=== PATIENT | male | born 1955 | race Caucasian/White ===

== ENCOUNTER 2022-06-15 10:19 | Inpatient (IN) | payer BC, OTHER ==
[2022-06-15] VITALS (16 sets, daily range): BP systolic 73–138; BP diastolic 38–76
[~2022-06-15] VITALS: Ht 177.8 cm; Wt 74.8 kg
--- NOTE | 2022-06-15 10:35 | NUR ---
TENNILLE FLORES SENT TO LAB AND MRSA SWAB SENT
[2022-06-15] MEDS ORDERED: LOSA50TA39 PO (10:40)
[2022-06-15] MEDS ORDERED: FENO160T PO (10:40)
[2022-06-15] MEDS ORDERED: LEVO112T2 PO (10:40)
[2022-06-15] MEDS ORDERED: BACL10TA PO (10:40)
[2022-06-15] MEDS ORDERED: PANT40TA2 PO (10:40)
[2022-06-15] MEDS ORDERED: DOCU-141 PO (10:40)
[2022-06-15] MEDS ORDERED: CLON1TAB12 PO (10:40)
[2022-06-15] MEDS ORDERED: SERT100T PO (10:40)
[2022-06-15] MEDS ORDERED: TAMS-12 PO (10:40)
[2022-06-15] MEDS ORDERED: MIRT7.5T10 PO (10:40)
[2022-06-15] MEDS ORDERED: OMEP20CA15 PO (10:40)
[2022-06-15] MEDS ORDERED: FINA5TAB11 PO (10:40)
[2022-06-15] MEDS ORDERED: TIZA4TAB5 PO ×2 (10:40)
[2022-06-15] MEDS ORDERED: RILU50TA4 PO (10:40)
[2022-06-15] MEDS ORDERED: GLYC2TAB21 PO (10:40)
[2022-06-15] MEDS ORDERED: POLY17PO4 PO (10:40)
[2022-06-15] MEDS ORDERED: BUPR75TA8 PO (10:40)
[2022-06-15] MEDS ORDERED: MELA3TAB41 PO (10:40)
[2022-06-15] MEDS ORDERED: ATOR10TA PO (10:40)
[2022-06-15] MEDS ORDERED: CHOL100043 PO (10:40)
[2022-06-15] MEDS ORDERED: ALLO300T2 PO (10:40)
[2022-06-15] MEDS ORDERED: ASPI-1169 PO (10:40)
[2022-06-15] MEDS ORDERED: SILO4CAP3 PO (10:58)
[2022-06-15] MEDS ORDERED: TUDCA PO (10:58)
[2022-06-15] MEDS ORDERED: [UNRECOGNIZED DRUG - CODE] PO (10:58)
--- NOTE | 2022-06-15 11:00 | NUR ---
[id number] FROM HOME, FOUND IN THE FLOOR, ALTERED AND IN RESPIRATORY DISTRESS. PLACED ON BED, RESPONDING TO VERBAL STIMULI, ATTACHED TO MONITOR SATURATING AT 90%RA. BLOOD DONOR RECRUITER AT BED SIDE ATTACHED TO VENTILATOR AC/PRVC- [id number]%, VT-500, RATE-16, PEEP-5 SATURATING AT 99%.
--- NOTE | 2022-06-15 11:01 | NUR ---
rt note patient received via EMS. open stoma, shiley 8dct cuffed inserted per dr. villela orders. trach tube patent and secure. equal bilateral chest rise and adequate volumes. vent settings as charted. [facility] bedside. vent alarms on and audible. vent plugged in red outlet. will continue to monitor. Addendum: 06/15/22 at 1104 by SIA SOLORZANO RT Amended: Links added.
--- NOTE | 2022-06-15 11:08 | NUR ---
RT Family member at bedside refusing ABG procedure. ABG currently on hold- MD Mariah collins.
[2022-06-15 11:30] LABS: BASOPHILS % (AUTO) 0.5 % (0.0-2.0); HEMATOCRIT 36 % (39-51); HEMOGLOBIN 11.4 g/dL (13.5-17.5); LYMPHOCYTES # (AUTO) 0.1 K/uL (0.8-4.8); LYMPHOCYTES % (AUTO) 1.1 % (20.0-44.0); MEAN CORPUSCULAR HGB CONC 32 g/dl (31.0-36.0); MEAN CORPUSCULAR VOLUME 94 fL (80-96); MONOCYTES # (AUTO) 0.3 K/uL (0.1-1.30); MONOCYTES % (AUTO) 4.3 % (2.0-12.0); NEUTROPHILS % (AUTO) 94.1 % (43.0-81.0); PLATELET COUNT (AUTO) 197 K/uL (150-450); RED BLOOD CELL COUNT(AUTO) 3.79 MIL/uL (4.5-6.0); WHITE BLOOD COUNT (AUTO) 6.4 K/uL (4.3-11.0)
[2022-06-15 11:40] LABS: BILIRUBIN,URINE NEGATIVE (NEGATIVE); COLOR,URINE YELLOW (YELLOW); LEUKOCYTE ESTERASE ,URINE NEGATIVE (NEGATIVE); NITRITE, URINE NEGATIVE (NEGATIVE); PROTEIN,URINE 30 mg/dl (NEGATIVE); UGLUCOSE NEGATIVE (NEGATIVE); UROBILINOGEN,URINE 0.2 EU/dL (0.2)
[2022-06-15 12:14] LABS: BACTERIA,URINE None seen /HPF (None Seen); SQUAMOUS EPITHELIAL CELL,UR Rare /HPF (None Seen); WBC,URINE 0-2 /HPF (0-3)
[2022-06-15 12:22] LABS: ALANINE AMINOTRANSFERASE 26 U/L (12-78); ALKALINE PHOSPHATASE 32 U/L (46-116); ASPARTATE AMINOTRANSFERASE 16 U/L (15-37); BILIRUBIN,DIRECT 0.1 mg/dL (0.0-0.2); BILIRUBIN,TOTAL 0.3 mg/dL (0.2-1.0); CALCIUM, SERUM 9.3 mg/dL (8.5-10.1); CHLORIDE 104 mmol/L (98-107); GLUCOSE 136 mg/dL (74-106); POTASSIUM 5.2 mmol/L (3.5-5.1); SODIUM SERUM 151 mmol/L (136-145); TOTAL PROTEIN, SERUM 7.1 g/dL (6.4-8.2); UREA NITROGEN, BLOOD 22 mg/dL (7-18)
[2022-06-15 12:24] LABS: CARBON DIOXIDE 44 mmol/L (21-32)
[2022-06-15] MEDS ORDERED: IV NS 0.9% 1,000 ML BAG IV ONE (12:30)
--- NOTE | 2022-06-15 12:40 | NUR ---
room [facility]
--- NOTE | 2022-06-15 12:56 | NUR ---
REPORT GIVEN TO CHELI RN ROOM 252 FOR DONAVON
[2022-06-15 13:53] LABS: ABG BASE EXCESS 14.3 mmol/L; ABG OXYGEN SATURATION 99.8 % (92.0-98.5); ABG PCO2 54.4 mmHg (35.0-45.0); ABG PH 7.481 (7.350-7.450); ABG PO2 419.8 mmHg (75.0-100.0); AaDO2 238.8 mmHg; MetHb 0.2 % (0.0-1.5); O2Hb 96.6 % (94.0-97.0); SITE, ABG Left Radial; VENT MODE, BG AC 16 500 100% +5
[2022-06-15] MEDS ORDERED: MAG HYDROX/AL HYDROX/SIMETH 30 ML UDC PO PRN (14:00)
[2022-06-15] MEDS ORDERED: ACETAMINOPHEN 325 MG TABLET PO PRN (14:00)
[2022-06-15] MEDS ORDERED: ONDANSETRON HCL/PF 4 MG/2 ML VIAL IVP PRN (14:00)
[2022-06-15] MEDS ORDERED: Z GUARD REMEDY 4 OZ OINT TP PRN (14:00)
[2022-06-15] MEDS ORDERED: IV D5/0.45 NACL 1,000 ML IV PRN (14:00)
[2022-06-15] MEDS ORDERED: MAGNESIUM HYDROXIDE 30 ML UDC PO PRN (14:00)
[2022-06-15] MEDS ORDERED: IV NS 0.9% 500 ML BAG IV ONE (15:00)
[2022-06-15] MEDS: ZOSYN IVPB 3.375 G in IV D5W 50ml IV SCH ×2 (15:01→22:19)
[2022-06-15] MEDS: ENOXAPARIN SODIUM 40 MG/0.4 ML DISP.SYRIN SQ SCH (15:11)
[2022-06-15] MEDS: NOREPINEPHRINE 8 MG in IV NS 0.9% 242 ML IV PRN (17:12)
[2022-06-15] MEDS ORDERED: VANCOMYCIN 1.25 GM in IV D5W 250 ML IV ONE (20:00)
[2022-06-15] MEDS ORDERED: EDAR30PI IV (20:06)
[2022-06-15] MEDS ORDERED: RADICAVA XX PRN (21:00)
[2022-06-15] MEDS: D5W IV SCH ×2 (21:00→22:11)
--- NOTE | 2022-06-15 21:21 | NUR ---
RT NOTE PT RECEIVED TRACHED WITH SHILEY [address] TRACH SECURED VIA TRACH TIE. ANOTHER TRACH TIE USED TO SECURE OMNI FLEX IN PLACE. PT AWAKE/ALERT. FAMILY @ BEDSIDE. VENT PLUGGED TO RED OUTLET. ALARMS ON AND AUDIBLE. NO RESPIRATORY DISTRESS NOTED. WILL MONITOR PT CLOSELY. TRACH TIE SEEMS TO BE HOLDING TRACH IN PLACE.
[2022-06-15] MEDS: HYDROCORTISONE SOD SUCCINATE 100 MG/2 ML VIAL IV SCH ×2 (22:19→22:20)
[2022-06-16] VITALS (96 sets, daily range): BP systolic 45–142; BP diastolic 19–85
[2022-06-16] MEDS: IV D5/0.45 NACL 1,000 ML IV PRN ×3 (01:07→20:07)
--- NOTE | 2022-06-16 01:09 | NUR ---
CAP COVERER. RECEIVED THE PT REST IN BED. TRACH TO VENT CONNECTED. JERI#7. AC 12, TV 450, FIO2 40%.PEEP 5. SAT 98%. NO ACUTE DISTRESS NOTED. FOOD AND NUTRITION SUPERVISOR SHOWING NSR. IV LT UPPER ARM EDUARDO CATH. LEVOPHED 0.1MCG /KG/MIN. IVF D51/2NS 125 ML/H. FC PATENT URINE HEMATURIA, DRAINING. HOB ELEAVTED. GT INTACT. NOP EXCEPT MEDS, TRACHEL SITE LEAKING. NOTED. MD LUONG MADE AWARE. ORDERED STOMA SITE SUTURE. PT BROTHER REFUSED TO DO THE SUTURE. PT BROTHER WANTS TO GIVE WATER ORALLY. PT HAS GT. I STATED TOMORROW SWALLOW EVALUATION. PT BROTHER REFUSED SWALLOW EVALUATION. WILL CONTINUE TO MONITOR VITALS.
--- NOTE | 2022-06-16 01:25 | NUR ---
RN NOTE RECEIVED PT WITH TRACH CONNECTED TO VENT AC 12 TV 450 FIO2 40% P5. NOT IN ANY DISTRESS. PT OPEN EYES TO VERBAL STIMULI. ON LEVOPHED AT 0.1MCG/KG/MIN AND D51/2 NS AT 125ML/HR, INFUSING WELL. KEANE IN PLACE, NOTED HEMATURIA. WILL CONTINUE TO MONITOR.
[2022-06-16] MEDS: ZOSYN IVPB 3.375 G in IV D5W 50ml IV SCH ×4 (03:04→22:26)
[2022-06-16 04:26] LABS: BASOPHILS % (AUTO) 0.1 % (0.0-2.0); EOSINOPHILS % (AUTO) 0.1 % (0.0-6.0); HEMATOCRIT 29 % (39-51); HEMOGLOBIN 9.6 g/dL (13.5-17.5); LYMPHOCYTES # (AUTO) 0.7 K/uL (0.8-4.8); LYMPHOCYTES % (AUTO) 9.1 % (20.0-44.0); MEAN CORPUSCULAR HGB CONC 34 g/dl (31.0-36.0); MEAN CORPUSCULAR VOLUME 91 fL (80-96); MONOCYTES # (AUTO) 0.6 K/uL (0.1-1.30); MONOCYTES % (AUTO) 8.5 % (2.0-12.0); NEUTROPHILS # (AUTO) 6.1 K/uL (1.8-8.9); NEUTROPHILS % (AUTO) 82.2 % (43.0-81.0); PLATELET COUNT (AUTO) 193 K/uL (150-450); RED BLOOD CELL COUNT(AUTO) 3.13 MIL/uL (4.5-6.0); WHITE BLOOD COUNT (AUTO) 7.4 K/uL (4.3-11.0)
[2022-06-16 04:45] LABS: CALCIUM, SERUM 8.6 mg/dL (8.5-10.1); CREATININE 1.1 mg/dL (0.6-1.3); MAGNESIUM 1.7 mg/dL (1.8-2.4); PHOSPHORUS 2.6 mg/dL (2.5-4.9)
[2022-06-16] MEDS: VANCOMYCIN 1 GM in IV D5W 250 ML IV SCH ×2 (05:20→17:47)
[2022-06-16] MEDS: HYDROCORTISONE SOD SUCCINATE 100 MG/2 ML VIAL IV SCH ×3 (05:20→21:10)
[2022-06-16] MEDS: NOREPINEPHRINE 8 MG in IV NS 0.9% 242 ML IV PRN (06:27)
--- NOTE | 2022-06-16 06:59 | NUR ---
RN NOTE PT SLEEPING, AROUSES EASILY, ALERT, FOLLOW SOME COMMANDS. TOLERATES VENT SETTINGS, NO RESP DISTRESS NOTED. O2 SAT AT 100%. CONTINUE ON LEVOPHED DRIP, TITRATED PER PROTOCOL, RUNNING 0.06MCG/KG/MIN. D5 1/2 NS RUNNING AT 125 ML/HR. KEANE NOW DRAINING CLEAR YELLOW. TURNED AND REPOSITIONED. WILL ENDORSE TO NEXT SHIFT NURSE FOR DONAVON.
--- NOTE | 2022-06-16 07:30 | NUR ---
RN OPENING NOTE PT OBSERVED IN BED WITH HOB >30 DEGREES. PT ENDORSED A/0X2 PT IS ON MECHANICAL VENT WITH ALL PRESCRIBED SETTINGS TOLERATING WELL WITH NO SIGNS OF LABORED BREATHING OR DISTRESS O2 SAT 99%. FC IS IN PLACE DRAINING URINE TO GRAVITY. IV ACCESS R UA INFUSING WITH D5@125ML/HR AND LEVO @ 0.06MCG. BED IS LOCKED IN LOWEST POSITION X 2 BEDRAILS UP AND ALL HOSPITAL SAFETY PROTOCOLS ARE IN PLACE. WILL CONTINUE TO MONITOR THIS SHIFT.
[2022-06-16] MEDS ORDERED: Magnesium 1GM/D5W 100ML PREMIX 100 ML IV SCH (08:00)
[2022-06-16] MEDS ORDERED: IV NS 0.9% 250 ML IV PRN (08:30)
[2022-06-16 09:31] LABS: ABG BASE EXCESS 10.4 mmol/L; ABG OXYGEN SATURATION 99.5 % (92.0-98.5); ABG PCO2 51.4 mmHg (35.0-45.0); ABG PH 7.458 (7.350-7.450); ABG PO2 128.3 mmHg (75.0-100.0); AaDO2 97.8 mmHg; MetHb 0.1 % (0.0-1.5); O2Hb 96.4 % (94.0-97.0); PEEP,BG 5 cm H2O; SITE, ABG Right Radial; VT, ABG 450 mL
[2022-06-16] MEDS: JEVITY 1.2 CAL 1,000 ML BOTTLE GT PRN (11:56)
--- NOTE | 2022-06-16 12:00 | NUR ---
RN NOTE: TF JEVITY 1.2 STARTED AT 20ML/HR; ADVANCE Q4H +15ML/HR TOLERATED; GOAL 70ML/HR. WILL CONTINUE TO MONITOR THIS SHIFT.
[2022-06-16] MEDS: ENOXAPARIN SODIUM 40 MG/0.4 ML DISP.SYRIN SQ SCH (13:54)
--- NOTE | 2022-06-16 19:14 | NUR ---
RN CLOSING NOTE PT IS IN BED WITH HOB >30 DEGREES. PT IS A/0X2 AND NODS HEADS AND ANSWERS SIMPLE QUESTIONS. PT IS ON MECHANICAL VENT WITH ALL PRESCRIBED SETTINGS TOLERATING WELL WITH NO SIGNS OF LABORED BREATHING OR DISTRESS O2 SAT 98%. PEG IS INFUSING WITH JEVITY 1.2 @35ML/HR; ADVANCE Q4H +15ML TOLERATED; GOAL OF 70ML/HR. FC IS IN PLACE DRAINING URINE TO GRAVITY -1350ML. IV ACCESS R UA INFUSING WITH D5@125ML/HR AND LEVO @ 0.01MCG. BED IS LOCKED IN LOWEST POSITION X 2 BEDRAILS UP AND ALL HOSPITAL SAFETY PROTOCOLS ARE IN PLACE. WILL ENDORSE TO KEY ACCOUNT COORDINATOR NURSE FOR DONAVON.
--- NOTE | 2022-06-16 19:55 | NUR ---
RN NOTE RECEIVED PT WITH TRACH CONNECTED TO MECHVENT. PT AWAKE ALERT, PT MOUTHING WORDS. FAMILY AT BEDSIDE. NO SIGNS OF DISTRESS NOTED. PEG TUBE IN PLACE, WITH JEVITY FEEDING AT 35ML/HR, WITH GOAL RATE OF 70ML/HR. NO RESIDUALS NOTED, INCREASED FEEDING RATE TO 50ML/HR. ON LEVOPHED AT 0.01MCG/KG/MIN AND D5 1/2NS AT 125ML/HR, INFUSING WELL. KEANE DRAINING CLEAR YELLOW URINE BY GRAVITY. WILL CONTINUE TO MONITOR.
--- NOTE | 2022-06-16 20:00 | NUR ---
RT Notes Pt received trached w/ Shiley #8 cuffed on mech vent on charted AC mode settings. No signs of resp distress/SOB noted. Pt suctioned and obtained sputum for sputum culture. Alarms set and audible. Vent plugged into red outlet. Ambubag at bedside. Will cont to monitor.
[2022-06-16] MEDS: D5W IV SCH ×2 (21:10→22:01)
[2022-06-17] VITALS (45 sets, daily range): BP systolic 91–155; BP diastolic 43–93
--- NOTE | 2022-06-17 00:10 | NUR ---
RN NOTE PT TOLERATING GT FEEDING, NO RESIDUALS, INCREASED RATE TO 70ML/HR GOAL RATE. KEPT HOB ELEVATED. LEVOPHED DRIP STOPPED AT 2345, BP WNL. WILL CONTINUE TO MONITOR.
[2022-06-17] MEDS: ZOSYN IVPB 3.375 G in IV D5W 50ml IV SCH ×4 (03:30→20:35)
[2022-06-17] MEDS: HYDROCORTISONE SOD SUCCINATE 100 MG/2 ML VIAL IV SCH (04:47)
[2022-06-17 05:31] LABS: BASOPHILS % (AUTO) 0.1 % (0.0-2.0); EOSINOPHILS % (AUTO) 0.1 % (0.0-6.0); HEMATOCRIT 27 % (39-51); HEMOGLOBIN 9.1 g/dL (13.5-17.5); LYMPHOCYTES % (AUTO) 5.5 % (20.0-44.0); MEAN CORPUSCULAR HGB CONC 33 g/dl (31.0-36.0); MEAN CORPUSCULAR VOLUME 91 fL (80-96); MONOCYTES % (AUTO) 4.5 % (2.0-12.0); NEUTROPHILS % (AUTO) 89.8 % (43.0-81.0); PLATELET COUNT (AUTO) 159 K/uL (150-450); WHITE BLOOD COUNT (AUTO) 4.2 K/uL (4.3-11.0)
[2022-06-17 05:32] LABS: LYMPHOCYTES # (AUTO) 0.2 K/uL (0.8-4.8); MONOCYTES # (AUTO) 0.2 K/uL (0.1-1.30); NEUTROPHILS # (AUTO) 3.8 K/uL (1.8-8.9)
[2022-06-17] MEDS: IV D5/0.45 NACL 1,000 ML IV PRN ×3 (05:51→23:52)
[2022-06-17 06:03] LABS: CALCIUM, SERUM 8.7 mg/dL (8.5-10.1); CREATININE 1.1 mg/dL (0.6-1.3); MAGNESIUM 1.8 mg/dL (1.8-2.4); PHOSPHORUS 3.2 mg/dL (2.5-4.9); POTASSIUM 3.2 mmol/L (3.5-5.1)
[2022-06-17] MEDS: VANCOMYCIN 1 GM in IV D5W 250 ML IV SCH ×2 (06:39→17:51)
--- NOTE | 2022-06-17 07:15 | NUR ---
CRACKING MACHINE OPERATOR Bedside report taken from [facility] nurse Cynthia GUTIERREZ. pt has trach to vent, tolerating well, pt awake, alert and oriented, mouths words, follows commands, moves bue and ble 4/5. fio2 40% spo2 98%, beulah lung sounds clear. pt NSR on monitor 62, bue and ble pulses present. pt has peg, pt receiving Jevity 1.2 @ 70 ml/hr, tolerating well. bowel sounds present. positive placement verified. abdomen soft, nondistended. pt has galindo intact and draining ryan colored urine. all lines traced. all drips verified. safety measures in place. will continue to monitor
--- NOTE | 2022-06-17 07:18 | NUR ---
RN NOTE PT ABLE TO MAKE NEEDS KNOWN. CONTINUE WITH VENT SETTINGS ON AC MODE, TOLERATING. NO SIGNS OF RESP DISTRESS. PT TOLERATES GT FEEDING AT 70ML/HR, NO RESIDUALS NOTED. KEPT HOB ELEVATED. REMAIN AFEBRILE. ALL DUE MEDS GIVEN, TURNED AND REPOSITIONED. ENDORSED TO BEN FOR DONAVON.
--- NOTE | 2022-06-17 07:48 | NUR ---
LINE UP EXAMINER Dr Healy at bedside assessing pt and updated on pt status. no new orders at this time. will continue to monitor.
--- NOTE | 2022-06-17 08:00 | NUR ---
GLOBAL SALES MANAGER Pt placed on weaning trial. pt awake, alert and oriented. tolerating well. vitals stable. will continue to monitor.
[2022-06-17] MEDS: POTASSIUM CL. PREMIX PERIPHER. 50 ML IV SCH ×4 (08:03→11:30)
[2022-06-17 08:07] LABS: ABG BASE EXCESS -0.5 mmol/L; ABG OXYGEN SATURATION 98.5 % (92.0-98.5); ABG PCO2 38.6 mmHg (35.0-45.0); ABG PH 7.411 (7.350-7.450); ABG PO2 152.1 mmHg (75.0-100.0); AaDO2 522.3 mmHg; COHb 0.3 % (0.5-1.5); MetHb 0.2 % (0.0-1.5); SITE, ABG Left Radial
--- NOTE | 2022-06-17 08:24 | NUR ---
PHARMACY INTAKE TECHNICIAN Dr Boyd at bedside assessing pt and updated on pt status. no new orders at this time. will continue to monitor.
--- NOTE | 2022-06-17 08:45 | NUR ---
MECHANICAL INSULATOR pt complains of difficulty breathing. pt spo2 98%, pt anxious. pt suctioned, small amount thick white secretions. RT called and at bedside pt placed back on AC vent settings, charge nurse Jesus RN aware. no signs of acute distress at this time.
--- NOTE | 2022-06-17 08:50 | NUR ---
OPTOMETRIC COORDINATOR Pt brother Kenny [phone] called and updated on pt condition and weaning trial status. brother requested to come to bedside per pt. bother to come shortly.
--- NOTE | 2022-06-17 08:51 | NUR ---
CONSUMER EDUCATOR Dr Boyd at bedside assessing pt and updated on pt status. md aware that pt weaning from 8:00 am- 08:45 am complaining of difficulty breathing but spo2 98%, RT called to bedside and pt placed back on AC vent settings. ok per md. Per md once brother is at bedside place pt back on weaning trial to see if he is able to tolerate weaning for a longer period of time. no other orders at this time. Charge nurse Jesus GUTIERREZ aware.
--- NOTE | 2022-06-17 11:21 | NUR ---
PRE PAROLE COUNSELING AIDE Mining [employer] Quarrying Machinery Repairer Gavi Vergara called per pt family request to follow up on documents for out of country visitors, message left, call back number left. charge nurse, pt and pt family aware. awaiting call back.
--- NOTE | 2022-06-17 12:56 | NUR ---
SS Note: Per family's request, SW provided verification of admission letter for family member to come to the [place] to see their father/patient.SW spoke to the pt.'s son, Kendrick Mckinney [phone] on 06/17/2022 and discussed loss and grief symptoms and coping skills. SW provided completed letter today to family, [place] [phone]. SW also provided grief support group referrals, educational material on stages of loss and grief and also resources for [employer].
[2022-06-17] MEDS: ENOXAPARIN SODIUM 40 MG/0.4 ML DISP.SYRIN SQ SCH (14:50)
--- NOTE | 2022-06-17 15:28 | NUR ---
CLAIMS COUNSEL Dr Healy messaged per pt request for anxiety medication. verbal order for ativan 0.5 ml iv q6 entered per md order and witnessed with charge nurse Jesus GUTIERREZ.
[2022-06-17] MEDS: LORAZEPAM INJ 2 MG/ML VIAL IV PRN ×2 (15:43→22:16)
--- NOTE | 2022-06-17 17:14 | NUR ---
GAMBLING BOX PERSON pt had bm, pt bathed and cleaned. linen change done. skin check done, no new wounds noted, skin intact. pt able to turn and hold himself to the side and assist with bath in bed. pt tolerated well but was anxious, pt desaturated to 92% was not sustained and increased back to 98%. trach dressing changed per protocol. all lines traced. all drips verified. safety measures in place. at bedside. will continue to monitor.
--- NOTE | 2022-06-17 19:09 | NUR ---
BOX TRUCK DRIVER Bedside report given to [facility] nurse Ari GUTIERREZ. Pt asleep, easily arousable. pt has trach to vent, tolerating well but has moments of anxiety. pt clean and dry. all lines traced. all drips verified. safety measures in place. no signs of acute distress at this time.
--- NOTE | 2022-06-17 19:50 | NUR ---
RN NOTES RECEIVED CARE OF PATIENT FROM AM NURSE, PATIENT IS AWAKE, ALERT AND ORIENTED, ABLE TO FOLLOW COMMANDS AND MAKE NEEDS KNOWN, PATIENT ABLE TO MOUTH WORDS. PATIENT UNDER MECHANICAL VENTILATION WITH ORDERED SETTINGS TOLERATING WELL, BREATHING EVENLY AND UNLABORED, SUCTIONED SMALL AMOUNTS OF WHITE SECRETIONS FROM TRACH. PATIENT ON TELE MONITOR READING NSR WITH BBB, HR F 69, NO SIGNS OF DISTRESS NOTED. PATIENT RUNNING WITH JEVITY 1.2 AT 70 ML/HR, NO RESIDUAL NOTED. KEANE CATH IN PLACE, PATENT, DRAINING YELLOW URINE TO GRAVITY. PLAN OF CARE REVIEWED, SAFETY MEASURES IMPLEMENTED. WILL EXECUTE PLAN OF CARE AND CONTINUE TO MONITOR PATIENT.
--- NOTE | 2022-06-17 20:07 | NUR ---
RECEIVED PT TRACH ON [facility] VENT. PT IS AWAKE AND ALERT NO RESP DISTRESS NOTED. PT REFUSED TO BE SUCTION AT THIS TIME. VENT ALARMS SET AND AUDIBLE. AMBU BAG AT BEDSIDE. TRACH SECURE, CUFF CHECKED. WILL CONTINUE TO MONITOR. Addendum: 06/17/22 at 2010 by WILLIAM MARQUEZ RT Amended: Links added.
[2022-06-17] MEDS ORDERED: HYDROCORTISONE SOD SUCCINATE 100 MG/2 ML VIAL IV SCH (21:00)
[2022-06-17] MEDS: D5W IV SCH ×2 (21:12→22:30)
--- NOTE | 2022-06-17 22:30 | NUR ---
RN NOTES PATIENT BECAME EXTREMELY AGITATED AFTER HAVING RECEIVED A BED BATH, PATIENT ATTEMPTING TO GET OUT OF BED, NON COMPLIANT, PATIENT WAS INSTRUCTED TO LAY BACK IN BED. PATIENT REFUSED AND PULLED OUT TRACH AND SELF EXTUBATED, RT WAS PRESENT AT THIS TIME. RT PUT TRACH BACK IN PLACE IMMEDIATELY. PATIENT'S BROTHER WAS NOTIFIED, HOSPITALIST MACHINE TOOL BUILDER NOTIFIED, ORDER IS TO PLACE PATIENT ON SOFT BILATERAL WRIST RESTRAINS, PATIENT'S BROTHER AGREES WITH NEW ORDERS. ATIVAN 0.5 MG PRN WAS GIVEN FOR AGGITATION AND ANXIETY.
[2022-06-17] MEDS: JEVITY 1.2 CAL 1,000 ML BOTTLE GT PRN (23:52)
[2022-06-18] VITALS (24 sets, daily range): BP systolic 83–120; BP diastolic 35–71
[2022-06-18] MEDS: ZOSYN IVPB 3.375 G in IV D5W 50ml IV SCH ×4 (03:06→21:07)
[2022-06-18 05:06] LABS: EOSINOPHILS % (AUTO) 0.1 % (0.0-6.0); HEMATOCRIT 29 % (39-51); HEMOGLOBIN 9.4 g/dL (13.5-17.5); LYMPHOCYTES # (AUTO) 0.2 K/uL (0.8-4.8); LYMPHOCYTES % (AUTO) 3.7 % (20.0-44.0); MEAN CORPUSCULAR HGB CONC 33 g/dl (31.0-36.0); MEAN CORPUSCULAR VOLUME 92 fL (80-96); MONOCYTES # (AUTO) 0.3 K/uL (0.1-1.30); MONOCYTES % (AUTO) 4.7 % (2.0-12.0); NEUTROPHILS # (AUTO) 5.6 K/uL (1.8-8.9); NEUTROPHILS % (AUTO) 91.5 % (43.0-81.0); PLATELET COUNT (AUTO) 179 K/uL (150-450); RED BLOOD CELL COUNT(AUTO) 3.12 MIL/uL (4.5-6.0); WHITE BLOOD COUNT (AUTO) 6.1 K/uL (4.3-11.0)
[2022-06-18 05:21] LABS: CALCIUM, SERUM 8.8 mg/dL (8.5-10.1); CREATININE 1.2 mg/dL (0.6-1.3); MAGNESIUM 1.9 mg/dL (1.8-2.4); PHOSPHORUS 4.1 mg/dL (2.5-4.9); POTASSIUM 3.8 mmol/L (3.5-5.1)
[2022-06-18] MEDS: VANCOMYCIN 1 GM in IV D5W 250 ML IV SCH ×2 (06:02→18:15)
--- NOTE | 2022-06-18 06:27 | NUR ---
RN NOTES WILL ENDORSE CARE OF PATIENT TO AM NURSE, PATIENT IN BED, ANXIOUS WITH INTERMITTENT SLEEP. REPOSITIONED PATIENT FOR COMFORT, NO PAIN EXPRESSED BY PATIENT. PATIENT WITH TRACH ON MECHANICAL VENTILATION WITH ORDERED SETTINGS, TOLERATING WELL, O2 SAT 99%. PATIENT' TELE MONITOR READS NSR WITH HR OF 66, NO DISTRESS NOTED ON PATIENT. PATIENT EDUCATION PROVIDED ON IMPORTANCE OF COMPLIANCE WITH MEDICAL CARE, PLAN OF CARE REVIEWED WITH PATIENT, PATIENT NEEDS FURTHER EDUCATION. SAFETY MEASURES IMPLEMENTED PER HOSPITAL PROTOCOLS. WILL ENDORSE CARE OF PATIENT TO AM NURSE FOR DONAVON.
--- NOTE | 2022-06-18 08:48 | NUR ---
RN/ICU PT FOUND AWAKE AND ALERT A/O X4 ADMITTED FOR RESPIRATORY FAILURE. O2 SAT 98% NO S/S OF RESPIRATORY DISTRESS. BREATHING IS EVEN AND UNLABORED. CHANGED TO CPAP PER DOCTOR PELEGS ORDERS TOLERATING WELL. BEDSIDE MONITOR SHOWS SR @65 KEANE CATHETER DRAINING YELLOW URINE. OFF RESTRAINS TRIAL AND CLOSELY MONITORING GLAZIER STRUCTURAL GLASS REPORTED THERE WAS AN EPISODE OF AGITATION AND THE PT DECANNULATED HIMSELF. PT IS CONTENT WITH BM'S AND BEDPAN. RAMIREZ PORTACATH RUNNING TKO AND FLUIDS. LABS REVIEWED ALL LABS WNL. HOB ELVATED TO 45 DEGREES PT HAS CALL LIGHT WITHIN REACH WILL CONTINUE TO MONITOR.
--- NOTE | 2022-06-18 09:09 | NUR ---
RESPIRATIONS ON CPAP WERE NOT SUFFICIENT, PT PLACED BACK ON AC
--- NOTE | 2022-06-18 09:16 | NUR ---
ABG DEFERRED. PT DID NOT TOLERATE CPAP TRIAL RN NOTIFIED
[2022-06-18] MEDS: ENOXAPARIN SODIUM 40 MG/0.4 ML DISP.SYRIN SQ SCH (13:35)
[2022-06-18 14:33] LABS: ABG BASE EXCESS 8.4 mmol/L; ABG OXYGEN SATURATION 98.9 % (92.0-98.5); ABG PCO2 41.5 mmHg (35.0-45.0); ABG PH 7.508 (7.350-7.450); ABG PO2 114.2 mmHg (75.0-100.0); AaDO2 123.3 mmHg; COHb 2.4 % (0.5-1.5); MetHb 0.1 % (0.0-1.5); O2Hb 96.4 % (94.0-97.0); SITE, ABG Right Radial
--- NOTE | 2022-06-18 19:10 | NUR ---
RN NOTES RECEIVED REPORT FROM MORNING RN. PATIENT IN CHAIR AWAKE A/O X4 MOUTH WORDS NO SOB NO DISTRESS NOTED AT THIS TIME O2 SAT 98%. BREATHING IS EVEN AND UNLABORED.ON TRACH CONNECTED TO MV WITH PRESCRIBED SETTINGS. BEDSIDE MONITOR SHOWS SR@ 78. KEANE CATHETER PATENT CONNECTED TO URINE BAG DRAINING YELLOW URINE. WITH GT PATENT CONNECTED TO CONTINUOS FEEDING JEVITY@ 70ML/HR. WITH IV ACCESS RAMIREZ TIFFANY CATH RUNNING TKO AND FLUIDS. HOB ELEVATED TO 45 DEGREES, ALL SAFETY MEASURES IN PLACE AT ALL TIMES HAS CALL LIGHT WITHIN REACH WILL CONTINUE TO MONITOR PATIENT.
--- NOTE | 2022-06-18 20:05 | NUR ---
RN NOTES RECEIVED CALL FROM DR SLADE TO DEON GOODWIN. Addendum: 06/18/22 at 2206 by CORY LIM RN ADDENDUM WRONG PATIENT.
[2022-06-18] MEDS: D5W IV SCH ×2 (21:07→21:36)
[2022-06-19] VITALS (19 sets, daily range): BP systolic 93–186; BP diastolic 26–127
[2022-06-19] MEDS: JEVITY 1.2 CAL 1,000 ML BOTTLE GT PRN ×2 (00:18→20:18)
[2022-06-19] MEDS: ZOSYN IVPB 3.375 G in IV D5W 50ml IV SCH ×4 (02:31→21:29)
[2022-06-19 04:15] LABS: BASOPHILS % (AUTO) 0.4 % (0.0-2.0); EOSINOPHILS % (AUTO) 2.2 % (0.0-6.0); HEMATOCRIT 27 % (39-51); LYMPHOCYTES # (AUTO) 0.5 K/uL (0.8-4.8); LYMPHOCYTES % (AUTO) 10.6 % (20.0-44.0); MEAN CORPUSCULAR HGB CONC 33 g/dl (31.0-36.0); MEAN CORPUSCULAR VOLUME 92 fL (80-96); MONOCYTES # (AUTO) 0.3 K/uL (0.1-1.30); MONOCYTES % (AUTO) 7.3 % (2.0-12.0); NEUTROPHILS # (AUTO) 3.7 K/uL (1.8-8.9); NEUTROPHILS % (AUTO) 79.5 % (43.0-81.0); PLATELET COUNT (AUTO) 160 K/uL (150-450); RED BLOOD CELL COUNT(AUTO) 2.96 MIL/uL (4.5-6.0); WHITE BLOOD COUNT (AUTO) 4.7 K/uL (4.3-11.0)
[2022-06-19 04:52] LABS: CALCIUM, SERUM 9.2 mg/dL (8.5-10.1); CREATININE 1.4 mg/dL (0.6-1.3); MAGNESIUM 1.7 mg/dL (1.8-2.4); PHOSPHORUS 4.4 mg/dL (2.5-4.9); POTASSIUM 3.5 mmol/L (3.5-5.1)
[2022-06-19] MEDS: VANCOMYCIN 1 GM in IV D5W 250 ML IV SCH (05:48)
--- NOTE | 2022-06-19 07:06 | NUR ---
RN NOTES PATIENT REMAINS STABLE NO SIGNIFICANT CHANGES NO SOB NO DISTRESS NOTED AT THIS TIME.. WITH TRACH CONNECTED TO MV WITH PRESCRIBED SETTINGS. GT PATENT CONNECTED TO CONTINUOS GTF @ 70CC/HR. KEANE PATENT DRAINING YELLOWISH URINE OUTPUT. WITH PORT CATH RAMIREZ INTACT PATENT. ALL SAFETY MEASURES IN PLACE AT ALL TIMES. HOB ELEVATED. CALL LIGHT WITHIN REACH. WILL ENDORSED TO MORNING SHIFT FOR DONAVON
--- NOTE | 2022-06-19 07:30 | NUR ---
OPENING NOTE: REPORT RECEIVED FROM POLA GUTIERREZ. ORDERS AND LABS REVIEWED DURING REPORT. PER REPORT PT ALERT OX3. TRACH/VENT ON CPAP. PT CHECKED ON HOURLY AND PRN BY NURSING STAFF.
--- NOTE | 2022-06-19 07:38 | NUR ---
pt placed on cool aerosol 28% per md order. avni well at this time
--- NOTE | 2022-06-19 08:00 | NUR ---
PT WANTED TUBE FEEDING STOPPED AT THIS TIME. PEG TUBE FLUSHED PER MD ORDERS.
[2022-06-19] MEDS: LORAZEPAM INJ 2 MG/ML VIAL IV PRN (11:48)
[2022-06-19] MEDS: Magnesium 1GM/D5W 100ML PREMIX 100 ML IV SCH ×2 (11:49→14:06)
--- NOTE | 2022-06-19 13:00 | NUR ---
PT CONTINUES TO WANT PEG TUBE CLAMPED AND NOT HAVE TUBE FEEDING INFUSING. PEG TUBE FLUSHED PER MD ORDERS
[2022-06-19] MEDS: ENOXAPARIN SODIUM 40 MG/0.4 ML DISP.SYRIN SQ SCH (15:44)
--- NOTE | 2022-06-19 16:55 | NUR ---
PT TRANSFERRED TO ROOM 116-2 VIA BED USING ACLS PROTOCOL. PT SETTLED IN ROOM. BEDSIDE REPORT GIVEN TO CAROL ANN GUTIERREZ.
--- NOTE | 2022-06-19 17:08 | NUR ---
RECEIVED PATIENT IN BED, TRANSFER FROM ICU ACCOMPANIED BY NURSE BRITTON. ENDORSEMENT DONE AT BEDSIDE. PATIENT ON COOL AEROSOL, TRACH # 8, FI02 28%. NO RESPIRATORY DISTRESS NOTED. ALERT, ORIENTED X 2 AND COMMUNICATES THROUGH WRITING. PATIENT IS ACCOMPANIED BY FAMILY MEMBER. SR ON TELE MONITOR WITH HR OF 87. HAS LEFT UPPER ARM PORTACATH, PATENT AND FLUSHES WELL. KEANE CATHETER INTACT, DRAINING WITH YELLOW URINE, NO BLOOD AND NO SEDIMENTATION NOTED. GTUBE INTACT, NO RESIDUAL, FLUSHES WELL. HOB KEPT ELEVATED, CALL LIGHT WITHIN REACH, BED LOCKED AND IN LOWEST POSITION. WILL CONTINUE TO MONITOR PATIENT THE REST OF THE SHIFT.
--- NOTE | 2022-06-19 19:08 | NUR ---
RADIATION TECHNICIAN CLOSING NOTES: PATIENT IN BED, AWAKE, ALERT, ORIENTED X 2. NO RESPIRATORY DISTRESS NOTED. ON COOL AEROSOL ORDERED. SR ON TELE MONITOR. IV ACCESS ON RAMIREZ PORTACATH INTACT. KEANE CATHETER INTACT, DRAINING WITH YELLOW VIC URINE. PATIENT USED BEDSIDE COMMODE WITH ASSISTANCE. BED LOCKED AND IN LOWEST POSITION, CALL LIGHT WITHIN REACH. WILL ENDORSE TO NEXT SHIFT NURSE
--- NOTE | 2022-06-19 19:10 | NUR ---
RN NOTES RECEIVED REPORT FROM MORNING RN. PATIENT IN BED AWAKE A/O X4 MOUTH WORDS NO SOB NO DISTRESS NOTED AT THIS TIME O2 SAT 98%. BREATHING IS EVEN AND UNLABORED.ON TRACH CONNECTED TO COOL AEROSOL @ 40%. ON TELE MONITOR WITH SR @ 74. KEANE CATHETER PATENT CONNECTED TO URINE BAG DRAINING YELLOW URINE. WITH GT PATENT PATENT AND INTACT. PATIENT REFUSED FEEDING PER MORNING RN. EXPLAINED TO PATIENT RISK AND BENEFITS AND PATIENT AGREED TO TURN ON FEEDING AT NIGHT AT 70CC/HR WITH IV ACCESS RAMIREZ TIFFANY CATH RUNNING TKO. HOB ELEVATED TO 45 DEGREES, ALL SAFETY MEASURES IN PLACE AT ALL TIMES HAS CALL LIGHT WITHIN REACH WILL CONTINUE TO MONITOR PATIENT.
[2022-06-19] MEDS: D5W IV SCH ×2 (21:22→21:59)
[2022-06-20] VITALS: BP 91/63
[2022-06-20 04:00] VITALS: BP 101/75
[2022-06-20] MEDS: ZOSYN IVPB 3.375 G in IV D5W 50ml IV SCH ×4 (04:00→21:21)
[2022-06-20 06:45] LABS: BASOPHILS % (AUTO) 0.2 % (0.0-2.0); HEMATOCRIT 29 % (39-51); HEMOGLOBIN 9.6 g/dL (13.5-17.5); LYMPHOCYTES # (AUTO) 0.3 K/uL (0.8-4.8); LYMPHOCYTES % (AUTO) 6.8 % (20.0-44.0); MEAN CORPUSCULAR HGB CONC 33 g/dl (31.0-36.0); MEAN CORPUSCULAR VOLUME 92 fL (80-96); MONOCYTES # (AUTO) 0.3 K/uL (0.1-1.30); MONOCYTES % (AUTO) 6.5 % (2.0-12.0); NEUTROPHILS # (AUTO) 3.9 K/uL (1.8-8.9); NEUTROPHILS % (AUTO) 83.5 % (43.0-81.0); PLATELET COUNT (AUTO) 186 K/uL (150-450); RED BLOOD CELL COUNT(AUTO) 3.16 MIL/uL (4.5-6.0); WHITE BLOOD COUNT (AUTO) 4.6 K/uL (4.3-11.0)
[2022-06-20 06:53] LABS: CALCIUM, SERUM 9.6 mg/dL (8.5-10.1); CREATININE 1.7 mg/dL (0.6-1.3); MAGNESIUM 2.3 mg/dL (1.8-2.4); PHOSPHORUS 5.7 mg/dL (2.5-4.9); POTASSIUM 3.6 mmol/L (3.5-5.1)
[2022-06-20 08:00] VITALS: BP 101/75
--- NOTE | 2022-06-20 11:47 | NUR ---
RN NOTE PT RESTING IN BED, AWAKE ALERT AND RESPONSIVE. TRACH IN PLACE WITH VENT SETTINGS ON CPAP MODE, TOLERATED WELL. WITH IV ACCESS ON RAMIREZ PORTACATH IN PLACE AND PATENT. SAFETY MEASURES FOLLOWED. WILL CONT TO MONITOR.
[2022-06-20 12:00] VITALS: BP 94/58
[2022-06-20] MEDS: ENOXAPARIN SODIUM 40 MG/0.4 ML DISP.SYRIN SQ SCH (13:37)
[2022-06-20 16:00] VITALS: BP 107/71
--- NOTE | 2022-06-20 16:35 | NUR ---
RT Patient received awake and alert on CPAP 40% PS 20 PEEP +5. Order for cool aerosol during day shift. Patient requested to stay on vent. Suctioned small amount of thick secretions. Trach secured and patent. Back up trach and ambu bag at bedside. Vent plugged into red outlet with alarms on and audible. No SOB or respiratory distress noted.
[2022-06-20] MEDS: POLYETHYLENE GLYCOL 3350 17 GM POWD.PACK PO SCH (17:30)
[2022-06-20] MEDS ORDERED: Medication Not On Formulary EA (Mirtazapine 7.5 MG) PO SCH (18:00)
[2022-06-20] MEDS: SERTRALINE HCL 50 MG TABLET PO SCH (18:24)
[2022-06-20] MEDS: DOCUSATE SODIUM 100 MG CAPSULE PO SCH (18:25)
[2022-06-20] MEDS: TIZANIDINE HCL 4 MG TABLET PO SCH (18:25)
[2022-06-20] MEDS: BACLOFEN (10 MG) 10 MG TABLET PO SCH (18:25)
[2022-06-20] MEDS: TAMSULOSIN 0.4 MG CAP.SR.24H PO SCH (18:25)
[2022-06-20] MEDS: FINASTERIDE (5 MG) 5 MG TABLET PO SCH (18:26)
[2022-06-20] MEDS: buPROPion 75 MG TABLET PO SCH (18:26)
[2022-06-20] MEDS: MIRTAZAPINE 15 MG TABLET PO SCH (18:39)
[2022-06-20] MEDS: GLYCOPYRROLATE 1 MG TABLET PO SCH (18:39)
[2022-06-20] MEDS: LEVOTHYROXINE SODIUM 112 MCG TABLET PO SCH (18:39)
--- NOTE | 2022-06-20 19:10 | NUR ---
RN NOTES RECEIVED REPORT FROM MORNING RN. PATIENT IN BED AWAKE A/O X4 MOUTH WORDS NO SOB NO DISTRESS NOTED AT THIS TIME O2 SAT 98%. BREATHING IS EVEN AND UNLABORED.ON TRACH CONNECTED TO MV WITH PRESCRIBED SETTINGS. ON TELE MONITOR WITH SR @ 68. KEANE CATHETER PATENT CONNECTED TO URINE BAG DRAINING YELLOW URINE. WITH GT PATENT PATENT AND INTACT CONNECTED TO CONTINUOS FEEDING @ 70CC/HR PATIENT.WITH IV ACCESS RAMIREZ TIFFANY CATH RUNNING TKO. HOB ELEVATED TO 45 DEGREES, ALL SAFETY MEASURES IN PLACE AT ALL TIMES HAS CALL LIGHT WITHIN REACH WILL CONTINUE TO MONITOR PATIENT.
[2022-06-20] MEDS ORDERED: PANTOPRAZOLE 40 MG TABLET.DR PO SCH (19:30)
--- NOTE | 2022-06-20 19:32 | NUR ---
RN NOTE PT RESTING IN BED, AWAKE ALERT AND RESPONSIVE. TRACH IN PLACE WITH VENT SETTINGS ON CPAP MODE, TOLERATED WELL. WITH IV ACCESS ON RAMIREZ PORTACATH IN PLACE AND PATENT. SAFETY MEASURES FOLLOWED. WILL CONT TO MONITOR. DUE MEDICATIONS GIVEN. AM/PM CARE RENDERED. SAFETY MEASURES MAINTAINED.
[2022-06-20 20:00] VITALS: BP 100/63
[2022-06-20] MEDS: D5W IV SCH ×2 (21:20→22:02)
[2022-06-20] MEDS: clonazePAM 1 MG TABLET PO SCH (21:31)
[2022-06-20] MEDS: ATORVASTATIN 10 MG TABLET PO SCH (21:31)
[2022-06-20] MEDS ORDERED: Medication Not On Formulary EA (Melatonin 3 MG) PO SCH (22:00)
[2022-06-20] MEDS: JEVITY 1.2 CAL 1,000 ML BOTTLE GT PRN (22:28)
[2022-06-21] VITALS (7 sets, daily range): BP systolic 93–153; BP diastolic 51–82
[2022-06-21] MEDS: ZOSYN IVPB 3.375 G in IV D5W 50ml IV SCH ×2 (03:10→09:09)
[2022-06-21 06:55] LABS: CALCIUM, SERUM 9.5 mg/dL (8.5-10.1); CREATININE 1.8 mg/dL (0.6-1.3); POTASSIUM 3.5 mmol/L (3.5-5.1)
[2022-06-21] MEDS ORDERED: OMEPRAZOLE 20 MG CAPSULE.DR PO SCH (07:30)
[2022-06-21] MEDS ORDERED: Medication Not On Formulary EA (Fenofibrate 160 MG) PO SCH (09:00)
[2022-06-21] MEDS ORDERED: RILUZOLE 50 MG PO SCH (09:00)
[2022-06-21] MEDS ORDERED: Medication Not On Formulary EA (Glycopyrrolate 1 MG) PO SCH (09:00)
[2022-06-21] MEDS ORDERED: Medication Not On Formulary EA (Sertraline Hcl (Zoloft) 200 MG) PO SCH (09:00)
[2022-06-21] MEDS ORDERED: SILODOSIN 4 MG PO SCH (09:00)
[2022-06-21] MEDS: BACLOFEN (10 MG) 10 MG TABLET PO SCH ×2 (09:03→17:38)
[2022-06-21] MEDS: ALLOPURINOL 100 MG TABLET PO SCH (09:03)
[2022-06-21] MEDS: ASPIRIN 81 MG TAB.CHEW PO SCH (09:03)
[2022-06-21] MEDS: POLYETHYLENE GLYCOL 3350 17 GM POWD.PACK PO SCH ×2 (09:04→17:37)
[2022-06-21] MEDS: CHOLECALCIFEROL 1,000 UNIT TABLET (VIT D3) PO SCH (09:04)
[2022-06-21] MEDS: SERTRALINE HCL 50 MG TABLET PO SCH (09:04)
[2022-06-21] MEDS: TIZANIDINE HCL 4 MG TABLET PO SCH ×2 (09:04→17:38)
[2022-06-21] MEDS: LOSARTAN POTASSIUM 50 MG TABLET PO SCH (09:05)
[2022-06-21] MEDS: GLYCOPYRROLATE 1 MG TABLET PO SCH ×3 (09:05→17:38)
[2022-06-21] MEDS: ENOXAPARIN SODIUM 40 MG/0.4 ML DISP.SYRIN SQ SCH (09:07)
[2022-06-21] MEDS: FENOFIBRATE NANOCRYS (145 MG) 145 MG TABLET PO SCH (09:09)
[2022-06-21] MEDS: buPROPion 75 MG TABLET PO SCH ×2 (09:09→17:38)
[2022-06-21] MEDS ORDERED: CEFEPIME 1 GM in IV D5W 50 ML IV SCH (11:30)
[2022-06-21] MEDS: LORAZEPAM INJ 2 MG/ML VIAL IV PRN (12:20)
[2022-06-21] MEDS: CEFEPIME 2 GM in IV D5W 100 ML IV SCH ×2 (12:55→23:50)
[2022-06-21] MEDS: LEVOTHYROXINE SODIUM 112 MCG TABLET PO SCH (12:55)
--- NOTE | 2022-06-21 14:15 | NUR ---
RT TOLERATING COOL AEROSOL KEEPING SATS >94% ON 10l 40% SINCE 8AM
[2022-06-21] MEDS: RILUZOLE 50 MG PO SCH (17:36)
[2022-06-21] MEDS: TAMSULOSIN 0.4 MG CAP.SR.24H PO SCH (17:38)
[2022-06-21] MEDS: DOCUSATE SODIUM 100 MG CAPSULE PO SCH (17:38)
[2022-06-21] MEDS: FINASTERIDE (5 MG) 5 MG TABLET PO SCH (17:38)
[2022-06-21] MEDS: MIRTAZAPINE 15 MG TABLET PO SCH (17:38)
--- NOTE | 2022-06-21 18:20 | NUR ---
RN NOTE PT RESTING IN BED, AWAKE ALERT AND RESPONSIVE. TRACH IN PLACE WITH COOL AEROSOL MIST @10L WITH 40% Fio2. TOLERATING WELL. WITH IV ACCESS ON RAMIREZ PORTACATH IN PLACE AND PATENT. SAFETY MEASURES FOLLOWED. WILL CONT TO MONITOR. MORNING AND EVENING CARE RENDERED. DUE MEDICATIONS GIVEN.
--- NOTE | 2022-06-21 19:45 | NUR ---
ROLLER COASTER DESIGNER OPENING NOTE RECEIVED PATIENT SLEEPING IN BED BUT EASILY AROUSABLE TO TOUCH AND VOICE, NO SOB NO DISTRESS NOTED AT THIS TIME O2 SAT 95%. BREATHING EVEN AND UNLABORED. WITH TRACH IN PACED WITH COOL AEROSOL MIST AT 10L WITH 40% FIO2. ON TELE MONITOR WITH SR @ 68. KEANE CATHETER PATENT CONNECTED TO URINE BAG DRAINING YELLOW URINE. WITH GT PATENT PATENT AND INTACT CONNECTED TO CONTINUOS FEEDING @ 70CC/HR PATIENT. WITH IV ACCESS RAMIREZ TIFFANY CATH RUNNING NS AT TKO. HOB ELEVATED TO 45 DEGREES, ALL SAFETY MEASURES IN PLACE, CALL LIGHT WITHIN REACH, FAMILY MEMBERS AT BEDSIDE, WILL CONTINUE TO MONITOR PATIENT.
[2022-06-21] MEDS: PANTOPRAZOLE 40 MG/PACK PACK GT SCH (20:38)
[2022-06-21] MEDS: D5W IV SCH ×2 (20:39→21:39)
[2022-06-21] MEDS: JEVITY 1.2 CAL 1,000 ML BOTTLE GT PRN (20:39)
--- NOTE | 2022-06-21 20:45 | NUR ---
RN NOTE PT NOW ON TRACHEOSTOMY CONNECTED TO CPAP WITH FIO2 40%, TV 1000, PEEP 5. TOLERATING WELL CURRENTLY SATING 96%. FAMILY AT BEDSIDE. WILL CONT TO MONITOR.
[2022-06-21] MEDS: ATORVASTATIN 10 MG TABLET PO SCH (21:39)
[2022-06-21] MEDS: clonazePAM 1 MG TABLET PO SCH (21:39)
[2022-06-22] VITALS (8 sets, daily range): BP systolic 100–153; BP diastolic 64–85
--- NOTE | 2022-06-22 06:29 | NUR ---
TRANSFORMATION MANAGER CLOSING NOTE PATIENT SLEEPING IN BED BUT EASILY AROUSABLE TO TOUCH AND VOICE, ON TRACH CONNECTED TO CPAP, PT TOLERATING WELL WITH O2 SAT OF 98%. NO S/SX OF DISTRESS AND DISCOMFORT NOTED. BREATHING EVEN AND UNLABORED, ON TELE MONITORING CURRENTLY READING SR @ 68. KEANE CATHETER PATENT CONNECTED TO URINE BAG DRAINING YELLOW URINE. WITH GT FEEDING RUNNING JEVITY @ 70CC/HR. IV ACCESS ON RAMIREZ TIFFANY CATH RUNNING NS AT TKO. HOB ELEVATED AT ALL TIMES, ALL DUE MEDS GIVEN, KEPT DRY AND CLEAN, ALL SAFETY MEASURES IN PLACE, CALL LIGHT WITHIN REACH, WILL ENDORSE TO AM SHIFT NURSE FOR CONTINUITY OF CARE.
--- NOTE | 2022-06-22 07:25 | NUR ---
RN OPEN NOTE PATIENT SLEEPING IN BED BUT EASILY AROUSAL TO TOUCH AND VOICE, ON TRACH CONNECTED TO CPAP, PT TOLERATING WELL WITH O2 SAT OF 98%. NO S/SX OF DISTRESS AND DISCOMFORT NOTED. BREATHING EVEN AND UNLABORED, ON TELE MONITORING CURRENTLY READING SR @ 70. KEANE CATHETER IN PLACE DRAINING YELLOW URINE. WITH GT FEEDING RUNNING JEVITY @ 70CC/HR. IV ACCESS ON RAMIREZ TIFFANY CATH RUNNING NS AT TKO. HOB ELEVATED ALL SAFETY MEASURES IN PLACE, CALL LIGHT WITHIN REACH, WILL CONTINUE TO MONITOR.
[2022-06-22] MEDS: LEVOTHYROXINE SODIUM 112 MCG TABLET PO SCH (07:45)
[2022-06-22] MEDS: PANTOPRAZOLE 40 MG/PACK PACK GT SCH ×2 (07:45→20:28)
[2022-06-22 08:58] LABS: BASOPHILS % (AUTO) 0.8 % (0.0-2.0); EOSINOPHILS % (AUTO) 2.5 % (0.0-6.0); HEMATOCRIT 27 % (39-51); HEMOGLOBIN 8.9 g/dL (13.5-17.5); LYMPHOCYTES # (AUTO) 0.2 K/uL (0.8-4.8); LYMPHOCYTES % (AUTO) 4.8 % (20.0-44.0); MEAN CORPUSCULAR HGB CONC 33 g/dl (31.0-36.0); MEAN CORPUSCULAR VOLUME 92 fL (80-96); MONOCYTES # (AUTO) 0.2 K/uL (0.1-1.30); MONOCYTES % (AUTO) 5.2 % (2.0-12.0); NEUTROPHILS # (AUTO) 3.5 K/uL (1.8-8.9); NEUTROPHILS % (AUTO) 86.7 % (43.0-81.0); PLATELET COUNT (AUTO) 173 K/uL (150-450); WHITE BLOOD COUNT (AUTO) 4.1 K/uL (4.3-11.0)
[2022-06-22] MEDS: SERTRALINE HCL 50 MG TABLET PO SCH (09:03)
[2022-06-22] MEDS: buPROPion 75 MG TABLET PO SCH ×2 (09:03→17:09)
[2022-06-22] MEDS: POLYETHYLENE GLYCOL 3350 17 GM POWD.PACK PO SCH ×2 (09:03→17:09)
[2022-06-22] MEDS: TIZANIDINE HCL 4 MG TABLET PO SCH ×2 (09:04→17:10)
[2022-06-22] MEDS: ALLOPURINOL 100 MG TABLET PO SCH (09:04)
[2022-06-22] MEDS: BACLOFEN (10 MG) 10 MG TABLET PO SCH ×2 (09:05→17:11)
[2022-06-22] MEDS: GLYCOPYRROLATE 1 MG TABLET PO SCH ×3 (09:05→17:10)
[2022-06-22] MEDS: CHOLECALCIFEROL 1,000 UNIT TABLET (VIT D3) PO SCH (09:05)
[2022-06-22] MEDS: ASPIRIN 81 MG TAB.CHEW PO SCH (09:05)
[2022-06-22] MEDS: LOSARTAN POTASSIUM 50 MG TABLET PO SCH (09:13)
[2022-06-22] MEDS: RILUZOLE 50 MG PO SCH ×2 (09:13→17:15)
[2022-06-22 09:16] LABS: CALCIUM, SERUM 9.4 mg/dL (8.5-10.1); CREATININE 1.6 mg/dL (0.6-1.3); POTASSIUM 3.8 mmol/L (3.5-5.1)
[2022-06-22] MEDS: FENOFIBRATE NANOCRYS (145 MG) 145 MG TABLET PO SCH (09:44)
[2022-06-22] MEDS: CEFEPIME 2 GM in IV D5W 100 ML IV SCH (12:09)
--- NOTE | 2022-06-22 12:15 | NUR ---
rt note rt called to patient room. family members and dr. medellin beside. pt had slight increased wob with 96% o2 saturation. family explained pt having difficulty breathing through trach tube due to its small diameter. pt on shiley [address] medellin removed trach and rt instructed to place patient on cool aerosol via trach collar. increased wob subsided after a few mins. patient o2 saturation @91%. spare trach tube bedside and vent on stanby. will continue to monitor.
[2022-06-22] MEDS: JEVITY 1.2 CAL 1,000 ML BOTTLE GT PRN (12:50)
[2022-06-22] MEDS: ENOXAPARIN SODIUM 40 MG/0.4 ML DISP.SYRIN SQ SCH (14:18)
[2022-06-22] MEDS: FINASTERIDE (5 MG) 5 MG TABLET PO SCH (17:09)
[2022-06-22] MEDS: MIRTAZAPINE 15 MG TABLET PO SCH (17:10)
[2022-06-22] MEDS: TAMSULOSIN 0.4 MG CAP.SR.24H PO SCH (17:10)
[2022-06-22] MEDS: DOCUSATE SODIUM 100 MG CAPSULE PO SCH (17:16)
--- NOTE | 2022-06-22 17:17 | NUR ---
RN NOTE PATIENT HAD LOOS STOOL , DIDN'T ADMINISTERED DOCUSATE SODIUM
--- NOTE | 2022-06-22 18:34 | NUR ---
RN CLOSING NOTE PATIENT SLEEPING IN BED BUT EASILY AROUSABLE TO TOUCH AND VOICE, ON TRACH COLLAR 13 L O2, SAT 99 %,NO S/SX OF DISTRESS AND DISCOMFORT NOTED. BREATHING EVEN AND UNLABORED, ON TELE MONITORING CURRENTLY READING SR @ 72. KEANE CATHETER PATENT CONNECTED TO URINE BAG DRAINING YELLOW URINE. WITH GT FEEDING RUNNING JEVITY @ 70CC/HR. IV ACCESS ON RAMIREZ TIFFANY CATH RUNNING NS AT TKO. HOB ELEVATED AT ALL TIMES, ALL DUE MEDS GIVEN, KEPT DRY AND CLEAN, ALL SAFETY MEASURES IN PLACE, CALL LIGHT WITHIN REACH, WILL ENDORSE TO PM SHIFT NURSE FOR CONTINUITY OF CARE.
[2022-06-22] MEDS: D5W IV SCH ×2 (21:19→22:19)
[2022-06-22] MEDS: ATORVASTATIN 10 MG TABLET PO SCH (22:19)
[2022-06-22] MEDS: clonazePAM 1 MG TABLET PO SCH (22:19)
[2022-06-23] VITALS: BP 151/80
[2022-06-23] MEDS: CEFEPIME 2 GM in IV D5W 100 ML IV SCH ×3 (00:31→23:41)
[2022-06-23 04:00] VITALS: BP 146/87
--- NOTE | 2022-06-23 04:23 | NUR ---
RT NOTE PT TOLERATING COOL AEROSOL @ 40% OVER STOMA VIA TRACH MASK WELL. CONT. PULSE OX CONNECTED. VENT STANDBY WITH BACK UP TRACH @ BEDSIDE. NO RESPIRATORY DISTRESS NOTED.
[2022-06-23 06:35] LABS: ABG BASE EXCESS 12.8 mmol/L; ABG OXYGEN SATURATION 98.8 % (92.0-98.5); ABG PCO2 56.4 mmHg (35.0-45.0); ABG PH 7.452 (7.350-7.450); ABG PO2 112.1 mmHg (75.0-100.0); AaDO2 108.2 mmHg; COHb 2.7 % (0.5-1.5); MetHb 0.2 % (0.0-1.5); O2Hb 95.9 % (94.0-97.0); SITE, ABG Right Brachial; VENT MODE, BG C/A 40%
[2022-06-23 07:22] LABS: BASOPHILS % (AUTO) 0.7 % (0.0-2.0); EOSINOPHILS % (AUTO) 2.1 % (0.0-6.0); HEMATOCRIT 30 % (39-51); HEMOGLOBIN 9.6 g/dL (13.5-17.5); LYMPHOCYTES # (AUTO) 0.2 K/uL (0.8-4.8); LYMPHOCYTES % (AUTO) 4.9 % (20.0-44.0); MEAN CORPUSCULAR HGB CONC 33 g/dl (31.0-36.0); MEAN CORPUSCULAR VOLUME 92 fL (80-96); MONOCYTES # (AUTO) 0.3 K/uL (0.1-1.30); MONOCYTES % (AUTO) 7.4 % (2.0-12.0); NEUTROPHILS % (AUTO) 84.9 % (43.0-81.0); PLATELET COUNT (AUTO) 182 K/uL (150-450); RED BLOOD CELL COUNT(AUTO) 3.22 MIL/uL (4.5-6.0); WHITE BLOOD COUNT (AUTO) 3.6 K/uL (4.3-11.0)
--- NOTE | 2022-06-23 07:25 | NUR ---
RN OPEN NOTES RECEIVED PATIENT AWAKE, ALERT/ORIENTED X 4, NON-VERBAL, ABLE TO COMMUNICATE VIA WRITING. PATIENT PLACED ON VENTIMASK VIA TRACH @ 24% FIO2, TOLERATING WELL. NO S/SX OF DISTRESS AND DISCOMFORT NOTED. BREATHING EVEN AND UNLABORED. KEANE CATHETER IN PLACE DRAINING YELLOW URINE. WITH GT FEEDING RUNNING JEVITY @ 70CC/HR. IV ACCESS ON RAMIREZ TIFFANY CATH RUNNING NS AT TKO. ALL SAFETY MEASURES IN PLACE, BED LOCKED IN LOWEST POSITION HOB ELEVATED, CALL LIGHT WITHIN REACH, WILL CONTINUE TO MONITOR THROUGHOUT SHIFT.
--- NOTE | 2022-06-23 07:35 | NUR ---
RN NOTES ENDORSED CARE OF PATIENT TO AM NURSE, PATIENT IN BED, ANXIOUS WITH INTERMITTENT SLEEP. REPOSITIONED PATIENT FOR COMFORT, NO PAIN EXPRESSED BY PATIENT. NO DISTRESS NOTED ON PATIENT THROUGHOUT SHIFT. PLAN OF CARE REVIEWED WITH PATIENT. SAFETY MEASURES IMPLEMENTED PER HOSPITAL PROTOCOLS. ENDORSED CARE OF PATIENT TO AM NURSE FOR DONAVON.
[2022-06-23 07:57] LABS: CALCIUM, SERUM 9.8 mg/dL (8.5-10.1); CREATININE 1.2 mg/dL (0.6-1.3); POTASSIUM 4.1 mmol/L (3.5-5.1)
[2022-06-23 08:00] VITALS: BP 143/89
--- NOTE | 2022-06-23 08:04 | NUR ---
PT, IS AWAKE AND ALERT PLACED INTO VENTIMASK VIA TRACH @ 24% FIO2 DUE TO 100% SPO2. RN NOTIFIED Addendum: 06/23/22 at 0806 by TRE VILLEGAS RT Amended: Links added.
[2022-06-23] MEDS: ASPIRIN 81 MG TAB.CHEW PO SCH (09:50)
[2022-06-23] MEDS: PANTOPRAZOLE 40 MG/PACK PACK GT SCH ×2 (09:52→20:10)
[2022-06-23] MEDS: BACLOFEN (10 MG) 10 MG TABLET PO SCH (09:52)
[2022-06-23] MEDS: TIZANIDINE HCL 4 MG TABLET PO SCH ×2 (09:53→17:14)
[2022-06-23] MEDS: GLYCOPYRROLATE 1 MG TABLET PO SCH ×3 (09:53→17:14)
[2022-06-23] MEDS: CHOLECALCIFEROL 1,000 UNIT TABLET (VIT D3) PO SCH (09:53)
[2022-06-23] MEDS: SERTRALINE HCL 50 MG TABLET PO SCH (09:53)
[2022-06-23] MEDS: POLYETHYLENE GLYCOL 3350 17 GM POWD.PACK PO SCH ×2 (09:53→17:14)
[2022-06-23] MEDS: buPROPion 75 MG TABLET PO SCH ×2 (09:53→17:13)
[2022-06-23] MEDS: ALLOPURINOL 100 MG TABLET PO SCH (09:53)
[2022-06-23] MEDS: RILUZOLE 50 MG PO SCH ×2 (09:53→17:13)
[2022-06-23] MEDS: LOSARTAN POTASSIUM 50 MG TABLET PO SCH (09:54)
[2022-06-23] MEDS: LEVOTHYROXINE SODIUM 112 MCG TABLET PO SCH (09:54)
[2022-06-23] MEDS: FENOFIBRATE NANOCRYS (145 MG) 145 MG TABLET PO SCH (09:54)
--- NOTE | 2022-06-23 10:43 | NUR ---
patient pull out iv 2x,refused to wear telemetry,MICHELINE KYLE KETTLE CHIPPER notified.will continue to monitor.
[2022-06-23 12:00] VITALS: BP 136/91
[2022-06-23] MEDS: JEVITY 1.2 CAL 1,000 ML BOTTLE GT PRN (12:55)
[2022-06-23] MEDS: ENOXAPARIN SODIUM 40 MG/0.4 ML DISP.SYRIN SQ SCH (14:40)
[2022-06-23 16:00] VITALS: BP 142/89
[2022-06-23] MEDS: MIRTAZAPINE 15 MG TABLET PO SCH (17:13)
[2022-06-23] MEDS: FINASTERIDE (5 MG) 5 MG TABLET PO SCH (17:14)
[2022-06-23] MEDS: TAMSULOSIN 0.4 MG CAP.SR.24H PO SCH (17:14)
[2022-06-23] MEDS: DOCUSATE SODIUM 100 MG CAPSULE PO SCH (17:14)
[2022-06-23] MEDS ORDERED: TRAZODONE 50 MG TABLET PO PRN (18:30)
--- NOTE | 2022-06-23 18:53 | NUR ---
addendum wrong entry.
--- NOTE | 2022-06-23 19:04 | NUR ---
RN CLOSING NOTES NO SIGNIFICANT CHANGES ON PATIENT CONDITION THROUGHOUT SHIFT. PATIENT AWAKE, ALERT/ORIENTED X 4, NON-VERBAL, ABLE TO COMMUNICATE VIA WRITING, AT BEDSIDE. NO S/SX OF DISTRESS AND DISCOMFORT NOTED. BREATHING EVEN AND UNLABORED. KEANE CATHETER IN PLACE DRAINING YELLOW URINE. WITH GT FEEDING RUNNING JEVITY @ 70CC/HR. IV ACCESS ON RAMIREZ TIFFANY CATH PATENT AND INTACT. NO SIGNS OF INFILTRATION NOTED. ALL DUE MEDS GIVEN ORDERED. KEPT PATIENT CLEAN DRY AND COMFORTABLE. ALL NEEDS ATTENDED. ALL SAFETY MEASURES IN PLACE, BED LOCKED IN LOWEST POSITION HOB ELEVATED, CALL LIGHT WITHIN REACH, WILL ENDORSE TO ORNAMENTAL IRON ERECTOR NURSE FOR CONTINUITY OF CARE.
--- NOTE | 2022-06-23 19:30 | NUR ---
RECEIVED PATIENT AWAKE WITH AT BEDSIDE ,A/OX4, NON-VERBAL, ABLE TO COMMUNICATE VIA WRITING. NO S/SX OF DISTRESS AND DISCOMFORT NOTED. BREATHING EVEN AND UNLABORED. KEANE CATHETER IN PLACE DRAINING YELLOW URINE. WITH GT FEEDING INFUSING JEVITY @ 70CC/HR. IV ACCESS ON RAMIREZ, WITH TIFFANY CATH, BOTH PATENT AND INTACT. NO SIGNS OF INFILTRATION NOTED. SAFETY MEASURES IMPLEMENTED PER HOSPITAL PROTOCOLS, HOB ELEVATED, BED LOCKED IN LOWEST POSITION WITH SIDE RAILS UP X 2. CALL LIGHT WITHIN REACH. WILL CONTINUE PLAN OF CARE.
--- NOTE | 2022-06-23 19:56 | NUR ---
RT NOTE PT RECEIVED WITH OPEN STOMA AND OXYGEN ADMINISTERED VIA VENTURI TRACH MASK @ 24%. NO RESPIRATORY DISTRESS NOTED. SPO2 > 92%. WILL CONTINUE TO MONITOR CLOSELY. CONT. PULSE OX CONNECTED. VENT STANDBY.
[2022-06-23 20:00] VITALS: BP 150/85
--- NOTE | 2022-06-23 20:09 | NUR ---
RT NOTE PT PLACED ON COOL AEROSOL @ 35%. PT COMPLAINED OF SOB. PT TOLERATING WELL AT THIS TIME. WILL CONTINUE TO MONITOR. RN NOTIFIED.
[2022-06-23] MEDS: clonazePAM 1 MG TABLET PO SCH (21:49)
[2022-06-23] MEDS: ATORVASTATIN 10 MG TABLET PO SCH (21:49)
[2022-06-23] MEDS: TRAZODONE 50 MG TABLET PO SCH (21:51)
[2022-06-24] VITALS: BP 158/85
[2022-06-24 04:00] VITALS: BP 169/109
[2022-06-24] MEDS: JEVITY 1.2 CAL 1,000 ML BOTTLE GT PRN (04:08)
--- NOTE | 2022-06-24 05:02 | NUR ---
RT NOTE PT AWAKE/ALERT. PT TOLERATING COOL AEROSOL @ 35% WELL. SPO2 @ 96%, HR 79, RR 20. NO RESPIRATORY DISTRESS NOTED. AEROSOL WATER CHANGED. CONT. PULSE OX CONNECTED. RN @ BEDSIDE T/O SHIFT.
--- NOTE | 2022-06-24 06:53 | NUR ---
PATIENT SLEEPS INTERMITTENTLY, A/OX4, NON-VERBAL, ABLE TO COMMUNICATE VIA WRITING. NO S/SX OF DISTRESS AND DISCOMFORT NOTED. BREATHING EVEN AND UNLABORED. KEANE CATHETER IN PLACE DRAINING YELLOW URINE. WITH GT FEEDING INFUSING JEVITY @ 70CC/HR. IV ACCESS ON RAMIREZ, WITH TIFFANY CATH, BOTH PATENT AND INTACT. NO SIGNS OF INFILTRATION NOTED. ALL DUE MEDS GIVEN. SAFETY MEASURES IMPLEMENTED PER HOSPITAL PROTOCOLS, HOB ELEVATED, BED LOCKED IN LOWEST POSITION WITH SIDE RAILS UP X 2. CALL LIGHT WITHIN REACH. WILL ENDORSE TO NEXT NURSE ON DUTY FOR CONTINUITY OF CARE.
[2022-06-24 08:00] VITALS: BP 163/99
[2022-06-24] MEDS: buPROPion 75 MG TABLET PO SCH ×2 (08:32→18:00)
[2022-06-24] MEDS: ALLOPURINOL 100 MG TABLET PO SCH (08:33)
[2022-06-24] MEDS: SERTRALINE HCL 50 MG TABLET PO SCH (08:34)
[2022-06-24] MEDS: PANTOPRAZOLE 40 MG/PACK PACK GT SCH ×2 (08:34→20:14)
[2022-06-24] MEDS: clonazePAM 0.5 MG TABLET PO SCH ×2 (08:35→18:01)
[2022-06-24] MEDS: POLYETHYLENE GLYCOL 3350 17 GM POWD.PACK PO SCH ×2 (08:35→18:00)
[2022-06-24] MEDS: CHOLECALCIFEROL 1,000 UNIT TABLET (VIT D3) PO SCH (08:35)
[2022-06-24] MEDS: LEVOTHYROXINE SODIUM 112 MCG TABLET PO SCH (08:36)
[2022-06-24] MEDS: TIZANIDINE HCL 4 MG TABLET PO SCH ×2 (08:37→18:01)
[2022-06-24] MEDS: ASPIRIN 81 MG TAB.CHEW PO SCH (08:38)
[2022-06-24] MEDS: LOSARTAN POTASSIUM 50 MG TABLET PO SCH (08:38)
[2022-06-24] MEDS: GLYCOPYRROLATE 1 MG TABLET PO SCH ×3 (08:48→18:01)
[2022-06-24] MEDS: FENOFIBRATE NANOCRYS (145 MG) 145 MG TABLET PO SCH (08:48)
[2022-06-24] MEDS: RILUZOLE 50 MG PO SCH ×2 (08:49→18:14)
[2022-06-24 12:00] VITALS: BP 150/85
[2022-06-24] MEDS: CEFEPIME 2 GM in IV D5W 100 ML IV SCH (12:08)
[2022-06-24] MEDS: ENOXAPARIN SODIUM 40 MG/0.4 ML DISP.SYRIN SQ SCH (14:49)
[2022-06-24 16:00] VITALS: BP 153/87
--- NOTE | 2022-06-24 17:58 | NUR ---
PATIENT COMPLAIN OF CONSTIPATION AND PAIN ON CHEST BP 153/100,SR ON MONITOR,RR 18,SAT 96 PERCENT,MICHELINE KYLE BUNCHER HAND NOTIFIED AND ORDERED EKG ONLY AND PT HAS ROUTINE LAXATIVE .PT. REASSURED,WILL CONTINUE TO MONITOR.
--- NOTE | 2022-06-24 17:58 | NUR ---
MICHELINE KYLE CANCELLED EKG .PATIENT SR ON MONITOR.
[2022-06-24] MEDS: MIRTAZAPINE 15 MG TABLET PO SCH (18:00)
[2022-06-24] MEDS: FINASTERIDE (5 MG) 5 MG TABLET PO SCH (18:00)
[2022-06-24] MEDS: DOCUSATE SODIUM 100 MG CAPSULE PO SCH (18:01)
[2022-06-24] MEDS: TAMSULOSIN 0.4 MG CAP.SR.24H PO SCH (18:01)
--- NOTE | 2022-06-24 19:00 | NUR ---
RN/NOTE ALL CARE ENDORSED TO STAINING MACHINE OPERATOR RN. ALL VSS. NO SIGNS OF DISTRESS
--- NOTE | 2022-06-24 19:30 | NUR ---
RECEIVED PATIENT AWAKE SITTING ON CHAIR WITH AT BEDSIDE ,A/OX4, NON-VERBAL, ABLE TO COMMUNICATE VIA WRITING. ON AEROSOL 8L AT 35%. NO S/SX OF DISTRESS AND DISCOMFORT NOTED. NO SECRETIONS. BREATHING EVEN AND UNLABORED. KEANE CATHETER IN PLACE DRAINING YELLOW URINE. WITH GT FEEDING INFUSING JEVITY @ 70CC/HR. IV ACCESS ON RAMIREZ, TIFFANY CATH ON TKO, PATENT AND INTACT. NO SIGNS OF INFILTRATION NOTED. SAFETY MEASURES IMPLEMENTED PER HOSPITAL PROTOCOLS, HOB ELEVATED, BED LOCKED IN LOWEST POSITION WITH SIDE RAILS UP X 2. CALL LIGHT WITHIN REACH. WILL CONTINUE PLAN OF CARE.
--- NOTE | 2022-06-24 19:53 | NUR ---
PT RECEIVED ON CA 35% 8L WITH OPEN STOMA . PT IS AWAKE AND ALERT . NO RESPIRATORY DISTRESS NOTED AT THIS TIME. SPO2 > 92%. WILL CONTINUE TO MONITOR T/O SHIFT. CONT. PULSE OX CONNECTED. VENT STANDBY.
[2022-06-24 20:00] VITALS: BP 154/93
[2022-06-24] MEDS: TRAZODONE 50 MG TABLET PO SCH (22:45)
[2022-06-24] MEDS: ATORVASTATIN 10 MG TABLET PO SCH (22:45)
[2022-06-24] MEDS: clonazePAM 1 MG TABLET PO SCH (22:45)
[2022-06-25] VITALS: BP 159/93
[2022-06-25] MEDS: CEFEPIME 2 GM in IV D5W 100 ML IV SCH ×2 (00:15→12:17)
[2022-06-25 04:00] VITALS: BP 139/78
[2022-06-25] MEDS: JEVITY 1.2 CAL 1,000 ML BOTTLE GT PRN (06:07)
--- NOTE | 2022-06-25 06:38 | NUR ---
PATIENT AWAKE IN BED. A/OX4, NON-VERBAL, ABLE TO COMMUNICATE VIA WRITING. ON AEROSOL 8L AT 35%. NO S/SX OF DISTRESS AND DISCOMFORT NOTED. NO SECRETIONS. BREATHING EVEN AND UNLABORED. KEANE CATHETER IN PLACE DRAINING YELLOW URINE. WITH GT FEEDING INFUSING JEVITY @ 70CC/HR. IV ACCESS ON RAMIREZ, TIFFANY CATH ON TKO, PATENT AND INTACT. NO SIGNS OF INFILTRATION NOTED. SAFETY MEASURES IMPLEMENTED PER HOSPITAL PROTOCOLS, HOB ELEVATED, BED LOCKED IN LOWEST POSITION WITH SIDE RAILS UP X 2. CALL LIGHT WITHIN REACH. WILL ENDORSE TO NEXT NURSE ON DUTY FOR CONTINUITY OF CARE.
--- NOTE | 2022-06-25 07:58 | NUR ---
RN OPENING NOTES PATIENT AWAKE IN BED. A/OX4, NON-VERBAL, ABLE TO COMMUNICATE VIA WRITING. ON AEROSOL 8L AT 35%. NO S/SX OF DISTRESS AND DISCOMFORT NOTED. NO SECRETIONS. BREATHING EVEN AND UNLABORED. KEANE CATHETER IN PLACE DRAINING YELLOW URINE. WITH GT FEEDING INFUSING JEVITY @ 70CC/HR. IV ACCESS ON RAMIREZ, TIFFANY CATH ON TKO, PATENT AND INTACT. NO SIGNS OF INFILTRATION NOTED. SAFETY MEASURES IMPLEMENTED PER HOSPITAL PROTOCOLS, HOB ELEVATED, BED LOCKED IN LOWEST POSITION WITH SIDE RAILS UP X 2. CALL LIGHT WITHIN REACH. WILL CONTINUE PLAN OF CARE AND ANTICIPATE NEEDS.
[2022-06-25 08:00] VITALS: BP 125/58
[2022-06-25] MEDS: POLYETHYLENE GLYCOL 3350 17 GM POWD.PACK PO SCH ×2 (08:29→18:25)
[2022-06-25] MEDS: RILUZOLE 50 MG PO SCH ×2 (08:29→18:23)
[2022-06-25] MEDS: FENOFIBRATE NANOCRYS (145 MG) 145 MG TABLET PO SCH (08:29)
[2022-06-25] MEDS: SERTRALINE HCL 50 MG TABLET PO SCH (08:31)
[2022-06-25] MEDS: LEVOTHYROXINE SODIUM 112 MCG TABLET PO SCH (08:31)
[2022-06-25] MEDS: LOSARTAN POTASSIUM 50 MG TABLET PO SCH (08:31)
[2022-06-25] MEDS: CHOLECALCIFEROL 1,000 UNIT TABLET (VIT D3) PO SCH (08:31)
[2022-06-25] MEDS: buPROPion 75 MG TABLET PO SCH ×2 (08:31→18:24)
[2022-06-25] MEDS: GLYCOPYRROLATE 1 MG TABLET PO SCH ×3 (08:31→18:25)
[2022-06-25] MEDS: ASPIRIN 81 MG TAB.CHEW PO SCH (08:32)
[2022-06-25] MEDS: clonazePAM 0.5 MG TABLET PO SCH ×2 (08:32→18:24)
[2022-06-25] MEDS: TIZANIDINE HCL 4 MG TABLET PO SCH ×2 (08:32→18:25)
[2022-06-25] MEDS: PANTOPRAZOLE 40 MG/PACK PACK GT SCH ×2 (08:32→20:07)
[2022-06-25] MEDS: ALLOPURINOL 100 MG TABLET PO SCH (08:32)
[2022-06-25] MEDS ORDERED: VITAMINS A AND D 56.7 GM TUBE TP PRN (11:30)
[2022-06-25 12:00] VITALS: BP 157/99
[2022-06-25] MEDS: ENOXAPARIN SODIUM 40 MG/0.4 ML DISP.SYRIN SQ SCH (13:02)
[2022-06-25 16:00] VITALS: BP 170/105
[2022-06-25] MEDS: FINASTERIDE (5 MG) 5 MG TABLET PO SCH (18:25)
[2022-06-25] MEDS: MIRTAZAPINE 15 MG TABLET PO SCH (18:25)
[2022-06-25] MEDS: TAMSULOSIN 0.4 MG CAP.SR.24H PO SCH (18:25)
[2022-06-25] MEDS: DOCUSATE SODIUM 100 MG CAPSULE PO SCH (18:26)
--- NOTE | 2022-06-25 19:12 | NUR ---
RN CLOSING NOTES PATIENT AWAKE IN BED. A/OX4, NON-VERBAL, ABLE TO COMMUNICATE VIA WRITING. ON AEROSOL 8L AT 35%. NO S/SX OF DISTRESS AND DISCOMFORT NOTED. NO SECRETIONS. BREATHING EVEN AND UNLABORED. KEANE CATHETER IN PLACE DRAINING YELLOW URINE. WITH GT FEEDING INFUSING JEVITY @ 70CC/HR. IV ACCESS ON RAMIREZ, TIFFANY CATH ON TKO, PATENT AND INTACT. NO SIGNS OF INFILTRATION NOTED. SAFETY MEASURES IMPLEMENTED PER HOSPITAL PROTOCOLS, HOB ELEVATED, BED LOCKED IN LOWEST POSITION WITH SIDE RAILS UP X 2. CALL LIGHT WITHIN REACH. WILL ENDORSE TO NIGHTSHIFT FOOR CONTINUATION OF CARE.
[2022-06-25 20:00] VITALS: BP 149/77
[2022-06-25] MEDS ORDERED: D5W IV SCH ×2 (21:00→21:30)
[2022-06-25] MEDS: ATORVASTATIN 10 MG TABLET PO SCH (21:06)
[2022-06-25] MEDS: TRAZODONE 50 MG TABLET PO SCH (21:06)
--- NOTE | 2022-06-25 21:07 | NUR ---
RN NOTE PER DAYSHIFT NURSE, FAMILY WAS SUPPOSED TO BRING IN RADICAVA BUT DID NOT.
--- NOTE | 2022-06-25 21:40 | NUR ---
RN NOTE UNABLE TO ADMINISTER RADICAVA FAMILY DID NOT BRING IN MEDICATION.
[2022-06-25] MEDS ORDERED: clonazePAM 0.5 MG TABLET PO SCH (22:00)
--- NOTE | 2022-06-25 22:49 | NUR ---
RN NOTE PT RECEIVED IN BED, AWAKE, SITTING ON EDGE OF BED, A&O X4, NON-VERBAL BUT ABLE TO MAKE NEEDS KNOWN BY WRITING ON PIECE OF PAPER, CALM, COOPERATIVE. PT HAS TRACH, RECEIVING 8L OF COOL AEROSOL MIST WITH CURRENT O2SAT OF 96%; PT WAS COMPLAINING OF SOB AND HAD ASKED TO BE SUCTIONED. RT CAME AND SUCTIONED PT; PT REPORTS OF FEELING RELIEVED AFTER BEING SUCTIONED. NO OTHER S/S OF RESP DISTRESS, NO COUGH, NON-LABORED AND EQUAL BREATHING; APPEARS COMFORTABLE OVERALL. KEANE INTACT AND PATENT, NO SIGNS OF LEAKING, DRAINING CLEAR AND YELLOW URINE. GT JEVITY RUNNING AT 70 ML/HR, NO RESIDUAL NOTED. RAMIREZ PORT-A-CATH INTACT AND PATENT, NO FLUIDS/MEDS RUNNING AT THE MOMENT. BED IN LOWEST POSITION, CALL LIGHT WITHIN REACH, SIDE RAILS UP X3. WILL CONTINUE TO MONITOR THROUGHOUT THE NIGHT.
[2022-06-26] VITALS: BP 151/102
[2022-06-26] MEDS: CEFEPIME 2 GM in IV D5W 100 ML IV SCH ×2 (00:10→11:26)
[2022-06-26] MEDS: JEVITY 1.2 CAL 1,000 ML BOTTLE GT PRN (03:08)
[2022-06-26 04:00] VITALS: BP 150/91
--- NOTE | 2022-06-26 06:40 | NUR ---
MAINTENANCE PIPEFITTER CLOSING NOTE PT REMAINS IN BED, A&O X4, ASLEEP BUT EASILY AROUSABLE, SLEPT INTERMITTENTLY THROUGHOUT THE NIGHT, CALM, COOPERATIVE. PT APPEARED RESTLESS LAST NIGHT PT WOULD REPEATEDLY ASK TO USE THE COMMODE, BUT NO BM. CONTINUES TO BE ON 8L COOL AEROSOL MIST WITH O2SAT RANGING FROM 95%-96% THROUGHOUT THE NIGHT. PT TOLERATED COOL MIST; NO S/S OF RESP DISTRESS, NO SOB OR COUGH, NON-LABORED AND EQUAL BREATHING. ATTACHED TO EXTERNAL MONITOR, SR THROUGHOUT THE WHOLE NIGHT WITH HR RANGING FROM 85-93. KEANE INTACT AND PATENT, DRAINING CLEAR AND YELLOW URINE. GTD C/D/I WITH JEVITY RUNNING AT 70 ML/HR. RAMIREZ PORT-A-CATH INTACT AND PATENT, FLUSHES EASILY WITH NO RESISTANCE; NO MEDS/FLUIDS INFUSING THROUGH IT. ALL DUE MEDS ADMINISTERED DURING THE NIGHT. BED IN LOWEST POSITION, CALL LIGHT WITHIN REACH, SIDE RAILS UP X2. WILL ENDORSE TO DAYSHIFT NURSE TO CONTINUE CARE.
--- NOTE | 2022-06-26 07:03 | NUR ---
RN OPEN NOTE PT REMAINS IN BED, A&O X4, ASLEEP BUT EASILY AROUSAL, CALM, COOPERATIVE. PT CONTINUES TO BE ON 8L COOL AEROSOL MIST WITH O2SAT RANGING FROM 95%-96% PT TOLERATED COOL MIST; NO S/S OF RESP DISTRESS, NO SOB OR COUGH, NON-LABORED AND EQUAL BREATHING. ATTACHED TO EXTERNAL MONITOR, SR 88. KEANE INTACT AND PATENT, DRAINING CLEAR AND YELLOW URINE. GTD C/D/I WITH JEVITY RUNNING AT 70 ML/HR. RAMIREZ PORT-A-CATH INTACT AND PATENT, FLUSHES EASILY WITH NO RESISTANCE; NO MEDS/FLUIDS INFUSING THROUGH IT. BED IN LOWEST POSITION, CALL LIGHT WITHIN REACH, SIDE RAILS UP X2. WILL CONTINUE TO FALLOW POC
[2022-06-26] MEDS: LEVOTHYROXINE SODIUM 112 MCG TABLET PO SCH (07:32)
[2022-06-26] MEDS: PANTOPRAZOLE 40 MG/PACK PACK GT SCH (07:32)
[2022-06-26 08:00] VITALS: BP 140/85
[2022-06-26] MEDS: FENOFIBRATE NANOCRYS (145 MG) 145 MG TABLET PO SCH (08:40)
[2022-06-26] MEDS: RILUZOLE 50 MG PO SCH ×2 (08:40→17:16)
[2022-06-26] MEDS: buPROPion 75 MG TABLET PO SCH ×2 (08:41→17:00)
[2022-06-26] MEDS: ASPIRIN 81 MG TAB.CHEW PO SCH (08:41)
[2022-06-26] MEDS: POLYETHYLENE GLYCOL 3350 17 GM POWD.PACK PO SCH ×2 (08:41→17:17)
[2022-06-26] MEDS: LOSARTAN POTASSIUM 50 MG TABLET PO SCH (08:41)
[2022-06-26] MEDS: SERTRALINE HCL 50 MG TABLET PO SCH (08:42)
[2022-06-26] MEDS: CHOLECALCIFEROL 1,000 UNIT TABLET (VIT D3) PO SCH (08:42)
[2022-06-26] MEDS: ALLOPURINOL 100 MG TABLET PO SCH (08:42)
[2022-06-26] MEDS: clonazePAM 0.5 MG TABLET PO SCH ×2 (08:42→17:25)
[2022-06-26] MEDS: TIZANIDINE HCL 4 MG TABLET PO SCH ×2 (08:43→17:18)
[2022-06-26] MEDS: GLYCOPYRROLATE 1 MG TABLET PO SCH ×3 (08:43→17:17)
--- NOTE | 2022-06-26 10:20 | NUR ---
RT Patient received alert and awake on cool aerosol 35% (8LPM) with open stoma. At 1020am inserted SHILEY 8 CUFFED trach tube per MD order. No respiratory distress or SOB noted.
[2022-06-26 11:00] VITALS: BP 126/86
[2022-06-26 12:00] VITALS: BP 126/86
[2022-06-26] MEDS ORDERED: CLON0.5T PO ×5 (13:13→17:04)
[2022-06-26] MEDS: ENOXAPARIN SODIUM 40 MG/0.4 ML DISP.SYRIN SQ SCH (13:53)
[2022-06-26 16:00] VITALS: BP 115/80
[2022-06-26] MEDS ORDERED: TRAZ-182 PO (17:04)
[2022-06-26] MEDS: FINASTERIDE (5 MG) 5 MG TABLET PO SCH (17:17)
[2022-06-26] MEDS: DOCUSATE SODIUM 100 MG CAPSULE PO SCH (17:17)
[2022-06-26] MEDS: MIRTAZAPINE 15 MG TABLET PO SCH (17:24)
[2022-06-26] MEDS: TAMSULOSIN 0.4 MG CAP.SR.24H PO SCH (17:25)
[2022-06-26] MEDS ORDERED: SERT100T PO (17:57)
== END 2022-06-26 20:09 | disposition home health service (06) | DRG 870 ==
LOC: ER 10:22 → ICU 12:47 → TELE-TD 06-19 17:05 → TELE1 06-20 12:47
PROVIDERS: ADMIT Internal Medicine; ATTEND Nurse Practitioner Acute Care
PROC: 5A1955Z Respiratory Ventilation, Greater than 96 Consecutive Hours (ICD-10-PCS; principal; 2022-06-15)
DX: A41.9 Sepsis, unspecified organism (principal); J96.22 Acute and chronic respiratory failure with hypercapnia; J15.6 Pneumonia due to other Gram-negative bacteria; N17.0 Acute kidney failure with tubular necrosis; G93.41 Metabolic encephalopathy; J69.0 Pneumonitis due to inhalation of food and vomit; J96.21 Acute and chronic respiratory failure with hypoxia; J96.12 Chronic respiratory failure with hypercapnia; E87.0 Hyperosmolality and hypernatremia; G12.21 Amyotrophic lateral sclerosis; J98.11 Atelectasis; E87.4 Mixed disorder of acid-base balance; Z85.21 Personal history of malignant neoplasm of larynx; Z79.899 Other long term (current) drug therapy; Z79.82 Long term (current) use of aspirin; E78.5 Hyperlipidemia, unspecified; E86.1 Hypovolemia; E87.5 Hyperkalemia; Z93.0 Tracheostomy status; Z98.890 Other specified postprocedural states; Z20.822 Contact with and (suspected) exposure to COVID-19; K21.9 Gastro-esophageal reflux disease without esophagitis; R13.10 Dysphagia, unspecified; I10 Essential (primary) hypertension; N40.0 Benign prostatic hyperplasia without lower urinary tract symptoms; F41.9 Anxiety disorder, unspecified; E03.9 Hypothyroidism, unspecified; D63.8 Anemia in other chronic diseases classified elsewhere; E83.42 Hypomagnesemia; F32.9 Major depressive disorder, single episode, unspecified; E86.0 Dehydration; Y95 Nosocomial condition; E83.39 Other disorders of phosphorus metabolism; M62.838 Other muscle spasm; Z93.1 Gastrostomy status; R65.20 Severe sepsis without septic shock
CPT/HCPCS: 31720; 36415; 36600; 71045-TC; 80048-TC; 80076-TC; 80202-TC; 81001; 82803-TC; 83605-TC; 83735-TC; 84100-TC; 84484-TC; 85025-TC; 85730-TC; 87040-TC; 87070-TC; 87081-TC; 87086-TC; 87186-TC; 92526; 92611-TC; 94002-TC; 94003-TC; 94640-TC; 94760-TC; 94762-TC; 94799-TC; 97116-TC; 97530-TC; 99082-TC; A7526; G0378; J0692; J1650; J1720; J2060; J2543; J3370; J3475; J3480; J3490; J7040; J7050; J7060; L8501

== ENCOUNTER 2022-07-07 18:33 | Emergency (ER) | payer BC, OTHER ==
[~2022-07-07] VITALS: Ht 175.3 cm; Wt 74.8 kg
[~2022-07-07 18:33] MED LIST: ALLO300T2 PO; ASPI-1169 PO; ATOR10TA PO; BACL10TA PO; BUPR75TA8 PO; CHOL100043 PO; CLON0.5T PO; CLON1TAB12 PO; DOCU-141 PO; EDAR30PI IV; FENO160T PO; FINA5TAB11 PO; GLYC2TAB21 PO; LEVO112T2 PO; LOSA50TA39 PO; MELA3TAB41 PO; MIRT7.5T10 PO; OMEP20CA15 PO; PANT40TA2 PO; POLY17PO4 PO; RILU50TA4 PO; SERT100T PO; SILO4CAP3 PO; TAMS-12 PO; TIZA4TAB5 PO; TRAZ-182 PO; TUDCA PO; [UNRECOGNIZED DRUG - CODE] PO
[2022-07-07 19:15] VITALS: BP 105/73
--- NOTE | 2022-07-07 19:15 | NUR ---
BIB FAMILY, CONCERN ABOUT WORSENING ANXIETY AND INSOMNIA. PATIENT IS FARSI SPEAKING. PATIENT IS CONFUSED, CAME WITH STOMA ON THE THROAT FROM PREVIOUS TRACHEOSTOMY. HAS IV PORT ON HIS LEFT INNER ARM, WITH GTUBE; CLAMPED. PER , PATIENT HAS A CHANGE ON HIS MEDICATION 7 DAYS AGO, AFTER THAT HE WAS ACTING UP. NOT ABLE TO SLEEP WELL X5 DAYS. ATTACHED TO MONITOR. VITALS CHECKED.
--- NOTE | 2022-07-07 19:25 | NUR ---
RT NOTE PT PLACED ON T-MASK @ 4 LPM AT THIS TIME. RN AT BEDSIDE. NO SOB NOTED AT THIS TIME. WILL CONTINUE TO MONITOR.
[2022-07-07] MEDS ORDERED: IV NS 0.9% 500 ML BAG IV ONE (19:30)
--- NOTE | 2022-07-07 19:30 | NUR ---
CANNOT PERFORM BLOOD DRAW AND EKG. PATIENT IS RESTLESS. OXYGEN GIVEN THRU TRACHE MASK. SON ARRIVED. HE DECIDED TO DO AMA WITH REGARDS TO HIS FATHER. HE SAID HIS DAD HAS PCP APPT TOMORROW AND PSYCHE FF UP. HE WOULD RATHER BRING HIS DAD TO APPT TOMORROW. DR PARDO CAME AND EXPLAINED THE RISK AND BENEFIT. STILL, SON INSISTED TO SIGN AMA AND BRING HIM HOME.
--- NOTE | 2022-07-07 19:40 | NUR ---
DISCLAIMER FOR AMA SIGNED BY SON. PATIENT WILL BE GOING HOME
--- NOTE | 2022-07-07 19:47 | NUR ---
Patient discharged to home in stable condition. Written and verbal after care instructions given. Patient verbalizes understanding of instruction.
[2022-07-17] MEDS ORDERED: MIRT-121 PO (14:29)
== END 2022-07-07 19:52 | disposition left against medical advice (07) ==
LOC: ER 18:35
DX: G47.00 Insomnia, unspecified (principal); G12.21 Amyotrophic lateral sclerosis; Z79.899 Other long term (current) drug therapy; Z79.82 Long term (current) use of aspirin

== ENCOUNTER 2022-07-08 00:13 | Inpatient (IN) | payer BC, OTHER ==
[2022-07-08] VITALS (56 sets, daily range): BP systolic 88–148; BP diastolic 47–97
[~2022-07-08] VITALS: Ht 175.3 cm; Wt 71.0 kg
--- NOTE | 2022-07-08 00:20 | NUR ---
20G IV ESTABLISHED AT [facility] AND . BLOOD AND CULTURES COLLECTED AND SENT TO LAB.
--- NOTE | 2022-07-08 00:25 | NUR ---
DEBBI COLLECTED AND SENT TO LAB
--- NOTE | 2022-07-08 00:30 | NUR ---
URINE COLLECTED AND SENT TO LAB
[2022-07-08 00:37] LABS: BASOPHILS % (AUTO) 0.1 % (0.0-2.0); EOSINOPHILS % (AUTO) 0.6 % (0.0-6.0); HEMATOCRIT 34 % (39-51); HEMOGLOBIN 11.1 g/dL (13.5-17.5); LYMPHOCYTES # (AUTO) 0.7 K/uL (0.8-4.8); LYMPHOCYTES % (AUTO) 10.7 % (20.0-44.0); MEAN CORPUSCULAR HGB CONC 33 g/dl (31.0-36.0); MEAN CORPUSCULAR VOLUME 92 fL (80-96); MONOCYTES # (AUTO) 0.3 K/uL (0.1-1.30); MONOCYTES % (AUTO) 4.7 % (2.0-12.0); NEUTROPHILS # (AUTO) 5.7 K/uL (1.8-8.9); NEUTROPHILS % (AUTO) 83.9 % (43.0-81.0); PLATELET COUNT (AUTO) 245 K/uL (150-450); RED BLOOD CELL COUNT(AUTO) 3.71 MIL/uL (4.5-6.0); WHITE BLOOD COUNT (AUTO) 6.8 K/uL (4.3-11.0)
[2022-07-08 00:52] LABS: ABG BASE EXCESS 11.3 mmol/L; ABG PH 7.106 (7.350-7.450); COHb 1.8 % (0.5-1.5); MetHb 0.3 % (0.0-1.5); O2Hb 97.8 % (94.0-97.0); SITE, ABG Right Radial; VENT MODE, BG 10l trach mask
[2022-07-08 00:57] LABS: ALANINE AMINOTRANSFERASE 27 U/L (12-78); ALBUMIN 4.1 g/dL (3.4-5.0); ALKALINE PHOSPHATASE 58 U/L (46-116); ASPARTATE AMINOTRANSFERASE 21 U/L (15-37); BILIRUBIN,DIRECT 0.1 mg/dL (0.0-0.2); BILIRUBIN,TOTAL 0.2 mg/dL (0.2-1.0); CALCIUM, SERUM 9.6 mg/dL (8.5-10.1); CHLORIDE 101 mmol/L (98-107); GLUCOSE 233 mg/dL (74-106); LIPASE 65 U/L (73-393); SODIUM SERUM 146 mmol/L (136-145); TOTAL PROTEIN, SERUM 7.4 g/dL (6.4-8.2); UREA NITROGEN, BLOOD 33 mg/dL (7-18)
--- NOTE | 2022-07-08 01:01 | NUR ---
RT'S AT BEDSIDE FOR TRACH CANNULA AND VENT PLACEMENT
[2022-07-08] MEDS ORDERED: PIPERACILLIN /TAZOBACTAM 3.375 G VIAL IV ONE (01:11)
[2022-07-08 01:12] LABS: CARBON DIOXIDE > 45 mmol/L (21-32)
--- NOTE | 2022-07-08 01:27 | NUR ---
RT NOTE PT ARRIVED WITH OPEN STOMA AND 100% OXYGEN DELIVERED VIA NONREBREATHER ON STOMA SITE. ABG DRAWN AND RESULTS REPORTED TO MD. INSERTED SHILEY 8 DCT CUFFED TRACH AND CUFF INFLATED. PT PLACED ON MECHANICAL VENTILATOR WITH CURRENT SETTINGS OF AC 24, 500, 100%, NO PEEP DUE TO LOW BLOOD PRESSURE. TRACH SECURED VIA TRACH TIE. BILATERAL CHEST RISE NOTED. SMALL THICK SECRETIONS NOTED. ALARMS ON AND AUDIBLE. VENT PLUGGED TO RED OUTLET. WILL CONTINUE TO MONITOR PT CLOSELY.
[2022-07-08] MEDS ORDERED: IV NS 0.9% 1,000 ML BAG IV ONE ×2 (01:30)
[2022-07-08] MEDS ORDERED: PIPERACILLIN /TAZOBACTAM 3.375 G in IV D5W 50 ML IV ONE (01:30)
[2022-07-08] MEDS ORDERED: VANCOMYCIN 1 GM in IV D5W 250 ML IV ONE (01:30)
[2022-07-08 01:33] LABS: BILIRUBIN,URINE NEGATIVE (NEGATIVE); COLOR,URINE YELLOW (YELLOW); LEUKOCYTE ESTERASE ,URINE NEGATIVE (NEGATIVE); NITRITE, URINE NEGATIVE (NEGATIVE); PROTEIN,URINE NEGATIVE (NEGATIVE); UGLUCOSE NEGATIVE (NEGATIVE)
[2022-07-08] MEDS ORDERED: VANCOMYCIN 1 GM VIAL ONE (01:35)
[2022-07-08] MEDS ORDERED: clonazePAM 0.5 MG TABLET PO PRN (02:30)
[2022-07-08] MEDS ORDERED: NOREPINEPHRINE 8 MG in IV NS 0.9% 242 ML IV PRN (02:30)
[2022-07-08] MEDS ORDERED: MAG HYDROX/AL HYDROX/SIMETH 30 ML UDC PO PRN (02:30)
[2022-07-08] MEDS ORDERED: ZOLPIDEM TARTRATE 5 MG TABLET PO PRN (02:30)
[2022-07-08] MEDS ORDERED: ONDANSETRON HCL/PF 4 MG/2 ML VIAL IVP PRN (02:30)
[2022-07-08] MEDS ORDERED: Z GUARD REMEDY 4 OZ OINT TP PRN (02:30)
[2022-07-08] MEDS ORDERED: MAGNESIUM HYDROXIDE 30 ML UDC PO PRN (02:30)
[2022-07-08 02:41] LABS: ABG BASE EXCESS 11.1 mmol/L; ABG PCO2 50.2 mmHg (35.0-45.0); ABG PH 7.473 (7.350-7.450); ABG PO2 326.7 mmHg (75.0-100.0); COHb 1.2 % (0.5-1.5); MetHb 0.3 % (0.0-1.5); O2Hb 98.2 % (94.0-97.0); SITE, ABG Right Radial
[2022-07-08] MEDS: IV NS 0.9% 1,000 ML IV PRN ×2 (04:47→19:57)
[2022-07-08] MEDS ORDERED: CEFEPIME 1 GM in IV D5W 50 ML IV SCH (05:00)
[2022-07-08] MEDS ORDERED: CEFEPIME 1 GM VIAL ONE (05:09)
--- NOTE | 2022-07-08 05:40 | NUR ---
VENT RATE DECREASED TO 18 DUE TO ABG EVIDENCE OF INCREASED PH
--- NOTE | 2022-07-08 05:40 | NUR ---
RT NOTE DECREASED RATE TO 18 POST ABG RESULTS PER REFRIGERATOR CRATER MARISOL PRYOR. MATT RUSHING NOTIFIED.
[2022-07-08 05:41] LABS: ABG BASE EXCESS 13.7 mmol/L; ABG PCO2 37.2 mmHg (35.0-45.0); ABG PH 7.606 (7.350-7.450); COHb 1.7 % (0.5-1.5); MetHb 0.2 % (0.0-1.5); O2Hb 95.8 % (94.0-97.0); SITE, ABG Right Radial
[2022-07-08 05:51] LABS: HEMATOCRIT 27 % (39-51); LYMPHOCYTES # (AUTO) 0.3 K/uL (0.8-4.8); LYMPHOCYTES % (AUTO) 4.8 % (20.0-44.0); MEAN CORPUSCULAR HGB CONC 33 g/dl (31.0-36.0); MEAN CORPUSCULAR VOLUME 91 fL (80-96); MONOCYTES # (AUTO) 0.3 K/uL (0.1-1.30); MONOCYTES % (AUTO) 4.9 % (2.0-12.0); NEUTROPHILS # (AUTO) 5.7 K/uL (1.8-8.9); NEUTROPHILS % (AUTO) 90.3 % (43.0-81.0); PLATELET COUNT (AUTO) 175 K/uL (150-450); RED BLOOD CELL COUNT(AUTO) 2.99 MIL/uL (4.5-6.0); WHITE BLOOD COUNT (AUTO) 6.3 K/uL (4.3-11.0)
[2022-07-08 06:20] LABS: MAGNESIUM 1.5 mg/dL (1.8-2.4); PHOSPHORUS 1.2 mg/dL (2.5-4.9); POTASSIUM 4.4 mmol/L (3.5-5.1)
[2022-07-08 06:21] LABS: THYROID STIMULATING HORMONE 1.735 uIU/mL (0.358-3.74)
[2022-07-08] MEDS ORDERED: ENOXAPARIN SODIUM 40 MG/0.4 ML DISP.SYRIN SQ ONE (06:26)
[2022-07-08] MEDS: ENOXAPARIN SODIUM 40 MG/0.4 ML DISP.SYRIN SQ SCH ×2 (06:30→21:16)
--- NOTE | 2022-07-08 06:38 | NUR ---
REPORT GIVEN TO KENDAL
--- NOTE | 2022-07-08 07:16 | NUR ---
pt transported to room 255 on cardiac via acls with RT
--- NOTE | 2022-07-08 08:00 | NUR ---
DITCH RIDERCONSOLE ASSEMBLER NOTE: PT. TRANSFERRED IN ROOM VIA GURNEY FROM ER AT 0711. PT. REPORT GIVEN TO CORE MACHINE OPERATOR KENDAL. PT. IS A/O X2-3, NON-VERBAL, RESTING AT THIS TIME BUT ABLE TO ANSWER YES/NO QUESTIONS BY NODDING AND SHAKING HEAD. ALSO WRITES ON PAPER. FARSI SPEAKING BUT UNDERSTANDS MACEDONIAN. NO COMPLAINTS OF PAIN/DISCOMFORT AT THIS TIME. TRACH SIZE - SHILEY #8, AC - 18; VT - 500; FIO2 - 50%; PEEP - 0. SATURATING AT 97%. CALL CENTER RECEPTIONIST READS NSR @ 81 BPM. AFEBRILE, VS STABLE. PT. HAS G-TUBE, NO GASTRIC RESIDUAL NOTED, CLAMPED, DRESSING C/D/I AND NO S/S OF INFECTION. SKIN INTACT. PT. HAS L HAND #20G WITH NS RUNNING AT 75ML/HR; R AC #20G, PATENT AND SALINE LOCKED. IV SITE DRESSINGS C/D/I, NO S/S OF INFILTRATION. SAFETY MEASURES IN PLACE: BED IN LOWEST AND LOCKED POSITION, HOB ELEVATED, BED ALARM ON, CALL LIGHT WITHIN REACH, WILL TURN AND REPOSITION AT LEAST Q2H. WILL CONTINUE TO MONITOR PT. FOR ANY CHANGES.
[2022-07-08] MEDS: PANTOPRAZOLE 40 MG VIAL IV SCH (08:39)
[2022-07-08] MEDS: CHOLECALCIFEROL 1,000 UNIT TABLET (VIT D3) PO SCH (08:43)
[2022-07-08] MEDS: ASPIRIN 81 MG TAB.CHEW PO SCH (08:43)
[2022-07-08] MEDS: TIZANIDINE HCL 4 MG TABLET PO SCH ×2 (08:43→17:38)
[2022-07-08] MEDS: LOSARTAN POTASSIUM 50 MG TABLET PO SCH (08:43)
[2022-07-08] MEDS ORDERED: Medication Not On Formulary EA (Fenofibrate 160 MG) PO SCH (09:00)
[2022-07-08] MEDS ORDERED: Medication Not On Formulary EA (Sertraline Hcl (Zoloft) 200 MG) PO SCH (09:00)
[2022-07-08] MEDS ORDERED: EDARAVONE IV SCH (09:00)
--- NOTE | 2022-07-08 09:00 | NUR ---
RN ICU NOTE: PT. REMAINS AGITATED, RESTLESS AND TRYING TO PULL OUT TRACH AND LINES IN SPITE OF LEAST RESTRICTIVE MEASURES. SOFT BILATERAL RESTRAINTS ORDERED BY MD. KEANE CATH ALSO INSERTED FOR CRITICAL MONITORING. WILL CONTINUE TO MONITOR PT.'S NEUROVASCULAR STATUS AND FOR ANY CHANGES.
--- NOTE | 2022-07-08 09:10 | NUR ---
AUTOMOTIVE SERVICE TECHNICIAN NOTE: PT. PULLED OUT HIS VENT TUBE. WAS ABLE TO RECONNECT THE TUBE TO THE TRACH RIGHT AWAY. PT. NOW SATURATING AT 97% ON SAME VENT SETTINGS. WILL CONTINUE STRICT MONITORING OF PT.'S SAFETY.
[2022-07-08] MEDS: LEVOTHYROXINE SODIUM 112 MCG TABLET PO SCH (09:15)
[2022-07-08] MEDS: FENOFIBRATE NANOCRYS (145 MG) 145 MG TABLET PO SCH (09:16)
[2022-07-08] MEDS: buPROPion 75 MG TABLET PO SCH ×2 (10:42→16:25)
[2022-07-08] MEDS: NOREPINEPHRINE 8 MG in IV NS 0.9% 242 ML IV PRN (11:37)
--- NOTE | 2022-07-08 11:46 | NUR ---
SCREEN REPAIRER CRUSHER NOTE: PT.'S BP WAS AT 89/50 WITH HR OF 73 BPM AT 1130. LEVO STARTED AT 0.1 MCG/KG/MIN. BP AT 1145 IS AT 103/72 WITH HR OF 62 BPM. WILL CONTINUE TO MONITOR PT.'S HEMODYNAMIC STATUS.
[2022-07-08] MEDS: LORAZEPAM INJ 2 MG/ML VIAL IVP PRN ×2 (11:47→19:16)
[2022-07-08] MEDS: Magnesium 1GM/D5W 100ML PREMIX 100 ML IV SCH ×2 (11:47→13:19)
--- NOTE | 2022-07-08 12:00 | NUR ---
PHOTO FINISH PHOTOGRAPHER NOTE: PT. CONTINUED TO BE AGITATED AND RESTLESS IN SPITE OF DISTRACTION AND REDIRECTION. ATIVAN 1 MG IVP GIVEN AT 1147. PT. IS NOW RESTING IN BED. ALL VS STABLE AT THIS TIME. WILL CONTINUE TO MONITOR FOR ANY CHANGES.
[2022-07-08] MEDS: CEFEPIME 2 GM in IV D5W 100 ML IV SCH ×2 (13:19→20:10)
[2022-07-08] MEDS: VANCOMYCIN 1.25 GM in IV D5W 250 ML IV SCH (14:32)
[2022-07-08] MEDS ORDERED: NEUTRA PHOS 1 POWD.PACKET NG ONE (16:00)
[2022-07-08] MEDS: TAMSULOSIN 0.4 MG CAP.SR.24H PO SCH (17:37)
[2022-07-08] MEDS: FINASTERIDE (5 MG) 5 MG TABLET PO SCH (17:37)
[2022-07-08] MEDS: DOCUSATE SODIUM LIQ 100 MG/10 ML UDC GT SCH (17:42)
[2022-07-08] MEDS ORDERED: DOCUSATE SODIUM 100 MG CAPSULE PO SCH (18:00)
--- NOTE | 2022-07-08 19:10 | NUR ---
PILE DRIVING TECHNICIAN CLOSING NOTE: PT. REMAINS IN BED A/O X2-3, NON-VERBAL, BUT ABLE TO ANSWER YES/NO QUESTIONS BY NODDING AND SHAKING HEAD. AWAKE AT THIS TIME. FAMILY WAS AT BEDSIDE UNTIL 1900 AND BROUGHT HOME MEDICATIONS. MEDS GIVEN TO PHARMACY. NO COMPLAINTS OF PAIN/DISCOMFORT AT THIS TIME. TRACH SIZE - SHILEY #8, AC - 18; VT - 450; FIO2 - 50%; PEEP - 0. SATURATING AT 97%. ORANGE PICKER MACHINE OPERATOR READS NSR @ 72 BPM. AFEBRILE, VS STABLE WITH LEVO CURRENTLY AT 0.1MCG/KG/MIN. PT. HAS G-TUBE, NO GASTRIC RESIDUAL NOTED, CLAMPED, DRESSING C/D/I AND NO S/S OF INFECTION. KEANE CATH INSERTED WITH OUTPUT OF 720 ML CLEAR YELLOW URINE THROUGHOUT SHIFT. NO BM. SKIN INTACT. PT. HAS RAMIREZ MIDLINE WITH NS RUNNING AT 75ML/HR; R AC #20G AND L HAND #20G, PATENT AND SALINE LOCKED. IV SITE DRESSINGS C/D/I, NO S/S OF INFILTRATION. SAFETY MEASURES MAINTAINED: BED IN LOWEST AND LOCKED POSITION, HOB ELEVATED, BED ALARM ON, CALL LIGHT WITHIN REACH, TURNED AND REPOSITIONED AT LEAST Q2H. WILL ENDORSE CONTINUITY OF CARE TO MEDICAL SERVICE TECHNICIAN RN.
--- NOTE | 2022-07-08 19:35 | NUR ---
RN OPENING NOTES RECEIVED CARE OF PATIENT FROM AM NURSE, PATIENT IS AWAKE, RESTLESS, ANXIOUS, DOES NOT FOLLOW COMMANDS, REPOSITIONED FOR COMFORT. ADMINISTERED ORDERED ATIVAN PRN 1MG. WILL REASSESS ACCORDINGLY. PATIENT NOTED WITH TRACH ON MECHANICAL VENTILATION WITH ORDERED SETTINGS, PATIENT TOLERATING WELL, NO SOB NOTED, O2 SAT 99%. ON TELE MONITOR READING NSR WITH HR OF 70, NO DISTRESS NOTED. PATIENT'S KEANE CATH IN PLACE, DRAINING YELLOW URINE. RUNNING WITH LEVO DRIP AT 0.1 MCG/KG/MIN, AND IV NS AT 75 ML/HR. SAFETY MEASURES IMPLEMENTED PER HOSPITAL PROTOCOLS. WILL CARRY OUT PLAN OF CARE.
--- NOTE | 2022-07-08 20:03 | NUR ---
RECEIVED PT TRACHED JERI 8 ON VENT. PT TOLERATING VENT SETTINGS. NO RESP DISTRESS NOTED. VENT ALARMS SET AND AUDIBLE. CONTINUE TO MONITOR. Addendum: 07/08/22 at 2004 by WILLIAM MARQUEZ RT Amended: Links added.
[2022-07-08] MEDS ORDERED: RADICAVA XX PRN ×2 (20:30)
[2022-07-08] MEDS ORDERED: D5W IV SCH ×4 (21:00)
[2022-07-08] MEDS ORDERED: RADICAVA XX ONE (21:00)
[2022-07-08] MEDS: ATORVASTATIN 10 MG TABLET PO SCH (21:15)
[2022-07-08] MEDS: TRAZODONE 50 MG TABLET PO SCH (21:16)
--- NOTE | 2022-07-08 21:57 | NUR ---
RN NOTES PATIENT'S HOME MED RADICAVA ADMINISTERED ORDERED. MEDICATION ADMINISTERED VIA IV INFUSION OVER 30 MIN EACH BAG, TOTAL OF 2 BAGS FOR 60MG TOTAL.
[2022-07-09] VITALS (82 sets, daily range): BP systolic 83–166; BP diastolic 28–107
[2022-07-09] MEDS: NOREPINEPHRINE 8 MG in IV NS 0.9% 242 ML IV PRN (00:32)
[2022-07-09] MEDS: VANCOMYCIN 1.25 GM in IV D5W 250 ML IV SCH ×2 (01:31→13:56)
[2022-07-09 03:54] LABS: BASOPHILS % (AUTO) 0.4 % (0.0-2.0); EOSINOPHILS % (AUTO) 1.8 % (0.0-6.0); HEMATOCRIT 25 % (39-51); HEMOGLOBIN 8.3 g/dL (13.5-17.5); LYMPHOCYTES # (AUTO) 0.7 K/uL (0.8-4.8); LYMPHOCYTES % (AUTO) 13.1 % (20.0-44.0); MEAN CORPUSCULAR HGB CONC 33 g/dl (31.0-36.0); MEAN CORPUSCULAR VOLUME 90 fL (80-96); MONOCYTES # (AUTO) 0.4 K/uL (0.1-1.30); MONOCYTES % (AUTO) 7.5 % (2.0-12.0); NEUTROPHILS # (AUTO) 4.1 K/uL (1.8-8.9); NEUTROPHILS % (AUTO) 77.2 % (43.0-81.0); PLATELET COUNT (AUTO) 177 K/uL (150-450); RED BLOOD CELL COUNT(AUTO) 2.77 MIL/uL (4.5-6.0); WHITE BLOOD COUNT (AUTO) 5.2 K/uL (4.3-11.0)
[2022-07-09 04:38] LABS: CALCIUM, SERUM 8.5 mg/dL (8.5-10.1); CREATININE 0.9 mg/dL (0.6-1.3); MAGNESIUM 1.7 mg/dL (1.8-2.4); PHOSPHORUS 2.8 mg/dL (2.5-4.9); POTASSIUM 3.4 mmol/L (3.5-5.1)
--- NOTE | 2022-07-09 05:28 | NUR ---
RN NOTES PATIENT REFUSES BED BATH AND LINEN CHANGE. PATIENT HAS BEEN EDUCATED ON IMPORTANCE OF PERSONAL HYGIENE, PATIENT STILL REFUSES BED BATH. WILL CONTINUE TO ENCOURAGE PERSONAL HYGIENE.
[2022-07-09] MEDS: CEFEPIME 2 GM in IV D5W 100 ML IV SCH ×3 (05:40→21:20)
--- NOTE | 2022-07-09 07:20 | NUR ---
RN CLOSING NOTES ENDORSED CARE OF PATIENT TO MORNING SHIFT NURSE. PLAN OF CARE CARRIED OUT FOR LIFTER/DRIVER. NO SIGNIFICANT FINDINGS UPON ALL NURSING ASSESSMENTS. SAFETY MEASURES KEPT IN PLACE PER HOSPITAL PROTOCOLS. ENDORSED CARE OF PATIENT TO AM NURSE FOR CONTINUITY OF CARE.
--- NOTE | 2022-07-09 07:45 | NUR ---
PT SET ON CPAP TOLERATING WELL NO S/S OF DISTRESS OT SAT 98%
--- NOTE | 2022-07-09 07:55 | NUR ---
RN/ICU PT RECEIVED RESTING AND CALM IN BED BREATHING IS EVEN AND UNLABORED NO S/S OF RESPIRATORY DISTRESS. ON LEVO AT 0.04, BEDSIDE MONITOR SHOWS VITAL STABLE SINUS RHYTHM, SAT 96%, BP 114/58. COVERING MACHINE OPERATOR REPORTED ANXIETY AND HX OF SELF EXTUBATION. A RESULT PT IS ON BILATERAL SOFT WRIST RESTRAINTS CIRCULATION CHECKED +2 PULSE RADIAL PULSES. HOB ELVATED TO [address] KEANE CATHETER IN PLACE AND PATENT GT IN PLACE AND DRESSED.
[2022-07-09] MEDS: TIZANIDINE HCL 4 MG TABLET PO SCH ×2 (08:16→19:00)
[2022-07-09] MEDS: FENOFIBRATE NANOCRYS (145 MG) 145 MG TABLET PO SCH (08:16)
[2022-07-09] MEDS: ASPIRIN 81 MG TAB.CHEW PO SCH (08:17)
[2022-07-09] MEDS: CHOLECALCIFEROL 1,000 UNIT TABLET (VIT D3) PO SCH (08:17)
[2022-07-09] MEDS: LOSARTAN POTASSIUM 50 MG TABLET PO SCH (08:18)
[2022-07-09] MEDS: LEVOTHYROXINE SODIUM 112 MCG TABLET PO SCH (08:18)
[2022-07-09] MEDS: RILUZOLE 50 MG PO SCH ×2 (08:19→17:45)
[2022-07-09] MEDS: SILODOSIN 4 MG PO SCH (08:19)
[2022-07-09] MEDS: buPROPion 75 MG TABLET PO SCH ×2 (08:19→17:45)
[2022-07-09] MEDS: PANTOPRAZOLE 40 MG VIAL IV SCH (08:20)
[2022-07-09] MEDS ORDERED: SERTRALINE HCL 50 MG TABLET PO SCH (09:00)
[2022-07-09 09:46] LABS: ABG BASE EXCESS 7.7 mmol/L; ABG OXYGEN SATURATION 97.5 % (92.0-98.5); ABG PCO2 41.3 mmHg (35.0-45.0); ABG PH 7.501 (7.350-7.450); ABG PO2 97.7 mmHg (75.0-100.0); AaDO2 212.3 mmHg; COHb 1.9 % (0.5-1.5); MetHb 0.3 % (0.0-1.5); O2Hb 95.4 % (94.0-97.0); SITE, ABG Right Radial
[2022-07-09] MEDS: Magnesium 1GM/D5W 100ML PREMIX 100 ML IV SCH ×2 (09:54→11:12)
[2022-07-09] MEDS ORDERED: POTASSIUM CHLORIDE 20 MEQ POWDER PACKET GT SCH (10:00)
[2022-07-09] MEDS: IV NS 0.9% 1,000 ML IV PRN (13:12)
[2022-07-09] MEDS: JEVITY 1.2 CAL 1,000 ML BOTTLE GT PRN (14:19)
[2022-07-09] MEDS: LORAZEPAM INJ 2 MG/ML VIAL IVP PRN (16:29)
[2022-07-09] MEDS: DOCUSATE SODIUM LIQ 100 MG/10 ML UDC GT SCH (19:00)
[2022-07-09] MEDS: FINASTERIDE (5 MG) 5 MG TABLET PO SCH (19:00)
[2022-07-09] MEDS: TAMSULOSIN 0.4 MG CAP.SR.24H PO SCH (19:00)
--- NOTE | 2022-07-09 19:24 | NUR ---
RN/ICU PT ALERT AND AWAKE ABLE TO MAKE NEEDS KNOWN AND IS AMBULATORY WITH ASSISTANCE. ON COOL AEROSOL NO S/S OF RESPIRATORY DISTRESS SATS IN THE MID 90'S. BED SIDE MONITOR SHOWS SR AND STABLE BP. LEVO DRIP TRIAL OFF AT 0800 NO INDICATION FOR RESTARTING DRIP. MIDLINE, R AC, L HAND CATHETERS ALL PATENT AND FLUSHING NO S/S OF INFILTRATION. G TUBE IN PLACE AND DIET ORDERED. PT STARTED ON JEVITY AT 30ML/ HR G TUBE PATENT AND FLUSHED WITH WATER.
--- NOTE | 2022-07-09 19:25 | NUR ---
RN NOTES RECEIVED CARE OF PATIENT FROM AM NURSE, PATIENT IS IN BED, ABLE TO AMBULATE WITH ASSISTANCE TO BEDSIDE COMMODE. PATIENT ABLE TO COMMUNICATE BY WRITING, PATIENT IN NO PAIN OR DISCOMFORT AT THIS TIME, PATIENT APPEARS TO BE ANXIOUS. PATIENT IS ON COOL AEROSOL OXYGEN TREATMENT, TOLERATING WELL, PLAN IS TO PLACE PATIENT ON CPAP DURING THE NIGHT. ON TELE MONITOR SHOWING NSR WITH HR OF 85. SAFETY MEASURES IMPLEMENTED PER HOSPITAL PROTOCOLS. WILL CARRY OUT PLAN OF CARE.
[2022-07-09] MEDS: ATORVASTATIN 10 MG TABLET PO SCH (21:38)
[2022-07-09] MEDS: TRAZODONE 50 MG TABLET PO SCH (21:39)
[2022-07-09] MEDS: ENOXAPARIN SODIUM 40 MG/0.4 ML DISP.SYRIN SQ SCH (21:40)
[2022-07-09] MEDS: [UNRECOGNIZED DRUG - OTHER] IV SCH ×2 (21:46)
[2022-07-09] MEDS: DEXTROSE IV SCH ×2 (21:46)
[2022-07-09] MEDS: RADICAVA IV SCH (22:21)
[2022-07-09] MEDS: D5W IV SCH (22:21)
--- NOTE | 2022-07-09 22:36 | NUR ---
PT IS AWAKE AND EXPLAINED TO HIM THAT PER MD HE NEEDS TO BE ON VENT AT NIGHT. PT UNDERSTOOD. PT PLACED ON CPAP MODE. RN NOTIFIED. CONTINUE TO MONITOR. Addendum: 07/09/22 at 2238 by WILLIAM MARQUEZ RT Amended: Links added.
[2022-07-10] VITALS (23 sets, daily range): BP systolic 94–138; BP diastolic 52–77
[2022-07-10] MEDS: VANCOMYCIN 1.25 GM in IV D5W 250 ML IV SCH ×2 (02:19→14:02)
[2022-07-10 04:32] LABS: BASOPHILS % (AUTO) 0.4 % (0.0-2.0); EOSINOPHILS % (AUTO) 1.9 % (0.0-6.0); HEMATOCRIT 24 % (39-51); LYMPHOCYTES # (AUTO) 0.4 K/uL (0.8-4.8); LYMPHOCYTES % (AUTO) 10.6 % (20.0-44.0); MEAN CORPUSCULAR HGB CONC 33 g/dl (31.0-36.0); MEAN CORPUSCULAR VOLUME 90 fL (80-96); MONOCYTES # (AUTO) 0.2 K/uL (0.1-1.30); MONOCYTES % (AUTO) 6.7 % (2.0-12.0); NEUTROPHILS # (AUTO) 2.8 K/uL (1.8-8.9); NEUTROPHILS % (AUTO) 80.4 % (43.0-81.0); PLATELET COUNT (AUTO) 148 K/uL (150-450); RED BLOOD CELL COUNT(AUTO) 2.66 MIL/uL (4.5-6.0); WHITE BLOOD COUNT (AUTO) 3.5 K/uL (4.3-11.0)
[2022-07-10 04:50] LABS: CALCIUM, SERUM 8.7 mg/dL (8.5-10.1); CREATININE 0.8 mg/dL (0.6-1.3); PHOSPHORUS 4.5 mg/dL (2.5-4.9); POTASSIUM 3.5 mmol/L (3.5-5.1)
[2022-07-10] MEDS: CEFEPIME 2 GM in IV D5W 100 ML IV SCH ×3 (05:47→20:23)
--- NOTE | 2022-07-10 07:15 | NUR ---
RN OPENING NOTES RECEIVED CARE OF PATIENT FROM BILINGUAL INTERPRETER NURSE, PATIENT IS AWAKE, NON VERBAL ON COOL AEROSOL TOLERATING WELL ,ABLE TO BEGUM HIS NEEDS ON THE PAPER REPOSITIONED FOR COMFORT. WILL REASSESS ACCORDINGLY. NO SOB NOTED, O2 SAT 99%. ON TELE MONITOR READING NSR WITH HR OF 74, NO DISTRESS NOTED. PATIENT'S KEANE CATH IN PLACE, DRAINING YELLOW URINE. RUNNING IV NS AT 75 ML/HR. SAFETY MEASURES IMPLEMENTED PER HOSPITAL PROTOCOLS. WILL CARRY OUT PLAN OF CARE.
--- NOTE | 2022-07-10 07:27 | NUR ---
RN CLOSING NOTES ENDORSED CARE OF PATIENT TO MORNING SHIFT NURSE. PLAN OF CARE CARRIED OUT FOR PUBLIC INFORMATION DIRECTOR. NO SIGNIFICANT FINDINGS UPON ALL NURSING ASSESSMENTS. SAFETY MEASURES KEPT IN PLACE PER HOSPITAL PROTOCOLS. ENDORSED CARE OF PATIENT TO AM NURSE FOR CONTINUITY OF CARE.
[2022-07-10] MEDS: LEVOTHYROXINE SODIUM 112 MCG TABLET PO SCH (07:45)
[2022-07-10] MEDS: ASPIRIN 81 MG TAB.CHEW PO SCH (09:54)
[2022-07-10] MEDS: LOSARTAN POTASSIUM 50 MG TABLET PO SCH (09:54)
[2022-07-10] MEDS: FENOFIBRATE NANOCRYS (145 MG) 145 MG TABLET PO SCH (09:55)
[2022-07-10] MEDS: CHOLECALCIFEROL 1,000 UNIT TABLET (VIT D3) PO SCH (09:55)
[2022-07-10] MEDS: RILUZOLE 50 MG PO SCH ×2 (09:55→18:08)
[2022-07-10] MEDS: SILODOSIN 4 MG PO SCH (09:56)
[2022-07-10] MEDS: PANTOPRAZOLE 40 MG/PACK PACK GT SCH (10:00)
[2022-07-10] MEDS: PAROXETINE HCL 20 MG TABLET PO SCH (10:00)
[2022-07-10] MEDS: TIZANIDINE HCL 4 MG TABLET PO SCH ×2 (10:00→18:08)
[2022-07-10] MEDS: IV NS 0.9% 1,000 ML IV PRN (16:00)
[2022-07-10] MEDS: ACETAMINOPHEN 325 MG TABLET PO PRN (16:49)
--- NOTE | 2022-07-10 17:40 | NUR ---
patient is at stable condition , was transferred to the LEN , report was given to the RN Severino at the bed side
--- NOTE | 2022-07-10 18:00 | NUR ---
received report from Sera GUTIERREZ. patient stable condition. patient is on trach collar. patient has gtube medication.patient has right ac 20 guage. iv patent and flushing well. removed midline due to not patent. spoke with family member of patient
[2022-07-10] MEDS: TAMSULOSIN 0.4 MG CAP.SR.24H PO SCH (18:08)
[2022-07-10] MEDS: DOCUSATE SODIUM LIQ 100 MG/10 ML UDC GT SCH (18:08)
[2022-07-10] MEDS: FINASTERIDE (5 MG) 5 MG TABLET PO SCH (18:08)
--- NOTE | 2022-07-10 20:00 | NUR ---
RN NOTE RECEIVED PT ALERT ORIENTED, WRITING ON PAPER FOR NEEDS. NOT IN ANY DISTRESS, ON 10L TPIECE. DENIES SOB OR PAIN AT THIS TIME. O2 SAT AT 98%. IV ON RAC AND LHAND PATENT AND INTACT AND PATENT, NS RUNNING AT 75ML/HR. KEANE CATH IN PLACE. DRAINING YELLOW URINE. WILL CONTINUE TO MONITOR. ALL SAFETY MEASURES IN PLACE PER PROTOCOL.
--- NOTE | 2022-07-10 20:38 | NUR ---
rn closing note patient is alert and oriented x3. patient is on high fowlers position. patient is nonverbal but able to communicate on paper. patient is on trach collar tolerating with ordered settings. no signs of pain or discomfort at this time. patient has gtube. gtube intact and patent. tube feeding running at 30 ml/hr. patient has iv on right arm. iv patent and intact. flushing well. patient has George catheter. yellow color draining to gravity. all safety measures in place. bed locked at lowest position. side rails up x2
[2022-07-10] MEDS: [UNRECOGNIZED DRUG - OTHER] IV SCH ×2 (21:16)
[2022-07-10] MEDS: DEXTROSE IV SCH ×2 (21:16)
[2022-07-10] MEDS: ATORVASTATIN 10 MG TABLET PO SCH (21:16)
[2022-07-10] MEDS: TRAZODONE 50 MG TABLET PO SCH (21:16)
[2022-07-10] MEDS: ENOXAPARIN SODIUM 40 MG/0.4 ML DISP.SYRIN SQ SCH (21:16)
[2022-07-10] MEDS: RADICAVA IV SCH (22:12)
[2022-07-10] MEDS: D5W IV SCH (22:12)
--- NOTE | 2022-07-10 23:10 | NUR ---
PER DR LUONG, PT CPAP AT NIGHT. PT DID NOT WANT TO BE ON CPAP. RN AWARE. WILL TRY AGAIN LATER. I TOLD THE PT THAT I WILL BE BACK AND CHECK UP ON HIM. NO RESP DISTRESS O2 SAT 100%.
[2022-07-11] VITALS: BP 112/64
--- NOTE | 2022-07-11 00:52 | NUR ---
PT PLACED ON CPAP MODE. RN NOTIFIED. Addendum: 07/11/22 at 0053 by WILLIAM MARQUEZ RT Amended: Links added.
[2022-07-11] MEDS: VANCOMYCIN 1 GM in IV D5W 250 ML IV SCH ×2 (01:06→13:04)
--- NOTE | 2022-07-11 01:14 | NUR ---
RN NOTE PT TOLERATING CPAP. NO DISTRESS NOTED. O2 SAT AT 95%. WILL CONTINUE TO MONITOR.
[2022-07-11 04:00] VITALS: BP 102/64
[2022-07-11] MEDS: CEFEPIME 2 GM in IV D5W 100 ML IV SCH ×3 (05:03→21:09)
[2022-07-11 05:58] LABS: BASOPHILS % (AUTO) 0.1 % (0.0-2.0); EOSINOPHILS % (AUTO) 2.9 % (0.0-6.0); HEMATOCRIT 26 % (39-51); HEMOGLOBIN 8.5 g/dL (13.5-17.5); LYMPHOCYTES # (AUTO) 0.3 K/uL (0.8-4.8); LYMPHOCYTES % (AUTO) 9.4 % (20.0-44.0); MEAN CORPUSCULAR HGB CONC 33 g/dl (31.0-36.0); MEAN CORPUSCULAR VOLUME 90 fL (80-96); MONOCYTES # (AUTO) 0.2 K/uL (0.1-1.30); MONOCYTES % (AUTO) 6.5 % (2.0-12.0); NEUTROPHILS # (AUTO) 2.7 K/uL (1.8-8.9); NEUTROPHILS % (AUTO) 81.1 % (43.0-81.0); PLATELET COUNT (AUTO) 166 K/uL (150-450); RED BLOOD CELL COUNT(AUTO) 2.86 MIL/uL (4.5-6.0); WHITE BLOOD COUNT (AUTO) 3.3 K/uL (4.3-11.0)
[2022-07-11] MEDS: JEVITY 1.2 CAL 1,000 ML BOTTLE GT PRN (06:10)
--- NOTE | 2022-07-11 06:30 | NUR ---
PT TAKEN OFF CPAP AND PLACED ON COOL AEROSOL 50%. RN NOTIFIED.
--- NOTE | 2022-07-11 06:35 | NUR ---
RN NOTE PT BACK TO 10L COOL AEROSOL. NO SIGNS OF DISTRESS NOTED. PT ABLE TO MAKE NEEDS KNOWN. CALL LIGHT WITHIN REACH AT ALL TIMES. CONTINUE ON NS AT 75ML/HR. ALL DUE MEDS WERE GIVEN. ADEQUATE AMOUNT OF URINE OUTPUT FROM KEANE CATH. WILL ENDORSE TO NEXT SHIFT NURSE FOR DONAVON. Addendum: 07/11/22 at 0638 by NJ REEDER RN TOLERATING GT FEEDING OF JEVITY AT 30ML/HR. NO RESIDUALS NOTED. KEPT HOB ELEVATED.
[2022-07-11 06:46] LABS: CALCIUM, SERUM 9.5 mg/dL (8.5-10.1); CREATININE 0.7 mg/dL (0.6-1.3); MAGNESIUM 1.8 mg/dL (1.8-2.4); PHOSPHORUS 4.1 mg/dL (2.5-4.9); POTASSIUM 3.9 mmol/L (3.5-5.1)
[2022-07-11 08:00] VITALS: BP 114/70
[2022-07-11] MEDS: PANTOPRAZOLE 40 MG/PACK PACK GT SCH (08:30)
[2022-07-11] MEDS: ASPIRIN 81 MG TAB.CHEW PO SCH (08:30)
[2022-07-11] MEDS: PAROXETINE HCL 20 MG TABLET PO SCH (08:30)
[2022-07-11] MEDS: TIZANIDINE HCL 4 MG TABLET PO SCH ×2 (08:30→17:10)
[2022-07-11] MEDS: SILODOSIN 4 MG PO SCH (08:31)
[2022-07-11] MEDS: LOSARTAN POTASSIUM 50 MG TABLET PO SCH (08:31)
[2022-07-11] MEDS: LEVOTHYROXINE SODIUM 112 MCG TABLET PO SCH (08:31)
[2022-07-11] MEDS: CHOLECALCIFEROL 1,000 UNIT TABLET (VIT D3) PO SCH (08:31)
[2022-07-11] MEDS: RILUZOLE 50 MG PO SCH ×2 (08:31→17:09)
[2022-07-11] MEDS: FENOFIBRATE NANOCRYS (145 MG) 145 MG TABLET PO SCH (08:53)
--- NOTE | 2022-07-11 10:19 | NUR ---
RN NOTE ATTEMPTED TO CONTACT FAMILY PER PT'S REQUEST. LEFT A MESSAGE TO SON CLAY, ATTEMPTED TO CONTACT BROTHER VERNA X3, NUMBER NOT WORKING AT THIS TIME, UNABLE TO LEAVE A MESSAGE
[2022-07-11 12:00] VITALS: BP 119/71
[2022-07-11] MEDS: IV NS 0.9% 1,000 ML IV PRN (15:15)
[2022-07-11 16:00] VITALS: BP 119/71
[2022-07-11] MEDS: DOCUSATE SODIUM LIQ 100 MG/10 ML UDC GT SCH (17:09)
[2022-07-11] MEDS: TAMSULOSIN 0.4 MG CAP.SR.24H PO SCH (17:09)
[2022-07-11] MEDS: FINASTERIDE (5 MG) 5 MG TABLET PO SCH (17:10)
[2022-07-11 20:00] VITALS: BP 111/60
[2022-07-11] MEDS ORDERED: POLYVINYL ALCOHOL 15 ML BOTTLE EACHEYE PRN (21:00)
--- NOTE | 2022-07-11 21:42 | NUR ---
RT NOTE Received pt on CA 50% at 10 LPM. SPO2 100%. Placed on ordered noc CPAP settings at 2100. Pt suctioned and has bloody secretions. Tolerating CPAP settings. Trach is patent and secured. Alarms are on and audible. Vent plugged into red outlet.
[2022-07-11] MEDS: [UNRECOGNIZED DRUG - OTHER] IV SCH ×2 (22:07)
[2022-07-11] MEDS: DEXTROSE IV SCH ×2 (22:07)
[2022-07-11] MEDS: ATORVASTATIN 10 MG TABLET PO SCH (22:13)
[2022-07-11] MEDS: TRAZODONE 50 MG TABLET PO SCH (22:14)
[2022-07-11] MEDS: ENOXAPARIN SODIUM 40 MG/0.4 ML DISP.SYRIN SQ SCH (22:15)
[2022-07-11] MEDS: D5W IV SCH (22:40)
[2022-07-11] MEDS: RADICAVA IV SCH (22:40)
--- NOTE | 2022-07-11 22:52 | NUR ---
RN NOTE PT TOLERATING CPAP SETTING. NO SIGNS OF DISTRESS. O2 AT AT 98%. PT FAMILY CAME TO VISIT EARLIER. PT BEING UNCOOPERATIVE, REFUSED LOVENOX INJECTION. PT WANTING TO DRINK WATER, EXPLAINED, WAS BEING AGGRESSIVE, WANTS TO TAKE OUT IV AND VENT TUBINGS. EXPLAINED TO FAMILY WHO WAS ON VIDEO CALL WITH PATIENT. NOW CALMED DOWN. WILL CONTINUE TO MONITOR. Addendum: 07/11/22 at 2303 by NJ REEDER RN PT AGREED TO HAVE LOVENOX INJECTION AFTER EXPLAINING RISKS AND BENEFITS.
[2022-07-11] MEDS: ACETAMINOPHEN 325 MG TABLET PO PRN (23:45)
[2022-07-12] VITALS: BP 101/60
[2022-07-12] MEDS: VANCOMYCIN 1 GM in IV D5W 250 ML IV SCH (01:42)
[2022-07-12 04:00] VITALS: BP 123/61
[2022-07-12] MEDS: CEFEPIME 2 GM in IV D5W 100 ML IV SCH ×3 (04:55→21:38)
--- NOTE | 2022-07-12 05:50 | NUR ---
RT NOTE Pt placed back on CA 50% 10 LPM as ordered. RN Cynthia aware. SPO2 98%.
--- NOTE | 2022-07-12 06:05 | NUR ---
RT NOTE Pt was placed back on CPAP. States that breathing became heavy and more labored. SPO2 99%. RN Cynthia aware.
--- NOTE | 2022-07-12 06:49 | NUR ---
RN NOTE PT REMAIN ON VENT WITH CPAP SETTINGS, TOLERATING. DENIES SOB. NOT IN ANY DISTRESS. PT AWAKE. CONTINUE ON GT FEEDING, TOLERATES WELL, NO RESIDUALS NOTED. KEPT HOB ELEVATED. ALL DUE MEDS WERE GIVEN ORDERED. TMAX DURING SHIFT 100.2, TYLENOL WAS GIVEN. TEMP SUBSIDED TO 98.4. ALL NEEDS ATTENDED, FREQUENT MONITORING. CALL LIGHT WITHIN REACH AT ALL TIMES. WILL ENDORSE TO NEXT SHIFT NURSE FOR DONAVON.
[2022-07-12 07:29] LABS: BASOPHILS % (AUTO) 0.2 % (0.0-2.0); EOSINOPHILS % (AUTO) 3.2 % (0.0-6.0); HEMATOCRIT 26 % (39-51); HEMOGLOBIN 8.3 g/dL (13.5-17.5); LYMPHOCYTES # (AUTO) 0.4 K/uL (0.8-4.8); MEAN CORPUSCULAR HGB CONC 33 g/dl (31.0-36.0); MEAN CORPUSCULAR VOLUME 91 fL (80-96); MONOCYTES # (AUTO) 0.3 K/uL (0.1-1.30); MONOCYTES % (AUTO) 5.5 % (2.0-12.0); NEUTROPHILS # (AUTO) 3.8 K/uL (1.8-8.9); NEUTROPHILS % (AUTO) 83.1 % (43.0-81.0); PLATELET COUNT (AUTO) 168 K/uL (150-450); RED BLOOD CELL COUNT(AUTO) 2.81 MIL/uL (4.5-6.0); WHITE BLOOD COUNT (AUTO) 4.5 K/uL (4.3-11.0)
[2022-07-12] MEDS: JEVITY 1.2 CAL 1,000 ML BOTTLE GT PRN (07:37)
--- NOTE | 2022-07-12 07:43 | NUR ---
pt. is awake and alert placed into trach mask @ 50% fio2 via cool aerosol. trach cuffed fully deflated and vent on stand by @ bedside. Addendum: 07/12/22 at 0745 by TRE VILLEGAS RT Amended: Links added.
[2022-07-12 08:00] VITALS: BP 105/55
--- NOTE | 2022-07-12 08:22 | NUR ---
pt. requested to go back to mechanical vent with previous parameters below a ordered: cpap 5 ps 12 fio2 50% rn aware changes made. Addendum: 07/12/22 at 0823 by TRE VILLEGAS RT Amended: Links added.
[2022-07-12 08:24] LABS: CALCIUM, SERUM 9.9 mg/dL (8.5-10.1); CREATININE 0.8 mg/dL (0.6-1.3); MAGNESIUM 1.7 mg/dL (1.8-2.4); PHOSPHORUS 2.7 mg/dL (2.5-4.9); POTASSIUM 4.1 mmol/L (3.5-5.1)
[2022-07-12] MEDS: RILUZOLE 50 MG PO SCH ×2 (08:35→17:11)
[2022-07-12] MEDS: SILODOSIN 4 MG PO SCH (08:35)
[2022-07-12] MEDS: LOSARTAN POTASSIUM 50 MG TABLET PO SCH (08:35)
[2022-07-12] MEDS: PANTOPRAZOLE 40 MG/PACK PACK GT SCH (08:35)
[2022-07-12] MEDS: ASPIRIN 81 MG TAB.CHEW PO SCH (08:35)
[2022-07-12] MEDS: FENOFIBRATE NANOCRYS (145 MG) 145 MG TABLET PO SCH (08:35)
[2022-07-12] MEDS: PAROXETINE HCL 20 MG TABLET PO SCH (08:35)
[2022-07-12] MEDS: LEVOTHYROXINE SODIUM 112 MCG TABLET PO SCH (08:36)
[2022-07-12] MEDS: CHOLECALCIFEROL 1,000 UNIT TABLET (VIT D3) PO SCH (08:36)
[2022-07-12] MEDS: TIZANIDINE HCL 4 MG TABLET PO SCH ×2 (08:36→17:12)
[2022-07-12] MEDS: Magnesium 1GM/D5W 100ML PREMIX 100 ML IV SCH ×3 (10:37→11:01)
--- NOTE | 2022-07-12 10:48 | NUR ---
RN NOTE PT REFUSED IV MAGNESIUM SUPPLEMENT. PT EDUCATED ON THE IMPORTANCE OF IT, PT CONTINUES TO REFUSE.
[2022-07-12 12:00] VITALS: BP 109/45
[2022-07-12 16:00] VITALS: BP 104/63
[2022-07-12] MEDS: DOCUSATE SODIUM LIQ 100 MG/10 ML UDC GT SCH (17:11)
[2022-07-12] MEDS: FINASTERIDE (5 MG) 5 MG TABLET PO SCH (17:12)
[2022-07-12] MEDS: TAMSULOSIN 0.4 MG CAP.SR.24H PO SCH (17:12)
[2022-07-12] MEDS: VANCOMYCIN HCL 0.75 GM in IV D5W 250 ML IV SCH (18:33)
--- NOTE | 2022-07-12 19:30 | NUR ---
RN OPENING NOTES RECEIVED CARE OF PATIENT FROM AM SHIFT NURSE, PATIENT IN BED, ALERT, ABLE TO COMMUNICATE BY METHOD OF WRITING AND FACIAL EXPRESSIONS. PATIENT IN NO DISTRESS OR PAIN AT THIS TIME, SOME ANXIETY NOTED ON PATIENT, RELAXATION TECHNIQUES ARE EFFECTIVE. PATIENT WITH TRACH ON CPAP WITH ORDERED SETTINGS, TOLERATING WELL, NO SOB NOTED, O2 SAT 98%. PATIENT IS ABLE TO AMBULATED TO BEDSIDE COMMODE WITH ASSISTANCE, KEANE IN PLACE DRAINING YELLOW URINE TO GRAVITY. AT BEDSIDE, ALL QUESTIONS ANSWERED. SAFETY MEASURES IMPLEMENTED PER HOSPITAL PROTOCOLS. WILL CARRY OUT PLAN OF CARE.
[2022-07-12 20:00] VITALS: BP 95/62
[2022-07-12] MEDS: [UNRECOGNIZED DRUG - OTHER] IV SCH ×2 (20:04)
[2022-07-12] MEDS: DEXTROSE IV SCH ×2 (20:04)
[2022-07-12] MEDS: RADICAVA IV SCH (21:27)
[2022-07-12] MEDS: D5W IV SCH (21:27)
[2022-07-12] MEDS: TRAZODONE 50 MG TABLET PO SCH (21:35)
[2022-07-12] MEDS: ATORVASTATIN 10 MG TABLET PO SCH (21:35)
[2022-07-12] MEDS: ENOXAPARIN SODIUM 40 MG/0.4 ML DISP.SYRIN SQ SCH (21:37)
[2022-07-13] VITALS: BP 122/77
--- NOTE | 2022-07-13 01:45 | NUR ---
RT FIO2 TITRATE FROM 50% TO 40% DUE TO SPO2 100%. RN AWARE.
[2022-07-13 04:00] VITALS: BP 112/69
[2022-07-13] MEDS: CEFEPIME 2 GM in IV D5W 100 ML IV SCH ×3 (04:45→21:21)
--- NOTE | 2022-07-13 07:18 | NUR ---
RN NOTES ENDORSED CARE OF PATIENT TO AM SHIFT NURSE. NO SIGNIFICANT FINDINGS UPON ALL NURSING ASSESSMENTS. ALL DUE MEDS GIVEN AND PLAN OF CARE CARRIED OUT. SAFETY MEASURES KEPT IN PLACE PER HOSPITAL PROTOCOLS. ENDORSED CARE OF PATIENT TO AM SHIFT NURSE FOR CONTINUITY OF CARE.
--- NOTE | 2022-07-13 07:23 | NUR ---
RN OPENING NOTE PT OBSERVED IN BED SLEEPING ON MECHANICAL VENT WITH ALL PRESCRIBED SETTINGS TOLERATING WELL O2 SAT 96%. PT IS A/OX4 ON TELE MONITOR SR. FC IS IN PLACE DRAINING URINE TO GRAVITY AND PT USES BEDSIDE COMMODE. GT IS IN PLACE WITH POSITIVE PLACEMENT INFUSING WITH JEVITY 1.2 @ 30ML/HR. IV ACCESS R WRIST 24G AND L HAND 22G NO FLUIDS INFUSING AT THIS TIME. BED IS LOCKED IN LOWEST POSITION X2 BED RAILS UP AND ALL HOSPITAL SAFETY PROTOCOLS ARE IN PLACE WILL CONTINUE TO MONITOR THIS SHIFT.
[2022-07-13] MEDS: VANCOMYCIN HCL 0.75 GM in IV D5W 250 ML IV SCH ×2 (07:24→18:20)
[2022-07-13 07:49] LABS: BASOPHILS % (AUTO) 0.3 % (0.0-2.0); EOSINOPHILS % (AUTO) 2.4 % (0.0-6.0); HEMATOCRIT 24 % (39-51); LYMPHOCYTES # (AUTO) 0.4 K/uL (0.8-4.8); LYMPHOCYTES % (AUTO) 10.4 % (20.0-44.0); MEAN CORPUSCULAR HGB CONC 34 g/dl (31.0-36.0); MEAN CORPUSCULAR VOLUME 89 fL (80-96); MONOCYTES # (AUTO) 0.2 K/uL (0.1-1.30); MONOCYTES % (AUTO) 6.6 % (2.0-12.0); NEUTROPHILS % (AUTO) 80.3 % (43.0-81.0); PLATELET COUNT (AUTO) 162 K/uL (150-450); RED BLOOD CELL COUNT(AUTO) 2.68 MIL/uL (4.5-6.0); WHITE BLOOD COUNT (AUTO) 3.7 K/uL (4.3-11.0)
[2022-07-13 07:52] LABS: CALCIUM, SERUM 9.6 mg/dL (8.5-10.1); CREATININE 0.9 mg/dL (0.6-1.3); MAGNESIUM 1.7 mg/dL (1.8-2.4); PHOSPHORUS 2.9 mg/dL (2.5-4.9); POTASSIUM 3.8 mmol/L (3.5-5.1)
[2022-07-13 08:00] VITALS: BP 112/70
[2022-07-13] MEDS: PANTOPRAZOLE 40 MG/PACK PACK GT SCH (09:03)
[2022-07-13] MEDS: PAROXETINE HCL 20 MG TABLET PO SCH (09:03)
[2022-07-13] MEDS: LOSARTAN POTASSIUM 50 MG TABLET PO SCH (09:04)
[2022-07-13] MEDS: ASPIRIN 81 MG TAB.CHEW PO SCH (09:04)
[2022-07-13] MEDS: TIZANIDINE HCL 4 MG TABLET PO SCH ×2 (09:04→17:17)
[2022-07-13] MEDS: CHOLECALCIFEROL 1,000 UNIT TABLET (VIT D3) PO SCH (09:04)
[2022-07-13] MEDS: SILODOSIN 4 MG PO SCH (09:05)
[2022-07-13] MEDS: RILUZOLE 50 MG PO SCH ×2 (09:05→17:18)
[2022-07-13] MEDS: LEVOTHYROXINE SODIUM 112 MCG TABLET PO SCH (09:06)
[2022-07-13] MEDS: FENOFIBRATE NANOCRYS (145 MG) 145 MG TABLET PO SCH (09:08)
[2022-07-13 12:00] VITALS: BP 111/61
[2022-07-13] MEDS: Magnesium 1GM/D5W 100ML PREMIX 100 ML IV SCH ×3 (12:10→12:52)
[2022-07-13] MEDS ORDERED: IV NS 0.9% 250 ML IV PRN (12:30)
[2022-07-13] MEDS ORDERED: Magnesium 1GM/D5W 100ML PREMIX 100 ML IV SCH (15:00)
--- NOTE | 2022-07-13 15:39 | NUR ---
RN NOTE: MAGNESIUM ACCIDENTALLY SCANNED TWICE EARLIER. RETIMED BY PHARMACY FOR 1500. BAG 2 OF 2 WILL BE GIVEN NOW.
[2022-07-13 16:00] VITALS: BP 102/56
[2022-07-13] MEDS: DOCUSATE SODIUM LIQ 100 MG/10 ML UDC GT SCH (17:17)
[2022-07-13] MEDS: FINASTERIDE (5 MG) 5 MG TABLET PO SCH (17:17)
[2022-07-13] MEDS: TAMSULOSIN 0.4 MG CAP.SR.24H PO SCH (17:17)
--- NOTE | 2022-07-13 18:44 | NUR ---
RN CLOSING NOTE PT IS IN BED SITTING UP ON MECHANICAL VENT WITH ALL PRESCRIBED SETTINGS TOLERATING WELL O2 SAT 100%. PT IS A/OX4 ON TELE MONITOR SR. FC IS IN PLACE DRAINING URINE TO GRAVITY -1450 AND PT USES BEDSIDE COMMODE HAD 4 BM. GT IS IN PLACE WITH POSITIVE PLACEMENT INFUSING WITH JEVITY 1.2 @ 60ML/HR WITH GOAL OF 75ML/HR. IV ACCESS R WRIST 24G NO FLUIDS INFUSING AT THIS TIME. BED IS LOCKED IN LOWEST POSITION X2 BED RAILS UP AND ALL HOSPITAL SAFETY PROTOCOLS ARE IN PLACE WILL ENDORSE TO HOLIDAY DETECTOR OPERATOR NURSE FOR [place].
[2022-07-13 20:00] VITALS: BP 92/56
[2022-07-13] MEDS: DEXTROSE IV SCH ×2 (21:20)
[2022-07-13] MEDS: [UNRECOGNIZED DRUG - OTHER] IV SCH ×2 (21:20)
[2022-07-13] MEDS: RADICAVA IV SCH (21:20)
[2022-07-13] MEDS: D5W IV SCH (21:20)
[2022-07-13] MEDS: ATORVASTATIN 10 MG TABLET PO SCH (21:21)
[2022-07-13] MEDS: TRAZODONE 50 MG TABLET PO SCH (21:21)
[2022-07-13] MEDS: ENOXAPARIN SODIUM 40 MG/0.4 ML DISP.SYRIN SQ SCH (21:23)
--- NOTE | 2022-07-13 23:09 | NUR ---
LEN RN OPENING NOTE PT RECEIVED IN BED, AWAKE, A&O X4, ABLE TO MAKE NEEDS KNOWN THROUGH WRITING. PT ON TRACH COLLAR SHILEY #8, AC 12, FIO2 40%, PEEP 5; NO S/S OF RESP DISTRESS, NO SOB OR COUGH, NON-LABORED AND EQUAL BREATHING, BUT APPEARS ANXIOUS. ATTACHED TO EXTERNAL MONITOR SR WITH HR . PT NOTED TO BE AMBULATORY WITH STANDBY ASSISTANCE; ABLE TO USE BEDSIDE COMMODE. IV ACCESS ON RIGHT WRIST 24G, INTACT AND PATENT, NS TKO INFUSING A T10 ML/HR. GTD C/D/I WITH JEVITY RUNNING AT 65 ML/HR; NO RESIDUAL NOTED. KEANE INTACT AND PATENT, NO SIGNS OF LEAKING BED IN LOWEST POSITION, CALL LIGHT WITHIN REACH, SIDE RAILS UP X2. WILL CONTINUE TO MONITOR THROUGHOUT THE NIGHT.
[2022-07-13] MEDS: JEVITY 1.2 CAL 1,000 ML BOTTLE GT PRN (23:44)
[2022-07-14] VITALS: BP 98/67
[2022-07-14 04:00] VITALS: BP 96/64
[2022-07-14] MEDS: CEFEPIME 2 GM in IV D5W 100 ML IV SCH ×2 (04:31→12:19)
[2022-07-14 06:29] LABS: BASOPHILS % (AUTO) 0.5 % (0.0-2.0); EOSINOPHILS % (AUTO) 2.3 % (0.0-6.0); HEMATOCRIT 24 % (39-51); LYMPHOCYTES # (AUTO) 0.4 K/uL (0.8-4.8); LYMPHOCYTES % (AUTO) 10.3 % (20.0-44.0); MEAN CORPUSCULAR HGB CONC 34 g/dl (31.0-36.0); MEAN CORPUSCULAR VOLUME 90 fL (80-96); MONOCYTES # (AUTO) 0.4 K/uL (0.1-1.30); MONOCYTES % (AUTO) 8.8 % (2.0-12.0); NEUTROPHILS # (AUTO) 3.1 K/uL (1.8-8.9); NEUTROPHILS % (AUTO) 78.1 % (43.0-81.0); PLATELET COUNT (AUTO) 161 K/uL (150-450); RED BLOOD CELL COUNT(AUTO) 2.67 MIL/uL (4.5-6.0)
[2022-07-14 07:01] LABS: CALCIUM, SERUM 9.5 mg/dL (8.5-10.1)
[2022-07-14 07:09] LABS: PHOSPHORUS 2.8 mg/dL (2.5-4.9)
--- NOTE | 2022-07-14 07:29 | NUR ---
LEN RN CLOSING NOTE PT REMAINS IN BED, ASLEEP BUT EASILY AROUSABLE; A&O X4, ABLE TO WRITE TO MAKE NEEDS KNOWN. PT REMAINS ON SAME VENT SETTINGS; TOLERATED VENT SETTINGS WELL WITH O2SAT IN THE HIGH 90S-100%; NOTED TO GET SOB WHEN WALKING TO COMMODE AND BACK TO BED; NO OTHER S/S OF RESP DISTRESS. ATTACHED TO EXTERNAL MONITOR, SR HR 66. KEANE INTACT AND PATENT, DRAINING CLEAR AND YELLOW URINE. GTD C/D/I WITH JEVITY RUNNING AT 75 ML/HR. RIGHT WRIST INTACT AND PATENT, FLUSHES EASILY WITH NO RESISTANCE. ALL DUE MEDS ADMINISTERED DURING THE NIGHT. BED IN LOWEST POSITION, CALL LIGHT WITHIN REACH, SIDE RAILS UP X2. WILL ENDORSE TO DAYSHIFT NURSE TO CONTINUE CARE.
[2022-07-14] MEDS: LEVOTHYROXINE SODIUM 112 MCG TABLET PO SCH (07:34)
--- NOTE | 2022-07-14 07:45 | NUR ---
LEN RN NOTES PATIENT IS IN THE BED ALERT & ORIENTED X 3. PATIENT ON VENT AND TRACH SUCTION DONE AT BEDSIDE ON TELE MONITOR SINUS RHYTHM HEART RATE 74. PATIENT HAS G-TUBE FEEDING 10 ML RESIDUAL NOTED . KEEP HEAD OF THE ELEVATED RIGHT WRIST HEP LOCK IS NOT FLUSHING WELL WE WILL TRY TO INSERT OTHER LINE. ALL SAFETY MEASURE BED LOWEST LOCKED POSITION, BED LIGHT WITHIN REACH, WILL CONTINUE TO MONITOR CLOSELY.
[2022-07-14 08:00] VITALS: BP 122/72
[2022-07-14] MEDS: PANTOPRAZOLE 40 MG/PACK PACK GT SCH (08:47)
[2022-07-14] MEDS: ASPIRIN 81 MG TAB.CHEW PO SCH (08:48)
[2022-07-14] MEDS: PAROXETINE HCL 20 MG TABLET PO SCH (08:48)
[2022-07-14] MEDS: LOSARTAN POTASSIUM 50 MG TABLET PO SCH (08:48)
[2022-07-14] MEDS: CHOLECALCIFEROL 1,000 UNIT TABLET (VIT D3) PO SCH (08:48)
[2022-07-14] MEDS: RILUZOLE 50 MG PO SCH ×2 (08:49→16:31)
[2022-07-14] MEDS: FENOFIBRATE NANOCRYS (145 MG) 145 MG TABLET PO SCH (08:49)
[2022-07-14] MEDS: TIZANIDINE HCL 4 MG TABLET PO SCH ×2 (08:49→17:20)
[2022-07-14] MEDS: SILODOSIN 4 MG PO SCH (09:44)
--- NOTE | 2022-07-14 10:00 | NUR ---
DOCUMENT IMAGING SPECIALIST NOTE FREQUENT TRACH SUCTION, ASSISTED WITH BED COMMODE ABLE TO MAKE BOWEL MOVEMENT, KEPT CLEAN AND DRY CALL LIGHT WITHIN REACH.
--- NOTE | 2022-07-14 11:15 | NUR ---
WEATHERIZATION ADMINISTRATOR NOTES PATIENT ASSISTED AGAIN TO BED SIDE GEOVANI DE LEON DNP AT BEDSIDE UPDATED PATIENT CONDITION WITH POSSIBLE DISCHARGE PLANS WILL FOLLOW UP WITH ASSISTANT OFFICE MANAGER.
--- NOTE | 2022-07-14 11:28 | NUR ---
PERSONAL CONSULTANT NOTES ASSISTED PATIENT TO SIT IN THE CHAIR, NO DISTRESS WILL MONITOR CLOSELY
[2022-07-14 12:00] VITALS: BP 120/67
--- NOTE | 2022-07-14 12:53 | NUR ---
LEN RN NOTE PER GEOVANI CARNEY[ PLACED ORDER PSYCH EVAL WITH QUINN GUTIERREZ DNP , CALLED [facility] STATED THAT WILL CALL ME WIT F\U
[2022-07-14 16:00] VITALS: BP 118/71
--- NOTE | 2022-07-14 16:32 | NUR ---
television director note home Meds radicava iv sent to pharmacy need administered at 2100
[2022-07-14] MEDS: JEVITY 1.2 CAL 1,000 ML BOTTLE GT PRN (16:38)
[2022-07-14] MEDS: FINASTERIDE (5 MG) 5 MG TABLET PO SCH (17:20)
[2022-07-14] MEDS: TAMSULOSIN 0.4 MG CAP.SR.24H PO SCH (17:21)
[2022-07-14] MEDS: DOCUSATE SODIUM LIQ 100 MG/10 ML UDC GT SCH (17:21)
--- NOTE | 2022-07-14 17:54 | NUR ---
juan diego rn rn note patient wants to resume Zoloft 150 mg today stated that taking this medication for long time, called to Jessica perez cash register operator explained that psychiatrist will come tomorrow , stated ok to order for now , order carried out
[2022-07-14] MEDS: SERTRALINE HCL 50 MG TABLET PO SCH (18:53)
--- NOTE | 2022-07-14 19:30 | NUR ---
LEN RN NOTE RECEIVED PATIENT AWAKE IN BED A/OX4, ON AEROSOL MIST TOLERATING WELL, NO S/S OF ACUTE DISTRESS, IV ACCESS ON R WRIST #24 TKO. TELE MONITOR READING SR, 70-80'S, PATIENT IS ABLE TO MAKE NEEDS KNOWN BY WRITING DOWN NOTES OR GESTURES. AMB WITH ASSIST TO COMMODE OR CHAIR, G TUBE CURRENTLY RUNNING JEVITY@75ML/HR, NO RESIDUAL NOTED, KEANE CATHETER DRAINING CLEAR YELLOW URINE. ALL SAFETY MEASURE BED LOWEST LOCKED POSITION, BED LIGHT WITHIN REACH, WILL CONTINUE TO MONITOR THROUGH OUT SHIFT.
[2022-07-14 20:00] VITALS: BP 120/72
[2022-07-14] MEDS: [UNRECOGNIZED DRUG - OTHER] IV SCH ×2 (20:47)
[2022-07-14] MEDS: DEXTROSE IV SCH ×2 (20:47)
[2022-07-14] MEDS: RADICAVA IV SCH (21:20)
[2022-07-14] MEDS: D5W IV SCH (21:20)
[2022-07-14] MEDS: TRAZODONE 50 MG TABLET PO SCH (21:20)
[2022-07-14] MEDS: ATORVASTATIN 10 MG TABLET PO SCH (21:21)
[2022-07-14] MEDS: ENOXAPARIN SODIUM 40 MG/0.4 ML DISP.SYRIN SQ SCH (21:22)
--- NOTE | 2022-07-14 23:10 | NUR ---
RN NOTE RT PLACED PATIENT BACK ON VENT.
[2022-07-15] VITALS: BP 106/58
[2022-07-15 04:00] VITALS: BP 108/58
--- NOTE | 2022-07-15 06:41 | NUR ---
LEN RN CLOSING NOTE PATIENT ASLEEP IN BED A/OX4, ON MECH VENT, TOLERATING WELL, NO S/S OF ACUTE DISTRESS, IV ACCESS ON R WRIST #24 TKO. TELE MONITOR READING SR HR 75, PATIENT IS ABLE TO MAKE NEEDS KNOWN ,AMB WITH ASSIST TO COMMODE OR CHAIR, G TUBE CURRENTLY RUNNING JEVITY@75ML/HR, NO RESIDUAL NOTED, KEANE CATHETER DRAINING CLEAR YELLOW URINE, OUTPUT WAS 1650ML. ALL DUE MEDS GIVEN .ALL SAFETY MEASURE BED LOWEST LOCKED POSITION, BED LIGHT WITHIN REACH, WILL ENDORSE TO MORNING SHIFT FOR CONTINUOUS CARE.
[2022-07-15 06:44] LABS: BASOPHILS % (AUTO) 0.3 % (0.0-2.0); EOSINOPHILS % (AUTO) 2.2 % (0.0-6.0); HEMATOCRIT 24 % (39-51); HEMOGLOBIN 7.9 g/dL (13.5-17.5); LYMPHOCYTES # (AUTO) 0.5 K/uL (0.8-4.8); LYMPHOCYTES % (AUTO) 11.7 % (20.0-44.0); MEAN CORPUSCULAR HGB CONC 33 g/dl (31.0-36.0); MEAN CORPUSCULAR VOLUME 90 fL (80-96); MONOCYTES # (AUTO) 0.4 K/uL (0.1-1.30); MONOCYTES % (AUTO) 9.4 % (2.0-12.0); NEUTROPHILS % (AUTO) 76.4 % (43.0-81.0); PLATELET COUNT (AUTO) 171 K/uL (150-450); RED BLOOD CELL COUNT(AUTO) 2.66 MIL/uL (4.5-6.0); WHITE BLOOD COUNT (AUTO) 3.9 K/uL (4.3-11.0)
--- NOTE | 2022-07-15 07:26 | NUR ---
LEN RN OPEN NOTE PATIENT ASLEEP IN BED A/OX4, ON MECH VENT, TOLERATING WELL, NO S/S OF ACUTE DISTRESS, IV ACCESS ON R WRIST #24 TKO. TELE MONITOR READING SR HR 75, PATIENT IS ABLE TO MAKE NEEDS KNOWN ,AMB WITH ASSIST TO COMMODE OR CHAIR, G TUBE CURRENTLY RUNNING JEVITY@75ML/HR, NO RESIDUAL NOTED, KEANE CATHETER DRAINING CLEAR YELLOW URINE,ALL DUE MEDS GIVEN .ALL SAFETY MEASURE IN PLACE BED LOWEST LOCKED POSITION, BED LIGHT WITHIN REACH, WILL CONTINUE TO FALLOW POC
[2022-07-15 08:00] VITALS: BP 122/68
[2022-07-15] MEDS: ASPIRIN 81 MG TAB.CHEW PO SCH (08:32)
[2022-07-15] MEDS: CHOLECALCIFEROL 1,000 UNIT TABLET (VIT D3) PO SCH (08:32)
[2022-07-15] MEDS: PANTOPRAZOLE 40 MG/PACK PACK GT SCH (08:32)
[2022-07-15] MEDS: LOSARTAN POTASSIUM 50 MG TABLET PO SCH (08:33)
[2022-07-15] MEDS: SERTRALINE HCL 50 MG TABLET PO SCH (08:33)
[2022-07-15] MEDS: LEVOTHYROXINE SODIUM 112 MCG TABLET PO SCH (08:34)
[2022-07-15] MEDS: TIZANIDINE HCL 4 MG TABLET PO SCH ×2 (08:34→17:20)
[2022-07-15] MEDS: FENOFIBRATE NANOCRYS (145 MG) 145 MG TABLET PO SCH (08:35)
[2022-07-15] MEDS: SILODOSIN 4 MG PO SCH (08:35)
[2022-07-15] MEDS: RILUZOLE 50 MG PO SCH ×2 (08:35→16:06)
[2022-07-15] MEDS: clonazePAM 0.5 MG TABLET PO PRN ×2 (08:41→15:00)
[2022-07-15 08:56] LABS: CALCIUM, SERUM 9.6 mg/dL (8.5-10.1); CREATININE 0.9 mg/dL (0.6-1.3); MAGNESIUM 1.8 mg/dL (1.8-2.4); PHOSPHORUS 3.2 mg/dL (2.5-4.9); POTASSIUM 3.9 mmol/L (3.5-5.1)
[2022-07-15 15:10] VITALS: BP 122/73
[2022-07-15 16:00] VITALS: BP 155/88
[2022-07-15] MEDS: DOCUSATE SODIUM LIQ 100 MG/10 ML UDC GT SCH (17:20)
[2022-07-15] MEDS: TAMSULOSIN 0.4 MG CAP.SR.24H PO SCH (17:20)
[2022-07-15] MEDS: FINASTERIDE (5 MG) 5 MG TABLET PO SCH (17:20)
[2022-07-15] MEDS: JEVITY 1.2 CAL 1,000 ML BOTTLE GT PRN (17:29)
--- NOTE | 2022-07-15 18:59 | NUR ---
LEN RN CLOSE NOTE PATIENT ASLEEP IN BED A/OX4, ON MECH VENT, TOLERATING WELL, NO S/S OF ACUTE DISTRESS, IV ACCESS ON R WRIST #24 TKO. TELE MONITOR READING SR HR 78, PATIENT IS ABLE TO MAKE NEEDS KNOWN BY WRITTING ,AMB WITH ASSIST TO COMMODE OR CHAIR, G TUBE CURRENTLY RUNNING JEVITY@75ML/HR, NO RESIDUAL NOTED, KEANE CATHETER DRAINING CLEAR YELLOW URINE,ALL DUE MEDS GIVEN , ALL NEEDS WERE MET . PATIENT AT THE END OF THE SFIFT REPORTED THAT HE HAD AUDIO HALLUCINATION AND CANT EXPLAINED IT , WILL ENDORSE BRAILLE TYPIST TO MONITOR CLOSELY .ALL SAFETY MEASURE IN PLACE BED LOWEST LOCKED POSITION, BED LIGHT WITHIN REACH, WILL CONTINUE TO FALLOW POC
--- NOTE | 2022-07-15 19:29 | NUR ---
LEN RN NOTE RECEIVED PATIENT AWAKE IN BED A/OX4, ON AEROSOL MIST TOLERATING WELL, NO S/S OF ACUTE DISTRESS, IV ACCESS ON R WRIST #24 TKO. TELE MONITOR READING SR HR 88, PATIENT IS ABLE TO MAKE NEEDS KNOWN BY WRITING DOWN NOTES OR GESTURES. AMB WITH ASSIST TO COMMODE OR CHAIR, G TUBE CURRENTLY RUNNING JEVITY@75ML/HR, NO RESIDUAL NOTED, KEANE CATHETER DRAINING CLEAR YELLOW URINE. ALL SAFETY MEASURE BED LOWEST LOCKED POSITION, BED LIGHT WITHIN REACH, WILL CONTINUE TO MONITOR THROUGH OUT SHIFT.
[2022-07-15 20:00] VITALS: BP 127/72
[2022-07-15] MEDS ORDERED: SERTRALINE HCL 50 MG TABLET PO SCH (20:00)
[2022-07-15] MEDS: [UNRECOGNIZED DRUG - OTHER] IV SCH ×2 (21:05)
[2022-07-15] MEDS: DEXTROSE IV SCH ×2 (21:05)
[2022-07-15] MEDS: MIRTAZAPINE 15 MG TABLET PO SCH (21:06)
[2022-07-15] MEDS: ENOXAPARIN SODIUM 40 MG/0.4 ML DISP.SYRIN SQ SCH (21:07)
[2022-07-15] MEDS: ATORVASTATIN 10 MG TABLET PO SCH (21:08)
[2022-07-15] MEDS: D5W IV SCH (22:19)
[2022-07-15] MEDS: RADICAVA IV SCH (22:19)
--- NOTE | 2022-07-15 23:00 | NUR ---
RCVD PT ON COOL AEROSOL 50% . PT IS AWAKE AND ALERT. PLACED ON NOC VENT WITH THE SETTINGS OF CPAP MODE , PEEP 5, PS 12, FIO2 40%. VENT PLUGGED INTO RED OUTLET, VENT ALARM SET AND AUDIBLE. CUFF INFLATED. AMBU BAG @BEDSIDE. NO RESPIRATORY DISTRESS NOTED AT THIS TIME . WILL CONTINUE TO MONITOR T/O SHIFT.
[2022-07-16] VITALS: BP 117/70
[2022-07-16 04:00] VITALS: BP 109/58
--- NOTE | 2022-07-16 05:55 | NUR ---
pt taken off noc vent, placed on cool aerosol. no respiratory distress noted. spo2 99%
[2022-07-16 06:28] LABS: BASOPHILS % (AUTO) 0.4 % (0.0-2.0); EOSINOPHILS % (AUTO) 2.3 % (0.0-6.0); HEMATOCRIT 25 % (39-51); HEMOGLOBIN 8.5 g/dL (13.5-17.5); LYMPHOCYTES # (AUTO) 0.5 K/uL (0.8-4.8); LYMPHOCYTES % (AUTO) 13.4 % (20.0-44.0); MEAN CORPUSCULAR HGB CONC 33 g/dl (31.0-36.0); MEAN CORPUSCULAR VOLUME 90 fL (80-96); MONOCYTES # (AUTO) 0.4 K/uL (0.1-1.30); MONOCYTES % (AUTO) 10.2 % (2.0-12.0); NEUTROPHILS # (AUTO) 2.6 K/uL (1.8-8.9); NEUTROPHILS % (AUTO) 73.7 % (43.0-81.0); PLATELET COUNT (AUTO) 184 K/uL (150-450); RED BLOOD CELL COUNT(AUTO) 2.83 MIL/uL (4.5-6.0); WHITE BLOOD COUNT (AUTO) 3.5 K/uL (4.3-11.0)
--- NOTE | 2022-07-16 07:07 | NUR ---
LEN OPEN NOTE PATIENT AWAKE IN BED A/OX4, ON AEROSOL MIST TOLERATING WELL, NO S/S OF ACUTE DISTRESS, IV ACCESS ON R WRIST #24 TKO. PATIENT IS ABLE TO MAKE NEEDS KNOWN BY WRITING DOWN NOTES OR GESTURES. AMB WITH ASSIST TO COMMODE OR CHAIR, G TUBE CURRENTLY RUNNING JEVITY@75ML/HR, NO RESIDUAL NOTED, KEANE CATHETER DRAINING CLEAR YELLOW URINE . ALL SAFETY MEASURE IN PLACE , BED IS AT LOWEST LOCKED POSITION, CALL LIGHT WITHIN REACH, WILL CONTINUE TO MONITOR
[2022-07-16 07:13] LABS: CALCIUM, SERUM 9.8 mg/dL (8.5-10.1); CREATININE 0.9 mg/dL (0.6-1.3); MAGNESIUM 1.7 mg/dL (1.8-2.4); PHOSPHORUS 3.1 mg/dL (2.5-4.9)
[2022-07-16] MEDS: FENOFIBRATE NANOCRYS (145 MG) 145 MG TABLET PO SCH (08:31)
[2022-07-16] MEDS: SILODOSIN 4 MG PO SCH (08:31)
[2022-07-16] MEDS: RILUZOLE 50 MG PO SCH ×2 (08:31→18:19)
[2022-07-16] MEDS: LOSARTAN POTASSIUM 50 MG TABLET PO SCH (08:31)
[2022-07-16] MEDS: LEVOTHYROXINE SODIUM 112 MCG TABLET PO SCH (08:32)
[2022-07-16] MEDS: SERTRALINE HCL 50 MG TABLET PO SCH (08:32)
[2022-07-16] MEDS: TIZANIDINE HCL 4 MG TABLET PO SCH ×2 (08:32→18:18)
[2022-07-16] MEDS: CHOLECALCIFEROL 1,000 UNIT TABLET (VIT D3) PO SCH (08:32)
[2022-07-16] MEDS: ASPIRIN 81 MG TAB.CHEW PO SCH (08:32)
[2022-07-16] MEDS: PANTOPRAZOLE 40 MG/PACK PACK GT SCH (08:33)
[2022-07-16 09:43] VITALS: BP 116/68
[2022-07-16 12:53] VITALS: BP 133/80
[2022-07-16] MEDS: Magnesium 1GM/D5W 100ML PREMIX 100 ML IV SCH ×2 (13:43→15:05)
[2022-07-16 17:26] VITALS: BP 133/80
[2022-07-16] MEDS: DOCUSATE SODIUM LIQ 100 MG/10 ML UDC GT SCH (18:18)
[2022-07-16] MEDS: TAMSULOSIN 0.4 MG CAP.SR.24H PO SCH (18:18)
[2022-07-16] MEDS: FINASTERIDE (5 MG) 5 MG TABLET PO SCH (18:18)
--- NOTE | 2022-07-16 18:36 | NUR ---
LEN CLOSING NOTE PATIENT AWAKE IN BED A/OX4, ON AEROSOL MIST TOLERATING WELL, NO S/S OF ACUTE DISTRESS, IV ACCESS ON R WRIST #24 TKO. TELE MONITOR READING SR, 70-80'S, PATIENT IS ABLE TO MAKE NEEDS KNOWN BY WRITING DOWN NOTES OR GESTURES. AMB WITH ASSIST TO COMMODE OR CHAIR, G TUBE CURRENTLY RUNNING JEVITY@75ML/HR, NO RESIDUAL NOTED, KEANE CATHETER DRAINING CLEAR YELLOW URINE IN THE AMOUNT OF 1500ML. ALL DUE MEDS GIVEN. ALL SAFETY MEASURE BED LOWEST LOCKED POSITION, BED LIGHT WITHIN REACH, WILL ENDORSE TO THE CASTING AGENT NURSE.
--- NOTE | 2022-07-16 19:15 | NUR ---
RN OPENING NOTES RECEIVED PATIENT ON BED, AWAKE, A/O X 4. ON COOL AEROSOL, SATING AT 98%. RESPIRATORY EVEN AND UNLABORD, NO SOB NOTED, AFEBRILE, NO S/S OF DISTRESS NOTED. WITH RIGHT HAND # 24 PERIPHERAL LINE, PATENT, INTACT, FLUSHED WITH NS. NO S/S OF INFILTRATION NOTED. WITH GTUBE PATENT AND INTACT, VERIFIED PLACEMENT BY AUSCULTATION, NO RESIDUAL NOTED UPON ASPIRATION, FLUSHED WITH WATER, RUNNING WITH JEVITY 1.2 @ 75 ML/HR. KEANE CATHETER PATENT INTACT DRAINING CLEAR YELLOW URINE VIA GRAVITY. REPOSITION EVERY 2 HRS. ALL SAFETY PRECAUTION PROVIDED, BED IN LOWEST POSITION, LOCKED. BED ALARM ARMED. CALL LIGHT WITH IN REACH. CONTINUE TO MONITOR.
[2022-07-16 20:00] VITALS: BP 138/81
[2022-07-16] MEDS: clonazePAM 0.5 MG TABLET PO PRN (20:27)
[2022-07-16] MEDS: ENOXAPARIN SODIUM 40 MG/0.4 ML DISP.SYRIN SQ SCH (20:30)
[2022-07-16] MEDS: DEXTROSE IV SCH ×2 (21:24)
[2022-07-16] MEDS: [UNRECOGNIZED DRUG - OTHER] IV SCH ×2 (21:24)
[2022-07-16] MEDS: ATORVASTATIN 10 MG TABLET PO SCH (21:52)
[2022-07-16] MEDS: MIRTAZAPINE 15 MG TABLET PO SCH (21:52)
[2022-07-16] MEDS: RADICAVA IV SCH (22:07)
[2022-07-16] MEDS: D5W IV SCH (22:07)
[2022-07-17] VITALS: BP 93/57
[2022-07-17 04:00] VITALS: BP 94/57
[2022-07-17 06:47] LABS: BASOPHILS % (AUTO) 0.4 % (0.0-2.0); EOSINOPHILS % (AUTO) 1.9 % (0.0-6.0); HEMATOCRIT 26 % (39-51); HEMOGLOBIN 8.8 g/dL (13.5-17.5); LYMPHOCYTES # (AUTO) 0.4 K/uL (0.8-4.8); LYMPHOCYTES % (AUTO) 9.7 % (20.0-44.0); MEAN CORPUSCULAR HGB CONC 34 g/dl (31.0-36.0); MEAN CORPUSCULAR VOLUME 89 fL (80-96); MONOCYTES # (AUTO) 0.4 K/uL (0.1-1.30); NEUTROPHILS # (AUTO) 3.4 K/uL (1.8-8.9); PLATELET COUNT (AUTO) 201 K/uL (150-450); WHITE BLOOD COUNT (AUTO) 4.3 K/uL (4.3-11.0)
--- NOTE | 2022-07-17 07:12 | NUR ---
RN NOTES PATIENT SLEEPING ON BED, EASY TO AROUSE, ON NOCTURNAL CPAP. RESPIRATORY EVEN AND UNLABORED, NO SOB NOTED, REMAIN AFEBRILE, NO S/S OF DISTRESS NOTED. WITH GTUBE PATENT AND INTACT, VERIFIED PLACEMENT BY AUSCULTATION, NO RESIDUAL NOTED UPON ASPIRATION, FLUSHED WITH WATER, RUNNING WITH JEVITY 1.2 @ 75 ML/HR. HEAD OF BED KEPT ELEVATED. KEANE CATHETER PATENT INTACT DRAINING CLEAR YELLOW URINE VIA GRAVITY. REPOSITION EVERY 2 HRS. ALL DUE MEDS GIVEN ORDERED. ALL SAFETY PRECAUTION PROVIDED, BED IN LOWEST POSITION, LOCKED. BED ALARM ARMED. CALL LIGHT WITH IN REACH. REPORT GIVEN TO MORNING SHIFT NURSE FOR CONTINUITY OF CARE.
[2022-07-17 07:18] LABS: CALCIUM, SERUM 9.6 mg/dL (8.5-10.1); CREATININE 0.9 mg/dL (0.6-1.3); MAGNESIUM 1.8 mg/dL (1.8-2.4); PHOSPHORUS 3.1 mg/dL (2.5-4.9); POTASSIUM 4.3 mmol/L (3.5-5.1)
--- NOTE | 2022-07-17 07:50 | NUR ---
RN OPENING NOTES RECEIVED PATIENT ASLEEP ON BED, RESPONSIVE TO STIMULI. ON NOCTURNAL BIPAP, SATING AT 98%. . NO SOB NOTED. WITH RIGHT HAND # 24 PERIPHERAL LINE, PATENT, INTACT. GTUBE IN PLACE AND PATENT. WITH FEEDING JEVITY 1.2 @ 75 ML/HR. KEANE CATHETER IN PLACE DRAINING WELL. SAFETY MEASURES FOLLOWED.
[2022-07-17 08:00] VITALS: BP 101/53
[2022-07-17] MEDS: LOSARTAN POTASSIUM 50 MG TABLET PO SCH (09:00)
[2022-07-17] MEDS: FENOFIBRATE NANOCRYS (145 MG) 145 MG TABLET PO SCH (09:28)
[2022-07-17] MEDS: RILUZOLE 50 MG PO SCH ×2 (09:28→18:09)
[2022-07-17] MEDS: SILODOSIN 4 MG PO SCH (09:28)
[2022-07-17] MEDS: CHOLECALCIFEROL 1,000 UNIT TABLET (VIT D3) PO SCH (09:29)
[2022-07-17] MEDS: ASPIRIN 81 MG TAB.CHEW PO SCH (09:29)
[2022-07-17] MEDS: LEVOTHYROXINE SODIUM 112 MCG TABLET PO SCH (09:29)
[2022-07-17] MEDS: PANTOPRAZOLE 40 MG/PACK PACK GT SCH (09:29)
[2022-07-17] MEDS: TIZANIDINE HCL 4 MG TABLET PO SCH ×2 (09:29→18:09)
[2022-07-17] MEDS: SERTRALINE HCL 50 MG TABLET PO SCH (09:30)
[2022-07-17 12:00] VITALS: BP 94/55
[2022-07-17 12:18] LABS: ABG BASE EXCESS 13.7 mmol/L; ABG OXYGEN SATURATION 98.2 % (92.0-98.5); ABG PCO2 49.4 mmHg (35.0-45.0); ABG PH 7.507 (7.350-7.450); ABG PO2 105.6 mmHg (75.0-100.0); AaDO2 122.8 mmHg; COHb 1.6 % (0.5-1.5); MetHb 0.3 % (0.0-1.5); O2Hb 96.3 % (94.0-97.0); SITE, ABG Right Brachial; VENT MODE, BG CPAP 40% +5 PS 12
[2022-07-17 14:00] LABS: ABG BASE EXCESS 12.3 mmol/L; ABG OXYGEN SATURATION 99.5 % (92.0-98.5); ABG PCO2 56.2 mmHg (35.0-45.0); ABG PH 7.448 (7.350-7.450); ABG PO2 213.8 mmHg (75.0-100.0); COHb 0.9 % (0.5-1.5); MetHb 0.3 % (0.0-1.5); O2Hb 98.3 % (94.0-97.0); SITE, ABG Left Radial; VENT MODE, BG CA 28 %
[2022-07-17] MEDS ORDERED: MIRT-121 PO (14:29)
[2022-07-17] MEDS ORDERED: CLON0.5T4 PO (14:29)
--- NOTE | 2022-07-17 14:30 | NUR ---
RT Patient received on back up ventilation settings: AC 500 12 40% +5. Due to episodes of apnea, kept patient on this mode until he was awake and alert. Placed patient on CPAP when he woke up around 1101 and then on cool aerosol at 1245. ABG done. No SOB or respiratory distress noted at this time.
[2022-07-17 16:00] VITALS: BP 136/78
[2022-07-17] MEDS ORDERED: DEXTROSE IV SCH ×2 (18:00)
[2022-07-17] MEDS ORDERED: [UNRECOGNIZED DRUG - OTHER] IV SCH ×2 (18:00)
[2022-07-17] MEDS: FINASTERIDE (5 MG) 5 MG TABLET PO SCH (18:09)
[2022-07-17] MEDS: DOCUSATE SODIUM LIQ 100 MG/10 ML UDC GT SCH (18:09)
[2022-07-17] MEDS: TAMSULOSIN 0.4 MG CAP.SR.24H PO SCH (18:09)
[2022-07-17] MEDS ORDERED: RADICAVA IV SCH (18:30)
[2022-07-17] MEDS ORDERED: D5W IV SCH (18:30)
--- NOTE | 2022-07-17 19:00 | NUR ---
RN NOTE Patient in bed, AO X 4, family at bedside, in no acute distress, saturation at 98% on 10L via trache to cool aerosol, SR on the monitor, HR is 84. IV line at R Wrist 24g patent and flushing well with NS at TKO. Gtube in place, positive placement noted, no residual, with tube feeding of Jevity at 75 ml/hr. George catheter draining to a clear yellow output. Safety measures in place, bed is locked and at lowest position, bed alarm is on, side rails up x 2, call light within reach of patient. Will cont to monitor and reassess
--- NOTE | 2022-07-17 19:00 | NUR ---
1899 Dr. Boyd made aware that patient's family not ready to accept patient tonight. Per son and , caregiver will come on wednesday and nobody would take care of patient's tracheostomy care tonight. Informed Dr. Boyd patient will stay in the hospital tonight and he replied "OK".
--- NOTE | 2022-07-17 19:08 | NUR ---
RN OPENING NOTES PATIENT RESTING ON BED, RESPONSIVE TO STIMULI. ON COOL AEROSOL SATING AT 95%. . NO SOB NOTED. WITH RIGHT HAND # 24 PERIPHERAL LINE, PATENT, INTACT. GTUBE IN PLACE AND PATENT. WITH FEEDING JEVITY 1.2 @ 75 ML/HR. KEANE CATHETER IN PLACE DRAINING WELL. SAFETY MEASURES FOLLOWED. DUE MEDS GIVEN, AM/PM CARE RENDERED. SAFETY MEASURES FOLLOWED.
--- NOTE | 2022-07-17 19:15 | NUR ---
1914 MAYELA Hernandes made aware that patient's family not ready for patient's discharge tonight as there is no caregiver to see patient until wednesday. Informed her that patient will stay in the hospital tonight and she said OK.
[2022-07-17 20:00] VITALS: BP 123/69
[2022-07-17] MEDS: JEVITY 1.2 CAL 1,000 ML BOTTLE GT PRN (21:41)
[2022-07-17] MEDS: ATORVASTATIN 10 MG TABLET PO SCH (21:43)
[2022-07-17] MEDS: MIRTAZAPINE 15 MG TABLET PO SCH (21:43)
[2022-07-17] MEDS: ENOXAPARIN SODIUM 40 MG/0.4 ML DISP.SYRIN SQ SCH (21:59)
[2022-07-17] MEDS: clonazePAM 0.5 MG TABLET PO PRN ×2 (22:49→22:59)
--- NOTE | 2022-07-17 22:58 | NUR ---
RN NOTE WASTED CLONAZEPAM 0.5 MG, DROPPED ON THE FLOOR. INWEAVER MADELINE WITNESS. PULLED ANOTHER ONE FROM [facility].
--- NOTE | 2022-07-17 23:09 | NUR ---
PT PLACED ON VENT, CPAP MODE. RN NOTIFIED. CONTINUE TO MONITOR.
[2022-07-18] VITALS: BP 104/49
[2022-07-18 04:00] VITALS: BP 110/49
[2022-07-18 07:19] LABS: CALCIUM, SERUM 9.8 mg/dL (8.5-10.1); CREATININE 0.9 mg/dL (0.6-1.3); POTASSIUM 4.2 mmol/L (3.5-5.1)
[2022-07-18 08:00] VITALS: BP 109/65
--- NOTE | 2022-07-18 08:00 | NUR ---
RT Pt recvd awake STABLE on CPAP. SWITCH PT TO CA 5L 28% PER TITRATION ORDER. trach is patent, midline and secured. Suction done PRN, Spo2 >92% maintained. No SOB or respiratory distress noted throughout shift. Spare trach and ambu bag at bedside.
[2022-07-18] MEDS: LOSARTAN POTASSIUM 50 MG TABLET PO SCH (09:00)
[2022-07-18] MEDS: TIZANIDINE HCL 4 MG TABLET PO SCH ×2 (09:12→17:07)
[2022-07-18] MEDS: ASPIRIN 81 MG TAB.CHEW PO SCH (09:12)
[2022-07-18] MEDS: SERTRALINE HCL 50 MG TABLET PO SCH (09:12)
[2022-07-18] MEDS: PANTOPRAZOLE 40 MG/PACK PACK GT SCH (09:13)
[2022-07-18] MEDS: CHOLECALCIFEROL 1,000 UNIT TABLET (VIT D3) PO SCH (09:13)
[2022-07-18] MEDS: SILODOSIN 4 MG PO SCH (09:15)
[2022-07-18] MEDS: FENOFIBRATE NANOCRYS (145 MG) 145 MG TABLET PO SCH (09:15)
[2022-07-18] MEDS: RILUZOLE 50 MG PO SCH ×2 (09:15→17:07)
[2022-07-18] MEDS: LEVOTHYROXINE SODIUM 112 MCG TABLET PO SCH (09:17)
[2022-07-18 12:00] VITALS: BP 144/79
[2022-07-18 16:00] VITALS: BP 148/86
[2022-07-18] MEDS: TAMSULOSIN 0.4 MG CAP.SR.24H PO SCH (17:07)
[2022-07-18] MEDS: FINASTERIDE (5 MG) 5 MG TABLET PO SCH (17:07)
[2022-07-18] MEDS: DOCUSATE SODIUM LIQ 100 MG/10 ML UDC GT SCH (17:08)
--- NOTE | 2022-07-18 19:00 | NUR ---
RN NOTE Patient in bed, AO X 4, family at bedside, in no acute distress, saturation at 99% via trach to cool aerosol, SR on the monitor, HR is 86. IV line at R Wrist 24g patent and flushing well with NS at TKO. Gtube in place, positive placement noted, no residual, with tube feeding of Jevity at 75 ml/hr. George catheter draining to a clear yellow output. Safety measures in place, bed is locked and at lowest position, bed alarm is on, side rails up x 2, call light within reach of patient. Will cont to monitor and reassess
--- NOTE | 2022-07-18 19:53 | NUR ---
RN OPENING NOTES RECEIVED PATIENT ASLEEP ON BED, RESPONSIVE TO STIMULI. ON NOCTURNAL BIPAP, SATING AT 98%. . NO SOB NOTED. WITH RIGHT HAND # 24 PERIPHERAL LINE, PATENT, INTACT. GTUBE IN PLACE AND PATENT. WITH FEEDING JEVITY 1.2 @ 75 ML/HR. KEANE CATHETER IN PLACE DRAINING WELL. DUE MEDS GIVEN, AM/PM CARE RENDERED. SAFETY MEASURES FOLLOWED.
[2022-07-18 20:00] VITALS: BP 145/84
[2022-07-18] MEDS: ENOXAPARIN SODIUM 40 MG/0.4 ML DISP.SYRIN SQ SCH (20:52)
[2022-07-18] MEDS: MIRTAZAPINE 15 MG TABLET PO SCH (20:52)
[2022-07-18] MEDS: ATORVASTATIN 10 MG TABLET PO SCH (20:53)
[2022-07-18] MEDS: clonazePAM 0.5 MG TABLET PO PRN (22:17)
[2022-07-19] VITALS: BP 145/84
[2022-07-19 04:00] VITALS: BP 112/70
--- NOTE | 2022-07-19 06:25 | NUR ---
RN NOTE 4 CAPS SILODOSIN BROUGHT BY FAMILY SENT TO PHARMACY.
[2022-07-19 06:54] LABS: BASOPHILS % (AUTO) 0.4 % (0.0-2.0); EOSINOPHILS % (AUTO) 2.5 % (0.0-6.0); HEMATOCRIT 28 % (39-51); HEMOGLOBIN 9.4 g/dL (13.5-17.5); LYMPHOCYTES # (AUTO) 0.4 K/uL (0.8-4.8); LYMPHOCYTES % (AUTO) 11.9 % (20.0-44.0); MEAN CORPUSCULAR HGB CONC 33 g/dl (31.0-36.0); MEAN CORPUSCULAR VOLUME 90 fL (80-96); MONOCYTES # (AUTO) 0.3 K/uL (0.1-1.30); MONOCYTES % (AUTO) 8.4 % (2.0-12.0); NEUTROPHILS # (AUTO) 2.6 K/uL (1.8-8.9); NEUTROPHILS % (AUTO) 76.8 % (43.0-81.0); PLATELET COUNT (AUTO) 193 K/uL (150-450); RED BLOOD CELL COUNT(AUTO) 3.17 MIL/uL (4.5-6.0); WHITE BLOOD COUNT (AUTO) 3.4 K/uL (4.3-11.0)
[2022-07-19] MEDS: JEVITY 1.2 CAL 1,000 ML BOTTLE GT PRN (07:13)
[2022-07-19 07:21] LABS: CREATININE 0.8 mg/dL (0.6-1.3); MAGNESIUM 1.7 mg/dL (1.8-2.4); PHOSPHORUS 3.9 mg/dL (2.5-4.9); POTASSIUM 4.1 mmol/L (3.5-5.1)
--- NOTE | 2022-07-19 07:31 | NUR ---
RN CLOSING NOTES RECEIVED PATIENT ASLEEP IN BED, BUT EASILY AROUSABLE. ON NOCTURNAL BIPAP, SATING AT 98%. . NO SOB NOTED. WITH RIGHT HAND # 24 PERIPHERAL LINE, PATENT, INTACT. GTUBE IN PLACE AND PATENT. WITH FEEDING JEVITY 1.2 @ 75 ML/HR. KEANE CATHETER IN PLACE DRAINING WELL. SAFETY MEASURES IMPLEMENTED. WILL CONTINUE PLAN OF CARE AND ANTICIPATE NEEDS. Addendum: 07/19/22 at 1643 by CHARISSA MARTINEZ RN HEADER SHOULD READ "RN OPENING NOTES"
[2022-07-19 08:00] VITALS: BP 114/61
[2022-07-19] MEDS: LEVOTHYROXINE SODIUM 112 MCG TABLET PO SCH (08:07)
[2022-07-19] MEDS: SERTRALINE HCL 50 MG TABLET PO SCH (08:07)
[2022-07-19] MEDS: PANTOPRAZOLE 40 MG/PACK PACK GT SCH (08:07)
[2022-07-19] MEDS: CHOLECALCIFEROL 1,000 UNIT TABLET (VIT D3) PO SCH (08:07)
[2022-07-19] MEDS: TIZANIDINE HCL 4 MG TABLET PO SCH ×2 (08:08→17:03)
[2022-07-19] MEDS: RILUZOLE 50 MG PO SCH ×2 (08:08→17:03)
[2022-07-19] MEDS: ASPIRIN 81 MG TAB.CHEW PO SCH (08:08)
[2022-07-19] MEDS: LOSARTAN POTASSIUM 50 MG TABLET PO SCH (08:08)
[2022-07-19] MEDS: FENOFIBRATE NANOCRYS (145 MG) 145 MG TABLET PO SCH (08:17)
[2022-07-19] MEDS: SILODOSIN 4 MG PO SCH (09:00)
[2022-07-19] MEDS: Magnesium 1GM/D5W 100ML PREMIX 100 ML IV SCH ×2 (10:42→11:40)
[2022-07-19 12:00] VITALS: BP 136/79
[2022-07-19 16:00] VITALS: BP 124/80
--- NOTE | 2022-07-19 16:43 | NUR ---
PATIENTS COMPLAINING OF PAIN IN IV SITE ON RIGHT HAND. REFUSES TO RECEIVE ANOTHER ACCESS. RIGHT HAND IV SITE DISCONTINUED. NO IV MEDICATIONS DUE, PATIENT IS PLANNED FOR DISCHARGE TOMORROW. CHARGE NURSE AWARE.
[2022-07-19] MEDS: TAMSULOSIN 0.4 MG CAP.SR.24H PO SCH (17:03)
[2022-07-19] MEDS: DOCUSATE SODIUM LIQ 100 MG/10 ML UDC GT SCH (17:03)
[2022-07-19] MEDS: FINASTERIDE (5 MG) 5 MG TABLET PO SCH (17:03)
--- NOTE | 2022-07-19 18:39 | NUR ---
RN CLOSING NOTES PATIENT IN BED, ON NOCTURNAL BIPAP, SATING AT 97%. GTUBE IN PLACE AND PATENT. WITH FEEDING JEVITY 1.2 @ 75 ML/HR. KEANE CATHETER IN PLACE DRAINING WELL. SAFETY MEASURES IMPLEMENTED. PATIENT'S BROTHER AT THE BEDSIDE. WILL ENDORSE TO NIGHTSHIFT FOR CONTINUATION OF CARE.
--- NOTE | 2022-07-19 18:50 | NUR ---
RT NOTE CALLED TO PATIENT ROOM FOR VENT ALARMING. UPON ARRIVAL FOUND PT DECANNULATED WITHOUT RESPIRATORY DISTRESS. BROTHER AT BEDSIDE INFORMED THAT PT WAS IN DISTRESS AND VENT WAS ALARMING LOW VOLUME. PT BROTHER REPORTED THAT HE DECANNULATED PT AND HIS CONDITION IMPROVED. ATTEMPTED TO INSERT BACKUP TRACH BUT PT AND FAMILY REFUSED. REQUESTED TO KEEP PT OFF TRACH TUBE AND MONITOR. RELAYED TO CHARGE NURSE. PT CURRENTLY ON 28% COOL AEROSOL TRACH MASK. BACK UP TRACH AND BMV @ BEDSIDE. PT KALIN W/O DISTRESS. SAT 95%. WILL CONT TO MONITOR.
--- NOTE | 2022-07-19 19:39 | NUR ---
VIDEO CONFERENCE SPECIALIST OPENING NOTES RECEIVED PATIENT ON BED, AWAKE, A/O X 4. NON VERBAL, ON COOL AEROSOL, SATING AT 95%. RESPIRATORY EVEN AND UNLABORED, NO SOB NOTED, AFEBRILE, NO S/S OF DISTRESS NOTED. NO IV ACCESS AT THIS TIME, WITH GTUBE PATENT AND INTACT, VERIFIED PLACEMENT BY AUSCULTATION, NO RESIDUAL NOTED UPON ASPIRATION, FLUSHED WITH WATER, RUNNING WITH JEVITY 1.2 @ 75 ML/HR. KEANE CATHETER PATENT INTACT DRAINING CLEAR YELLOW URINE VIA GRAVITY. ALL SAFETY PRECAUTION PROVIDED, BED IN LOWEST POSITION, LOCKED. BED ALARM ARMED. CALL LIGHT WITH IN REACH. FAMILY MEMBER AT BEDSIDE, WILL CONTINUE TO MONITOR THROUGHOUT THE SHIFT.
[2022-07-19 20:00] VITALS: BP 99/66
--- NOTE | 2022-07-19 20:50 | NUR ---
RN NOTE INFORMED SERVICE STATION MANAGER KONSTANTIN ABOUT PT DECANULATED SINCE AM SHIFT. PATIENT USED TO BE ON TPIECE IN THE MORNING AT 5L AND CPAP CONNECTED TO VENT SETTING HS. PT ON COOL AEROSOL 5L CURRENTLY SATING 95%. HE THEN ORDERED TO HAVE RT RECANULATE PATIENT. CALLED RT AT THIS TIME.
[2022-07-19] MEDS: ATORVASTATIN 10 MG TABLET PO SCH (21:44)
[2022-07-19] MEDS: MIRTAZAPINE 15 MG TABLET PO SCH (21:44)
[2022-07-19] MEDS: ENOXAPARIN SODIUM 40 MG/0.4 ML DISP.SYRIN SQ SCH (21:45)
--- NOTE | 2022-07-19 23:20 | NUR ---
RT NOTE CALLED TO PT ROOM TO REINSERT TRACH PER MD. PT REFUSING TRACH TUBE. PT WROTE "I DO NOT WANT IT. PLEASE TELL DOCTOR." PRIMARY NURSE AND CHARGE NURSE BEDSIDE. NO RESP DISTRESS NOTED @ THIS TIME.
--- NOTE | 2022-07-19 23:30 | NUR ---
RN NOTE PT REFUSED TRACH TUBE RE-INSERTION. STUDENT EDUCATION SPECIALIST MADE AWARE, HE SAID TO CONTINUE MONITORING PATIENT RESPI STATUS THROUGHOUT SHIFT. STARTED IV ACCESS ON R WRIST #20G; INTACT AND PATENT, PATIENT TOLERATED WELL.
[2022-07-20] VITALS: BP 140/62
[2022-07-20] MEDS: clonazePAM 0.5 MG TABLET PO PRN (00:13)
[2022-07-20] MEDS: JEVITY 1.2 CAL 1,000 ML BOTTLE GT PRN (03:52)
[2022-07-20 04:00] VITALS: BP 107/64
[2022-07-20 05:52] LABS: BASOPHILS % (AUTO) 0.4 % (0.0-2.0); EOSINOPHILS % (AUTO) 1.9 % (0.0-6.0); HEMATOCRIT 33 % (39-51); HEMOGLOBIN 10.8 g/dL (13.5-17.5); LYMPHOCYTES # (AUTO) 0.3 K/uL (0.8-4.8); LYMPHOCYTES % (AUTO) 8.6 % (20.0-44.0); MEAN CORPUSCULAR HGB CONC 33 g/dl (31.0-36.0); MEAN CORPUSCULAR VOLUME 90 fL (80-96); MONOCYTES # (AUTO) 0.3 K/uL (0.1-1.30); MONOCYTES % (AUTO) 7.5 % (2.0-12.0); NEUTROPHILS % (AUTO) 81.6 % (43.0-81.0); PLATELET COUNT (AUTO) 189 K/uL (150-450); RED BLOOD CELL COUNT(AUTO) 3.64 MIL/uL (4.5-6.0); WHITE BLOOD COUNT (AUTO) 3.6 K/uL (4.3-11.0)
[2022-07-20 06:21] LABS: CALCIUM, SERUM 10.1 mg/dL (8.5-10.1); CREATININE 0.9 mg/dL (0.6-1.3); MAGNESIUM 1.9 mg/dL (1.8-2.4); PHOSPHORUS 4.8 mg/dL (2.5-4.9); POTASSIUM 4.4 mmol/L (3.5-5.1)
--- NOTE | 2022-07-20 06:47 | NUR ---
SALES VENDOR CLOSING NOTES PATIENT ON BED SLEEPING BUT EASILY AROUSABLE TO TOUCH AND VOICE, A/O X 4. NON VERBAL, ON COOL AEROSOL AT 5LPM, SATING AT 98%. RESPIRATORY EVEN AND UNLABORED, NO SOB NOTED, AFEBRILE, NO S/S OF DISTRESS NOTED. IV ACCESS AT RFA #20G INTACT AND PATENT, WITH GTUBE RUNNING WITH JEVITY 1.2 @ 75 ML/HR. KEANE CATHETER INTACT DRAINING CLEAR YELLOW URINE VIA GRAVITY. ALL DUE MEDS GIVEN, KEPT DRY AND CLEAN, ALL SAFETY PRECAUTION PROVIDED, BED IN LOWEST POSITION, LOCKED. BED ALARM ARMED. CALL LIGHT WITHIN REACH. WILL ENDORSE TO AM SHIFT NURSE FOR CONTINUITY OF CARE.
--- NOTE | 2022-07-20 07:26 | NUR ---
AML ANALYST CLOSING NOTES PATIENT ON BED SLEEPING BUT EASILY AROUSABLE TO TOUCH AND VOICE, A/O X 4. NON VERBAL, ON COOL AEROSOL AT 5 L SATING AT 98%. RESPIRATORY EVEN AND UNLABORED, NO SOB NOTED, AFEBRILE, NO S/S OF DISTRESS NOTED. IV ACCESS AT RFA #20G INTACT AND PATENT, WITH GTUBE RUNNING WITH JEVITY 1.2 @ 75 ML/HR. KEANE CATHETER INTACT DRAINING CLEAR YELLOW URINE VIA GRAVITY. , ALL SAFETY PRECAUTION ON , BED IN LOWEST POSITION, LOCKED. BED ALARM ARMED. CALL LIGHT WITHIN REACH. WILL CONTINUE TO MONITOR Addendum: 07/20/22 at 1819 by GRADY CONLEY RN open note
[2022-07-20] MEDS: ASPIRIN 81 MG TAB.CHEW PO SCH (08:08)
[2022-07-20] MEDS: SILODOSIN 4 MG PO SCH (08:08)
[2022-07-20] MEDS: RILUZOLE 50 MG PO SCH ×2 (08:08→17:01)
[2022-07-20] MEDS: TIZANIDINE HCL 4 MG TABLET PO SCH ×2 (08:08→17:03)
[2022-07-20] MEDS: FENOFIBRATE NANOCRYS (145 MG) 145 MG TABLET PO SCH (08:08)
[2022-07-20] MEDS: LOSARTAN POTASSIUM 50 MG TABLET PO SCH (08:09)
[2022-07-20] MEDS: CHOLECALCIFEROL 1,000 UNIT TABLET (VIT D3) PO SCH (08:09)
[2022-07-20] MEDS: PANTOPRAZOLE 40 MG/PACK PACK GT SCH (08:09)
[2022-07-20] MEDS: LEVOTHYROXINE SODIUM 112 MCG TABLET PO SCH (08:09)
[2022-07-20] MEDS: SERTRALINE HCL 50 MG TABLET PO SCH (08:09)
[2022-07-20 10:20] VITALS: BP 114/77
[2022-07-20 12:00] VITALS: BP 138/75
--- NOTE | 2022-07-20 15:25 | NUR ---
RT PT DECANNULATED WITH OPEN STOMA, SX PRN WITH 14 [place] SX CATHETER FOR AIRWAY CLEARANCE
[2022-07-20 16:29] VITALS: BP 122/82
[2022-07-20] MEDS: DOCUSATE SODIUM LIQ 100 MG/10 ML UDC GT SCH (17:08)
[2022-07-20] MEDS: TAMSULOSIN 0.4 MG CAP.SR.24H PO SCH (17:08)
[2022-07-20] MEDS: FINASTERIDE (5 MG) 5 MG TABLET PO SCH (17:08)
--- NOTE | 2022-07-20 18:19 | NUR ---
DIRECTOR OF COMMUNITY SERVICES CLOSING NOTES PATIENT ON BED SLEEPING responsive TO TOUCH AND VOICE, A/O X 4. NON VERBAL, ON COOL AEROSOL AT 5 L SATING AT 98%.PATIENT DECANNULATED , HAS OPEN TRACHEOSTOMA WITH COLOR ON 5L OF O2 RESPIRATORY EVEN AND UNLABORED, NO SOB NOTED, AFEBRILE, NO S/S OF DISTRESS NOTED. IV ACCESS AT RFA #20G INTACT AND PATENT, WITH GTUBE RUNNING WITH JEVITY 1.2 @ 75 ML/HR. KEANE CATHETER INTACT DRAINING CLEAR YELLOW URINE VIA GRAVITY. , ALL SAFETY PRECAUTION ON , BED IN LOWEST POSITION, LOCKED. BED ALARM ARMED. CALL LIGHT WITHIN REACH. WILL CONTINUE TO MONITOR
--- NOTE | 2022-07-20 19:45 | NUR ---
STRIP PRESSER OPENING NOTES RECEIVED PATIENT ON BED, AWAKE, A/O X 4. NON VERBAL, ON COOL AEROSOL at 5L, SATING AT 98%. RESPIRATORY EVEN AND UNLABORED, NO SOB NOTED, AFEBRILE, NO S/S OF DISTRESS NOTED. IV ACCESS AT RFA #20G INTACT, PATENT AND FLUSHING WELL, WITH GTUBE IN PLACED VERIFIED PLACEMENT BY AUSCULTATION, NO RESIDUAL NOTED UPON ASPIRATION, FLUSHED WITH WATER, RUNNING WITH JEVITY 1.2 @ 75 ML/HR. KEANE CATHETER IN PLACED, DRAINING CLEAR YELLOW URINE VIA GRAVITY. ALL SAFETY PRECAUTION PROVIDED, BED IN LOWEST POSITION, LOCKED. BED ALARM ARMED. CALL LIGHT WITH IN REACH. FAMILY MEMBER AT BEDSIDE, WILL CONTINUE TO MONITOR THROUGHOUT THE SHIFT.
[2022-07-20 20:00] VITALS: BP 117/89
[2022-07-20] MEDS: ENOXAPARIN SODIUM 40 MG/0.4 ML DISP.SYRIN SQ SCH (21:00)
[2022-07-20] MEDS: MIRTAZAPINE 15 MG TABLET PO SCH (21:02)
[2022-07-20] MEDS: ATORVASTATIN 10 MG TABLET PO SCH (21:02)
[2022-07-21] VITALS: BP 123/61
[2022-07-21 04:00] VITALS: BP 110/71
[2022-07-21] MEDS: JEVITY 1.2 CAL 1,000 ML BOTTLE GT PRN (04:18)
--- NOTE | 2022-07-21 06:30 | NUR ---
SWEATBAND FLANGER CLOSING NOTES PATIENT ON BED AWAKE, A/O X 4. NON VERBAL, ON COOL AEROSOL AT 5LPM, SATING AT 98%. RESPIRATORY EVEN AND UNLABORED, NO SOB NOTED, AFEBRILE, NO S/S OF DISTRESS NOTED. IV ACCESS AT RFA #20G INTACT AND PATENT, WITH GTUBE RUNNING WITH JEVITY 1.2 @ 75 ML/HR. KEANE CATHETER INTACT DRAINING CLEAR YELLOW URINE VIA GRAVITY. ALL DUE MEDS GIVEN, KEPT DRY AND CLEAN, ALL SAFETY PRECAUTION PROVIDED, BED IN LOWEST AND LOCKED POSITION. ALL NEED ATTENDED, CALL LIGHT WITHIN REACH. WILL ENDORSE TO AM SHIFT NURSE FOR CONTINUITY OF CARE.
--- NOTE | 2022-07-21 07:33 | NUR ---
FORENSIC STRUCTURAL ENGINEER OPENING NOTES: RECEIVED PATINE TIN BED, AWAKE, ALERT, ORIENTED X 4, PATIENT IS NON VERBAL BUT COMMUNICATES THROUGH A WRITING PAD. NO SOB NOTED, BREATHING EVEN AND UNLABORED. ON COOL AEROSOL AT 5L/MIN, WITH OXYGEN SATURATION OF 99%. ON SR WITH HR OF 97 ON TELE MONITOR. IV ACCESS NOTED @ RIGHT FOREARM, PATENT, FLUSHES WELL, NO S/S INFILTRATION. ON JEVITY FEEDING @ 70ML/HR. G-TUBE WITH NO RESIDUAL, PATENT, IN PLACE AND FLUSHES WELL. KEANE CATHETER INTACT, DRAINING WITH CLEAR YELLOW COLORED URINE, NO HEMATURIA AND NO SEDIMENTATION NOTED. BED LOCKED AND IN LOWEST POSITION, CALL LIGHT WITHIN REACH. ALL SAFETY MEASURES IN PLACE. WILL CONTINUE TO MONITOR PATIENT THROUGHOUT SHIFT.
[2022-07-21] MEDS: LEVOTHYROXINE SODIUM 112 MCG TABLET PO SCH (07:47)
[2022-07-21 08:00] VITALS: BP 116/60
[2022-07-21] MEDS: ASPIRIN 81 MG TAB.CHEW PO SCH (08:51)
[2022-07-21] MEDS: PANTOPRAZOLE 40 MG/PACK PACK GT SCH (08:51)
[2022-07-21] MEDS: TIZANIDINE HCL 4 MG TABLET PO SCH ×2 (08:52→17:06)
[2022-07-21] MEDS: CHOLECALCIFEROL 1,000 UNIT TABLET (VIT D3) PO SCH (08:53)
[2022-07-21] MEDS: LOSARTAN POTASSIUM 50 MG TABLET PO SCH (08:53)
[2022-07-21] MEDS: SERTRALINE HCL 50 MG TABLET PO SCH (08:53)
[2022-07-21] MEDS: SILODOSIN 4 MG PO SCH (08:53)
[2022-07-21] MEDS: RILUZOLE 50 MG PO SCH ×2 (08:54→16:56)
[2022-07-21] MEDS: FENOFIBRATE NANOCRYS (145 MG) 145 MG TABLET PO SCH (09:23)
[2022-07-21 12:00] VITALS: BP 117/65
--- NOTE | 2022-07-21 15:01 | NUR ---
RECEIVED A CALL FROM DR LUONG WITH THE FOLLOWING ORDERS FOR RT TO INSERT TRACH AND PUT ON VENT FROM 8:00 PM - 8:00 AM AND TO PUT TRACH BACK IN PLACE BEFORE DISCHARGE
--- NOTE | 2022-07-21 15:31 | NUR ---
CONTACTED DR. FLORES DUE TO PATIENT STATED THAT HE CANNOT COMPLETELY EMPTY HIS BOWEL WITH AN ORDER FOR LACTULOSE 20 MG PO ONCE. ORDER NOTED AND CARRIED OUT
[2022-07-21 16:00] VITALS: BP 128/66
--- NOTE | 2022-07-21 16:10 | NUR ---
CHARGE NURSE AND RT BOTH CAME TO TRY TO PUT THE TRACH ON AND PLACE ON VENT BUT PATIENT SAID NO AND REFUSED. DR. LUONG MADE AWARE.
[2022-07-21] MEDS ORDERED: LACTULOSE 10 G/15 ML UDC (PYXIS) GT ONE (16:30)
--- NOTE | 2022-07-21 17:03 | NUR ---
RT PT DOESNT WANT TO TRACH REINSERTED CHARGE NURSE AWARE
[2022-07-21] MEDS: TAMSULOSIN 0.4 MG CAP.SR.24H PO SCH (17:06)
[2022-07-21] MEDS: DOCUSATE SODIUM LIQ 100 MG/10 ML UDC GT SCH (17:06)
[2022-07-21] MEDS: FINASTERIDE (5 MG) 5 MG TABLET PO SCH (17:06)
--- NOTE | 2022-07-21 19:01 | NUR ---
ELECTRICAL PROSPECTING OPERATOR CLOSING NOTES: PTATIENT BED, AWAKE, ALERT, ORIENTED X 4, PATIENT IS NON VERBAL BUT WRITES TO COMMUNICATES THROUGH A WRITING PAD. NO SOB NOTED, BREATHING EVEN AND UNLABORED. ON COOL AEROSOL AT 5L/MIN, WITH OXYGEN SATURATION OF 99%. ON SR WITH HR OF 97 ON TELE MONITOR. IV ACCESS NOTED @ RIGHT FOREARM, PATENT, FLUSHES WELL, NO S/S INFILTRATION. ON JEVITY FEEDING @ 70ML/HR. G-TUBE WITH NO RESIDUAL, PATENT, IN PLACE AND FLUSHES WELL. KEANE CATHETER INTACT, DRAINING WITH CLEAR YELLOW COLORED URINE, NO HEMATURIA AND NO SEDIMENTATION NOTED. BED LOCKED AND IN LOWEST POSITION, CALL LIGHT WITHIN REACH
--- NOTE | 2022-07-21 19:02 | NUR ---
CORRECTION ON THE NOTE MADE 190 [employer] GRINDER CLOSING NOTES: PATIENT IN BED, AWAKE, ALERT, ORIENTED X 4, PATIENT IS NON VERBAL BUT WRITES TO COMMUNICATE WITH FAMILY AT BEDSIDE. NO RESPIRATORY DISTRESS NOTED AT THIS TIME WITH OXYGEN SATURATION OF 99%. PATIENT IS READY TO BE DISCHARGED. DISCHARGE INSTRUCTIONS AND PAPERWORK GIVEN TO THE PATIENT AND AND IS WAITING FOR TRANSPORTATION. DISCONTINUED IV, NOTED WITH HUB INTACT, KEANE CATHETER DISCONTINUED WELL, ID BAND REMOVED. BED LOCKED AND IN LOWEST POSITION. WILL ENDORSE TO INCOMING NURSE.
--- NOTE | 2022-07-21 19:21 | NUR ---
TRANSPORTATION CAME BY TO SYSTEMS SOFTWARE DEVELOPER THE PATIENT BUT STATED THAT THE PATIENT IS NOT FEELING GOOD. V/S FOLLOWS: 109/52, PULSE OX 99%, HR 98, TEMP 97.1. CHARGE NURSE CLAUDIA CAME BY AND ASSESSED PATIENT AND IS NOT IN ACUTE RESPIRATORY DISTRESS AT THIS TIME. WILL ENDORSE TO INCOMING NURSE FOR CONTINUOUS MONITORING.
--- NOTE | 2022-07-21 19:45 | NUR ---
RN OPENING NOTES: RECEIVED PATIENT IN BED, AWAKE, ALERT, ORIENTED X 4, NON VERBAL BUT COMMUNICATES THROUGH WRITING. BREATHING EVEN AND UNLABORED. ON COOL AEROSOL AT 5L/MIN AND PT TOLERATED WELL. IV ACCESS WAS REMOVED BY PREVIOUS SHIFT. GTUBE FEEDING WELL TOLERATED. RUNNING JEVITY @ 75ML/HR. NO RESIDUAL NOTED. ABLE TO USE BEDSIDE COMMODE. ALL SAFETY MEASURES IN PLACE. BED IN LOWEST POSITION AND LOCKED. SIDE RAILS UP X3. PLACE CALL LIGHT WITHIN REACH. WILL CONTINUE TO MONITOR
[2022-07-21 20:00] VITALS: BP 125/74
[2022-07-21] MEDS ORDERED: ENOXAPARIN SODIUM 40 MG/0.4 ML DISP.SYRIN SQ SCH (21:00)
--- NOTE | 2022-07-21 21:33 | NUR ---
RN NOTES: PT C/O DYSPEPSIA. MAALOX GIVEN AND PT TOLERATED WELL. WILL CONTINUE TO MONITOR
[2022-07-21] MEDS ORDERED: ATORVASTATIN 10 MG TABLET GT SCH (22:00)
[2022-07-21] MEDS ORDERED: MIRTAZAPINE 15 MG TABLET GT SCH (22:00)
[2022-07-22] VITALS: BP 121/63
[2022-07-22 04:00] VITALS: BP 113/70
--- NOTE | 2022-07-22 06:36 | NUR ---
RN CLOSING NOTES: PATIENT IN BED, AWAKE, ALERT, ORIENTED X 4, NON VERBAL BUT COMMUNICATES THROUGH WRITING. STAYED IN BED ALL NIGHT. BREATHING EVEN AND UNLABORED. ON COOL AEROSOL AT 5L/MIN AND PT TOLERATED WELL. O2 SAT 98%. IV ACCESS ON LEFT WRIST#22G INTACT AND PATENT. NO S/S OF INFILTRATIONS. GTUBE FEEDING WELL TOLERATED. RUNNING JEVITY @ 75ML/HR. ABLE TO USE BEDSIDE COMMODE. ALL DUE MEDS GIVEN ORDERED. ALL SAFETY MEASURES IN PLACE. BED IN LOWEST POSITION AND LOCKED. SIDE RAILS UP X3. PLACE CALL LIGHT WITHIN REACH. WILL ENDORSE TO MORNING SHIFT NURSE.
[2022-07-22] MEDS ORDERED: MAG HYDROX/AL HYDROX/SIMETH 30 ML UDC GT PRN (07:00)
[2022-07-22] MEDS ORDERED: LEVOTHYROXINE SODIUM 112 MCG TABLET GT SCH (07:30)
--- NOTE | 2022-07-22 07:30 | NUR ---
GOVERNMENT GUARD OPENING NOTES RECEIVED PATIENT ON BED, AWAKE, A/O X 4. NON VERBAL AND HAND WRITTEN COMMUNICATION , ON COOL AEROSOL at 5L, SATING AT 98%. , NO SOB NOTED, AFEBRILE, NO S/S OF DISTRESS NOTED. IV ACCESS AT RFA #22G INTACT, PATENT AND FLUSHING WELL, WITH GTUBE IN PLACED VERIFIED PLACEMENT BY AUSCULTATION, NO RESIDUAL NOTED UPON ASPIRATION, FLUSHED WITH WATER, RUNNING WITH JEVITY 1.2 @ 75 ML/HR. KEANE CATHETER IN PLACED, DRAINING CLEAR YELLOW URINE VIA GRAVITY. ALL SAFETY PRECAUTION PROVIDED, BED IN LOWEST POSITION, LOCKED. BED ALARM ARMED. CALL LIGHT WITH IN REACH. , WILL CONTINUE TO MONITOR THROUGHOUT THE SHIFT.
[2022-07-22] MEDS: TIZANIDINE HCL 4 MG TABLET PO SCH (08:19)
[2022-07-22] MEDS: PANTOPRAZOLE 40 MG/PACK PACK GT SCH (08:19)
[2022-07-22] MEDS: SERTRALINE HCL 50 MG TABLET PO SCH (08:19)
[2022-07-22] MEDS: CHOLECALCIFEROL 1,000 UNIT TABLET (VIT D3) PO SCH (08:20)
[2022-07-22] MEDS: RILUZOLE 50 MG PO SCH (08:24)
[2022-07-22] MEDS: FENOFIBRATE NANOCRYS (145 MG) 145 MG TABLET PO SCH (08:25)
[2022-07-22] MEDS: SILODOSIN 4 MG PO SCH (08:25)
[2022-07-22 09:00] VITALS: BP 119/68
[2022-07-22] MEDS ORDERED: ASPIRIN 81 MG TAB.CHEW GT SCH (09:00)
[2022-07-22] MEDS ORDERED: LOSARTAN POTASSIUM 50 MG TABLET GT SCH (09:00)
--- NOTE | 2022-07-22 10:01 | NUR ---
Magy Juarez notified pt will be dc again today around noon per TAE MARTINEZ,unable to reach brother voicemail full,left message on son voice mail [phone].pt. agreeable with the plan and per pt. coming by noon,TAE MADE AWARE.
--- NOTE | 2022-07-22 10:34 | NUR ---
AT BEDSIDE AGREED WITH DC PLAN AT NOON,PT. ALSO AGREED.
[2022-07-22 12:00] VITALS: BP 112/58
--- NOTE | 2022-07-22 12:15 | NUR ---
TARIFF COUNSELBISQUE BRUSHER NO PATIENT ON BED, AWAKE, A/O X 4. NON VERBAL AND HAND WRITTEN COMMUNICATION , ON COOL AEROSOL at 5L, SATING AT 98%. , ALL DUE MEDS GIVEN , WITH STANDDING ORDER TO D/C HOME , DISCHARGE INSTRUCTIONS PROVIDED TO THE PATIENT AND THE AT BED COTTON PROGRAM TECHNICIAN BY EMT AMBULANCE WITH TRACH AND OXYGEN WAS ON AT 4 LITERS PER MINUTE , NO SOB ,NO DISTRESS WHEN PATIENT LEFT AND V/S ARE WITIHIN NORMAL LIMITS , INSTRUCTIONS PROVIDED ABOUT [place] , WHEN TO CALL 911 IN CASE OF EMERGENCY , FOLLOW UP WITH PCP , ALL BELONGINGS WERE TAKEN BY , LEFT WITH EMT PERSONN EL WITH O2 ON .
== END 2022-07-22 14:20 | disposition home or self-care (01) | DRG 870 ==
LOC: ER 00:14 → TRANSITION 04:49 → ICU 06:07 → TELE-TD 07-10 17:54 → TELE1 07-18 09:08
PROVIDERS: ADMIT Nurse Practitioner Acute Care; ATTEND Registered Nurse
PROC: 5A1955Z Respiratory Ventilation, Greater than 96 Consecutive Hours (ICD-10-PCS; principal; 2022-07-08)
PROC: 05HA33Z Insertion of Infusion Device into Left Brachial Vein, Percutaneous Approach (ICD-10-PCS; 2022-07-08)
DX: A41.9 Sepsis, unspecified organism (principal); G93.41 Metabolic encephalopathy; J96.22 Acute and chronic respiratory failure with hypercapnia; J96.21 Acute and chronic respiratory failure with hypoxia; R65.21 Severe sepsis with septic shock; J15.9 Unspecified bacterial pneumonia; G12.21 Amyotrophic lateral sclerosis; E87.0 Hyperosmolality and hypernatremia; E87.29 Other acidosis; J98.11 Atelectasis; F33.2 Major depressive disorder, recurrent severe without psychotic features; E86.0 Dehydration; Z20.822 Contact with and (suspected) exposure to COVID-19; Z85.21 Personal history of malignant neoplasm of larynx; Z79.899 Other long term (current) drug therapy; E83.42 Hypomagnesemia; I10 Essential (primary) hypertension; E78.5 Hyperlipidemia, unspecified; E03.9 Hypothyroidism, unspecified; Z98.890 Other specified postprocedural states; N40.0 Benign prostatic hyperplasia without lower urinary tract symptoms; Z93.0 Tracheostomy status; Z87.891 Personal history of nicotine dependence; Z79.82 Long term (current) use of aspirin; R62.7 Adult failure to thrive; R13.10 Dysphagia, unspecified; E87.6 Hypokalemia; Z81.8 Family history of other mental and behavioral disorders; Z85.89 Personal history of malignant neoplasm of other organs and systems; Z93.1 Gastrostomy status; R79.89 Other specified abnormal findings of blood chemistry; F41.1 Generalized anxiety disorder; F41.0 Panic disorder [episodic paroxysmal anxiety]; F43.25 Adjustment disorder with mixed disturbance of emotions and conduct
CPT/HCPCS: 31720; 36410; 36415; 36600; 71045-TC; 80048-TC; 80061-TC; 80076-TC; 80202-TC; 82533; 82803-TC; 82962-TC; 83540-TC; 83605-TC; 83690-TC; 83735-TC; 84100-TC; 84443-TC; 84484-TC; 85025-TC; 87040-TC; 87081-TC; 94002-TC; 94003-TC; 94640-TC; 94664-TC; 94760-TC; 94762-TC; 94799-TC; 97110-TC; 97116-TC; 97530-TC; A7526; C9113; G0378; J0692; J1650; J2060; J2405; J2543; J3370; J3475; J7030; J7040; J7050; J7060

== ENCOUNTER 2022-07-24 13:55 | Inpatient (IN) | payer BC, OTHER ==
[~2022-07-24] VITALS: Ht 175.3 cm; Wt 66.2 kg
[~2022-07-24 13:55] MED LIST changes: -BUPR75TA8 PO; +CLON0.5T4 PO; +MIRT-121 PO; -OMEP20CA15 PO; -POLY17PO4 PO
--- NOTE | 2022-07-24 14:00 | NUR ---
RECEVED PT 66 yrs male CAME BY [facility]CK FROM HOME FOR LOW BP PT WITH TRACH and trach collor FIO2 2L O2 SAT 1005 HOB ELEVATED
--- NOTE | 2022-07-24 14:05 | NUR ---
DR. HURLEY AT BED SIDE SEE PT ANDD EXAMINE PT
--- NOTE | 2022-07-24 14:15 | NUR ---
INSERTED ANG CATHTER G 18 BLOOD DROW AND SENT TO LAB
--- NOTE | 2022-07-24 14:20 | NUR ---
COVID SWAB SENT TO LAB
[2022-07-24] MEDS ORDERED: IV NS 0.9% 1,000 ML BAG IV ONE (14:30)
[2022-07-24 14:50] LABS: BASOPHILS # (AUTO) 0.1 K/uL (0.0-0.2); BASOPHILS % (AUTO) 1.2 % (0.0-2.0); HEMATOCRIT 32 % (39-51); HEMOGLOBIN 10.4 g/dL (13.5-17.5); LYMPHOCYTES # (AUTO) 0.2 K/uL (0.8-4.8); LYMPHOCYTES % (AUTO) 3.2 % (20.0-44.0); MEAN CORPUSCULAR HGB CONC 33 g/dl (31.0-36.0); MEAN CORPUSCULAR VOLUME 90 fL (80-96); MONOCYTES # (AUTO) 0.4 K/uL (0.1-1.30); MONOCYTES % (AUTO) 6.3 % (2.0-12.0); NEUTROPHILS % (AUTO) 89.3 % (43.0-81.0); PLATELET COUNT (AUTO) 206 K/uL (150-450); RED BLOOD CELL COUNT(AUTO) 3.53 MIL/uL (4.5-6.0); WHITE BLOOD COUNT (AUTO) 6.8 K/uL (4.3-11.0)
[2022-07-24 15:02] LABS: CHLORIDE 98 mmol/L (98-107); CREATININE 0.9 mg/dL (0.6-1.3); GLUCOSE 108 mg/dL (74-106); POTASSIUM 5.2 mmol/L (3.5-5.1); SODIUM SERUM 144 mmol/L (136-145); UREA NITROGEN, BLOOD 24 mg/dL (7-18)
[2022-07-24 15:15] LABS: ALANINE AMINOTRANSFERASE 22 U/L (12-78); ALBUMIN 3.8 g/dL (3.4-5.0); ALKALINE PHOSPHATASE 45 U/L (46-116); ASPARTATE AMINOTRANSFERASE 16 U/L (15-37); BILIRUBIN,DIRECT 0.1 mg/dL (0.0-0.2); BILIRUBIN,TOTAL 0.4 mg/dL (0.2-1.0); TOTAL PROTEIN, SERUM 7.2 g/dL (6.4-8.2)
--- NOTE | 2022-07-24 15:20 | NUR ---
[facility] [place] [phone]
--- NOTE | 2022-07-24 15:25 | NUR ---
HOSPTALIST AT BED SALLY SPOOKING WITH
[2022-07-24 15:29] LABS: CARBON DIOXIDE 50 mmol/L (21-32)
[2022-07-24] MEDS ORDERED: SILO4CAP3 PO (15:57)
[2022-07-24] MEDS ORDERED: POLY17PO4 PO (15:57)
--- NOTE | 2022-07-24 16:01 | NUR ---
[facility] BED 116-1
--- NOTE | 2022-07-24 16:24 | NUR ---
HAND OFF GRADY RN TO ROOM 116-1 VIA SPENCER STABLE VS AWAKE AND ALERT
--- NOTE | 2022-07-24 16:40 | NUR ---
PT PULL OUT IV LINE UNCOPRATIVE TO REINSERED AGGATION AND UNCOOPRATVE TRASFER PT TO ROOM 116-A REFUSED TO REINSERTED IV LINE
[2022-07-24] MEDS ORDERED: MAG HYDROX/AL HYDROX/SIMETH 30 ML UDC PO PRN (17:30)
[2022-07-24] MEDS ORDERED: ONDANSETRON HCL/PF 4 MG/2 ML VIAL IVP PRN (17:30)
[2022-07-24] MEDS ORDERED: Z GUARD REMEDY 4 OZ OINT TP PRN (17:30)
[2022-07-24] MEDS ORDERED: MAGNESIUM HYDROXIDE 30 ML UDC PO PRN (17:30)
[2022-07-24] MEDS ORDERED: ZOLPIDEM TARTRATE 5 MG TABLET PO PRN (17:30)
[2022-07-24 17:47] VITALS: BP 97/52
[2022-07-24] MEDS ORDERED: DOCUSATE SODIUM 100 MG CAPSULE PO SCH (18:00)
[2022-07-24] MEDS ORDERED: Medication Not On Formulary EA (Mirtazapine 7.5 MG) PO SCH (18:00)
[2022-07-24] MEDS ORDERED: JEVITY 1.2 CAL 1,000 ML BOTTLE GT PRN (18:30)
[2022-07-24] MEDS: FINASTERIDE (5 MG) 5 MG TABLET PO SCH (19:20)
[2022-07-24] MEDS: TIZANIDINE HCL 4 MG TABLET PO SCH (19:20)
[2022-07-24] MEDS: ENOXAPARIN SODIUM 40 MG/0.4 ML DISP.SYRIN SQ SCH (19:21)
--- NOTE | 2022-07-24 19:37 | NUR ---
PATIENT WAS ADMITTED TO THE TELE FROM THE ER DUE TO LOW SAT LEVEL . PATIENT HAS TRACHEOSTOMY WITH COLLAR 2 L OF O2 .AT THE ADMISSION O2 SAT 100 % . PATIENT IS AGITATED , ASKING TO GO HOME BY , PATIENT IS NON VERBAL BUT MINDY BEGUM HIS WISHES . NO IV ACSESS , AGTER MULTIPLE ATTEMPTS , MID LINE ORDER PLACED , PATIENT HAS GTUBE , JEVETY ORDERED . WILL ENDORSE FINISH REMOVER NURSE TO FALLOW UP WITH POC.
--- NOTE | 2022-07-24 19:45 | NUR ---
RN NOTES RECEIVED PT RESTING IN BED FOR CONTINUITY OF CARE. PATIENT IN NO S/SX OF ACUTE DISTRESS AT THIS TIME; CURRENTLY ON 2L OF VIA TRACH COLLAR WITH AN OPEN STOMA; 02 SAT >95% AT THIS TIME. WITH NO ACCESS TH THIS TIME. WITH PEG SECURED AND INTACT TO START FEEDING ORDERED (JEVITY1.2 @30CC/HR). WILL ENSURE SAFETY MEASURES WITHIN THE SHIFT. PATIENT BED ALARM IS ON. HEAD OF BED ELEVATED. BED IS LOCKED, IN LOWEST POSITION AND SIDE RAILS UP. CALL LIGHT WITHIN REACH OF THE PATIENT. WILL CONTINUE TO MONITOR AND REASSESS FOR ANY CHANGES AND WILL CARRY OUT ANY ONGOING AND ACTIVE MD ORDER. Addendum: 07/25/22 at 0010 by FARA CARTER RN *CORRECTION: TRACH MASK INSTEAD OF TRACH COLLAR
[2022-07-24 20:00] VITALS: BP 107/69
--- NOTE | 2022-07-24 21:30 | NUR ---
RN NOTES FACILITATED INSERTION OF IV LINE/ACCESS @ R HAND G#22; SECURED, INTACT AND FLUSHING WELL. DONOR FLOOR TECHNICIAN MADE AWARE.
[2022-07-24] MEDS: JEVITY 1.2 CAL 1,000 ML BOTTLE GT PRN (21:42)
[2022-07-24] MEDS: clonazePAM 1 MG TABLET PO SCH (21:56)
[2022-07-24] MEDS: MIRTAZAPINE 15 MG TABLET PO SCH (21:56)
[2022-07-24] MEDS: IV NS 0.9% 1,000 ML IV PRN (22:15)
--- NOTE | 2022-07-24 23:53 | NUR ---
RT LATE ENTRY FROM 2109 PT IS ON 2LPM O2 VIA TRACH MASK OVER OPEN STOMA, NO TRACH IN PLACE. NO SOB OR RESPIRATORY DISTRESS NOTED. SPO2 100%
--- NOTE | 2022-07-24 23:55 | NUR ---
RN NOTES COMMUNICATED WITH MARISELA PÉREZ (MAYELA TOBIAS) PROVIDED STATUS UPDATE ABOUT PT, ADVISED PT NOTED TO BE LETHARGIC AND HARD TO AROUSE COMPARED TO HIS BASELINE. VS OK; BP 147/67, HR 100 O2 SAT @100% ON 2L OF O2 VIA TRACH COLLAR WITH OPEN STOMA BLOOD SUGAR 120. NO NEW ORDERS AND CONTINUE TO MONITOR PER . RN ACKNOWLEDGED. BROADCASTER MADE AWARE. Addendum: 07/25/22 at 0010 by FARA CARTER RN *CORRECTION: TRACH MASK INSTEAD OF TRACH COLLAR
[2022-07-25] VITALS (8 sets, daily range): BP systolic 95–147; BP diastolic 57–85
--- NOTE | 2022-07-25 01:00 | NUR ---
RN NOTES PT REMAINED TO BE LETHARGIC WITH VITAL SIGNS WNL. WILL CONTINUE TO MONITOR AND ASSESS THROUGHOUT THE SHIFT.
--- NOTE | 2022-07-25 02:30 | NUR ---
RN NOTES PT REMAINED TO BE LETHARGIC AND HARD TO AROUSE, WITH VITAL SIGNS WNL. MARISELA PÉREZ AWARE AND DID PATIENT ROUNDS.
--- NOTE | 2022-07-25 02:35 | NUR ---
RN NOTES SECURED ORDER FOR STAT ABG PER MARISELA (MAYELA TOBIAS) ; MIGHT NEED TO HAVE TRACH PLACED AGAIN PER . WILL INFORM FAMILY ONCE ABG RESULT IS OUT MULTIGRAPH OPERATOR MADE AWARE. Addendum: 07/25/22 at 0253 by FARA CARTER RN [id number] PH: 7.12 HCO-45.3, MARISELA PÉREZ AWARE. ORDERED FOR VENT SETUP. COORDINATED WITH RT TEAM. WILL CALL AND INFORM FAMILY. MULTIGRAPH OPERATOR MADE AWARE. Addendum: 07/25/22 at 0315 by FARA CARTER RN VENT SETTINGS FOLLOWS: AC: 24 TV:550 FIO2: 40% AND PEEP: 5
--- NOTE | 2022-07-25 02:50 | NUR ---
RT NOTE LATE ENTRY Stat ABG taken and critical results noted. Results reported to Brian Anaya ASSISTANT GOLF COACH. Trach tube via Shiley XLT cuffed Distal sz 8 inserted per Brian Anaya ASSISTANT GOLF COACH request. Trach tube is patent and secured. Clear bilateral breath sounds heard on auscultation. Pt placed on mech vent on AC mode settings as charted per Brian Anaya ASSISTANT GOLF COACH orders. Pt able to maintain adequate tidal volumes. Vent plugged into red outlet. Alarms are set and audible. Ambu bag and emergency spare trach at bedside. Post mech vent ABG to be taken within 1HR.
--- NOTE | 2022-07-25 02:54 | NUR ---
RN NOTES CALLED EALYNE GELACIO @[phone] (PERSON TO NOTIFY) TO PROVIDE UPDATES AND TO INFORM THAT PT NEEDS TO BE ON VENT. DIRECTED TO VOICE MAIL (MAILBOX FULL) SENT SMS NOTIFICATION. Addendum: 07/25/22 at 0314 by FARA CARTER RN @0310 CALLED [phone] - DIRECTED TO VM; LEFT VM REQUESTED FOR CALLBACK.
--- NOTE | 2022-07-25 03:23 | NUR ---
RT STAT ABG COMPLETED AT 02:42, RESULTS GIVEN TO MATT FERREIRA. pH 7.12 AND PCO2 OF 139.6. MICHELINE KYLE DNP WAS NOTIFIED AND HE ORDERED TRACH TO BE INSERTED AND TO PL[facility]. SHILEY 8 XLT DISTAL TRACH WAS INSERTED WITHOUT INCIDENT AND NO BLEEDING. CUFF INFLATED, BILATERAL CHEST RISE OBSERVED AND PT PLACED ON AC VENT SETTINGS OF RR 24, VT 550, FIO2 40% PEEP +5. SUCTION DONE WITH MODERATE THICK YELLOW SECRETIONS. VENT PLUGGED INTO RED OUTLET WITH ALARMS ON AND AUDIBLE. SPARE TRACH AND AMBU BAG AT BEDSIDE.
[2022-07-25 03:30] LABS: ABG BASE EXCESS 11.9 mmol/L; ABG PCO2 139.6 mmHg (35.0-45.0); ABG PH 7.129 (7.350-7.450); ABG PO2 193.6 mmHg (75.0-100.0); COHb 1.1 % (0.5-1.5); MetHb 0.3 % (0.0-1.5); O2Hb 97.9 % (94.0-97.0); SITE, ABG Left Radial
[2022-07-25 04:56] LABS: ABG BASE EXCESS 15.1 mmol/L; ABG PCO2 29.8 mmHg (35.0-45.0); ABG PH 7.692 (7.350-7.450); ABG PO2 174.5 mmHg (75.0-100.0); SITE, ABG Right Brachial; VENT MODE, BG AC 24 550 40% +5
--- NOTE | 2022-07-25 05:33 | NUR ---
RN NOTES CALLED ELAYNE BRIZUELA @[phone] (PERSON TO NOTIFY) TO PROVIDED UPDATES ; PT NOW ON VENT. HE ACKNOWLEDGED.
--- NOTE | 2022-07-25 06:25 | NUR ---
RN CLOSING NOTE: PATIENT REMAINS IN ROOM IN NO SIGNS OF RESPIRATORY DISTRESS, PATIENT STILL ON MECH VENT; SETTINGS PRESCRIBED;TOLERATING WELL SATURATING @ 100% SP02. SAFETY MEASURES IMPLEMENTED, BED IN LOWEST POSITION, LOCKED, SIDE RAILS UP, CALL LIGHT WITHIN REACH. ALL NEEDS AND ORDERS ADDRESSED DURING THE SHIFT. IV ACCESS MAINTAINED INTACT, SECURED AND FLUSHING WELL. ALL DUE MEDS GIVEN ORDERED & SCHEDULED ; PATIENT TOLERATED WELL. PATIENT KEPT CLEAN AND COMFORTABLE WITHIN THE SHIFT. PATIENT ENDORSED TO INCOMING SHIFT RN WITH STABLE VITAL SIGN AND FOR CONTINUITY OF CARE.
[2022-07-25 06:44] LABS: BASOPHILS % (AUTO) 0.1 % (0.0-2.0); HEMATOCRIT 27 % (39-51); HEMOGLOBIN 8.7 g/dL (13.5-17.5); LYMPHOCYTES # (AUTO) 0.2 K/uL (0.8-4.8); LYMPHOCYTES % (AUTO) 4.1 % (20.0-44.0); MEAN CORPUSCULAR HGB CONC 33 g/dl (31.0-36.0); MEAN CORPUSCULAR VOLUME 91 fL (80-96); MONOCYTES # (AUTO) 0.3 K/uL (0.1-1.30); MONOCYTES % (AUTO) 6.1 % (2.0-12.0); NEUTROPHILS # (AUTO) 5.1 K/uL (1.8-8.9); NEUTROPHILS % (AUTO) 89.7 % (43.0-81.0); PLATELET COUNT (AUTO) 221 K/uL (150-450); RED BLOOD CELL COUNT(AUTO) 2.93 MIL/uL (4.5-6.0); WHITE BLOOD COUNT (AUTO) 5.7 K/uL (4.3-11.0)
[2022-07-25 07:11] LABS: CALCIUM, SERUM 9.9 mg/dL (8.5-10.1); CREATININE 1.2 mg/dL (0.6-1.3); MAGNESIUM 1.6 mg/dL (1.8-2.4); POTASSIUM 5.7 mmol/L (3.5-5.1)
[2022-07-25] MEDS ORDERED: PANTOPRAZOLE 40 MG TABLET.DR PO SCH ×2 (07:30→09:00)
--- NOTE | 2022-07-25 07:35 | NUR ---
RN OPEN NOTE: PATIENT IS IN BED NO SIGHS OF RESPIRATORY DISTRESS, PATIENT ON MECH VENT; SETTINGS PRESCRIBED;TOLERATING WELL SATURATING @ 100% SP02. PATIENT HAS IV ACSESS ON THE EIGHT HAND 22 G, NS RUNNING AT 75 ML/HR SAFETY MEASURES IMPLEMENTED, BED IN LOWEST POSITION, LOCKED, SIDE RAILS UP, CALL LIGHT WITHIN REACH. WILL CONTINUE TO MONITOR AND FALLOW POC .
[2022-07-25] MEDS: LEVOTHYROXINE SODIUM 112 MCG TABLET PO SCH (07:46)
[2022-07-25] MEDS: SERTRALINE HCL 50 MG TABLET PO SCH (08:11)
[2022-07-25] MEDS: ALLOPURINOL 100 MG TABLET PO SCH (08:11)
[2022-07-25] MEDS: ASPIRIN 81 MG TAB.CHEW PO SCH (08:12)
[2022-07-25] MEDS: PANTOPRAZOLE 40 MG TABLET.DR PO SCH ×2 (08:12→16:15)
[2022-07-25] MEDS: TIZANIDINE HCL 4 MG TABLET PO SCH ×2 (08:12→17:11)
[2022-07-25] MEDS: GLYCOPYRROLATE 1 MG TABLET PO SCH ×3 (08:13→16:13)
[2022-07-25] MEDS: BACLOFEN (10 MG) 10 MG TABLET PO SCH ×2 (08:13→16:14)
[2022-07-25] MEDS: POLYETHYLENE GLYCOL 3350 17 GM POWD.PACK PO SCH ×2 (08:13→16:14)
[2022-07-25] MEDS ORDERED: RILUZOLE 50 MG PO SCH (09:00)
[2022-07-25] MEDS ORDERED: SILODOSIN 4 MG PO SCH ×2 (09:00)
[2022-07-25] MEDS ORDERED: TUDCA PO SCH (09:00)
[2022-07-25] MEDS ORDERED: LOSARTAN POTASSIUM 50 MG TABLET PO SCH (09:00)
[2022-07-25] MEDS ORDERED: Medication Not On Formulary EA (Fenofibrate 160 MG) PO SCH (09:00)
[2022-07-25] MEDS: CHOLECALCIFEROL 1,000 UNIT TABLET (VIT D3) PO SCH (09:14)
[2022-07-25] MEDS: ACETAMINOPHEN 325 MG TABLET PO PRN (09:16)
--- NOTE | 2022-07-25 10:07 | NUR ---
left message to Dr.Santa dover; his phophorus level was 0,7 waiting for returning call back
[2022-07-25] MEDS: Magnesium 1GM/D5W 100ML PREMIX 100 ML IV SCH ×2 (11:33→12:36)
[2022-07-25] MEDS: ALBUTEROL HALF STRENGTH 1.25 MG/3 ML VIAL.NEB NEB SCH ×3 (11:38→19:39)
--- NOTE | 2022-07-25 12:41 | NUR ---
ALBUTEROL GIVEN @ 1142 Addendum: 07/25/22 at 1241 by TRE VILLEGAS RT Amended: Links added.
[2022-07-25] MEDS ORDERED: SODIUM POLYSTYRENE SULFONATE 15 G/60 ML BOTTLE PO ONE (13:00)
[2022-07-25] MEDS ORDERED: LEVOFLOXACIN 500 MG /D5W 100ML 500 MG in PREMIX 1 EA IV SCH (13:00)
--- NOTE | 2022-07-25 13:30 | NUR ---
patient was taken to the head CH scan , was done partially due to patient started to move and was uncooperative .Dr Esqueda was notified .
[2022-07-25] MEDS: LEVOFLOXACIN 750 MG /D5W 150ML 750 MG in PREMIX 1 EA IV SCH (14:12)
[2022-07-25] MEDS: FINASTERIDE (5 MG) 5 MG TABLET PO SCH (17:11)
[2022-07-25] MEDS: ATORVASTATIN 10 MG TABLET PO SCH (17:11)
[2022-07-25] MEDS: ENOXAPARIN SODIUM 40 MG/0.4 ML DISP.SYRIN SQ SCH (17:14)
[2022-07-25] MEDS ORDERED: DOCUSATE SODIUM LIQ 100 MG/10 ML UDC PO SCH (18:00)
[2022-07-25] MEDS ORDERED: Sodium Phosphate 30 MMOL in IV NS 0.9% 250 ML IV SCH (18:30)
--- NOTE | 2022-07-25 18:45 | NUR ---
RN CLOSING NOTE PATIENT IS IN BED NO SIGHS OF RESPIRATORY DISTRESS, PATIENT ON MECH VENT; SETTINGS PRESCRIBED;TOLERATING WELL SATURATING @ 100% SP02. PATIENT HAS IV ACCESS ON THE RIGHT HAND 22 G AND MIDLINE ON THE YARA NS RUNNING AT 75 ML/HR .ALL MEDICATIONS WERE ADMINISTERED, ALL NEEDS WERE MET . SAFETY MEASURES IMPLEMENTED, BED IN LOWEST POSITION, LOCKED, SIDE RAILS UP, CALL LIGHT WITHIN REACH. WILL ENDORSE FISHERMAN HELPER NURSE TO FALLOW POC.
--- NOTE | 2022-07-25 19:30 | NUR ---
RN NOTES RECEIVED PT FOR CONTINUITY OF CARE. PATIENT A/OX1 IN NO S/SX OF ACUTE DISTRESS AT THIS TIME; CURRENTLY ON MECHANICAL VENT; SETTING PRESCRIBED, WITH 02 SAT >95% AT THIS TIME. WITH IV ACCESS ON R HAND #22 AND R UA MIDLINE BOTH PATENT, INTACT AND FLUSHING WELL. WITH RUNNING NS@75CC/HR AND GTUBE FEEDING RUNNING PRESCRIBED. WILL ENSURE SAFETY MEASURES WITHIN THE SHIFT. PATIENT BED ALARM IS ON. HEAD OF BED ELEVATED. BED IS LOCKED, IN LOWEST POSITION AND SIDE RAILS UP. CALL LIGHT WITHIN REACH OF THE PATIENT. WILL CONTINUE TO MONITOR AND REASSESS FOR ANY CHANGES AND WILL CARRY OUT ANY ONGOING AND ACTIVE MD ORDER.
[2022-07-25] MEDS: IV NS 0.9% 1,000 ML IV PRN (19:35)
--- NOTE | 2022-07-25 19:48 | NUR ---
RT PT RECVD ON ORDERED AC VENT SETTINGS WITH TRACH SHILEY 8 XLT IS PATENT AND SECURED. NO SOB OR RESPIRATORY DISTRESS NOTED. NEB TX GIVEN AND KALIN WELL. SUCTION PRN. VENT PLUGGED INTO RED OUTLET WITH ALARMS ON AND AUDIBLE, SPARE TRACH AND AMBU BAG AT BEDSIDE
[2022-07-25] MEDS: MIRTAZAPINE 15 MG TABLET PO SCH (21:25)
[2022-07-25] MEDS: clonazePAM 1 MG TABLET PO SCH (21:25)
[2022-07-26] MEDS ORDERED: Sodium Phosphate 30 MMOL in IV NS 0.9% 250 ML IV SCH (01:00)
[2022-07-26] MEDS: ALBUTEROL HALF STRENGTH 1.25 MG/3 ML VIAL.NEB NEB SCH ×4 (01:26→20:27)
[2022-07-26] MEDS: ACETAMINOPHEN 325 MG TABLET PO PRN ×2 (01:52→20:42)
[2022-07-26 02:00] VITALS: BP 90/45
--- NOTE | 2022-07-26 02:00 | NUR ---
RN NOTES COMMUNICATED WITH ONCYELENA PÉREZ (MICHELINE,CUSTOMER SERVICE TRAINER) PROVIDED STATUS UPDATE ABOUT PT; PT RESTLESS. SECURED ORDER FOR ATIVAN 0.5MG IV Q6H PRN. WILL CARRY OUT MD ORDER. MANAGER TRUCK MADE AWARE.
[2022-07-26] MEDS: LORAZEPAM INJ 2 MG/ML VIAL IV PRN ×2 (02:07→13:02)
[2022-07-26 04:00] VITALS: BP 98/56
[2022-07-26 04:55] LABS: BASOPHILS % (AUTO) 0.2 % (0.0-2.0); HEMATOCRIT 22 % (39-51); HEMOGLOBIN 7.4 g/dL (13.5-17.5); LYMPHOCYTES # (AUTO) 0.3 K/uL (0.8-4.8); LYMPHOCYTES % (AUTO) 3.8 % (20.0-44.0); MEAN CORPUSCULAR HGB CONC 34 g/dl (31.0-36.0); MEAN CORPUSCULAR VOLUME 89 fL (80-96); MONOCYTES # (AUTO) 0.4 K/uL (0.1-1.30); MONOCYTES % (AUTO) 6.1 % (2.0-12.0); NEUTROPHILS # (AUTO) 6.4 K/uL (1.8-8.9); NEUTROPHILS % (AUTO) 89.9 % (43.0-81.0); PLATELET COUNT (AUTO) 144 K/uL (150-450); RED BLOOD CELL COUNT(AUTO) 2.49 MIL/uL (4.5-6.0); WHITE BLOOD COUNT (AUTO) 7.2 K/uL (4.3-11.0)
[2022-07-26 05:07] LABS: CREATININE 1.8 mg/dL (0.6-1.3); MAGNESIUM 2.2 mg/dL (1.8-2.4); PHOSPHORUS 4.9 mg/dL (2.5-4.9); POTASSIUM 3.5 mmol/L (3.5-5.1)
--- NOTE | 2022-07-26 05:15 | NUR ---
MATT NOTES CRITICAL RECEIVED FROM LAB; CO2:42. WILL NOTIFY MARISELA PÉREZ. ALBINA GUTIERREZ MADE AWARE. Addendum: 07/26/22 at 0521 by FARA CARTER RN NOTIFIED MARISELA TOBIAS NP
[2022-07-26] MEDS: IV NS 0.9% 1,000 ML IV PRN ×2 (06:25→19:06)
--- NOTE | 2022-07-26 06:42 | NUR ---
RN CLOSING NOTE: PATIENT REMAINS IN ROOM IN NO SIGNS OF RESPIRATORY DISTRESS, PATIENT STILL ON MECH VENT; SETTINGS PRESCRIBED;TOLERATING WELL SATURATING @100% SP02. SAFETY MEASURES IMPLEMENTED, BED IN LOWEST POSITION, LOCKED, SIDE RAILS UP, CALL LIGHT WITHIN REACH. ALL NEEDS AND ORDERS ADDRESSED DURING THE SHIFT. IV ACCESS MAINTAINED INTACT, SECURED AND FLUSHING WELL. IV FLUIDS RUNNING PER ORDER. ALL DUE MEDS GIVEN ORDERED & SCHEDULED ; PATIENT TOLERATED WELL. PATIENT KEPT CLEAN AND COMFORTABLE WITHIN THE SHIFT. PATIENT ENDORSED TO INCOMING SHIFT RN WITH STABLE VITAL SIGN AND FOR CONTINUITY OF CARE.
--- NOTE | 2022-07-26 07:05 | NUR ---
RN NOTES FALL INCIDENT OCCURRED;(ASSISTED FALL), INCIDENT REPORT [id number].
--- NOTE | 2022-07-26 07:17 | NUR ---
RN NOTES CALLED ELAYNE BRIZUELA @[phone] (PERSON TO NOTIFY) TO PROVIDE UPDATES AND TO INFORM ABOUT INCIDENT-ASSISTED FALL. DIRECTED TO VOICE MAIL (MAILBOX FULL) SENT SMS NOTIFICATION. CALLED [phone] - DIRECTED TO VM; LEFT VM REQUESTED FOR CALLBACK. Addendum: 07/26/22 at 0720 by FARA CARTER RN INCIDENT REPORT [id number] (ASSISTED FALL)
--- NOTE | 2022-07-26 07:29 | NUR ---
RN OPENING NOTE PATIENT IN ROOM IN NO SIGNS OF RESPIRATORY DISTRESS, PATIENT ON MECH VENT; SETTINGS PRESCRIBED;TOLERATING WELL SATURATING @100% SP02. SAFETY MEASURES IMPLEMENTED, BED IN LOWEST POSITION, LOCKED, SIDE RAILS UP, CALL LIGHT WITHIN REACH. IV ACCESS MAINTAINED INTACT, SECURED AND FLUSHING WELL. IV FLUIDS RUNNING PER ORDER. WILL CONTINUE PLAN OF CARE AND ANTICIPATE NEEDS.
[2022-07-26 08:00] VITALS: BP 112/60
[2022-07-26] MEDS: GLYCOPYRROLATE 1 MG TABLET PO SCH ×3 (08:03→17:17)
[2022-07-26] MEDS: POLYETHYLENE GLYCOL 3350 17 GM POWD.PACK PO SCH ×2 (08:03→17:17)
[2022-07-26] MEDS: PANTOPRAZOLE 40 MG TABLET.DR PO SCH ×2 (08:04→17:17)
[2022-07-26] MEDS: ASPIRIN 81 MG TAB.CHEW PO SCH (08:04)
[2022-07-26] MEDS: TIZANIDINE HCL 4 MG TABLET PO SCH ×2 (08:04→17:17)
[2022-07-26] MEDS: ALLOPURINOL 100 MG TABLET PO SCH (08:04)
[2022-07-26] MEDS: LEVOTHYROXINE SODIUM 112 MCG TABLET PO SCH (08:04)
[2022-07-26 08:05] LABS: ABG BASE EXCESS 14.4 mmol/L; ABG OXYGEN SATURATION 94.8 % (92.0-98.5); ABG PCO2 43.2 mmHg (35.0-45.0); ABG PH 7.561 (7.350-7.450); ABG PO2 69.7 mmHg (75.0-100.0); MetHb 0.3 % (0.0-1.5); O2Hb 93.6 % (94.0-97.0); PEEP,BG 5 cm H2O; SITE, ABG Right Radial; VENT MODE, BG AC 28%; VT, ABG 500 mL
[2022-07-26] MEDS: SERTRALINE HCL 50 MG TABLET PO SCH (08:05)
[2022-07-26] MEDS: CHOLECALCIFEROL 1,000 UNIT TABLET (VIT D3) PO SCH (08:05)
[2022-07-26] MEDS: BACLOFEN (10 MG) 10 MG TABLET PO SCH ×2 (08:05→17:17)
[2022-07-26 12:00] VITALS: BP 131/81
[2022-07-26] MEDS: LEVOFLOXACIN 750 MG /D5W 150ML 750 MG in PREMIX 1 EA IV SCH (13:02)
[2022-07-26] MEDS ORDERED: DOCUSATE SODIUM LIQ 100 MG/10 ML UDC GT SCH (15:36)
[2022-07-26 16:00] VITALS: BP 127/76
[2022-07-26] MEDS: DOCUSATE SODIUM LIQ 100 MG/10 ML UDC GT SCH (17:17)
[2022-07-26] MEDS: ATORVASTATIN 10 MG TABLET PO SCH (17:17)
[2022-07-26] MEDS: FINASTERIDE (5 MG) 5 MG TABLET PO SCH (17:17)
[2022-07-26] MEDS: ENOXAPARIN SODIUM 40 MG/0.4 ML DISP.SYRIN SQ SCH (17:19)
[2022-07-26] MEDS: JEVITY 1.2 CAL 1,000 ML BOTTLE GT PRN (17:51)
--- NOTE | 2022-07-26 18:42 | NUR ---
RN CLOSING NOTE PATIENT IN ROOM IN NO SIGNS OF RESPIRATORY DISTRESS, PATIENT ON MECH VENT; SETTINGS PRESCRIBED;TOLERATING WELL SATURATING >92% SP02. SAFETY MEASURES IMPLEMENTED, BED IN LOWEST POSITION, LOCKED, SIDE RAILS UP, CALL LIGHT WITHIN REACH. IV ACCESS MAINTAINED INTACT, SECURED AND FLUSHING WELL. IV FLUIDS RUNNING PER ORDER. GASTRIC TUBE RUNNING JEVITY, NO RESIDUAL. WILL ENDORSE TO NIGHTSHIFT RN FOR CONTINUATION OF CARE.
--- NOTE | 2022-07-26 19:30 | NUR ---
RN OPEN NOTE: ALERT AND RESPONSIVE TO VERBAL STIMULI. ABLE TO MAKE SIMPLE NEEDS KNOWN BY SIGNS GESTURES AND WRITING . TRACH ATTACHED WITH VENT WORKING AT PRESCRIBED SETTINGS. SUCTIONED NEEDED. O2 SATING AT 97 %. HOB ELEVATED SEMI-FOWLERS POSITION. MOIST ORAL MUCOSA. MID-LINE ON RIGHT UPPER ARM PATENT WITH NO S/S OF COMPLICATIONS, CLEAN DRESSING. IVF NS AT 75 ML/HR. RIGHT HAND IV SALINE LOCKED, PATENT, NO S/S OF COMPLICATIONS. CLEAN DRESSING. GT IN PLACE PATENT NO RESIDUAL. ASPIRATION PRECAUTIONS MAINTAINED. REPOSITIONED WITH PILLOWS. BILATERAL HALF SIDE RAILS UP X2. BED IN LOW POSITION, BED EXIT ALARM ON. BED IN LOW POSITION, LOCKED. CALL LIGHT IN REACH. VISITED BY SISTER AT SIDE. BILATERAL SOFT WRIST RESTRAINS, WITH SKIN CHECKS, AND ADEQUATE CIRCULATION.
[2022-07-26 20:00] VITALS: BP 107/70
[2022-07-26] MEDS: clonazePAM 1 MG TABLET PO SCH (21:41)
[2022-07-26] MEDS: MIRTAZAPINE 15 MG TABLET PO SCH (21:41)
[2022-07-27] VITALS: BP 125/70
[2022-07-27] MEDS: ALBUTEROL HALF STRENGTH 1.25 MG/3 ML VIAL.NEB NEB SCH ×4 (01:51→20:14)
[2022-07-27 04:00] VITALS: BP 138/79
[2022-07-27 06:41] LABS: BASOPHILS % (AUTO) 0.1 % (0.0-2.0); HEMATOCRIT 24 % (39-51); HEMOGLOBIN 8.1 g/dL (13.5-17.5); LYMPHOCYTES # (AUTO) 0.3 K/uL (0.8-4.8); LYMPHOCYTES % (AUTO) 4.8 % (20.0-44.0); MEAN CORPUSCULAR HGB CONC 33 g/dl (31.0-36.0); MEAN CORPUSCULAR VOLUME 89 fL (80-96); MONOCYTES # (AUTO) 0.4 K/uL (0.1-1.30); MONOCYTES % (AUTO) 5.7 % (2.0-12.0); NEUTROPHILS # (AUTO) 5.9 K/uL (1.8-8.9); NEUTROPHILS % (AUTO) 88.4 % (43.0-81.0); PLATELET COUNT (AUTO) 143 K/uL (150-450); RED BLOOD CELL COUNT(AUTO) 2.73 MIL/uL (4.5-6.0); WHITE BLOOD COUNT (AUTO) 6.6 K/uL (4.3-11.0)
--- NOTE | 2022-07-27 06:50 | NUR ---
RN CLOSE NOTE: ALERT AND RESPONSIVE TO VERBAL STIMULI. ABLE TO MAKE SIMPLE NEEDS KNOWN BY SIGNS GESTURES AND WRITING . TRACH ATTACHED WITH VENT WORKING AT PRESCRIBED SETTINGS. SUCTIONED NEEDED. O2 SATING AT 100 %. ON TELE MONITOR WITH A READING OF SINUS RHYTHM 87. HOB ELEVATED SEMI-FOWLERS POSITION. MOIST ORAL MUCOSA. MID-LINE ON RIGHT UPPER ARM PATENT WITH NO S/S OF COMPLICATIONS, CLEAN DRESSING. IVF NS AT 75 ML/HR. RIGHT HAND IV SALINE LOCKED, PATENT, NO S/S OF COMPLICATIONS. CLEAN DRESSING. GT IN PLACE PATENT NO RESIDUAL. ASPIRATION PRECAUTIONS MAINTAINED. KEPT CLEAN AND COMFORTABLE REPOSITIONED WITH PILLOWS. BILATERAL HALF SIDE RAILS UP X2. BED IN LOW POSITION, BED EXIT ALARM ON. BED IN LOW POSITION, LOCKED. CALL LIGHT IN REACH. BILATERAL SOFT WRIST RESTRAINS, WITH SKIN CHECKS, AND ADEQUATE CIRCULATION.
[2022-07-27 07:04] LABS: CALCIUM, SERUM 9.1 mg/dL (8.5-10.1); CREATININE 1.1 mg/dL (0.6-1.3); MAGNESIUM 1.9 mg/dL (1.8-2.4); PHOSPHORUS 3.3 mg/dL (2.5-4.9); POTASSIUM 3.1 mmol/L (3.5-5.1)
[2022-07-27] MEDS: IV NS 0.9% 1,000 ML IV PRN (07:57)
[2022-07-27 08:00] VITALS: BP 148/89
[2022-07-27] MEDS: LEVOTHYROXINE SODIUM 112 MCG TABLET PO SCH (08:04)
[2022-07-27] MEDS: POLYETHYLENE GLYCOL 3350 17 GM POWD.PACK PO SCH ×2 (09:00→17:54)
[2022-07-27] MEDS: TIZANIDINE HCL 4 MG TABLET PO SCH ×2 (09:01→17:54)
[2022-07-27] MEDS: ASPIRIN 81 MG TAB.CHEW PO SCH (09:01)
[2022-07-27] MEDS: BACLOFEN (10 MG) 10 MG TABLET PO SCH ×2 (09:01→17:54)
[2022-07-27] MEDS: PANTOPRAZOLE 40 MG TABLET.DR PO SCH ×2 (09:01→17:54)
[2022-07-27] MEDS: SERTRALINE HCL 50 MG TABLET PO SCH (09:01)
[2022-07-27] MEDS: CHOLECALCIFEROL 1,000 UNIT TABLET (VIT D3) PO SCH (09:01)
[2022-07-27] MEDS: GLYCOPYRROLATE 1 MG TABLET PO SCH ×3 (09:02→17:54)
[2022-07-27] MEDS: ALLOPURINOL 100 MG TABLET PO SCH (09:02)
[2022-07-27 12:00] VITALS: BP 148/89
[2022-07-27] MEDS ORDERED: POTASSIUM CHLORIDE 20 MEQ POWDER PACKET PO SCH ×2 (12:00→14:00)
[2022-07-27] MEDS: LEVOFLOXACIN 750 MG /D5W 150ML 750 MG in PREMIX 1 EA IV SCH (13:23)
--- NOTE | 2022-07-27 14:00 | NUR ---
RN NOTE PHARMACY MAKE A MISTAKE AND PUT A DUPLICATE ORDER FOR POTASSIUM CHLORIDE 40 MG POWDER, AND THEY SAID WILL CANCEL THE ORDER FOR 1400. AT 1330 THE POTASSIUM WAS ALREADY ADMINISTERED.
[2022-07-27 16:00] VITALS: BP 143/80
[2022-07-27] MEDS: ATORVASTATIN 10 MG TABLET PO SCH (17:54)
[2022-07-27] MEDS: FINASTERIDE (5 MG) 5 MG TABLET PO SCH (17:54)
[2022-07-27] MEDS: DOCUSATE SODIUM LIQ 100 MG/10 ML UDC GT SCH (17:54)
[2022-07-27] MEDS: ENOXAPARIN SODIUM 40 MG/0.4 ML DISP.SYRIN SQ SCH (18:00)
--- NOTE | 2022-07-27 18:20 | NUR ---
RN CLOSING NOTE: PATIENT REMAINS IN ROOM IN HER BED, THERE IS NO SIGNS OF RESPIRATORY DISTRESS, PATIENT STILL ON MECH VENT; SETTINGS PRESCRIBED;TOLERATING WELL SATURATING @100% SP02. ALL OTHER VITAL SIGNS WITHIN NORMAL RANGE. PATIENT'S RESTRAINS RENEWED TO DAY AT 1600. SAFETY MEASURES IMPLEMENTED, BED IN LOWEST POSITION, LOCKED, SIDE RAILS UP, CALL LIGHT WITHIN REACH. ALL NEEDS AND ORDERS ADDRESSED DURING THE SHIFT. IV ACCESS INTACT, SECURED AND FLUSHING WELL. IV FLUIDS RUNNING PER ORDER. ALL DUE MEDS GIVEN ORDERED & SCHEDULED; PATIENT TOLERATED WELL. PATIENT KEPT CLEAN AND COMFORTABLE WITHIN THE SHIFT. WILL ENDORSE THE PATIENT TO THE NIGHTSHIFT NURSE FOR DONAVON.
--- NOTE | 2022-07-27 19:35 | NUR ---
RN OPENING NOTE RECEIVED PATIENT IN BED SLEEPING BUT EASY TO AROUSED,AOX4 ABLE TO MAKE NEEDS KNOWN,PATIENT ON VENT ASSEST,KALIN WELL SATURATING 100%,IV ACCESS YARA MED ,R HAND 22G SL,PATENT AND INTACT, SAFETY MEASURES IMPLEMENTED, BED IN LOWEST POSITION, LOCKED, SIDE RAILS UP, CALL LIGHT WITHIN RREACH,WILL CONTINUE PLAN OF CARE AND ANTICIPATE NEEDS.
[2022-07-27 20:00] VITALS: BP 138/76
[2022-07-27] MEDS: MIRTAZAPINE 15 MG TABLET PO SCH (21:28)
[2022-07-27] MEDS: clonazePAM 1 MG TABLET PO SCH (21:29)
--- NOTE | 2022-07-27 21:40 | NUR ---
RN NOTES; CLONAZEPAM 0.5MG PO HARD TO SCAN THE BARCODE,USED MANUAL BARCODE.
[2022-07-28] VITALS: BP 134/80
[2022-07-28] MEDS: ALBUTEROL HALF STRENGTH 1.25 MG/3 ML VIAL.NEB NEB SCH ×4 (01:53→20:28)
[2022-07-28 04:00] VITALS: BP 138/80
--- NOTE | 2022-07-28 06:32 | NUR ---
RN CLOSING NOTES; PATIENT IN BED SLEEPING BUT EASY TO AROUSED,AOX4 ABLE TO MAKE NEEDS KNOWN,PATIENT ON VENT ASSEST,KALIN WELL SATURATING 100%,IV ACCESS YARA MED, DUE MEDS GIVEN ORDER,ALL NEEDS ATTENDED,R HAND 22G SL,PATENT AND INTACT, SAFETY MEASURES IMPLEMENTED, BED IN LOWEST POSITION, LOCKED, SIDE RAILS UP, CALL LIGHT WITHIN RREACH,WILL ENDORSEDTONEXT SHIFT.
[2022-07-28 07:17] LABS: CREATININE 0.9 mg/dL (0.6-1.3); MAGNESIUM 1.7 mg/dL (1.8-2.4); PHOSPHORUS 2.9 mg/dL (2.5-4.9); POTASSIUM 3.8 mmol/L (3.5-5.1)
--- NOTE | 2022-07-28 07:19 | NUR ---
RN OPENING NOTE RECEIVED PATIENT IN BED SLEEPING BUT EASY TO AROUSED,AOX4 ABLE TO MAKE NEEDS KNOWN,PATIENT ON VENT,,IV ACCESS YARA MED ,R HAND 22G SL,PATENT AND INTACT, SAFETY MEASURES IMPLEMENTED, BED IN LOWEST POSITION, LOCKED, SIDE RAILS UP, CALL LIGHT WITHIN REACH.
[2022-07-28 07:39] LABS: BASOPHILS % (AUTO) 0.6 % (0.0-2.0); EOSINOPHILS % (AUTO) 1.6 % (0.0-6.0); HEMATOCRIT 25 % (39-51); HEMOGLOBIN 8.2 g/dL (13.5-17.5); LYMPHOCYTES # (AUTO) 0.4 K/uL (0.8-4.8); LYMPHOCYTES % (AUTO) 6.9 % (20.0-44.0); MEAN CORPUSCULAR HGB CONC 33 g/dl (31.0-36.0); MEAN CORPUSCULAR VOLUME 89 fL (80-96); MONOCYTES # (AUTO) 0.3 K/uL (0.1-1.30); MONOCYTES % (AUTO) 5.8 % (2.0-12.0); NEUTROPHILS # (AUTO) 4.9 K/uL (1.8-8.9); NEUTROPHILS % (AUTO) 85.1 % (43.0-81.0); PLATELET COUNT (AUTO) 162 K/uL (150-450); RED BLOOD CELL COUNT(AUTO) 2.77 MIL/uL (4.5-6.0); WHITE BLOOD COUNT (AUTO) 5.8 K/uL (4.3-11.0)
[2022-07-28 08:00] VITALS: BP 138/80
[2022-07-28] MEDS: LEVOTHYROXINE SODIUM 112 MCG TABLET PO SCH (08:03)
[2022-07-28] MEDS: ASPIRIN 81 MG TAB.CHEW PO SCH (08:03)
[2022-07-28] MEDS: GLYCOPYRROLATE 1 MG TABLET PO SCH ×3 (08:03→17:20)
[2022-07-28] MEDS: BACLOFEN (10 MG) 10 MG TABLET PO SCH ×2 (08:03→17:20)
[2022-07-28] MEDS: SERTRALINE HCL 50 MG TABLET PO SCH (08:04)
[2022-07-28] MEDS: PANTOPRAZOLE 40 MG TABLET.DR PO SCH ×2 (08:04→17:20)
[2022-07-28] MEDS: ALLOPURINOL 100 MG TABLET PO SCH (08:04)
[2022-07-28] MEDS: CHOLECALCIFEROL 1,000 UNIT TABLET (VIT D3) PO SCH (08:04)
[2022-07-28] MEDS: TIZANIDINE HCL 4 MG TABLET PO SCH ×2 (08:05→17:20)
[2022-07-28] MEDS: POLYETHYLENE GLYCOL 3350 17 GM POWD.PACK PO SCH ×2 (08:05→17:00)
[2022-07-28] MEDS: Magnesium 1GM/D5W 100ML PREMIX 100 ML IV SCH ×2 (10:44→11:53)
[2022-07-28 11:08] LABS: EOSINOPHILS % (MANUAL) 1 % (0-4); LYMPHOCYTES % (MANUAL) 10 % (16-48); MONOCYTES % (MANUAL) 4 % (0-11.0); NEUTROPHILS % (MANUAL) 85 (42-76)
[2022-07-28 11:59] LABS: ABG BASE EXCESS 8.4 mmol/L; ABG OXYGEN SATURATION 96.5 % (92.0-98.5); ABG PCO2 55.9 mmHg (35.0-45.0); ABG PH 7.405 (7.350-7.450); ABG PO2 92.4 mmHg (75.0-100.0); AaDO2 41.3 mmHg; COHb 0.8 % (0.5-1.5); MetHb 0.3 % (0.0-1.5); O2Hb 95.4 % (94.0-97.0); SITE, ABG Left Radial
[2022-07-28 12:00] VITALS: BP 148/94
[2022-07-28] MEDS: LEVOFLOXACIN (250MG) 250 MG TABLET GT SCH (14:04)
[2022-07-28] MEDS: LORAZEPAM INJ 2 MG/ML VIAL IV PRN (15:32)
[2022-07-28] MEDS: JEVITY 1.2 CAL 1,000 ML BOTTLE GT PRN (15:37)
[2022-07-28 16:00] VITALS: BP 147/91
[2022-07-28] MEDS: DOCUSATE SODIUM LIQ 100 MG/10 ML UDC GT SCH (17:17)
[2022-07-28] MEDS: ATORVASTATIN 10 MG TABLET PO SCH (17:20)
[2022-07-28] MEDS: FINASTERIDE (5 MG) 5 MG TABLET PO SCH (17:20)
[2022-07-28] MEDS: ENOXAPARIN SODIUM 40 MG/0.4 ML DISP.SYRIN SQ SCH (17:25)
--- NOTE | 2022-07-28 18:51 | NUR ---
RN CLOSING NOTES; PATIENT IN BED SLEEPING BUT EASY TO AROUSED,AOX4 ABLE TO MAKE NEEDS KNOWN,PATIENT ON MASK 5L TOLERATING WELL SATURATING 96%,IV ACCESS YARA MED, DUE MEDS GIVEN ORDER,ALL NEEDS ATTENDED,R HAND 22G SL,PATENT AND INTACT, SAFETY MEASURES IMPLEMENTED, BED IN LOWEST POSITION, LOCKED, SIDE RAILS UP, CALL LIGHT WITHIN RREACH,WILL ENDORSEDTONEXT SHIFT.
--- NOTE | 2022-07-28 19:45 | NUR ---
RN OPENING NOTES: RECEIVED PATIENT IN BED AWAKE, A/O X 4, COMMUNICATE THROUGH WRITING. ON COOL AEROSOL @5L/MIN AND PT TOLERATED WELL. IV ACCESS YARA MIDLINE INTACT AND PATENT, NO S/S OF INFILTRATIONS. NO FACIAL GRIMACING NOTED. NO ACUTE DISTRESS. GTUBE FEEDING TOLERATED WELL. RUNNING Vimbly 1.2 AT 30CC/HR. ALL SAFETY MEASURES IN PLACE. BED IN LOWEST POSITION AND LOCKED, SIDE RAILS UP X3. PLACE CALL LIGHT WITHIN REACH. WILL CONTINUE TO MONITOR.
[2022-07-28 20:00] VITALS: BP 144/86
[2022-07-28] MEDS: MIRTAZAPINE 15 MG TABLET PO SCH (21:16)
[2022-07-28] MEDS: clonazePAM 1 MG TABLET PO SCH (21:16)
[2022-07-29] VITALS: BP 131/64
[2022-07-29] MEDS: ALBUTEROL HALF STRENGTH 1.25 MG/3 ML VIAL.NEB NEB SCH ×4 (01:30→20:21)
[2022-07-29 04:00] VITALS: BP 127/76
[2022-07-29] MEDS: IV NS 0.9% 1,000 ML IV PRN ×2 (05:58→18:02)
--- NOTE | 2022-07-29 06:35 | NUR ---
RN CLOSING NOTES: PATIENT IN BED,SLEEPING BUT EASILY AROUSABLE. A/O X 4, COMMUNICATE THROUGH WRITING. ON CPAP AT NIGHT-AC-18, FIO2-28, PEEP-5 AND PT TOLERATED WELL. O2 SAT 96%. IV ACCESS YARA MIDLINE AND RT HAND#20G INTACT AND PATENT, NO S/S OF INFILTRATIONS. RUNNING NS AT 75CC/HR. NO FACIAL GRIMACING NOTED. NO ACUTE DISTRESS. GTUBE FEEDING TOLERATED WELL. RUNNING JEVITY 1.2 AT 30CC/HR. ALL DUE MEDS GIVEN ORDERED. ABLE TO USE URINAL. ALL SAFETY MEASURES IN PLACE. BED IN LOWEST POSITION AND LOCKED, SIDE RAILS UP X3. PLACE CALL LIGHT WITHIN REACH. WILL ENDORSE TO MORNING SHIFT NURSE.
--- NOTE | 2022-07-29 07:51 | NUR ---
PT. IS AWAKE AND ALERT PLACED INTO TRACH MASK @ 28% FIO2 VIA COOL AEROSOL ORDER DURING THE DAY. VENT ON STAND BY @ BEDSIDE. TRACH CUFFED FULLY DEFLATED Addendum: 07/29/22 at 0752 by TRE VILLEGAS RT Amended: Links added.
[2022-07-29 08:00] VITALS: BP 162/97
[2022-07-29] MEDS: POLYETHYLENE GLYCOL 3350 17 GM POWD.PACK PO SCH ×2 (08:04→16:50)
[2022-07-29] MEDS: ALLOPURINOL 100 MG TABLET PO SCH (08:04)
[2022-07-29] MEDS: BACLOFEN (10 MG) 10 MG TABLET PO SCH ×2 (08:05→17:03)
[2022-07-29] MEDS: GLYCOPYRROLATE 1 MG TABLET PO SCH ×3 (08:05→17:03)
[2022-07-29] MEDS: ASPIRIN 81 MG TAB.CHEW PO SCH (08:05)
[2022-07-29] MEDS: SERTRALINE HCL 50 MG TABLET PO SCH (08:05)
[2022-07-29] MEDS: CHOLECALCIFEROL 1,000 UNIT TABLET (VIT D3) PO SCH (08:05)
[2022-07-29] MEDS: LEVOTHYROXINE SODIUM 112 MCG TABLET PO SCH (08:05)
[2022-07-29] MEDS: PANTOPRAZOLE 40 MG TABLET.DR PO SCH ×2 (08:05→17:07)
[2022-07-29] MEDS: TIZANIDINE HCL 4 MG TABLET PO SCH ×2 (08:06→17:03)
[2022-07-29 12:00] VITALS: BP 146/99
--- NOTE | 2022-07-29 13:00 | NUR ---
RN NOTE TUBE FEEDING INCREASED TO 40ML/HR. NO RESIDUAL.
[2022-07-29] MEDS: LEVOFLOXACIN (250MG) 250 MG TABLET GT SCH (13:04)
[2022-07-29] MEDS: JEVITY 1.2 CAL 1,000 ML BOTTLE GT PRN (14:07)
[2022-07-29 16:00] VITALS: BP 145/91
[2022-07-29] MEDS: DOCUSATE SODIUM LIQ 100 MG/10 ML UDC GT SCH (17:00)
--- NOTE | 2022-07-29 17:00 | NUR ---
RN NOTE NO RESIDUAL NOTED. GT FEEDING INCREASED TO 50ML/HR.
[2022-07-29] MEDS: ATORVASTATIN 10 MG TABLET PO SCH (17:03)
[2022-07-29] MEDS: FINASTERIDE (5 MG) 5 MG TABLET PO SCH (17:03)
[2022-07-29] MEDS: ENOXAPARIN SODIUM 40 MG/0.4 ML DISP.SYRIN SQ SCH (17:04)
--- NOTE | 2022-07-29 18:26 | NUR ---
RN NOTE PT REMAINS IN BED, AWAKE, A&OX4, AT BEDSIDE. PT WITH COOL AEROSOL TRACH, NO LABORED BREATHING, SAT 96% ON BEDSIDE MONITOR. GTUBE IN PLACE RUNNING JEVITY 1.2 AT 50ML/HR, NO RESIDUAL NOTED. RIGHT UA MIDLINE AND RIGHT HAND 22G IN PLACE RUNNING NS AT 75 ML/HR. BED LOCKED AND IN LOWEST POSITION, CALL LIGHT WITHIN REACH, 3 SIDE RAILS UP.
[2022-07-29 20:00] VITALS: BP 130/65
--- NOTE | 2022-07-29 20:49 | NUR ---
RN NOTE.,INITIAL ASSESSMENT. RECEIVED THE PT REST IN BED. AWAKE, ALERT, FOLLOW COMMANDS. OXYGEN VIA TRACH. SAT 98%. NO ACUTE DISTRESS NOTED. STEAM CONDITIONER OPERATOR SHOWING NSR. IV RT UPPER ARM MID LINE. IVF NS 75 ML/H. HOB ELEVATED. GT INTACT. JEVITY @ 50 ML/H, WILL CONTINUE TO MONITOR VITALS.
[2022-07-29] MEDS: MIRTAZAPINE 15 MG TABLET PO SCH (21:43)
[2022-07-29] MEDS: clonazePAM 1 MG TABLET PO SCH (21:43)
[2022-07-30] VITALS: BP 115/58
[2022-07-30] MEDS: ALBUTEROL HALF STRENGTH 1.25 MG/3 ML VIAL.NEB NEB SCH ×4 (01:08→20:22)
--- NOTE | 2022-07-30 03:23 | NUR ---
RT pt received on CA 28%. trach cuff deflated. placed on mechanical vent, settings: CPAP 20/5 28%. vent plugged in to red outlet. spare trach at bedside. ambu bag at bedside. shift uneventful
[2022-07-30 04:00] VITALS: BP 110/62
--- NOTE | 2022-07-30 06:16 | NUR ---
RN NOTE, AM CARE GIVEN. REMAINING SAME OXYGEN TOLERATED WELL. SAT 98%. NO ACUTE DISTRESS NOTED. JAVA WEB USER INTERFACE DEVELOPER SHOWING NSR. IV RT UPPER ARM PICC LINE. IVF NS 75 ML/H. HOB ELEVATED. TURN AND REPOSITION Q2H. GT FEEDING TOLERATED WELL. WILL CONTINUE TO MONITOR VITALS.
[2022-07-30] MEDS: IV NS 0.9% 1,000 ML IV PRN (06:36)
--- NOTE | 2022-07-30 07:30 | NUR ---
RECEIVABLES SPECIALIST AM NOTES: RECEIVED PATIENT IN BED AWAKE, A/O X 4, COMMUNICATE THROUGH WRITING. ON COOL AEROSOL @5L/MIN AND CPAP AT NOC. WELL TOLERATED. RESPIRATION UNLABORED. NO DISTRESS.SR HR 79 ON MONITOR. DENIES PAIN/DISCOMFORT, IV ACCESS YARA MIDLINE INTACT AND PATENT, FLUSHES WELL, SITE CLEAR. GTUBE FEEDING CHECKED FOR PLACEMENT, 0 RESIDUAL. RUNNING JEVITY 1.2 AT 50CC/HR [GOAL IS 70 ML/HR] INDEPENDENT OF BED MOBILITY. SAFETY MEASURES IN PLACE. BED IN LOWEST POSITION AND LOCKED, SIDE RAILS UP X3. CALL LIGHT WITHIN REACH. WILL CONTINUE TO MONITOR.
[2022-07-30 08:00] VITALS: BP 141/70
[2022-07-30] MEDS: POLYETHYLENE GLYCOL 3350 17 GM POWD.PACK PO SCH ×2 (08:22→17:00)
[2022-07-30] MEDS: LEVOTHYROXINE SODIUM 112 MCG TABLET PO SCH (08:22)
[2022-07-30] MEDS: PANTOPRAZOLE 40 MG TABLET.DR PO SCH ×2 (08:22→17:25)
[2022-07-30] MEDS: GLYCOPYRROLATE 1 MG TABLET PO SCH ×3 (08:23→17:26)
[2022-07-30] MEDS: TIZANIDINE HCL 4 MG TABLET PO SCH ×2 (08:23→17:25)
[2022-07-30] MEDS: BACLOFEN (10 MG) 10 MG TABLET PO SCH ×2 (08:23→17:26)
[2022-07-30] MEDS: CHOLECALCIFEROL 1,000 UNIT TABLET (VIT D3) PO SCH (08:24)
[2022-07-30] MEDS: ASPIRIN 81 MG TAB.CHEW PO SCH (08:24)
[2022-07-30] MEDS: SERTRALINE HCL 50 MG TABLET PO SCH (08:24)
[2022-07-30] MEDS: ALLOPURINOL 100 MG TABLET PO SCH (08:25)
--- NOTE | 2022-07-30 09:30 | NUR ---
RN NOTES DUE MEDS GIVEN
--- NOTE | 2022-07-30 11:17 | NUR ---
RN NOTES PATIENT FOR PSYCH EVAL PRIOR TO DC. DR. KYLE TALKED TO DR. CARSON. FACESHEET FAXED TO [employer].
[2022-07-30 12:00] VITALS: BP 149/94
[2022-07-30] MEDS: LORAZEPAM INJ 2 MG/ML VIAL IV PRN ×2 (12:27→20:15)
[2022-07-30] MEDS: LEVOFLOXACIN (250MG) 250 MG TABLET GT SCH (14:59)
[2022-07-30 16:00] VITALS: BP 166/91
[2022-07-30] MEDS: ATORVASTATIN 10 MG TABLET PO SCH (17:25)
[2022-07-30] MEDS: DOCUSATE SODIUM LIQ 100 MG/10 ML UDC GT SCH (17:25)
[2022-07-30] MEDS: FINASTERIDE (5 MG) 5 MG TABLET PO SCH (17:25)
[2022-07-30] MEDS: ENOXAPARIN SODIUM 40 MG/0.4 ML DISP.SYRIN SQ SCH (17:30)
[2022-07-30] MEDS: JEVITY 1.2 CAL 1,000 ML BOTTLE GT PRN (17:39)
--- NOTE | 2022-07-30 19:18 | NUR ---
ROBOTIC MACHINE TENDER PRODUCTION CLOSING NOTES: RECEIVED PATIENT IN BED AWAKE, A/O X 4, COMMUNICATE THROUGH WRITING. ON COOL AEROSOL @5L/MIN AND CPAP AT NOC. WELL TOLERATED. RESPIRATION UNLABORED. NO DISTRESS.SR HR 79 ON MONITOR. DENIES PAIN/DISCOMFORT, IV ACCESS YARA MIDLINE INTACT AND PATENT, FLUSHES WELL, SITE CLEAR. GTUBE FEEDING CHECKED FOR PLACEMENT, 0 RESIDUAL. RUNNING JEVITY 1.2 AT 70CC/HR .INDEPENDENT OF BED MOBILITY. USES BSC. SAFETY MEASURES IN PLACE. BED IN LOWEST POSITION AND LOCKED, SIDE RAILS UP X3. CALL LIGHT WITHIN REACH. ENDORSED TO NEXT SHIFT FOR DONAVON.
--- NOTE | 2022-07-30 19:19 | NUR ---
RN NOTES FAMILY AT BEDSIDE. DR. DUMONT - RESPIRATORY MD FROM [facility] WANTS TO TALK TO CASE MANAGEMENT RE PT DISCHARGE PLAN . ALSO, FAMILY AWARE THAT PSYCH DOCTOR WILL COME TOMORROW TO EVALUATE PATIENT FOR HIS ANXIETY.
--- NOTE | 2022-07-30 19:30 | NUR ---
DIRECTOR OF FOOD AND BEVERAGE SERVICES OPENING NOTE RECEIVED PATIENT IN BED AWAKE, A/O X 4, COMMUNICATE THROUGH WRITING. ON COOL AEROSOL @5L/MIN AND PT TOLERATED WELL. NO FACIAL GRIMACING NOTED. NO ACUTE DISTRESS. IV ACCESS YARA MIDLINE INTACT AND PATENT,GTUBE FEEDING TOLERATED WELL. RUNNING JEVITY 1.2 AT 70CC/HR. ALL SAFETY MEASURES IN PLACE. BED IN LOWEST POSITION AND LOCKED, SIDE RAILS UP X3. PLACE CALL LIGHT WITHIN REACH. WILL CONTINUE TO MONITOR THROUGHOUT SHIFT
[2022-07-30 20:00] VITALS: BP 147/74
[2022-07-30] MEDS: clonazePAM 1 MG TABLET PO SCH (21:52)
[2022-07-30] MEDS: MIRTAZAPINE 15 MG TABLET PO SCH (21:52)
[2022-07-31] VITALS: BP 129/75
[2022-07-31] MEDS: ALBUTEROL HALF STRENGTH 1.25 MG/3 ML VIAL.NEB NEB SCH ×4 (01:41→20:45)
[2022-07-31 04:00] VITALS: BP 110/69
--- NOTE | 2022-07-31 06:47 | NUR ---
LEGISLATIVE DIRECTOR CLOSING NOTE PT IN BED ASLEEP, A/O X 4, COMMUNICATE THROUGH WRITING. ON CPAP AND PT TOLERATED WELL. NO ACUTE DISTRESS. IV ACCESS YARA MIDLINE INTACT AND PATENT,GTUBE FEEDING TOLERATED WELL. RUNNING JEVITY 1.2 AT 70CC/HR. ALL DUE MEDS GIVEN. ALL SAFETY MEASURES IN PLACE. BED IN LOWEST POSITION AND LOCKED, SIDE RAILS UP X3. PLACE CALL LIGHT WITHIN REACH. WILL ENDORSE TO MORNING SHIFT
--- NOTE | 2022-07-31 07:15 | NUR ---
PATIENT ACCOUNTING REPRESENTATIVE OPENING NOTES: RECEIVED PT IN BED . ASLEEP, EASILY AWAKEN BY STIMULI. A/O X4 AND ABLE TO VERBALIZED NEEDS THROUGH WRITING. ON [facility] VENT: COOL AEROSOL SHILEY #[id number], AC 18, FI02 28, PEEP 5. ON CADIAC MONITOR WITH CURRENT READING OF SR @87BPM. PT USING COMMODE. WITH G-TUBE CURRENT FEEDING JEVITY 70 ML/HR. IV ACCES ON R HAND G#22, PATENT AND INTACT AND SALINE LOCKED: SAFETY PRECAUTIONS MAINTAINED: BED LOCKED AND IN LOWEST POSITION, PADDED SIDE RAILS UP X 3. CALL LIGHT IN EASY REACH FOR HELP. WILL MONITOR PT.
[2022-07-31] MEDS: LEVOTHYROXINE SODIUM 112 MCG TABLET PO SCH (07:27)
[2022-07-31 08:00] VITALS: BP 110/60
[2022-07-31] MEDS: SERTRALINE HCL 50 MG TABLET PO SCH (08:29)
[2022-07-31] MEDS: POLYETHYLENE GLYCOL 3350 17 GM POWD.PACK PO SCH ×2 (08:29→16:31)
[2022-07-31] MEDS: CHOLECALCIFEROL 1,000 UNIT TABLET (VIT D3) PO SCH (08:31)
[2022-07-31] MEDS: TIZANIDINE HCL 4 MG TABLET PO SCH ×2 (08:31→17:02)
[2022-07-31] MEDS: ASPIRIN 81 MG TAB.CHEW PO SCH (08:32)
[2022-07-31] MEDS: ALLOPURINOL 100 MG TABLET PO SCH (08:32)
[2022-07-31] MEDS: BACLOFEN (10 MG) 10 MG TABLET PO SCH ×2 (08:32→16:31)
[2022-07-31] MEDS: GLYCOPYRROLATE 1 MG TABLET PO SCH ×3 (08:34→16:32)
[2022-07-31] MEDS: PANTOPRAZOLE 40 MG TABLET.DR PO SCH ×2 (08:46→16:31)
[2022-07-31] MEDS: ACETAMINOPHEN 325 MG TABLET PO PRN (08:46)
[2022-07-31] MEDS: LORAZEPAM INJ 2 MG/ML VIAL IV PRN (08:47)
[2022-07-31] MEDS: IV NS 0.9% 1,000 ML IV PRN ×2 (08:51→23:28)
[2022-07-31 12:00] VITALS: BP 134/72
[2022-07-31] MEDS: LEVOFLOXACIN (250MG) 250 MG TABLET GT SCH (13:46)
--- NOTE | 2022-07-31 14:57 | NUR ---
RN NOTES: SEEN AN EXAMINED BY DR KYLE, BUN 76, CREA 3.9 INFORMED MD IF WE CAN CONTINUE TPN, DR MICHELINE KYLE STATED "PROCEED TPN".
[2022-07-31 16:00] VITALS: BP 128/71
[2022-07-31] MEDS: FINASTERIDE (5 MG) 5 MG TABLET PO SCH (17:01)
[2022-07-31] MEDS: DOCUSATE SODIUM LIQ 100 MG/10 ML UDC GT SCH (17:01)
[2022-07-31] MEDS: ATORVASTATIN 10 MG TABLET PO SCH (17:01)
[2022-07-31] MEDS: JEVITY 1.2 CAL 1,000 ML BOTTLE GT PRN (17:34)
[2022-07-31] MEDS: ENOXAPARIN SODIUM 40 MG/0.4 ML DISP.SYRIN SQ SCH (17:35)
--- NOTE | 2022-07-31 19:02 | NUR ---
GRANTS ASSISTANT OPENING NOTES: PT IN BED . AWAKE. A/O X4 AND ABLE TO VERBALIZED NEEDS THROUGH WRITING. ON [facility] VENT: COOL AEROSOL SHILEY #[id number], AC 18, FI02 28, PEEP 5. ON ORDNANCE KEEPER WITH CURRENT READING OF SR @81 BPM. PT USING COMMODE. WITH G-TUBE CURRENT FEEDING JEVITY 70 ML/HR. IV ACCES ON R HAND G#22, PATENT AND INTACT AND SALINE LOCKED: SAFETY PRECAUTIONS MAINTAINED: BED LOCKED AND IN LOWEST POSITION, PADDED SIDE RAILS UP X 3. CALL LIGHT IN EASY REACH FOR HELP. WILL MONITOR PT. ENDORSED TO NOC SHIFT FOR DONAVON.
--- NOTE | 2022-07-31 19:48 | NUR ---
PUBLIC WORKS COMMISSIONER OPENING NOTES: RECEIVED PT IN BED AWAKE. A/O X4 AND ABLE TO VERBALIZED NEEDS THROUGH WRITING. ON [facility] VENT: COOL AEROSOL SHILEY #[id number], AC 18, FI02 28, PEEP 5. ON CADIAC MONITOR WITH CURRENT READING OF SR @81BPM. PT USING COMMODE. WITH G-TUBE CURRENT FEEDING JEVITY 70 ML/HR. IV ACCES ON R HAND G#22, PATENT AND INTACT RUNNING NS AT 75 ML/HR: SAFETY PRECAUTIONS MAINTAINED: BED LOCKED AND IN LOWEST POSITION, PADDED SIDE RAILS UP X 3. CALL LIGHT IN EASY REACH FOR HELP. WILL CONTINUE MONITOR PT THROUGHOUT THE SHIFT.
[2022-07-31 20:00] VITALS: BP 112/79
--- NOTE | 2022-07-31 20:45 | NUR ---
RCVD PT ON COOL AEROSOL 28% 5L, PLACED PT ON NOC MECHANICAL VENT SETTINGS OF CPAP MODE PEEP 5, PS 20 , FIO2 28%. CUFF INFLATED. PT IS ALERT AND AWAKE. BREATHING TX GIVEN PER MD'S ORDER, NO ADVERSE REACTION NOTED. SUCTIONED PRN . VENT PLUGGED INTO RED OUTLET, VENT ALARMS ON AND AUDIBLE. NO RESPIRATORY DISTRESS NOTED AT THIS TIME. WILL CONTINUE TO MONITOR PT T/O SHIFT.
[2022-07-31] MEDS: MIRTAZAPINE 15 MG TABLET PO SCH (21:17)
[2022-07-31] MEDS: clonazePAM 1 MG TABLET PO PRN (21:18)
[2022-08-01] VITALS: BP 151/90
[2022-08-01] MEDS: ALBUTEROL HALF STRENGTH 1.25 MG/3 ML VIAL.NEB NEB SCH ×4 (01:36→19:14)
[2022-08-01 04:00] VITALS: BP 145/82
[2022-08-01] MEDS: clonazePAM 1 MG TABLET PO PRN ×2 (06:13→16:10)
--- NOTE | 2022-08-01 07:30 | NUR ---
SENIOR QUALITY ENGINEER OPENING NOTES: RECEIVED PATIENT IN BED AWAKE, A/O X 4, COMMUNICATE THROUGH WRITING. ON COOL AEROSOL @5L/MIN AND CPAP AT NOC. WELL TOLERATED. RESPIRATION UNLABORED. NO DISTRESS.SR HR 79 ON MONITOR. DENIES PAIN/DISCOMFORT, IV ACCESS YARA MIDLINE INTACT AND PATENT, FLUSHES WELL, SITE CLEAR. GTUBE FEEDING CHECKED FOR PLACEMENT, 0 RESIDUAL. RUNNING JEVITY 1.2 AT 70CC/HR .INDEPENDENT OF BED MOBILITY. USES BSC. SAFETY MEASURES IN PLACE. BED IN LOWEST POSITION AND LOCKED, SIDE RAILS UP X3. CALL LIGHT WITHIN REACH. WILL MONITOR
--- NOTE | 2022-08-01 07:34 | NUR ---
ACADEMIC AFFAIRS MANAGER CLOSING NOTES: PT REMAINS IN BED AWAKE. A/O X4 AND ABLE TO VERBALIZED NEEDS THROUGH WRITING. ON COOL AEROSOL WITH TRACHEOSTOMY IN PLACED; SHILEY #88, AC 18, FI02 28, PEEP 5. ON GREEN BUILDING MATERIALS DESIGNER WITH CURRENT READING OF SR @81BPM. PT USING COMMODE. WITH G-TUBE CURRENT FEEDING JEVITY 70 ML/HR. IV ACCES ON R HAND G#22, PATENT AND INTACT RUNNING NS AT 75 ML/HR: ALL DUE MEDS GIVEN, KEPT DRY AND CLEAN, SAFETY PRECAUTIONS MAINTAINED: BED LOCKED AND IN LOWEST POSITION, PADDED SIDE RAILS UP X 3. CALL LIGHT IN EASY REACH FOR HELP. WILL ENDORSE TO AM SHIFT NURSE FOR CONTINUITY OF CARE.
[2022-08-01] MEDS: LEVOTHYROXINE SODIUM 112 MCG TABLET PO SCH (07:46)
[2022-08-01 08:00] VITALS: BP 154/78
[2022-08-01] MEDS: SERTRALINE HCL 50 MG TABLET PO SCH (08:32)
[2022-08-01] MEDS: BACLOFEN (10 MG) 10 MG TABLET PO SCH ×2 (08:33→16:09)
[2022-08-01] MEDS: ASPIRIN 81 MG TAB.CHEW PO SCH (08:33)
[2022-08-01] MEDS: GLYCOPYRROLATE 1 MG TABLET PO SCH ×3 (08:33→16:10)
[2022-08-01] MEDS: PANTOPRAZOLE 40 MG TABLET.DR PO SCH ×2 (08:33→16:10)
[2022-08-01] MEDS: ALLOPURINOL 100 MG TABLET PO SCH (08:33)
[2022-08-01] MEDS: POLYETHYLENE GLYCOL 3350 17 GM POWD.PACK PO SCH ×2 (08:34→16:18)
[2022-08-01] MEDS: TIZANIDINE HCL 4 MG TABLET PO SCH ×2 (08:34→17:06)
[2022-08-01] MEDS: CHOLECALCIFEROL 1,000 UNIT TABLET (VIT D3) PO SCH (08:53)
[2022-08-01 12:00] VITALS: BP 165/84
[2022-08-01] MEDS: ACETAMINOPHEN 325 MG TABLET PO PRN (12:26)
[2022-08-01] MEDS: LEVOFLOXACIN (250MG) 250 MG TABLET GT SCH (14:04)
[2022-08-01 16:00] VITALS: BP 167/102
[2022-08-01] MEDS: DOCUSATE SODIUM LIQ 100 MG/10 ML UDC GT SCH (16:18)
[2022-08-01] MEDS: FINASTERIDE (5 MG) 5 MG TABLET PO SCH (17:06)
[2022-08-01] MEDS: ENOXAPARIN SODIUM 40 MG/0.4 ML DISP.SYRIN SQ SCH (17:09)
[2022-08-01] MEDS: ATORVASTATIN 10 MG TABLET PO SCH (17:11)
--- NOTE | 2022-08-01 17:13 | NUR ---
RN NOTES: SPOKE TO MICHELINE KYLE CHARTER COACH DRIVER BP 167/102.PT NOT IN PAIN, MAY BE IV HYDRATION OF NORMAL SALINE CONTRIBUTE TO ELEVATED BP , THERE IS NO PRN BP MEDS ALSO PT NOTED WITH 2 LOOSE BM, HELD EVENING HARRISON OF MIRALAX AND DOCUSATE SODIUM WITH ORDER TO DISCONTINUE IV HYDRATION OF NORMAL SALINE AND DC MIRALAX, ORDER NOTED AND CARRIED OUT
--- NOTE | 2022-08-01 19:20 | NUR ---
RN NOTES RECEIVED PT FOR CONTINUITY OF CARE. PATIENT A/OX3-4 IN NO S/SX OF ACUTE DISTRESS AT THIS TIME; CURRENTLY ON CA 28% AND 02 OF 5L WITH 02 SAT >95% AT THIS TIME. WITH IV ACCESS ON R U MID#18 PATENT, INTACT AND FLUSHING WELL. WILL ENSURE SAFETY MEASURES WITHIN THE SHIFT. PATIENT BED ALARM IS ON. HEAD OF BED ELEVATED. BED IS LOCKED, IN LOWEST POSITION AND SIDE RAILS UP. CALL LIGHT WITHIN REACH OF THE PATIENT. WILL CONTINUE TO MONITOR AND REASSESS FOR ANY CHANGES AND WILL CARRY OUT ANY ONGOING AND ACTIVE MD ORDER.
--- NOTE | 2022-08-01 19:29 | NUR ---
RT Received pt on CA 28%, 5 LPM. SPO2 100%. No resp distress. Pt alert and oriented, able to communicate. Refused to be placed on NOC CPAP at this time. Told him I will come back to place him before sleep.
[2022-08-01 20:00] VITALS: BP 110/58
[2022-08-01] MEDS: MIRTAZAPINE 15 MG TABLET PO SCH (21:29)
[2022-08-01] MEDS: JEVITY 1.2 CAL 1,000 ML BOTTLE GT PRN (21:58)
[2022-08-02] VITALS: BP 95/59
[2022-08-02] MEDS: ALBUTEROL HALF STRENGTH 1.25 MG/3 ML VIAL.NEB NEB SCH ×4 (01:10→20:38)
[2022-08-02 04:00] VITALS: BP 102/62
--- NOTE | 2022-08-02 04:00 | NUR ---
RN NOTES PATIENT REMAINED TO BE IN NO SIGNS OF ACUTE RESPIRATORY DISTRESS , VITAL SIGNS STABLE AT THIS TIME. SUCTIONING RENDERED. AM PATIENT CARE DONE. WILL CONTINUE TO MONITOR AND REASSESS FOR ANY CHANGES THROUGHOUT THE SHIFT.
--- NOTE | 2022-08-02 05:53 | NUR ---
Pt taken off NOC CPAP and placed back on CA 28%, 5LPM as ordered.
--- NOTE | 2022-08-02 06:53 | NUR ---
RN CLOSING NOTE: PATIENT REMAINS IN ROOM IN NO SIGNS OF RESPIRATORY DISTRESS, PATIENT BACK ON COOL AEROSOL 28% AND 5L OF 02;TOLERATING WELL SATURATING @ >95% SP02. SAFETY MEASURES IMPLEMENTED, BED IN LOWEST POSITION, LOCKED, SIDE RAILS UP, CALL LIGHT WITHIN REACH. ALL NEEDS AND ORDERS ADDRESSED DURING THE SHIFT. IV ACCESS MAINTAINED INTACT, SECURED AND FLUSHING WELL. ALL DUE MEDS GIVEN ORDERED & SCHEDULED ; PATIENT TOLERATED WELL. PATIENT KEPT CLEAN AND COMFORTABLE WITHIN THE SHIFT. PATIENT ENDORSED TO INCOMING SHIFT RN WITH STABLE VITAL SIGN AND FOR CONTINUITY OF CARE.
--- NOTE | 2022-08-02 07:19 | NUR ---
RN OPENING NOTES RECEIVED PT FOR CONTINUITY OF CARE. PATIENT A/OX3-4 IN NO S/SX OF ACUTE DISTRESS AT THIS TIME; CURRENTLY ON CA 28% AND 02 OF 5L WITH 02 SAT >95% AT THIS TIME. WITH IV ACCESS ON R U MID#18 PATENT, INTACT AND FLUSHING WELL. WILL ENSURE SAFETY MEASURES WITHIN THE SHIFT. PATIENT BED ALARM IS ON. HEAD OF BED ELEVATED. BED IS LOCKED, IN LOWEST POSITION AND SIDE RAILS UP. CALL LIGHT WITHIN REACH OF THE PATIENT.
[2022-08-02 08:00] VITALS: BP 148/97
[2022-08-02] MEDS: clonazePAM 1 MG TABLET PO PRN ×3 (08:36→21:12)
[2022-08-02] MEDS: TIZANIDINE HCL 4 MG TABLET PO SCH ×2 (08:37→17:13)
[2022-08-02] MEDS: ASPIRIN 81 MG TAB.CHEW PO SCH (08:37)
[2022-08-02] MEDS: CHOLECALCIFEROL 1,000 UNIT TABLET (VIT D3) PO SCH (08:37)
[2022-08-02] MEDS: PANTOPRAZOLE 40 MG TABLET.DR PO SCH ×2 (08:37→17:12)
[2022-08-02] MEDS: SERTRALINE HCL 50 MG TABLET PO SCH (08:37)
[2022-08-02] MEDS: BACLOFEN (10 MG) 10 MG TABLET PO SCH ×2 (08:37→17:12)
[2022-08-02] MEDS: GLYCOPYRROLATE 1 MG TABLET PO SCH ×3 (08:38→17:12)
[2022-08-02] MEDS: LEVOTHYROXINE SODIUM 112 MCG TABLET PO SCH (08:38)
[2022-08-02] MEDS: ALLOPURINOL 100 MG TABLET PO SCH (08:38)
--- NOTE | 2022-08-02 09:27 | NUR ---
PATIENT CALLING Q 5 MINUTES ,VERBALIZED " I AM ANXIUOS",PER PT. HE IS ANXIOUS BECAUSE HE IS GOING HOME TOMRW. REASSURED AND EMOTIONAL SUPPORT GIVEN.
[2022-08-02 12:00] VITALS: BP 152/88
[2022-08-02] MEDS: LEVOFLOXACIN (250MG) 250 MG TABLET GT SCH (14:10)
[2022-08-02 16:00] VITALS: BP 158/96
--- NOTE | 2022-08-02 16:25 | NUR ---
RN NOTE 158/96 BP NOTED AND HR 100 PT WROTE HE IS NERVOUS AD ANXIOUS TO GO HOME TOMORROW. PROVIDED THERAPEUTIC COMMUNICATION. PT DID SEEM TO CALM DOWN.
[2022-08-02] MEDS: FINASTERIDE (5 MG) 5 MG TABLET PO SCH (17:13)
[2022-08-02] MEDS: ATORVASTATIN 10 MG TABLET PO SCH (17:13)
[2022-08-02] MEDS: DOCUSATE SODIUM LIQ 100 MG/10 ML UDC GT SCH (17:14)
[2022-08-02] MEDS: ENOXAPARIN SODIUM 40 MG/0.4 ML DISP.SYRIN SQ SCH (17:14)
--- NOTE | 2022-08-02 18:44 | NUR ---
RN CLOSING NOTE: PATIENT REMAINS IN ROOM IN NO SIGNS OF RESPIRATORY DISTRESS, PATIENT ON COOL AEROSOL 28% AND 5L OF 02;TOLERATING WELL SATURATING @ >97% SP02. SAFETY MEASURES IMPLEMENTED, BED IN LOWEST POSITION, LOCKED, SIDE RAILS UP, CALL LIGHT WITHIN REACH. ALL NEEDS AND ORDERS ADDRESSED DURING THE SHIFT. IV ACCESS MAINTAINED INTACT, SECURED AND FLUSHING WELL. ALL DUE MEDS GIVEN ORDERED & SCHEDULED ; PATIENT TOLERATED WELL. PATIENT KEPT CLEAN AND COMFORTABLE WITHIN THE SHIFT. PATIENT ENDORSED TO INCOMING SHIFT RN
--- NOTE | 2022-08-02 19:30 | NUR ---
RN OPENING NOTES: RECEIVED PATIENT IN BED AWAKE, A/O X 4, COMMUNICATE THROUGH WRITING. ON COOL AEROSOL 28% @5L/MIN AND PT TOLERATED WELL. IV ACCESS YARA MIDLINE INTACT AND PATENT, NO S/S OF INFILTRATIONS. NO FACIAL GRIMACING NOTED. NO ACUTE DISTRESS. GTUBE FEEDING TOLERATED WELL. RUNNING [employer] ([employer]) 1.2 AT 70CC/HR. ABLE TO USE BEDSIDE COMMODE WITH ASSIST. ALL SAFETY MEASURES IN PLACE. BED IN LOWEST POSITION AND LOCKED, SIDE RAILS UP X3. PLACE CALL LIGHT WITHIN REACH. BED ALARM ON. WILL CONTINUE TO MONITOR.
[2022-08-02 20:00] VITALS: BP 116/85
[2022-08-02] MEDS: MIRTAZAPINE 15 MG TABLET PO SCH (21:12)
[2022-08-02] MEDS: ACETAMINOPHEN 325 MG TABLET PO PRN (21:13)
--- NOTE | 2022-08-02 21:20 | NUR ---
RN NOTES: PT C/O ANXIETY AND GENERALIZED BODY ACHE. KLONOPIN 0.5 MG TAB AND TYLENOL 325 MG 2 TAB GIVEN VIA GTUBE AND PT TOLERATED WELL. WILL CONTINUE TO MONITOR
[2022-08-02] MEDS: JEVITY 1.2 CAL 1,000 ML BOTTLE GT PRN (23:27)
--- NOTE | 2022-08-02 23:55 | NUR ---
RT NOTE CALLED TO PT ROOM FOR DECANNULATION. REINSERTED TRACH AND PT KALIN WELL. NO RESPIRTORY DISTRESS NOTED @ THIS TIME. RN AWARE.
[2022-08-03] VITALS: BP 108/65
[2022-08-03] MEDS: ALBUTEROL HALF STRENGTH 1.25 MG/3 ML VIAL.NEB NEB SCH ×4 (02:24→19:48)
[2022-08-03 04:00] VITALS: BP 110/50
--- NOTE | 2022-08-03 06:43 | NUR ---
RN CLOSING NOTES: PATIENT IN BED AWAKE, A/O X 4, COMMUNICATE THROUGH WRITING. ON CPAP AND PT TOLERATED WELL. O2 SAT IV ACCESS YARA MIDLINE INTACT AND PATENT, NO S/S OF INFILTRATIONS. NO FACIAL GRIMACING NOTED. NO ACUTE DISTRESS. GTUBE FEEDING TOLERATED WELL. RUNNING [employer] 1.2 AT 70CC/HR. ABLE TO USE BEDSIDE COMMODE WITH ASSIST. ALL DUE MEDS GIVEN ORDERED. ALL SAFETY MEASURES IN PLACE. BED IN LOWEST POSITION AND LOCKED, SIDE RAILS UP X3. PLACE CALL LIGHT WITHIN REACH. BED ALARM ON. WILL ENDORSE TO MORNING SHIFT NURSE.
[2022-08-03] MEDS: LEVOTHYROXINE SODIUM 112 MCG TABLET PO SCH (07:37)
--- NOTE | 2022-08-03 07:53 | NUR ---
HEPATOLOGIST OPENING NOTES: RECEIVED PATIENT IN BED AWAKE, A/O X 4, COMMUNICATE THROUGH WRITING. ON CPAP ORDERED.. IV ACCESS YARA MIDLINE INTACT AND PATENT, NO S/S OF INFILTRATIONS. NO FACIAL GRIMACING NOTED. NO ACUTE DISTRESS. GTUBE FEEDING TOLERATED WELL. RUNNING [employer] 1.2 AT 70CC/HR. . ALL SAFETY MEASURES IN PLACE. BED IN LOWEST POSITION AND LOCKED, SIDE RAILS UP X3. PLACE CALL LIGHT WITHIN REACH. BED ALARM ON. WILL CONTINUE TO MONITOR.
[2022-08-03 08:00] VITALS: BP 124/67
[2022-08-03] MEDS: PANTOPRAZOLE 40 MG TABLET.DR PO SCH ×2 (09:30→17:29)
[2022-08-03] MEDS: CHOLECALCIFEROL 1,000 UNIT TABLET (VIT D3) PO SCH (09:31)
[2022-08-03] MEDS: ALLOPURINOL 100 MG TABLET PO SCH (09:31)
[2022-08-03] MEDS: ASPIRIN 81 MG TAB.CHEW PO SCH (09:32)
[2022-08-03] MEDS: SERTRALINE HCL 50 MG TABLET PO SCH (09:33)
[2022-08-03] MEDS: TIZANIDINE HCL 4 MG TABLET PO SCH ×2 (09:33→17:29)
[2022-08-03] MEDS: GLYCOPYRROLATE 1 MG TABLET PO SCH ×3 (09:33→17:28)
[2022-08-03] MEDS: BACLOFEN (10 MG) 10 MG TABLET PO SCH ×2 (09:34→17:29)
[2022-08-03] MEDS: clonazePAM 1 MG TABLET PO PRN ×2 (09:43→15:17)
[2022-08-03] MEDS ORDERED: CLON0.5T GT (10:05)
[2022-08-03 12:11] VITALS: BP 134/86
[2022-08-03] MEDS: LEVOFLOXACIN (250MG) 250 MG TABLET GT SCH (13:14)
[2022-08-03] MEDS ORDERED: VANCOMYCIN 0.75 GM in IV D5W 250 ML IV SCH (14:00)
--- NOTE | 2022-08-03 15:17 | NUR ---
RN NOTES: SPOKE TO MICHELINE KYLE NP PT IS FEELING ANXIOUS AND WANTS A DOSE NOW OF CLONAZEPAM WHICH WILL BE DUE AT 1543 HE SAID IT IS OK TO GIVE NOW, DOSE GIVEN
[2022-08-03 16:00] VITALS: BP 162/85
[2022-08-03] MEDS: ENOXAPARIN SODIUM 40 MG/0.4 ML DISP.SYRIN SQ SCH (17:28)
[2022-08-03] MEDS: DOCUSATE SODIUM LIQ 100 MG/10 ML UDC GT SCH (17:28)
[2022-08-03] MEDS: ATORVASTATIN 10 MG TABLET PO SCH (17:29)
[2022-08-03] MEDS: FINASTERIDE (5 MG) 5 MG TABLET PO SCH (17:29)
--- NOTE | 2022-08-03 18:15 | NUR ---
RN NOTES" PT VERBALIZED HE IS VERY ANXIOUS AND WANTS MEDICINE NOW FOR ANXIETY CALLED MICHELINE KYLE NETWORK SUPPORT ANALYST WITH ORDER OF ATIVAN 1 MG IV X 1 , ORDER NOTED AND CARRIED OUT
[2022-08-03] MEDS ORDERED: LORAZEPAM INJ 2 MG/ML VIAL IV ONE (18:30)
--- NOTE | 2022-08-03 19:35 | NUR ---
RN OPENING NOTES: RECEIVED PATIENT IN BED AWAKE, A/O X 4, COMMUNICATE THROUGH WRITING. ON COOL AEROSOL 28% @5L/MIN AND PT TOLERATED WELL. IV ACCESS YARA MIDLINE INTACT AND PATENT, NO S/S OF INFILTRATIONS. NO FACIAL GRIMACING NOTED. NO ACUTE DISTRESS. GTUBE FEEDING TOLERATED WELL. RUNNING [employer] 1.2 AT 70CC/HR. ABLE TO USE BEDSIDE COMMODE WITH ASSIST. ABLE TO URINAL. BROTHER AT BEDSIDE. ALL SAFETY MEASURES IN PLACE. BED IN LOWEST POSITION AND LOCKED, SIDE RAILS UP X3. PLACE CALL LIGHT WITHIN REACH. BED ALARM ON. WILL CONTINUE TO MONITOR.
--- NOTE | 2022-08-03 19:44 | NUR ---
QUALITY INTERNSHIP CLOSING NOTES: PATIENT IN BED AWAKE, A/O X 4, COMMUNICATE THROUGH WRITING. ON COOL AEROSOL @5L/MIN AND CPAP AT NOC. WELL TOLERATED. RESPIRATION UNLABORED. NO DISTRESS.SR HR 79 ON MONITOR. DENIES PAIN/DISCOMFORT, IV ACCESS YARA MIDLINE INTACT AND PATENT, FLUSHES WELL, SITE CLEAR. GTUBE FEEDING CHECKED FOR PLACEMENT, 0 RESIDUAL. RUNNING JEVITY 1.2 AT 70CC/HR .INDEPENDENT OF BED MOBILITY. USES BSC. SAFETY MEASURES IN PLACE. BED IN LOWEST POSITION AND LOCKED, SIDE RAILS UP X3. CALL LIGHT WITHIN REACH. ENDORSED TO NEXT SHIFT FOR DONAVON.
[2022-08-03 20:00] VITALS: BP 151/91
[2022-08-03] MEDS: MIRTAZAPINE 15 MG TABLET PO SCH (21:52)
[2022-08-04] VITALS: BP 98/60
[2022-08-04] MEDS: ALBUTEROL HALF STRENGTH 1.25 MG/3 ML VIAL.NEB NEB SCH ×4 (01:46→19:50)
[2022-08-04 04:00] VITALS: BP 105/59
[2022-08-04] MEDS: JEVITY 1.2 CAL 1,000 ML BOTTLE GT PRN (04:09)
--- NOTE | 2022-08-04 06:40 | NUR ---
RN CLOSING NOTES: PATIENT IN BED, ASLEEP BUT EASILY AROUSABLE, AWAKE, A/O X 4, COMMUNICATE THROUGH WRITING. ON NOCTURNAL CPAP AND PT TOLERATED WELL. O2 SAT 98%. IV ACCESS YARA MIDLINE INTACT AND PATENT, NO S/S OF INFILTRATIONS. NO FACIAL GRIMACING NOTED. NO ACUTE DISTRESS. GTUBE FEEDING TOLERATED WELL. RUNNING JEVITY 1.2 AT 70CC/HR. ABLE TO USE BEDSIDE COMMODE WITH ASSIST. ABLE TO USE URINAL.DUE MEDS GIVEN ORDERED. ALL SAFETY MEASURES IN PLACE. BED IN LOWEST POSITION AND LOCKED, SIDE RAILS UP X3. PLACE CALL LIGHT WITHIN REACH. BED ALARM ON. WILL ENDORSE TO MORNING SHIFT NURSE.
--- NOTE | 2022-08-04 07:24 | NUR ---
RN OPENING NOTES: RECEIVED PATIENT IN BED AWAKE, A/O X 4, COMMUNICATE THROUGH WRITING. ON COOL AEROSOL 28% @5L/MIN AND PT TOLERATED WELL. IV ACCESS YARA MIDLINE INTACT AND PATENT, NO S/S OF INFILTRATIONS. NO FACIAL GRIMACING NOTED. NO ACUTE DISTRESS. GTUBE FEEDING TOLERATED WELL. RUNNING [employer] 1.2 AT 70CC/HR. ABLE TO USE BEDSIDE COMMODE WITH ASSIST. ABLE TO URINAL. BROTHER AT BEDSIDE. ALL SAFETY MEASURES IN PLACE. BED IN LOWEST POSITION AND LOCKED, SIDE RAILS UP X3. PLACE CALL LIGHT WITHIN REACH. BED ALARM ON.
[2022-08-04 08:00] VITALS: BP 94/58
[2022-08-04] MEDS: SERTRALINE HCL 50 MG TABLET PO SCH (08:37)
[2022-08-04] MEDS: BACLOFEN (10 MG) 10 MG TABLET PO SCH ×2 (08:37→17:24)
[2022-08-04] MEDS: ASPIRIN 81 MG TAB.CHEW PO SCH (08:37)
[2022-08-04] MEDS: ALLOPURINOL 100 MG TABLET PO SCH (08:37)
[2022-08-04] MEDS: GLYCOPYRROLATE 1 MG TABLET PO SCH ×3 (08:37→17:23)
[2022-08-04] MEDS: TIZANIDINE HCL 4 MG TABLET PO SCH ×2 (08:37→17:23)
[2022-08-04] MEDS: LEVOTHYROXINE SODIUM 112 MCG TABLET PO SCH (08:37)
[2022-08-04] MEDS: PANTOPRAZOLE 40 MG TABLET.DR PO SCH ×2 (08:37→17:24)
[2022-08-04] MEDS: CHOLECALCIFEROL 1,000 UNIT TABLET (VIT D3) PO SCH (08:38)
[2022-08-04 12:00] VITALS: BP 143/99
[2022-08-04] MEDS: LEVOFLOXACIN (250MG) 250 MG TABLET GT SCH (13:58)
[2022-08-04] MEDS: clonazePAM 1 MG TABLET PO PRN ×2 (13:59→21:15)
[2022-08-04] MEDS: ATORVASTATIN 10 MG TABLET PO SCH (17:23)
[2022-08-04] MEDS: FINASTERIDE (5 MG) 5 MG TABLET PO SCH (17:24)
[2022-08-04] MEDS: ENOXAPARIN SODIUM 40 MG/0.4 ML DISP.SYRIN SQ SCH (17:24)
[2022-08-04] MEDS: DOCUSATE SODIUM LIQ 100 MG/10 ML UDC GT SCH (17:25)
[2022-08-04 18:34] VITALS: BP 150/82
--- NOTE | 2022-08-04 18:48 | NUR ---
RN CLOSING NOTES: PATIENT IN BED, ASLEEP BUT EASILY AROUSABLE, AWAKE, A/O X 4, COMMUNICATE THROUGH WRITING. ON NOCTURNAL CPAP AND PT TOLERATED WELL. O2 SAT 96%. IV ACCESS YARA MIDLINE INTACT AND PATENT, NO S/S OF INFILTRATIONS. NO FACIAL GRIMACING NOTED. NO ACUTE DISTRESS. GTUBE FEEDING TOLERATED WELL. RUNNING [employer] 1.2 AT 70CC/HR. ABLE TO USE BEDSIDE COMMODE WITH ASSIST. ABLE TO USE URINAL.DUE MEDS GIVEN ORDERED. ALL SAFETY MEASURES IN PLACE. BED IN LOWEST POSITION AND LOCKED, SIDE RAILS UP X3. PLACE CALL LIGHT WITHIN REACH. BED ALARM ON. WILL ENDORSE TO RICE MILLING SUPERVISOR NURSE.
--- NOTE | 2022-08-04 19:42 | NUR ---
RN OPENING NOTES: RECEIVED PATIENT IN BED AWAKE, A/O X 4, NON-VERBAL. COMMUNICATE THROUGH WRITING. ON COOL AEROSOL 28% @5L/MIN AND PT TOLERATED WELL. IV ACCESS YARA MIDLINE INTACT AND PATENT, NO S/S OF INFILTRATIONS. NO FACIAL GRIMACING NOTED. NO ACUTE DISTRESS. GTUBE FEEDING TOLERATED WELL. RUNNING [employer] 1.2 AT 70CC/HR X24 HOURS. USE BEDSIDE COMMODE WITH ASSIST. ABLE TO URINAL. SISTER AT BEDSIDE. ALL SAFETY MEASURES IN PLACE. BED IN LOWEST POSITION AND LOCKED, SIDE RAILS UP X3. PLACE CALL LIGHT WITHIN REACH. BED ALARM ON. WILL CONTINUE TO MONITOR.
[2022-08-04 20:00] VITALS: BP 118/68
[2022-08-04] MEDS: MIRTAZAPINE 15 MG TABLET PO SCH (21:15)
--- NOTE | 2022-08-04 21:20 | NUR ---
RN NOTES: PT C/O ANXIETY, FEELING RESTLESSNESS. KLONOPIN 0.5 MG TAB GIVEN VIA GT AND PT TOLERATED WELL. WILL CONTINUE TO MONITOR
[2022-08-05] VITALS: BP 97/56
[2022-08-05] MEDS: ALBUTEROL HALF STRENGTH 1.25 MG/3 ML VIAL.NEB NEB SCH ×2 (02:27→07:56)
[2022-08-05 04:00] VITALS: BP 93/58
--- NOTE | 2022-08-05 06:40 | NUR ---
RN CLOSING NOTES: PATIENT IN BED, ASLEEP BUT EASILY AROUSABLE, AWAKE, A/O X 4, COMMUNICATE THROUGH WRITING. ON NOCTURNAL CPAP AND PT TOLERATED WELL. O2 SAT 97%. IV ACCESS YARA MIDLINE INTACT AND PATENT, NO S/S OF INFILTRATIONS. NO FACIAL GRIMACING NOTED. NO ACUTE DISTRESS. GTUBE FEEDING TOLERATED WELL. RUNNING [employer] 1.2 AT 70CC/HR. ABLE TO USE BEDSIDE COMMODE WITH ASSIST. ABLE TO USE URINAL. DUE MEDS GIVEN ORDERED. AM [facility], WILL HVAC SHEET METAL INSTALLER PT AT 0900. ALL SAFETY MEASURES IN PLACE. BED IN LOWEST POSITION AND LOCKED, SIDE RAILS UP X3. PLACE CALL LIGHT WITHIN REACH. BED ALARM ON. WILL ENDORSE TO MORNING SHIFT NURSE.
[2022-08-05] MEDS: clonazePAM 1 MG TABLET PO PRN (08:15)
[2022-08-05] MEDS: ASPIRIN 81 MG TAB.CHEW PO SCH (08:15)
[2022-08-05] MEDS: GLYCOPYRROLATE 1 MG TABLET PO SCH (08:15)
[2022-08-05] MEDS: ALLOPURINOL 100 MG TABLET PO SCH (08:15)
[2022-08-05] MEDS: SERTRALINE HCL 50 MG TABLET PO SCH (08:15)
[2022-08-05] MEDS: PANTOPRAZOLE 40 MG TABLET.DR PO SCH (08:15)
[2022-08-05] MEDS: BACLOFEN (10 MG) 10 MG TABLET PO SCH (08:15)
[2022-08-05] MEDS: TIZANIDINE HCL 4 MG TABLET PO SCH (08:19)
[2022-08-05] MEDS: CHOLECALCIFEROL 1,000 UNIT TABLET (VIT D3) PO SCH (08:19)
[2022-08-05] MEDS: LEVOTHYROXINE SODIUM 112 MCG TABLET PO SCH (08:22)
--- NOTE | 2022-08-05 09:30 | NUR ---
RN CLOSING NOTES PATIENT DISCHARGED AT 0930 TAKEN HOME WITH JOSH AND HIS . PATIENT WAS A/O X4 STABLE. ALL MORNING MEDICATION WAS GIVEN ON TIME VIA G TUBE. PATIENT CLEAN AND DRY. ALL DISCHARGE DOCUMENTATION WAS DONE, PRINTED AND GIVEN TO HIS . DISCHARGE CONSENT FORM SIGNED BY PATIENT AND EPT THE ORIGINAL IN THE CHART AND THE COPY TO THE PATIENT. ALL CONTINUE MEDICATION LIST GIVEN TO PATIENT AND HIS . YARA MIDLINE WAS REMOVED.
[2022-08-05 10:27] VITALS: BP 100/58
--- NOTE | 2022-08-05 10:30 | NUR ---
patient refused discharge photo taken,discharge via ambulance no acute distress vss.
== END 2022-08-05 10:32 | disposition home health service (06) | DRG 207 ==
LOC: ER 13:57 → TELE1 16:45
PROVIDERS: ADMIT Student in an Organized Health Care Education/Training Program; ATTEND Nurse Practitioner Acute Care
PROC: 5A1955Z Respiratory Ventilation, Greater than 96 Consecutive Hours (ICD-10-PCS; principal; 2022-07-25)
PROC: 05HB33Z Insertion of Infusion Device into Right Basilic Vein, Percutaneous Approach (ICD-10-PCS; 2022-07-25)
DX: J96.21 Acute and chronic respiratory failure with hypoxia (principal); G93.41 Metabolic encephalopathy; N17.0 Acute kidney failure with tubular necrosis; E87.3 Alkalosis; F33.2 Major depressive disorder, recurrent severe without psychotic features; G12.21 Amyotrophic lateral sclerosis; E87.0 Hyperosmolality and hypernatremia; J98.11 Atelectasis; J96.22 Acute and chronic respiratory failure with hypercapnia; E86.0 Dehydration; Z20.822 Contact with and (suspected) exposure to COVID-19; F41.1 Generalized anxiety disorder; I10 Essential (primary) hypertension; E78.5 Hyperlipidemia, unspecified; E03.9 Hypothyroidism, unspecified; R13.10 Dysphagia, unspecified; Z93.1 Gastrostomy status; Z93.0 Tracheostomy status; Z85.21 Personal history of malignant neoplasm of larynx; Z79.82 Long term (current) use of aspirin; Z79.899 Other long term (current) drug therapy; I95.9 Hypotension, unspecified; E86.1 Hypovolemia; D63.8 Anemia in other chronic diseases classified elsewhere; M10.9 Gout, unspecified; E87.5 Hyperkalemia; N40.0 Benign prostatic hyperplasia without lower urinary tract symptoms; Z81.8 Family history of other mental and behavioral disorders; Z87.891 Personal history of nicotine dependence; E87.6 Hypokalemia; Z90.02 Acquired absence of larynx
CPT/HCPCS: 31720; 36415; 36600; 70450-TC; 71045-TC; 80048-TC; 80076-TC; 82803-TC; 82962-TC; 83735-TC; 83880; 84100-TC; 84484-TC; 85025-TC; 87081-TC; 94002; 94002-TC; 94003-TC; 94640-TC; 94760-TC; 94762-TC; 94799-TC; 97112-TC; 97530-TC; A4216; A4623; A7526; A9563; C9803; G0378; J1650; J1956; J2060; J3475; J3490; J7030; J7042; J7050

== ENCOUNTER 2023-01-08 19:34 | Inpatient (IN) | payer MEDICARE, BC, OTHER ==
[~2023-01-08] VITALS: Ht 180.3 cm; Wt 77.1 kg
[~2023-01-08 19:34] MED LIST changes: +ALLO300T2 GT; -ALLO300T2 PO; +ASPI-1169 GT; -ASPI-1169 PO; +ATOR10TA GT; -ATOR10TA PO; +BACL10TA GT; -BACL10TA PO; +CHOL100043 GT; -CHOL100043 PO; +CLON0.5T GT; -CLON0.5T PO; -CLON0.5T4 PO; +CLON1TAB12 GT; -CLON1TAB12 PO; -EDAR30PI IV; +FENO160T GT; -FENO160T PO; +FINA5TAB11 GT; -FINA5TAB11 PO; +GLYC2TAB21 GT; -GLYC2TAB21 PO; +LEVO112T2 GT; -LEVO112T2 PO; +LOSA50TA39 GT; -LOSA50TA39 PO; +MELA3TAB41 GT; -MELA3TAB41 PO; +PANT40TA2 GT; -PANT40TA2 PO; +POLY17PO4 GT; +RILU50TA4 GT; -RILU50TA4 PO; +SILO4CAP3 GT; -SILO4CAP3 PO; -TAMS-12 PO; +TIZA4TAB5 GT; -TIZA4TAB5 PO; -TRAZ-182 PO; +TUDCA GT; -TUDCA PO; +[UNRECOGNIZED DRUG - CODE] GT; -[UNRECOGNIZED DRUG - CODE] PO
--- NOTE | 2023-01-08 19:40 | NUR ---
BIBRA 80 WITH CC OF LOW OXYGEN SAT (50-60%) ON VENT. PATIENT HAS TRACHE AND VENT AT HOME, +AMS. PLACED IN BED, AWAKE RESPONDING TO VERBAL STIMULI BY NODDING HEAD, RESP. TECH. AT BEDSIDE ATTACHED TO VENTILATOR WITH SETTING FIO2- 100, TV- 550, RATE- 20, PEEP- 5 SATURATING AT 100%.
--- NOTE | 2023-01-08 19:50 | NUR ---
BLOOD DRAWN AND SENT TO LAB
--- NOTE | 2023-01-08 19:50 | NUR ---
AT BEDSIDE AT BEDSIDE FOR EVAL
--- NOTE | 2023-01-08 19:54 | NUR ---
RT NOTE PT rec'd trached via Shiley 8 XLT distal via bag mask ventilation by FD. pt lethargic and showed shallow breathing. pt placed on mech vent on AC mode settings per md orders. pt sx'd for thick small amt of pale yellow secretions. Alarms are set and audible. Ambu bag and emergency spare trach at bedside. vent plugged into red outlet. Addendum: 01/08/23 at 2006 by DRE WANG RT Amended: Links added.
--- NOTE | 2023-01-08 20:35 | NUR ---
SUBMITTED MOVE SHEET
[2023-01-08 20:46] LABS: BASOPHILS % (AUTO) 0.4 % (0.0-2.0); EOSINOPHILS % (AUTO) 1.6 % (0.0-6.0); HEMATOCRIT 35 % (39-51); LYMPHOCYTES # (AUTO) 1.9 K/uL (0.8-4.8); MEAN CORPUSCULAR HGB CONC 31 g/dl (31.0-36.0); MEAN CORPUSCULAR VOLUME 83 fL (80-96); MONOCYTES # (AUTO) 0.3 K/uL (0.1-1.30); MONOCYTES % (AUTO) 5.3 % (2.0-12.0); NEUTROPHILS # (AUTO) 3.9 K/uL (1.8-8.9); NEUTROPHILS % (AUTO) 62.7 % (43.0-81.0); PLATELET COUNT (AUTO) 353 K/uL (150-450); RED BLOOD CELL COUNT(AUTO) 4.23 MIL/uL (4.5-6.0); WHITE BLOOD COUNT (AUTO) 6.2 K/uL (4.3-11.0)
[2023-01-08 21:09] LABS: CALCIUM, SERUM 9.3 mg/dL (8.5-10.1); CARBON DIOXIDE 29 mmol/L (21-32); CHLORIDE 103 mmol/L (98-107); CREATININE 1.3 mg/dL (0.6-1.3); GLUCOSE 178 mg/dL (74-106); POTASSIUM 3.8 mmol/L (3.5-5.1); SODIUM SERUM 140 mmol/L (136-145); UREA NITROGEN, BLOOD 16 mg/dL (7-18)
--- NOTE | 2023-01-08 22:50 | NUR ---
CALLED JOELLE PAGED KIKO
[2023-01-09] MEDS ORDERED: ACETAMINOPHEN 325 MG TABLET PO PRN (01:30)
[2023-01-09] MEDS ORDERED: MORPHINE SULFATE INJ 2 MG/ML DISP.SYRIN IV PRN (01:30)
[2023-01-09] MEDS ORDERED: ONDANSETRON HCL/PF 4 MG/2 ML VIAL IVP PRN (01:30)
[2023-01-09] MEDS ORDERED: ALBUTEROL FS 2.5 MG/0.5 ML VIAL.NEB NEB PRN (01:30)
--- NOTE | 2023-01-09 02:17 | NUR ---
report given to ana ramirez for jarrod
--- NOTE | 2023-01-09 02:51 | NUR ---
TRANSPORTED TO ROOM VIA ACLS PROTOCOL
--- NOTE | 2023-01-09 03:10 | NUR ---
RN NOTES ADMITTED A 67 Y/O MALE PATIENT FROM ER WITH DX OF RESPIRATORY FAILURE A/O X4 MOUTH WORDS. PATIENT ON TRACH NO SOB NO DISTRESS NOTED AT THIS TIME RT AT BEDSIDE. WITH GT PATENT FLUSHES WELL. SAFELY TRANSFER PATIENT TO BED. HOOKED TO MV WITH PRESCRIBED SETTINGS. COMPLETE BODY ASSESSMENT DONE PICTURE TAKEN AND FILED. BELONGINGS CHECKED AND ACCOUNTED. ALL SAFETY MEASURES IN PLACE AT ALL TIMES. HOB ELEVATED. CALL LIGHT WITHIN REACH. WILL CLOSELY MONITOR THE PATIENT
[2023-01-09 04:00] VITALS: BP 97/65
--- NOTE | 2023-01-09 06:35 | NUR ---
RN NOTES PATIENT REMAINS STABLE NO SIGNIFICANT CHANGES. NO SOB NO DISTRESS NOTED DURING THE SHIFT. WILL ENDORSED TO MORNING SHIFT FOR DONAVON
[2023-01-09] MEDS ORDERED: PANTOPRAZOLE 40 MG TABLET.DR PO SCH (07:30)
[2023-01-09] MEDS ORDERED: LEVOTHYROXINE SODIUM 112 MCG TABLET PO SCH (07:30)
[2023-01-09 08:00] VITALS: BP 99/61
--- NOTE | 2023-01-09 08:10 | NUR ---
DESKTOP PUBLISHING ASSOCIATE NOTE DOCTOR LAI BROOKS NOTIFIED THAT PATIENT WAS ADMITTED FOR SOB, ASPIRATION PRECAUTIONS, ON A VENT, REQUESTING FOR SWALLOW EVALUATION AND FOR PO MEDICATIONS ROUTE TO BE CHANGED FROM PO TO G-TUBE.
--- NOTE | 2023-01-09 08:29 | NUR ---
TEACHER ADVISOR NOTE NOTIFIED PHARMACY, PATIENT IS ABLE TO EAT BY MOUTH ON REGULAR DIET BUT STATING THAT GIVES MEDICATIONS G-TUBE ROUTE. MEDICATIONS RETURNED TO PYXIS.
[2023-01-09] MEDS ORDERED: PHARMACY TO CHANGE PO MEDS TO GT/NG XX PRN (08:30)
--- NOTE | 2023-01-09 08:45 | NUR ---
ATOMIC PHYSICS TEACHER NOTE PATIENTS BROTHER ELAYNE GILLESPIE WAS CALLED , TO REQUEST HOME MEDICINES TO BE BROUGHT TO THE HOSPITAL, PER BROTHER, HE WILL BRING THEM TODAY BEFORE NOON.
[2023-01-09] MEDS: IPRATROPIUM/ALBUTEROL INHALER IH SCH ×3 (08:51→19:30)
[2023-01-09] MEDS: POLYETHYLENE GLYCOL 3350 17 GM POWD.PACK PO SCH ×2 (09:00→10:17)
[2023-01-09] MEDS ORDERED: SERTRALINE HCL 50 MG TABLET PO SCH (09:00)
[2023-01-09] MEDS ORDERED: CHOLECALCIFEROL 1,000 UNIT TABLET (VIT D3) PO SCH (09:00)
[2023-01-09] MEDS ORDERED: LOSARTAN POTASSIUM 50 MG TABLET PO SCH (09:00)
[2023-01-09] MEDS ORDERED: ALLOPURINOL 100 MG TABLET PO SCH (09:00)
[2023-01-09] MEDS ORDERED: ATORVASTATIN 10 MG TABLET PO SCH (09:00)
[2023-01-09] MEDS ORDERED: SILODOSIN 4 MG PO SCH ×2 (09:00)
[2023-01-09] MEDS ORDERED: RILUZOLE 50 MG PO SCH (09:00)
[2023-01-09] MEDS ORDERED: BACLOFEN (10 MG) 10 MG TABLET PO SCH (09:00)
[2023-01-09] MEDS: GLYCOPYRROLATE 1 MG TABLET PO SCH ×2 (09:00→13:34)
[2023-01-09] MEDS ORDERED: Medication Not On Formulary EA (Fenofibrate 160 MG) PO SCH (09:00)
[2023-01-09] MEDS ORDERED: TUDCA PO SCH (09:00)
[2023-01-09] MEDS ORDERED: ASPIRIN 81 MG TAB.CHEW PO SCH (09:00)
--- NOTE | 2023-01-09 09:15 | NUR ---
PHARMACY NOTIFIED THAT COMBIVENT INHALER IS NOT AVAILABLE AT THIS TIME.
--- NOTE | 2023-01-09 09:59 | NUR ---
telephone directory distributor driver note NOTIFIED MD FOR BP 81/41 75. PER DOCTOR, GIVE 500NS BOLUS.
[2023-01-09] MEDS: ENOXAPARIN SODIUM 40 MG/0.4 ML DISP.SYRIN SQ SCH (10:12)
[2023-01-09] MEDS ORDERED: IV NS 0.9% 500 ML IV ONE (11:00)
[2023-01-09 12:00] VITALS: BP 106/60
[2023-01-09] MEDS ORDERED: ALLOPURINOL 100 MG TABLET GT SCH (14:38)
[2023-01-09] MEDS ORDERED: ASPIRIN 81 MG TAB.CHEW GT SCH (14:38)
[2023-01-09 16:00] VITALS: BP 106/58
[2023-01-09] MEDS: DOCUSATE SODIUM LIQ 100 MG/10 ML UDC GT SCH (17:38)
[2023-01-09] MEDS: PANTOPRAZOLE 40 MG/PACK PACK GT SCH (17:38)
[2023-01-09] MEDS: FINASTERIDE (5 MG) 5 MG TABLET GT SCH (17:39)
[2023-01-09] MEDS: BACLOFEN (10 MG) 10 MG TABLET GT SCH (17:40)
[2023-01-09] MEDS: GLYCOPYRROLATE 1 MG TABLET GT SCH (17:40)
[2023-01-09] MEDS: POLYETHYLENE GLYCOL 3350 17 GM POWD.PACK GT SCH (17:41)
[2023-01-09] MEDS ORDERED: FINASTERIDE (5 MG) 5 MG TABLET PO SCH (18:00)
[2023-01-09] MEDS ORDERED: MIRTAZAPINE 15 MG TABLET GT SCH (18:00)
[2023-01-09] MEDS ORDERED: MIRTAZAPINE 15 MG TABLET PO SCH ×2 (18:00→22:00)
[2023-01-09] MEDS ORDERED: DOCUSATE SODIUM 100 MG CAPSULE PO SCH (18:00)
[2023-01-09] MEDS: clonazePAM 0.5 MG TABLET GT PRN (18:29)
--- NOTE | 2023-01-09 19:30 | NUR ---
RN NOTES RECEIVED REPORT FROM MORNING RN PATIENT IN BED A/O X4 ABLE TO MAKE NEEDS KNOWN BY MOUTHING WORDS FAMILY AT BEDSIDE. WITH TRACH CONNECTED TO MV WITH NPRESCRIBED SETTINGS. WITH IV ACCESS AT RAC #20 PATENT FLUSHES WELL. GT PATENT FLUSHES WELL FOR MEDICATION ADMINISTRATION. ALL SAFETY MEASURES IN PLACE AT ALL TIMES. HOB ELEVATED. CALL LIGHT WITHIN REACH. WILL CLOSELY MONITOR THE PATIENT
--- NOTE | 2023-01-09 19:56 | NUR ---
RN CLOSING NOTES PATIENT REMAINS STABLE NO SIGNIFICANT CHANGES. NO SOB NO DISTRESS NOTED THROUGHOUT SHIFT WILL ENDORSE CONTINUE OF CARE TO VISUALIZATION DEVELOPER NURSE
[2023-01-09 20:00] VITALS: BP 109/58
--- NOTE | 2023-01-09 20:28 | NUR ---
NO MED AVAILABLE IN MED ROOM.
[2023-01-09] MEDS ORDERED: MELATONIN 3 MG TABLET PO SCH (22:00)
[2023-01-09] MEDS ORDERED: clonazePAM 0.5 MG TABLET PO SCH (22:00)
[2023-01-09] MEDS: clonazePAM 0.5 MG TABLET GT SCH (22:22)
[2023-01-09] MEDS: MIRTAZAPINE 15 MG TABLET GT SCH (22:23)
[2023-01-10] VITALS (7 sets, daily range): BP systolic 103–147; BP diastolic 52–79
[2023-01-10] MEDS: IPRATROPIUM/ALBUTEROL INHALER IH SCH ×4 (01:11→19:30)
[2023-01-10 05:56] LABS: BASOPHILS % (AUTO) 0.3 % (0.0-2.0); EOSINOPHILS % (AUTO) 2.5 % (0.0-6.0); HEMATOCRIT 29 % (39-51); HEMOGLOBIN 9.3 g/dL (13.5-17.5); LYMPHOCYTES # (AUTO) 0.7 K/uL (0.8-4.8); LYMPHOCYTES % (AUTO) 19.8 % (20.0-44.0); MEAN CORPUSCULAR HGB CONC 32 g/dl (31.0-36.0); MEAN CORPUSCULAR VOLUME 82 fL (80-96); MONOCYTES # (AUTO) 0.3 K/uL (0.1-1.30); MONOCYTES % (AUTO) 8.5 % (2.0-12.0); NEUTROPHILS # (AUTO) 2.6 K/uL (1.8-8.9); NEUTROPHILS % (AUTO) 68.9 % (43.0-81.0); PLATELET COUNT (AUTO) 235 K/uL (150-450); RED BLOOD CELL COUNT(AUTO) 3.51 MIL/uL (4.5-6.0); WHITE BLOOD COUNT (AUTO) 3.7 K/uL (4.3-11.0)
[2023-01-10 06:13] LABS: ALBUMIN 3.5 g/dL (3.4-5.0); BILIRUBIN,TOTAL 0.4 mg/dL (0.2-1.0); CALCIUM, SERUM 9.6 mg/dL (8.5-10.1); CREATININE 1.1 mg/dL (0.6-1.3); MAGNESIUM 1.9 mg/dL (1.8-2.4); PHOSPHORUS 3.4 mg/dL (2.5-4.9); POTASSIUM 3.4 mmol/L (3.5-5.1); TOTAL PROTEIN, SERUM 6.5 g/dL (6.4-8.2)
--- NOTE | 2023-01-10 06:51 | NUR ---
RN NOTES PATIENT REMAINS STABLE NO SIGNIFICANT CHANGES. ALL DUE MEDS GIVEN ORDERED. NO EPISODE OF DESATURATION THIS SHIFT. WILL ENDORSED TO MORNING SHIFT FOR DONAVON
--- NOTE | 2023-01-10 07:17 | NUR ---
RN LEN OPENING NOTES: RECEIVED PATIENT IN BED, AWAKE, ALERT, ORIENTED X 3. PATIENT WAS ABLE TO MOUTH WORDS BUT COMMUNICATES THROUGH WRITING. NO SOB NOTED, BREATHING EVEN AND UNLABORED. ON MECHANICAL VENT ORDERED. WITH OXYGEN SATURATION OF 98% AT BEDSIDE. HAS IV ACCESS ON RIGHT ANTECUBITAL AREA, PATENT, NO S/S INFILTRATION NOTED. NO C/O PAIN OR DISCOMFORT AT THIS TIME. G-TUBE IN PLACE, PATENT, FLUSHES WELL WITH NO RESIDUAL NOTED. ALL SAFETY MEASURES IN PLACE: BED LOCKED AND IN LOWEST POSITION WITH BED ALARM ON. CALL LIGHT WITHIN REACH AND PATIENT WAS MADE AWARE TO USE IT WHEN NEEDED. WILL CONTINUE TO MONITOR PATIENT THROUGHOUT SHIFT.
[2023-01-10] MEDS: LEVOTHYROXINE SODIUM 112 MCG TABLET GT SCH (07:36)
[2023-01-10] MEDS: PANTOPRAZOLE 40 MG/PACK PACK GT SCH ×2 (07:36→16:01)
[2023-01-10] MEDS ORDERED: POTASSIUM CHLORIDE 20 MEQ POWDER PACKET GT ONE (08:00)
[2023-01-10] MEDS: ENOXAPARIN SODIUM 40 MG/0.4 ML DISP.SYRIN SQ SCH (08:47)
[2023-01-10] MEDS: ATORVASTATIN 10 MG TABLET GT SCH (08:48)
[2023-01-10] MEDS: POLYETHYLENE GLYCOL 3350 17 GM POWD.PACK GT SCH ×2 (08:48→16:01)
[2023-01-10] MEDS: GLYCOPYRROLATE 1 MG TABLET GT SCH ×3 (08:49→16:02)
[2023-01-10] MEDS: SERTRALINE HCL 50 MG TABLET GT SCH (08:49)
[2023-01-10] MEDS: CHOLECALCIFEROL 1,000 UNIT TABLET (VIT D3) GT SCH (08:49)
[2023-01-10] MEDS: ASPIRIN 81 MG TAB.CHEW GT SCH (08:50)
[2023-01-10] MEDS: ALLOPURINOL 100 MG TABLET GT SCH (08:50)
[2023-01-10] MEDS: BACLOFEN (10 MG) 10 MG TABLET GT SCH ×2 (08:50→16:02)
[2023-01-10] MEDS: LOSARTAN POTASSIUM 50 MG TABLET GT SCH (08:50)
[2023-01-10] MEDS: clonazePAM 0.5 MG TABLET GT PRN ×2 (09:09→23:01)
[2023-01-10] MEDS ORDERED: CLOP75TA15 GT (09:58)
[2023-01-10] MEDS ORDERED: TAMS-12 GT (09:58)
[2023-01-10] MEDS ORDERED: SERT50TA GT (09:58)
[2023-01-10] MEDS ORDERED: MIRT-90 GT (09:58)
[2023-01-10] MEDS ORDERED: BUPR75TA8 GT (09:58)
[2023-01-10] MEDS ORDERED: AMLO2.5T4 GT (10:05)
[2023-01-10] MEDS ORDERED: TRAZ-252 GT (10:05)
[2023-01-10] MEDS: FINASTERIDE (5 MG) 5 MG TABLET GT SCH (17:30)
[2023-01-10] MEDS: DOCUSATE SODIUM LIQ 100 MG/10 ML UDC GT SCH (17:31)
[2023-01-10] MEDS ORDERED: TIZANIDINE HCL 4 MG TABLET PO SCH (18:00)
--- NOTE | 2023-01-10 18:31 | NUR ---
RN LEN CLOSING NOTES: PATIENT UP IN THE CHAIR EATING HIS DINNER WITH AT BEDSIDE. PATIENT AWAKE, ALERT, ORIENTED X 3. PATIENT WAS ABLE TO COMMUNICATE WITH THE NURSE THROUGH WRITING ON THE PAD AND WAS ABLE TO VERBALIZE NEEDS. NO RESPIRATORY DISTRESS NOTED THROUGHOUT SHIFT. ON MECHANICAL VENT ORDERED. WITH OXYGEN SATURATION OF 98% AT BEDSIDE. PATIENT IS ON SR WITH HR OF 89 PER TELE MONITOR. IV ACCESS ON RIGHT ANTECUBITAL AREA STILL PATENT, INTACT, FLUSHES WELL WITH NO S/S INFILTRATION NOTED. NO C/O PAIN OR DISCOMFORT NOTED THROUGHOUT SHIFT. MEDS GIVEN VIA G-TUBE. G-TUBE IS IN PLACE, PATENT, NO RESIDUAL AND FLUSHES WELL. PATIENT USED URINAL THROUGHOUT SHIFT AND EMPTIED 1475ML OF CLEAR YELLOW COLORED URINE. ALL SAFETY MEASURES IMPLEMENTED: BED LOCKED AND IN LOWEST POSITION WITH BED ALARM ON. CALL LIGHT WITHIN REACH. WILL ENDORSE TO INCOMING NURSE FOR CONTINUITY OF CARE.
--- NOTE | 2023-01-10 19:30 | NUR ---
RN LEN OPENING NOTE RECEIVED PATIENT IN SITTING POSITION, AWAKE, ALERT, ORIENTED X 3-4, ABLE TO MOUTH WORDS BUT COMMUNICATES MOSTLY THROUGH WRITING. ON BEDSIDE. NO S/SX OF ACUTE RESPI DISTRESS NOTED AT THIS TIME. NO SOB, BREATHING IS EVEN AND UNLABORED, DENIES PAIN. ON MECHANICAL VENT SETTINGS ORDERED, TOLERATING WELL, SATING @ 98%. IV ACCESS ON RIGHT ANTECUBITAL AREA, PATENT, NO S/SX OF INFILTRATION NOTED. G-TUBE IN PLACE, PATENT, FLUSHES WELL WITH NO RESIDUAL NOTED. NO FEEDING AT THIS TIME. ALL SAFETY MEASURES IN PLACE: BED LOCKED AND IN LOWEST POSITION WITH BED ALARM ON. CALL LIGHT WITHIN REACH AND PATIENT WAS MADE AWARE TO USE IT WHEN NEEDED. WILL CONTINUE TO MONITOR PATIENT THROUGHOUT SHIFT.
--- NOTE | 2023-01-10 20:45 | NUR ---
RN NOTE SUCTIONING DONE. PT IN NO APPARENT DISTRESS.
[2023-01-10] MEDS: MIRTAZAPINE 15 MG TABLET GT SCH (21:19)
[2023-01-10] MEDS: clonazePAM 0.5 MG TABLET GT SCH (21:19)
--- NOTE | 2023-01-10 23:50 | NUR ---
Q6 COMBIVENT NON ADMIN. MED NOT FILLED. RN NOTIFIED.
[2023-01-11] VITALS: BP 93/54
[2023-01-11] MEDS: IPRATROPIUM/ALBUTEROL INHALER IH SCH ×3 (01:15→13:15)
[2023-01-11 04:00] VITALS: BP 91/50
--- NOTE | 2023-01-11 06:32 | NUR ---
RN CLOSING NOTE NO SIGNIFICANT CHANGE T/O THE NIGHT. PT REMAINED STABLE. DUE MEDS GIVEN. ALL NEEDS MET. WILL ENDORSE TO AM SHIFT NURSE FOR [place].
--- NOTE | 2023-01-11 07:15 | NUR ---
LEN OPENING NOTES: RECEIVED PATIENT IN BED, AWAKE, ALERT, ORIENTED X 3. PATIENT COMMUNICATES THROUGH WRITING. NO RESPIRATORY DISTRESS NOTED AT THIS TIME. ON MECHANICAL VENT ORDERED, WITH OXYGEN SATURATION OF 99% PER BEDSIDE OXYGEN MONITOR. ON SB WITH HR OF 55, PER TELE MONITOR, NO C/O PAIN OR DISCOMFORT AT THIS TIME. IV ACCESS ON RIGHT AC INTACT, NO S/S INFILTRATION NOTED. G-TUBE IN PLACE, NO RESIDUAL, FLUSHES WELL. ALL SAFETY MEASURES IN PLACE: BED LOCKED AND IN LOWEST POSITION WITH BED ALARM ON. CALL LIGHT WITHIN REACH. WILL CONTINUE TO MONITOR PATIENT THROUGHOUT SHIFT.
[2023-01-11 07:23] LABS: CALCIUM, SERUM 9.7 mg/dL (8.5-10.1); POTASSIUM 3.5 mmol/L (3.5-5.1)
[2023-01-11] MEDS: LEVOTHYROXINE SODIUM 112 MCG TABLET GT SCH (07:30)
[2023-01-11] MEDS: PANTOPRAZOLE 40 MG/PACK PACK GT SCH ×2 (07:30→16:07)
[2023-01-11 07:42] LABS: BASOPHILS % (AUTO) 0.2 % (0.0-2.0); EOSINOPHILS % (AUTO) 2.3 % (0.0-6.0); HEMATOCRIT 30 % (39-51); HEMOGLOBIN 9.4 g/dL (13.5-17.5); LYMPHOCYTES # (AUTO) 0.7 K/uL (0.8-4.8); MEAN CORPUSCULAR HGB CONC 32 g/dl (31.0-36.0); MEAN CORPUSCULAR VOLUME 83 fL (80-96); MONOCYTES # (AUTO) 0.3 K/uL (0.1-1.30); MONOCYTES % (AUTO) 6.1 % (2.0-12.0); NEUTROPHILS # (AUTO) 4.2 K/uL (1.8-8.9); NEUTROPHILS % (AUTO) 78.4 % (43.0-81.0); PLATELET COUNT (AUTO) 247 K/uL (150-450); RED BLOOD CELL COUNT(AUTO) 3.57 MIL/uL (4.5-6.0); WHITE BLOOD COUNT (AUTO) 5.3 K/uL (4.3-11.0)
[2023-01-11 08:00] VITALS: BP 107/52
[2023-01-11] MEDS: CHOLECALCIFEROL 1,000 UNIT TABLET (VIT D3) GT SCH (08:43)
[2023-01-11] MEDS: GLYCOPYRROLATE 1 MG TABLET GT SCH ×3 (08:43→16:08)
[2023-01-11] MEDS: BACLOFEN (10 MG) 10 MG TABLET GT SCH ×2 (08:43→16:08)
[2023-01-11] MEDS: SERTRALINE HCL 50 MG TABLET GT SCH (08:43)
[2023-01-11] MEDS: ASPIRIN 81 MG TAB.CHEW GT SCH (08:43)
[2023-01-11] MEDS: ALLOPURINOL 100 MG TABLET GT SCH (08:43)
[2023-01-11] MEDS: ATORVASTATIN 10 MG TABLET GT SCH (08:44)
[2023-01-11] MEDS: ENOXAPARIN SODIUM 40 MG/0.4 ML DISP.SYRIN SQ SCH (08:45)
[2023-01-11] MEDS: LOSARTAN POTASSIUM 50 MG TABLET GT SCH (08:46)
[2023-01-11] MEDS: POLYETHYLENE GLYCOL 3350 17 GM POWD.PACK GT SCH ×2 (09:00→16:12)
--- NOTE | 2023-01-11 09:37 | NUR ---
PATIENT WAS SEEN AND ASSESSED BY SPEECH THERAPIST MARIELA AND CHANGED HIS DIET TO PUREED AND THAT THE PATIENT NEEDS TO ASK RT TO DEFLATE CUFF WHEN EATING
[2023-01-11] MEDS: clonazePAM 0.5 MG TABLET GT PRN ×2 (10:19→16:07)
[2023-01-11 12:00] VITALS: BP 109/58
--- NOTE | 2023-01-11 12:19 | NUR ---
DR LUONG WAS NOTIFIED THAT THE PATIENT IS UPSET THAT HE WAS INSTRUCTED TO DEFLATE THE CUUF BEFORE EATING AND EXPLAINED THE RISKS ALONG WITH THE RESPIRATORY THERAPIST BUT DID NOT WANT TO FOLLOW INSTRUCTIONS. PATIENT DEMANDED TO BE DISCHARGED.
--- NOTE | 2023-01-11 12:24 | NUR ---
LAI BROOKS CAME BY AND SPOKE WITH THE PATIENT AND PATIENT STILL INSISTED TO BE DISCHARGED TODAY. LAI SAID THAT SHE WILL TALK TO THE RADIOGRAPHER MAMMOGRAPHER ABOUT IT.
[2023-01-11] MEDS ORDERED: BACL10TA GT (13:01)
[2023-01-11] MEDS ORDERED: FINA5TAB3 GT (13:01)
[2023-01-11] MEDS ORDERED: ASPI-1169 GT (13:01)
[2023-01-11] MEDS ORDERED: ALBU2.5V13 NEB (13:01)
[2023-01-11] MEDS ORDERED: LOSA50TA39 GT (13:02)
[2023-01-11] MEDS ORDERED: Ipratropium/Albuterol Sulfate IH (13:02)
[2023-01-11] MEDS ORDERED: LEVO112T5 GT (13:02)
[2023-01-11] MEDS ORDERED: Glycopyrrolate GT (13:02)
--- NOTE | 2023-01-11 13:45 | NUR ---
[facility] COMMUNITY SERVICE SPECIALIST CAME BY AND SPOKE WITH THE PATIENT AND EXPLAINED TO HIM THE DISCHARGE PROCESS. PATIENT AGREED AND UNDERSTOOD.
[2023-01-11 16:00] VITALS: BP 117/74
--- NOTE | 2023-01-11 16:45 | NUR ---
[facility] CAME TO CONTROL OPERATOR FLOW COAT THE PATIENT. GAVE REPORT TO RT SPARKS. DISCHARGE PAPERWORK SIGNED BY THE PATIENT AND HANDED DISCHARGE FORMS. REMOVED IV LINE AND NOTED WITH HUB INTACT, ALSO REMOVED PATIENT'S TELE MONITOR AND ID BAND. PATIENT LEFT IN NO ACUTE DISTRESS NOTED
== END 2023-01-11 18:02 | disposition home health service (06) | DRG 208 ==
LOC: ER 19:37 → TELE1 01-09 00:34 → TELE-TD 01-09 02:18
PROVIDERS: ADMIT Internal Medicine; ATTEND Nurse Practitioner Acute Care
PROC: 5A1945Z Respiratory Ventilation, 24-96 Consecutive Hours (ICD-10-PCS; principal; 2023-01-09)
DX: J96.20 Acute and chronic respiratory failure, unspecified whether with hypoxia or hypercapnia (principal); Z99.11 Dependence on respirator [ventilator] status; G12.21 Amyotrophic lateral sclerosis; Z91.199 Patient's noncompliance with other medical treatment and regimen due to unspecified reason; D64.9 Anemia, unspecified; Z20.822 Contact with and (suspected) exposure to COVID-19; E03.9 Hypothyroidism, unspecified; E78.5 Hyperlipidemia, unspecified; E87.6 Hypokalemia; F41.9 Anxiety disorder, unspecified; I10 Essential (primary) hypertension; N40.0 Benign prostatic hyperplasia without lower urinary tract symptoms; R13.10 Dysphagia, unspecified; Z93.1 Gastrostomy status; Z79.82 Long term (current) use of aspirin; Z79.899 Other long term (current) drug therapy
CPT/HCPCS: 31720; 36415; 71045-TC; 80048-TC; 80053-TC; 82962-TC; 83735-TC; 83880; 84100-TC; 84484-TC; 85025-TC; 87081-TC; 92526; 92611-TC; 94002-TC; 94003-TC; 94760-TC; 94762-TC; 94799-TC; 99082-TC; A4223; A4623; C9803; G0378; J1650; J7040; J7050

== ENCOUNTER 2023-01-15 19:55 | Inpatient (IN) | payer MEDICARE, BC, OTHER ==
[~2023-01-15] VITALS: Ht 180.3 cm; Wt 76.2 kg
[~2023-01-15 19:55] MED LIST changes: +ALBU2.5V13 NEB; +AMLO2.5T4 GT; +BUPR75TA8 GT; +CLOP75TA15 GT; +FINA5TAB3 GT; +Glycopyrrolate GT; +Ipratropium/Albuterol Sulfate IH; +LEVO112T5 GT; -MIRT-121 PO; +MIRT-90 GT; -MIRT7.5T10 PO; -SERT100T PO; +SERT50TA GT; +TAMS-12 GT; +TRAZ-252 GT
--- NOTE | 2023-01-15 20:08 | NUR ---
VENT SETTING:AC MODE FiO2 100%, TV 550, RATE 20, PEEP 5
--- NOTE | 2023-01-15 20:09 | NUR ---
BIBRA99. DESAT @ 92% & ELEVATED BP IN THE 200s. PT IS ON TRACHE ATTACHED TO VENT AT HOME. FAMILY IS CONCERNED THAT THERE IS ANOTHER MALFUNCTION ON HIS VENT MACHINE. PATIENT CAME DROWSY, WITH GTUBE FOR FEEDING AND MEDS. ATTACHED TO MONITOR. VITALS CHECKED.
--- NOTE | 2023-01-15 20:10 | NUR ---
ENVIRONMENTAL TECHNICIAN AT BEDSIDE
--- NOTE | 2023-01-15 20:13 | NUR ---
PT MOUTHING TO BE SUCTIONED VIA TRACH, W/ SMALL AMOUNT OF REDDISH/BROWN-TINGED SECRETIONS
--- NOTE | 2023-01-15 20:15 | NUR ---
DR MINOR AT BEDSIDE
--- NOTE | 2023-01-15 20:23 | NUR ---
RT NOTE Pt rec'd on home mech vent on AC mode settings given from FD. Pt placed on hospital mech vent on AC mode settings as charted. Trach is patent and secured. Pt sx'd for small of amt of thick blood tinged secretions. mucous plug sx'd out, airway pressures WNL. Alarms are set and audible. ambu bag and emergency spare trach at bedside. Vent plugged into red outlet. Addendum: 01/15/23 at 2026 by DRE WANG RT Amended: Links added.
--- NOTE | 2023-01-15 20:25 | NUR ---
XR AT BEDSIDE
--- NOTE | 2023-01-15 20:35 | NUR ---
COVID SWAB DONE AND SENT TO LAB
[2023-01-15 20:43] LABS: BASOPHILS % (AUTO) 0.2 % (0.0-2.0); HEMATOCRIT 35 % (39-51); HEMOGLOBIN 10.9 g/dL (13.5-17.5); LYMPHOCYTES # (AUTO) 0.8 K/uL (0.8-4.8); LYMPHOCYTES % (AUTO) 8.2 % (20.0-44.0); MEAN CORPUSCULAR HGB CONC 31 g/dl (31.0-36.0); MEAN CORPUSCULAR VOLUME 84 fL (80-96); MONOCYTES # (AUTO) 0.2 K/uL (0.1-1.30); MONOCYTES % (AUTO) 2.3 % (2.0-12.0); NEUTROPHILS # (AUTO) 8.6 K/uL (1.8-8.9); NEUTROPHILS % (AUTO) 88.3 % (43.0-81.0); PLATELET COUNT (AUTO) 303 K/uL (150-450); RED BLOOD CELL COUNT(AUTO) 4.19 MIL/uL (4.5-6.0); WHITE BLOOD COUNT (AUTO) 9.7 K/uL (4.3-11.0)
[2023-01-15 20:51] LABS: CALCIUM, SERUM 9.2 mg/dL (8.5-10.1); CARBON DIOXIDE 20 mmol/L (21-32); CHLORIDE 105 mmol/L (98-107); CREATININE 1.3 mg/dL (0.6-1.3); GLUCOSE 163 mg/dL (74-106); POTASSIUM 4.4 mmol/L (3.5-5.1); SODIUM SERUM 138 mmol/L (136-145); UREA NITROGEN, BLOOD 20 mg/dL (7-18)
[2023-01-15 21:00] LABS: ABG BASE EXCESS -6.4 mmol/L; ABG PCO2 49.1 mmHg (35.0-45.0); ABG PH 7.246 (7.350-7.450); ABG PO2 499.2 mmHg (75.0-100.0); COHb 2.2 % (0.5-1.5); MetHb 0.2 % (0.0-1.5); O2Hb 97.3 % (94.0-97.0); PEEP,BG 5 cm H2O; SITE, ABG Right Radial; VENT MODE, BG AC 20 550 100% +5; VT, ABG 550 mL
[2023-01-15] MEDS ORDERED: PIPERACILLIN /TAZOBACTAM 3.375 G in IV D5W 50 ML IV ONE (21:00)
--- NOTE | 2023-01-15 21:00 | NUR ---
Flaquita mancera in [facility] - 01/15/23 at 2114 by DAISY COVID SWAB COLLECTED AND SENT TO LAB
--- NOTE | 2023-01-15 21:00 | NUR ---
INFLUENZA SWAB COLLECTED AND SENT TO LAB
--- NOTE | 2023-01-15 21:00 | NUR ---
RT NOTE LATE ENTRY ABG taken and results reported to md. Vent changes made per MD orders. Addendum: 01/15/23 at 2230 by DRE WANG RT Amended: Links added.
[2023-01-15 21:05] LABS: ALANINE AMINOTRANSFERASE 26 U/L (12-78); ALBUMIN 4.5 g/dL (3.4-5.0); ALKALINE PHOSPHATASE 48 U/L (46-116); ASPARTATE AMINOTRANSFERASE 34 U/L (15-37); BILIRUBIN,DIRECT 0.1 mg/dL (0.0-0.2); BILIRUBIN,TOTAL 0.4 mg/dL (0.2-1.0); TOTAL PROTEIN, SERUM 8.1 g/dL (6.4-8.2)
--- NOTE | 2023-01-15 21:12 | NUR ---
Flaquita mancera in [facility] - 01/15/23 at 2123 by PRABHU INFLUENZA SWAB SENT TO LAB
[2023-01-15] MEDS ORDERED: VANCOMYCIN 1 GM VIAL ONE (21:16)
[2023-01-15] MEDS ORDERED: PIPERACILLIN /TAZOBACTAM 3.375 G VIAL IV ONE (21:16)
[2023-01-15] MEDS: VANCOMYCIN 1 GM in IV D5W 250 ML IV ONE ×2 (21:22→21:47)
--- NOTE | 2023-01-15 21:23 | NUR ---
SUCTION SECRETIONS DONE
--- NOTE | 2023-01-15 22:15 | NUR ---
FAMILY CAME TO VISIT. PERSONAL VENT SENT HOME W/ FAMILY.
[2023-01-15] MEDS ORDERED: ONDANSETRON HCL/PF 4 MG/2 ML VIAL IVP PRN (22:30)
[2023-01-15] MEDS ORDERED: Z GUARD REMEDY 4 OZ OINT TP PRN (22:30)
[2023-01-15] MEDS ORDERED: MAGNESIUM HYDROXIDE 30 ML UDC GT PRN (22:30)
[2023-01-15] MEDS ORDERED: ALBUTEROL FS 2.5 MG/0.5 ML VIAL.NEB NEB PRN (22:30)
[2023-01-15] MEDS ORDERED: MAG HYDROX/AL HYDROX/SIMETH 30 ML UDC GT PRN (22:30)
[2023-01-15] MEDS ORDERED: ACETAMINOPHEN 650 MG/20.3 ML UDC GT PRN (23:00)
[2023-01-15] MEDS: IPRATROPIUM NEB FS 0.5 MG/2.5 ML AMPUL.NEB NEB SCH (23:27)
--- NOTE | 2023-01-16 00:07 | NUR ---
PT GOING TO 113. REPORT GIVEN TO MATT NEVILLE.
--- NOTE | 2023-01-16 00:25 | NUR ---
Flaquita mancera in [facility] - 01/16/23 at 0052 by DAISY PT GOING TO 113. REPORT GIVEN TO MATT NEVILLE.
[2023-01-16] MEDS: ALBUTEROL FS 2.5 MG/3 ML VIAL.NEB NEB SCH ×4 (01:04→20:27)
--- NOTE | 2023-01-16 01:15 | NUR ---
BRANCH CUSTOMER SERVICE REPRESENTATIVE NOTE RECEIVED PT FROM ER VIA [facility] WITH THE DX OF RESPIRATORY FAILURE. PT IS AWAKE, A/O X 4, MOUTHS AND WRITES DOWN HIS WORDS TO COMMUNICATE. [facility], TOLERATING SETTINGS WELL. O2 SAT @ 100%. FULFILLMENT ASSOCIATE READS SR WITH HR IN THE 70s. NO S/SX OF ACUTE RESPI DISTRESS NOTED AT THIS TIME. NO SOB, BREATHING IS EVEN AND UNLABORED. IV ACCESS IN RAC #18g, SL. PATENT, INTACT AND FLUSHES WELL. PT NOTED TO HAVE TIFFANY CATH ON RAMIREZ. SKIN IS INTACT. PEG TUBE IN PLACE, NO FEEDING AT THIS TIME AND CLAMPED. ALL INITIAL VS STABLE. SAFETY MEASURES IN PLACE: BED LOCKED IN LOW POSITION, BED ALARM ON. SR UP X 3, HOB ELEVATED, CALL LIGHT WITHIN REACH. WILL CONTINUE TO MONITOR PT.
[2023-01-16] MEDS: ZOLPIDEM TARTRATE 5 MG TABLET GT PRN (02:42)
--- NOTE | 2023-01-16 02:55 | NUR ---
RN NOTE SUCTIONING DONE.
--- NOTE | 2023-01-16 03:35 | NUR ---
RN NOTE SUCTIONING DONE.
[2023-01-16 04:00] VITALS: BP 98/59
[2023-01-16] MEDS ORDERED: CEFEPIME 1 GM VIAL ONE (05:09)
--- NOTE | 2023-01-16 05:20 | NUR ---
RN NOTE SUCTIONING DONE.
[2023-01-16] MEDS: CEFEPIME 2 GM in IV D5W 100 ML IV SCH ×3 (05:22→21:29)
[2023-01-16 05:55] LABS: ABG BASE EXCESS -2.3 mmol/L; ABG OXYGEN SATURATION 99.4 % (92.0-98.5); ABG PCO2 31.8 mmHg (35.0-45.0); ABG PH 7.442 (7.350-7.450); ABG PO2 134.8 mmHg (75.0-100.0); AaDO2 104.8 mmHg; COHb 2.6 % (0.5-1.5); MetHb 0.1 % (0.0-1.5); O2Hb 96.7 % (94.0-97.0); SITE, ABG Right Radial; VENT MODE, BG AC 22 600 40% +5
--- NOTE | 2023-01-16 06:33 | NUR ---
SENIOR INFORMATION DEVELOPER CLOSING NOTE PT GIVEN CONSTANT SUCTIONING OF THE TRACH. SAFETY MEASURES IN PLACE. HOB ELEVATED. KEPT CLEAN AND DRY. ALL DUE MEDS GIVEN. NEEDS MET. WILL ENDORSE TO AM SHIFT NURSE FOR DONAVON.
[2023-01-16 07:08] LABS: BASOPHILS % (AUTO) 0.1 % (0.0-2.0); EOSINOPHILS % (AUTO) 0.8 % (0.0-6.0); HEMATOCRIT 28 % (39-51); HEMOGLOBIN 9.3 g/dL (13.5-17.5); LYMPHOCYTES # (AUTO) 0.5 K/uL (0.8-4.8); LYMPHOCYTES % (AUTO) 5.9 % (20.0-44.0); MEAN CORPUSCULAR HGB CONC 33 g/dl (31.0-36.0); MEAN CORPUSCULAR VOLUME 81 fL (80-96); MONOCYTES # (AUTO) 0.5 K/uL (0.1-1.30); MONOCYTES % (AUTO) 5.8 % (2.0-12.0); NEUTROPHILS # (AUTO) 6.9 K/uL (1.8-8.9); NEUTROPHILS % (AUTO) 87.4 % (43.0-81.0); PLATELET COUNT (AUTO) 303 K/uL (150-450); RED BLOOD CELL COUNT(AUTO) 3.49 MIL/uL (4.5-6.0); WHITE BLOOD COUNT (AUTO) 7.9 K/uL (4.3-11.0)
--- NOTE | 2023-01-16 07:30 | NUR ---
RN NOTE RECEIVED PATIENT IN BED RESTING ON MECHANICAL VENT,SETTING PRESCRIBED, BED REST ALERT ORIENTEDX4 [place] WORDS,WRITING ON PAPER NEEDED FOR COMMUNICATION,CONTIENT BOWEL/BLADDER,G-TUBED CLAMPED NPO FOR NOW,IV ACCESS RIGHT AC INTACT PATENT,SAFETY MEASURE IMPLEMENT BED IN LOW POSITION AND LOCKED HEAD OF THE BED ELEVATED,CALL LIGHT WITHIN REACH CONTINUE TO MONITOR.
[2023-01-16] MEDS: LEVOTHYROXINE SODIUM 112 MCG TABLET GT SCH (07:36)
[2023-01-16] MEDS: IPRATROPIUM NEB FS 0.5 MG/2.5 ML AMPUL.NEB NEB SCH ×3 (07:51→20:28)
[2023-01-16 07:54] LABS: THYROID STIMULATING HORMONE 5.826 uIU/mL (0.358-3.74)
[2023-01-16 08:00] VITALS: BP 114/62
[2023-01-16] MEDS: CLOPIDOGREL BISULFATE 75 MG TABLET GT SCH (08:56)
[2023-01-16] MEDS: ALLOPURINOL 100 MG TABLET GT SCH (08:56)
[2023-01-16] MEDS: POLYETHYLENE GLYCOL 3350 17 GM POWD.PACK GT SCH ×3 (08:56→17:00)
[2023-01-16 08:57] LABS: ALBUMIN 3.8 g/dL (3.4-5.0); BILIRUBIN,TOTAL 0.4 mg/dL (0.2-1.0); CALCIUM, SERUM 9.4 mg/dL (8.5-10.1); CREATININE 1.4 mg/dL (0.6-1.3); MAGNESIUM 1.6 mg/dL (1.8-2.4); PHOSPHORUS 3.1 mg/dL (2.5-4.9); POTASSIUM 3.4 mmol/L (3.5-5.1); TOTAL PROTEIN, SERUM 6.9 g/dL (6.4-8.2)
[2023-01-16] MEDS: buPROPion 75 MG TABLET GT SCH ×2 (08:57→17:11)
[2023-01-16] MEDS: ASPIRIN 81 MG TAB.CHEW GT SCH (08:57)
[2023-01-16] MEDS: CHOLECALCIFEROL 1,000 UNIT TABLET (VIT D3) GT SCH (08:57)
[2023-01-16] MEDS: ATORVASTATIN 10 MG TABLET GT SCH (08:57)
[2023-01-16] MEDS: SERTRALINE HCL 50 MG TABLET GT SCH (08:57)
[2023-01-16] MEDS: PANTOPRAZOLE 40 MG VIAL IV SCH (08:58)
[2023-01-16] MEDS: ENOXAPARIN SODIUM 40 MG/0.4 ML DISP.SYRIN SQ SCH (08:59)
[2023-01-16] MEDS: AMLODIPINE BESYLATE 2.5 MG TABLET GT SCH (09:00)
[2023-01-16] MEDS: LOSARTAN POTASSIUM 50 MG TABLET GT SCH (09:01)
[2023-01-16] MEDS: BACLOFEN (10 MG) 10 MG TABLET GT SCH ×2 (09:04→17:11)
[2023-01-16] MEDS ORDERED: POTASSIUM CHLORIDE 20 MEQ POWDER PACKET NG SCH (09:30)
[2023-01-16] MEDS: Magnesium 1GM/D5W 100ML PREMIX 100 ML IV SCH ×2 (09:45→10:45)
[2023-01-16 12:00] VITALS: BP 113/74
[2023-01-16 16:00] VITALS: BP 110/58
[2023-01-16] MEDS: TIZANIDINE HCL 4 MG TABLET GT SCH (17:10)
[2023-01-16] MEDS: TAMSULOSIN 0.4 MG CAP.SR.24H GT SCH (17:11)
[2023-01-16] MEDS: FINASTERIDE (5 MG) 5 MG TABLET GT SCH (17:11)
[2023-01-16] MEDS: DOCUSATE SODIUM LIQ 100 MG/10 ML UDC GT SCH (17:12)
--- NOTE | 2023-01-16 18:13 | NUR ---
RN NOTE PATIENT REMAINS ALERT ORIENTEDX4 ABLE TO MAKE NEEDS KNOWN,MOUTH WORDS AND WRITING ON PAPER,ON MECHANICAL VENT SETTING PRESCRIBED,G-TUBE CLAMPED,ALL DUE MEDS GIVEN MD ORDERED BY G-TUBE,NO SOB NOT ACUTE DISTRESS NOTED,KEPT CLEAN AND DRY ALL THE TIME,KEPT HEAD OF THE BED ELEVATED,KEPT CALL LIGHT WITHIN REACH WILL ENDORSE NEXT COMING SHIFT FOR CONTINUATION OF CARE.
--- NOTE | 2023-01-16 19:00 | NUR ---
TEMPLATE REPRODUCTION TECHNICIAN OPENING NOTE PT IS SITTING IN BED, ALERT AND ORIENTED, AO X 4. HE HAS A TRACH, CONNECTING WITH A MECHANICAL VENTILATOR. PT'S VENTILATOR SETTING IS FOLLOWED: TV: 600, FIO2: 40; PEEP: 5, RR IS 22. PT TOLERATED WELL. OX SAT IS >96%. PT IS ON EXTERNAL UTILITY GELATIN MAKER, ON THE MONITOR, HIS HEART RHYTHM IS SR WITH HR AT 70S. IV ACCESS IS AT HIS R AC, #22g, SL. FLUSHED WELL WITH 10 CC NS; IV SITE IS PATENT AND INTACT. PT HAS A G-TUBE FOR GIVING MEDICATIONS. PLACEMENT OF THE G-TUBE IS CHECKED. FLUSHED WITH 20 CC OF WATER. G-TUBE IS PATENT AND INTACT.SAFETY MEASURES ARE IN PLACED: BED IN LOWEST AND LOCKED POSITION; SIDE RAILS UP X 2; BED ALARM IS SET; CALL LIGHT AND TABLE ARE WITHIN REACH. WILL CONTINUE MONITORING THE PT AND PROVIDE THE CARE PT NEEDS.
[2023-01-16 20:00] VITALS: BP 96/51
[2023-01-16] MEDS: MIRTAZAPINE 15 MG TABLET GT SCH (21:28)
[2023-01-16] MEDS: TRAZODONE 50 MG TABLET GT SCH (21:28)
[2023-01-16] MEDS: ACETYLCYSTEINE 10% SOLN 400 MG/4 ML VIAL NEB SCH (23:38)
--- NOTE | 2023-01-17 | NUR ---
HIV PREVENTION SPECIALIST NOTE SWITCHED ASSIGNMENT WITH MATT SANTORO DURING THE SHIFT. REPORT GIVEN TO THE RN.
[2023-01-17] MEDS: ZOLPIDEM TARTRATE 5 MG TABLET GT PRN (00:11)
--- NOTE | 2023-01-17 00:25 | NUR ---
RN NOTE REPORT RECEIVED FROM [facility] RN. PT IS ANXIOUS AND GETTING AGITATED, ASKING FOR HIS CLONAZEPAM. PER MEDICATION LIST RECEIVED FROM PT'S , PT IS TAKING CLONAZEPAM 0.5 MG AT MORNING AND AFTERNOON, THEN CLONAZEPAM 1 MG AT HS. HOWEVER, CLONAZEPAM HAS BEEN HELD PER [facility]. DR PRYOR WAS MADE AWARE. Addendum: 01/17/23 at 0035 by MAUDE DE LOS SANTOS RN RN NOTE REPORT RECEIVED FROM [facility] RN. PT IS ANXIOUS AND GETTING AGITATED, ASKING FOR HIS CLONAZEPAM. PER MEDICATION LIST RECEIVED FROM PT'S , PT IS TAKING CLONAZEPAM 0.5 MG AT MORNING AND AFTERNOON, THEN CLONAZEPAM 1 MG AT HS. HOWEVER, CLONAZEPAM HAS BEEN HELD PER [facility]. DR PRYOR WAS MADE AWARE. ORDER RECEIVED TO CONTINUE. RENTAL COORDINATORMATT BRAN.
--- NOTE | 2023-01-17 00:26 | NUR ---
RN NOTE RECEIVED PT IN BED, ON SEMI SHORT'S, AAO X 4, IN NO ACUTE DISTRESS, COMMUNICATES BY WRITING, SATURATION AT 97% ON SHILEY XLT CONNECTED TO MECHANICAL VENT WITH PRESCRIBED SETTINGS, SR ON THE MONITOR, HR IS 68. IV LINE AT RAC 22G PATENT AND FLUSHING WELL, SALINE LOCKED. GTUBE IN PLACE, POSITIVE PLACEMENT NOTED, CLAMPED. SAFETY MEASURES IN PLACE, BED IS LOCKED AND AT LOWEST POSITION, HOB ELEVATED, CALL LIGHT WITHIN REACH OF PATIENT. WILL CONT TO MONITOR AND REASSESS.
--- NOTE | 2023-01-17 01:06 | NUR ---
RN NOTE PER ORDER FROM DR PRYOR TO CONTINUE WITH CLONAZEPAM 0.5 MG BDI THEN 1 MG HS, HOWEVER, FIRST DOSE FOR HS DOSE WOULD START TONIGHT. ORDER WAS PLACED 1MG X 1 FOR NOW SO PT CAN HAVE HS DOSE NOW, THEN CONTINUE WITH USUAL DOSE IN AM. METAL TILE LATHER ROSALINDA BRAN
[2023-01-17] MEDS: IPRATROPIUM NEB FS 0.5 MG/2.5 ML AMPUL.NEB NEB SCH ×4 (01:12→20:23)
[2023-01-17] MEDS: ALBUTEROL FS 2.5 MG/3 ML VIAL.NEB NEB SCH ×4 (01:12→20:23)
[2023-01-17] MEDS ORDERED: clonazePAM 1 MG TABLET PO ONE (01:30)
[2023-01-17 04:00] VITALS: BP 94/61
[2023-01-17] MEDS: CEFEPIME 2 GM in IV D5W 100 ML IV SCH ×3 (04:15→21:08)
[2023-01-17 05:40] LABS: BASOPHILS % (AUTO) 0.2 % (0.0-2.0); EOSINOPHILS % (AUTO) 1.5 % (0.0-6.0); HEMATOCRIT 28 % (39-51); HEMOGLOBIN 9.1 g/dL (13.5-17.5); LYMPHOCYTES # (AUTO) 0.5 K/uL (0.8-4.8); LYMPHOCYTES % (AUTO) 7.5 % (20.0-44.0); MEAN CORPUSCULAR HGB CONC 32 g/dl (31.0-36.0); MEAN CORPUSCULAR VOLUME 83 fL (80-96); MONOCYTES # (AUTO) 0.4 K/uL (0.1-1.30); MONOCYTES % (AUTO) 6.5 % (2.0-12.0); NEUTROPHILS # (AUTO) 5.2 K/uL (1.8-8.9); NEUTROPHILS % (AUTO) 84.3 % (43.0-81.0); PLATELET COUNT (AUTO) 253 K/uL (150-450); RED BLOOD CELL COUNT(AUTO) 3.45 MIL/uL (4.5-6.0); WHITE BLOOD COUNT (AUTO) 6.2 K/uL (4.3-11.0)
[2023-01-17 06:11] LABS: ALBUMIN 3.6 g/dL (3.4-5.0); BILIRUBIN,TOTAL 0.4 mg/dL (0.2-1.0); CALCIUM, SERUM 9.2 mg/dL (8.5-10.1); CREATININE 1.3 mg/dL (0.6-1.3); MAGNESIUM 2.1 mg/dL (1.8-2.4); PHOSPHORUS 3.9 mg/dL (2.5-4.9); POTASSIUM 3.5 mmol/L (3.5-5.1); TOTAL PROTEIN, SERUM 6.6 g/dL (6.4-8.2)
--- NOTE | 2023-01-17 07:30 | NUR ---
RN OPENING NOTE RECEIVED PATIENT IN BED ASLEEP, EASILY AWAKENED. NO SIGNS OF ACUTE DISTRESS NOTED. WITH TRACH TO VENT, SETTINGS TOLERATING WELL. NO SOB NOTED. ON PAINT MAKER SHOWING SINUS RHYTHM, HR @69. NO C/O PAIN AT THIS TIME. NOTED WITH IV ACCESS ON RIGHT AC #22G, INTACT AND PATENT SALINE LOCKED. SAFETY MEASURE IN PLACE. BED IN LOW AND LOCKED POSITION, SIDE RAILS UP X2, CALL LIGHT PLACED WITHIN EASY REACH. WILL CONTINUE TO MONITOR PATIENT.
[2023-01-17 08:00] VITALS: BP 98/63
[2023-01-17] MEDS: PANTOPRAZOLE 40 MG VIAL IV SCH (08:19)
[2023-01-17] MEDS: clonazePAM 0.5 MG TABLET PO SCH ×2 (08:20→17:07)
[2023-01-17] MEDS: ASPIRIN 81 MG TAB.CHEW GT SCH (08:20)
[2023-01-17] MEDS: CHOLECALCIFEROL 1,000 UNIT TABLET (VIT D3) GT SCH (08:20)
[2023-01-17] MEDS: POLYETHYLENE GLYCOL 3350 17 GM POWD.PACK GT SCH ×2 (08:20→17:07)
[2023-01-17] MEDS: buPROPion 75 MG TABLET GT SCH ×2 (08:20→17:07)
[2023-01-17] MEDS: ATORVASTATIN 10 MG TABLET GT SCH (08:20)
[2023-01-17] MEDS: LEVOTHYROXINE SODIUM 112 MCG TABLET GT SCH (08:20)
[2023-01-17] MEDS: CLOPIDOGREL BISULFATE 75 MG TABLET GT SCH (08:20)
[2023-01-17] MEDS: SERTRALINE HCL 50 MG TABLET GT SCH (08:20)
[2023-01-17] MEDS: BACLOFEN (10 MG) 10 MG TABLET GT SCH ×2 (08:20→17:08)
[2023-01-17] MEDS: RILUZOLE 50 MG GT SCH ×2 (08:21→17:07)
[2023-01-17] MEDS: AMLODIPINE BESYLATE 2.5 MG TABLET GT SCH (08:21)
[2023-01-17] MEDS: ALLOPURINOL 100 MG TABLET GT SCH (08:21)
[2023-01-17] MEDS: FENOFIBRATE NANOCRYS (145 MG) 145 MG TABLET GT SCH (08:21)
[2023-01-17] MEDS: SILODOSIN 4 MG GT SCH (08:21)
[2023-01-17] MEDS: LOSARTAN POTASSIUM 50 MG TABLET GT SCH (08:22)
[2023-01-17] MEDS: ENOXAPARIN SODIUM 40 MG/0.4 ML DISP.SYRIN SQ SCH (08:27)
[2023-01-17] MEDS: ACETYLCYSTEINE 10% SOLN 400 MG/4 ML VIAL NEB SCH ×2 (08:27→15:49)
[2023-01-17 12:00] VITALS: BP 91/53
[2023-01-17] MEDS: VANCOMYCIN 1 GM in IV D5W 250ml IV SCH (13:36)
[2023-01-17 16:00] VITALS: BP 97/73
[2023-01-17] MEDS: TAMSULOSIN 0.4 MG CAP.SR.24H GT SCH (17:07)
[2023-01-17] MEDS: FINASTERIDE (5 MG) 5 MG TABLET GT SCH (17:08)
[2023-01-17] MEDS: DOCUSATE SODIUM LIQ 100 MG/10 ML UDC GT SCH (17:08)
[2023-01-17] MEDS: TIZANIDINE HCL 4 MG TABLET GT SCH (17:08)
[2023-01-17] MEDS: GLYCOPYRROLATE 1 MG TABLET PO SCH (17:08)
--- NOTE | 2023-01-17 18:44 | NUR ---
RN CLOSING NOTE PATIENT IN BED AWAKE, A/O X4, WRITES TO COMMUNICATE NEEDS. NO SIGNS OF ACUTE DISTRESS NOTED. REMAINS WITH TRACH TO VENT, SETTINGS TOLERATING WELL. NO SOB NOTED. SUCTIONED SECRETIONS NEEDED. PATIENT ABLE TO SUCTION ORAL SECRETIONS INDEPENDENTLY. CONTINUE ON SUPERVISOR GROVE SHOWING SINUS RHYTHM, HR @69. ALL DUE MEDS GIVEN VIA G-TUBE, TOLERATED WELL. WITH IV ACCESS ON RIGHT AC #22G, INTACT AND PATENT SALINE LOCKED. SAFETY MEASURE MAINTAINED. BED IN LOW AND LOCKED POSITION, SIDE RAILS UP X2, CALL LIGHT PLACED WITHIN EASY REACH. WILL ENDORSE TO NEXT SHIFT FOR CONTINUITY OF CARE.
--- NOTE | 2023-01-17 19:15 | NUR ---
RN NOTE RECEIVED PT IN BED, ASLEEP AT THIS TIME, RISE AND FALL OF CHEST NOTED. PT ON MECH VENT, CURRENT SETTINGS WELL TOLERATED, TRACH IN PLACED, PATENT AND SECURED. HOB ELEVATED. NO S/SX OF DISCOMFORT NOTED AT THIS TIME. PIV ACCESS ON RAC #22 ON SL, PATENT, CLEAN AND DRY. CALL LIGHT WITHIN REACH. SAFETY PRECAUTION IMPLEMENTED. WILL CONT POC.
[2023-01-17 20:00] VITALS: BP 97/52
[2023-01-17] MEDS: TRAZODONE 50 MG TABLET GT SCH (21:08)
[2023-01-17] MEDS: clonazePAM 1 MG TABLET PO SCH (21:09)
[2023-01-17] MEDS: MIRTAZAPINE 15 MG TABLET GT SCH (21:09)
[2023-01-17] MEDS ORDERED: clonazePAM 1 MG TABLET PO SCH ×2 (22:00)
[2023-01-18] VITALS: BP 95/55
[2023-01-18] MEDS: ACETYLCYSTEINE 10% SOLN 400 MG/4 ML VIAL NEB SCH ×4 (00:25→23:16)
[2023-01-18] MEDS: VANCOMYCIN 1 GM in IV D5W 250ml IV SCH ×2 (01:20→13:49)
[2023-01-18] MEDS: IPRATROPIUM NEB FS 0.5 MG/2.5 ML AMPUL.NEB NEB SCH ×4 (01:48→19:58)
[2023-01-18] MEDS: ALBUTEROL FS 2.5 MG/3 ML VIAL.NEB NEB SCH ×4 (01:48→19:58)
[2023-01-18 04:00] VITALS: BP 93/58
[2023-01-18] MEDS: CEFEPIME 2 GM in IV D5W 100 ML IV SCH ×3 (04:26→21:07)
--- NOTE | 2023-01-18 07:00 | NUR ---
RN NOTE PT REMAINS IN STABLE CONDITION. PT AOX4, ABLE TO MAKE NEEDS KNOWN USING COMMUNICATION BOARD. NO SIGNIFICANT CHANGES NOTED DURING THE SHIFT. REMAINS ON VENT, CURRENT SETTINGS WELL KALIN. ALL DUE MEDS GIVEN. ALL NEEDS ATTENDED. CALL LIGHT WITHIN EASY REACH. WILL ENDORSE TO AM SHIFT NURSE FOR DONAVON.
--- NOTE | 2023-01-18 07:10 | NUR ---
RN OPENING NOTE RECEIVED PATIENT IN BED AWAKE, ALERT AND ORIENTED X 4, USES PAPER AND PEN TO WRITE DOWN HIS NEEDS. NO SIGNS OF ACUTE DISTRESS NOTED. WITH TRACH TO VENT, SETTINGS TOLERATING WELL. NO SOB NOTED. , HR IS 59 ON TELE MONITOR. NO C/O PAIN AT THIS TIME. NOTED WITH IV ACCESS ON RIGHT AC #22G, INTACT AND PATENT SALINE LOCKED. SAFETY MEASURE IN PLACE. BED IN LOW AND LOCKED POSITION, SIDE RAILS UP X2, CALL LIGHT PLACED WITHIN EASY REACH. WILL CONTINUE TO MONITOR PATIENT.
[2023-01-18 08:00] VITALS: BP 96/63
--- NOTE | 2023-01-18 08:00 | NUR ---
RN NOTES: BP 96/53 WILL CHECK BP LATER TO GIVE MIKEY AND DEANNA
[2023-01-18] MEDS: CHOLECALCIFEROL 1,000 UNIT TABLET (VIT D3) GT SCH (08:15)
[2023-01-18] MEDS: BACLOFEN (10 MG) 10 MG TABLET GT SCH ×2 (08:16→17:35)
[2023-01-18] MEDS: buPROPion 75 MG TABLET GT SCH ×2 (08:16→17:36)
[2023-01-18] MEDS: ALLOPURINOL 100 MG TABLET GT SCH (08:16)
[2023-01-18] MEDS: RILUZOLE 50 MG GT SCH ×2 (08:16→17:36)
[2023-01-18] MEDS: ASPIRIN 81 MG TAB.CHEW GT SCH (08:16)
[2023-01-18] MEDS: SILODOSIN 4 MG GT SCH (08:17)
[2023-01-18] MEDS: FENOFIBRATE NANOCRYS (145 MG) 145 MG TABLET GT SCH (08:17)
[2023-01-18] MEDS: SERTRALINE HCL 50 MG TABLET GT SCH (08:18)
[2023-01-18] MEDS: CLOPIDOGREL BISULFATE 75 MG TABLET GT SCH (08:18)
[2023-01-18] MEDS: ATORVASTATIN 10 MG TABLET GT SCH (08:18)
[2023-01-18] MEDS: PANTOPRAZOLE 40 MG/PACK PACK GT SCH (08:19)
[2023-01-18] MEDS: GLYCOPYRROLATE 1 MG TABLET PO SCH ×3 (08:19→17:35)
[2023-01-18] MEDS: LEVOTHYROXINE SODIUM 112 MCG TABLET GT SCH (08:19)
[2023-01-18] MEDS: POLYETHYLENE GLYCOL 3350 17 GM POWD.PACK GT SCH ×2 (08:19→17:41)
[2023-01-18] MEDS: clonazePAM 0.5 MG TABLET PO SCH ×2 (08:20→17:36)
[2023-01-18] MEDS: ENOXAPARIN SODIUM 40 MG/0.4 ML DISP.SYRIN SQ SCH (08:22)
[2023-01-18] MEDS: AMLODIPINE BESYLATE 2.5 MG TABLET GT SCH (09:57)
[2023-01-18] MEDS: LOSARTAN POTASSIUM 50 MG TABLET GT SCH (09:57)
--- NOTE | 2023-01-18 09:58 | NUR ---
RN NOTES: SPOKE TO DR SLADE BP 100/58, HR 72 OK TO ADMINISTER COZAAR AND NORVASC, MEDICATION ADMINISTERED
[2023-01-18 12:00] VITALS: BP 98/74
[2023-01-18 16:00] VITALS: BP 115/68
[2023-01-18] MEDS: DOCUSATE SODIUM LIQ 100 MG/10 ML UDC GT SCH (17:35)
[2023-01-18] MEDS: TIZANIDINE HCL 4 MG TABLET GT SCH (17:35)
[2023-01-18] MEDS: TAMSULOSIN 0.4 MG CAP.SR.24H GT SCH (17:35)
[2023-01-18] MEDS: FINASTERIDE (5 MG) 5 MG TABLET GT SCH (17:40)
--- NOTE | 2023-01-18 18:00 | NUR ---
RECEIVED PATIENT ON MD ORDERED VENT SETTINGS. HAS A TRACH SHILEY 8XLT CUFFED. AIRWAY PATENT AND SECURE. INLINE HHN TXS KALIN WELL WITH NO ADVERSE REACTION NOTED. Q2 VENT CHECK, SUCTION PRN. AMBU BAG AND EMERGENCY TRACH AT THE BEDSIDE. VENT PLUGGED INTO RED OUTLET. ALARMS SET AND AUDIBLE. MODERATE YELLOW SECRETIONS NOTED.
--- NOTE | 2023-01-18 18:48 | NUR ---
RN NOTES: PT REQUEST TO CHANGE THE WHOLE TRACH SAYING IT WAS CHANGED LAST A MONTH AGO SPOKE TO DR RL GOLDEN TO CHANGE THE WHOLE TRACH, RT MADE AWARE
--- NOTE | 2023-01-18 19:00 | NUR ---
MILL SET UP open note Received pt resting in bed, awake, A&Ox4, able to communicate by writing, on o2 via trach and vent, vent settings noted, chest rising even and unlabored, trach at midline, and patent, pt afebrile, skin warm and dry to touch, 0 c/o pain, Gt intact, 0 residual noted, placement noted, RAC #22 SL, I/C/D, safety precautions in place, call light with in reach.
--- NOTE | 2023-01-18 19:28 | NUR ---
RN closing notes: RECEIVED PATIENT IN BED AWAKE, ALERT AND ORIENTED X 4, USES PAPER AND PEN TO WRITE DOWN HIS NEEDS. NO SIGNS OF ACUTE DISTRESS NOTED. WITH TRACH TO VENT, SETTINGS TOLERATING WELL. NO SOB NOTED. , HR IS 59 ON TELE MONITOR. NO C/O PAIN AT THIS TIME. NOTED WITH IV ACCESS ON RIGHT AC #22G, INTACT AND PATENT SALINE LOCKED. SAFETY MEASURE IN PLACE. BED IN LOW AND LOCKED POSITION, SIDE RAILS UP X2, CALL LIGHT PLACED WITHIN EASY REACH. all due meds were given as ordered, all needs met, endorsed to harpsichord maker RN for jarrod.
[2023-01-18] MEDS: TRAZODONE 50 MG TABLET GT SCH (21:08)
[2023-01-18] MEDS: clonazePAM 1 MG TABLET PO SCH (21:08)
[2023-01-18] MEDS: MIRTAZAPINE 15 MG TABLET GT SCH (21:08)
[2023-01-18 22:00] VITALS: BP 95/64
--- NOTE | 2023-01-18 22:19 | NUR ---
TRACH CHANGE DONE PER ORDER. DONE BY IRISH RT, YOANDY RT, DRE Zarate RT. PT TOLERATED. NO BLEEDING. NO RESP DISTRESS. RN NOTIFIED.
--- NOTE | 2023-01-18 23:30 | NUR ---
new peripheral IV started Rhand 20 GA, SL, I/C/D, RAC 22 GA was DC
[2023-01-19] VITALS: BP 115/64
[2023-01-19] MEDS: VANCOMYCIN 1 GM in IV D5W 250ml IV SCH (00:31)
[2023-01-19] MEDS: IPRATROPIUM NEB FS 0.5 MG/2.5 ML AMPUL.NEB NEB SCH ×2 (01:17→07:44)
[2023-01-19] MEDS: ALBUTEROL FS 2.5 MG/3 ML VIAL.NEB NEB SCH ×2 (01:17→07:39)
[2023-01-19] MEDS: CEFEPIME 2 GM in IV D5W 100 ML IV SCH (04:32)
[2023-01-19 05:53] VITALS: BP 105/61
--- NOTE | 2023-01-19 06:21 | NUR ---
HEALTH INFORMATION SYSTEMS TECHNICIAN CLOSING NOTE Pt resting in bed, eyes closed, sleeping well, A&Ox3, able to communicate through writing, o2 via vent to trach noted, trach at midline and patent, suctioned pt q2h and prn, GT intact, patent, all due meds given per MD orders, tolerated well, R hand 20 GA I/C/D, flushing well, pt is on ATB tx via IV, tolerated well, all basic needs met and anticipated, bed bath rendered well, SR noted on tele monitor, NAD noted this shift, pt trach was changed by RT Andrea, pt to be D/C home today, will continue to monitor
[2023-01-19] MEDS: ACETYLCYSTEINE 10% SOLN 400 MG/4 ML VIAL NEB SCH (07:39)
[2023-01-19 08:00] VITALS: BP 92/53
--- NOTE | 2023-01-19 08:03 | NUR ---
VETERINARY X RAY OPERATOR NOTE PATIENT IN BED , ALERT ORIENTED WITH TRACH TI VENT SETTING ORDERED, TRACH SUCTION AND MOUTH CARE DONE, USING URINAL WELL , ON PUREE DIET AND ALL MEDS WILL BE GIVEN BY VIA TUBE ,G TUBE IN PLACED , RT HAND HL INTACT AND FLUSHED WELL , BED IN LOWEST AND LOCKED POSITION CALL LIGHT WITHIN REACH WILL CONT TO MONITOR CLOSELY
[2023-01-19] MEDS: CHOLECALCIFEROL 1,000 UNIT TABLET (VIT D3) GT SCH (08:27)
[2023-01-19] MEDS: PANTOPRAZOLE 40 MG/PACK PACK GT SCH (08:27)
[2023-01-19] MEDS: ASPIRIN 81 MG TAB.CHEW GT SCH (08:28)
[2023-01-19] MEDS: POLYETHYLENE GLYCOL 3350 17 GM POWD.PACK GT SCH (08:28)
[2023-01-19] MEDS: GLYCOPYRROLATE 1 MG TABLET PO SCH (08:28)
[2023-01-19] MEDS: BACLOFEN (10 MG) 10 MG TABLET GT SCH (08:28)
[2023-01-19] MEDS: LEVOTHYROXINE SODIUM 112 MCG TABLET GT SCH (08:28)
[2023-01-19] MEDS: SERTRALINE HCL 50 MG TABLET GT SCH (08:29)
[2023-01-19] MEDS: ALLOPURINOL 100 MG TABLET GT SCH (08:29)
[2023-01-19] MEDS: CLOPIDOGREL BISULFATE 75 MG TABLET GT SCH (08:29)
[2023-01-19] MEDS: clonazePAM 0.5 MG TABLET PO SCH (08:30)
[2023-01-19] MEDS: buPROPion 75 MG TABLET GT SCH (08:30)
[2023-01-19] MEDS: FENOFIBRATE NANOCRYS (145 MG) 145 MG TABLET GT SCH (08:30)
[2023-01-19] MEDS: RILUZOLE 50 MG GT SCH (08:30)
[2023-01-19] MEDS: SILODOSIN 4 MG GT SCH (08:32)
[2023-01-19 09:00] VITALS: BP 92/53
[2023-01-19] MEDS ORDERED: PNEUMOCOCCAL 23-VAL P-SAC VAC 0.5 ML VIAL SQ ONE (09:00)
[2023-01-19] MEDS: AMLODIPINE BESYLATE 2.5 MG TABLET GT SCH (09:00)
[2023-01-19] MEDS: ATORVASTATIN 10 MG TABLET GT SCH (09:00)
[2023-01-19] MEDS: LOSARTAN POTASSIUM 50 MG TABLET GT SCH (09:00)
--- NOTE | 2023-01-19 09:00 | NUR ---
LUMBER TALLIER NOTE FREQUENT TRACH AND ORAL SUCTION DONE, MIN AMT OF SECRETION OBTAINED ,KEEP CLEAN S DRY , ALL NEED ATTENDED
[2023-01-19] MEDS: ENOXAPARIN SODIUM 40 MG/0.4 ML DISP.SYRIN SQ SCH (09:04)
--- NOTE | 2023-01-19 10:30 | NUR ---
MOTOR COACH OPERATOR NOTE RT AT BEDSIDE BREATHING TX DONE
--- NOTE | 2023-01-19 10:30 | NUR ---
BUDDHIST MONK NOTE SEEN BY MICHELINE GUTIERREZ N P OK TO DISCHARGER HOME
--- NOTE | 2023-01-19 10:45 | NUR ---
TOLL TRANSMISSION WORKER NOTE DISCHARGE INSTRUCTION GIVEN,UNDERSTOOD, EXPLAINED HOW TO TAKE HOME MEDS AND POSSIBLE SIDE EFFECTS , HOME MEDS FROM PHARMACY GIVEN , EXPLAINED THAT HOME HEALTH NURSE WILL COME AT HOME TO DO TRACH AND VENT CARE BELONGING SIGNED
--- NOTE | 2023-01-19 11:37 | NUR ---
SUPERVISORY TRAINING SPECIALIST NOTE AMBULANCE AT BEDSIDE, REPORT GIVEN ,TELE REMOVED, RT HAND HL REMOVED, DRY DRESSING APPLIED ,NO BLEEDING NOTED, SPOKE WITH VALERIE SHERIFF, RT AT HOME ARRANGED ,PATENT HAS VENT WITH GLADYS, LEFT HOSPITAL WITH STABLE CONDITION
== END 2023-01-19 16:14 | disposition home health service (06) | DRG 208 ==
LOC: ER 20:03 → TELE 22:20 → TELE1 23:49
PROVIDERS: ADMIT Nurse Practitioner Acute Care; ATTEND Nurse Practitioner Acute Care
PROC: 5A1945Z Respiratory Ventilation, 24-96 Consecutive Hours (ICD-10-PCS; principal; 2023-01-15)
DX: T17.990A Other foreign object in respiratory tract, part unspecified in causing asphyxiation, initial encounter (principal); J96.22 Acute and chronic respiratory failure with hypercapnia; J98.11 Atelectasis; G12.21 Amyotrophic lateral sclerosis; Z99.11 Dependence on respirator [ventilator] status; X58.XXXA Exposure to other specified factors, initial encounter; E86.0 Dehydration; Y92.009 Unspecified place in unspecified non-institutional (private) residence as the place of occurrence of the external cause; Z20.822 Contact with and (suspected) exposure to COVID-19; I10 Essential (primary) hypertension; R13.10 Dysphagia, unspecified; E78.5 Hyperlipidemia, unspecified; Z85.21 Personal history of malignant neoplasm of larynx; E03.9 Hypothyroidism, unspecified; Z79.82 Long term (current) use of aspirin; Z79.51 Long term (current) use of inhaled steroids; Z79.02 Long term (current) use of antithrombotics/antiplatelets; D63.8 Anemia in other chronic diseases classified elsewhere; Z79.899 Other long term (current) drug therapy; Z93.1 Gastrostomy status; Z93.0 Tracheostomy status; N40.0 Benign prostatic hyperplasia without lower urinary tract symptoms; F41.9 Anxiety disorder, unspecified; E87.6 Hypokalemia; E83.42 Hypomagnesemia; R79.89 Other specified abnormal findings of blood chemistry
CPT/HCPCS: 31720; 36415; 36600; 71045-TC; 80048-TC; 80053-TC; 80061-TC; 80076-TC; 82803-TC; 83735-TC; 83880; 84100-TC; 84443-TC; 84484-TC; 85025-TC; 90732; 93307-TC; 94002-TC; 94003-TC; 94760-TC; 94762-TC; 94799-TC; 99082-TC; A4223; A4623; A7526; C9113; C9803; G0378; J0692; J1650; J2543; J3370; J3475; J7050; J7060

== ENCOUNTER 2023-02-09 18:48 | Inpatient (IN) | payer MEDICARE, OTHER ==
[~2023-02-09] VITALS: Ht 167.6 cm; Wt 73.9 kg
[~2023-02-09 18:48] MED LIST changes: -CLON0.5T GT; -FINA5TAB3 GT; -LEVO112T5 GT
--- NOTE | 2023-02-09 19:00 | NUR ---
67 y/o M BIBRA FROM HOME DUE TO DESATURATION FROM TRACH WHEN SUCTIONING AND REPORTED BLEED FROM TRACH PER REPORT. A/O X 3, ON PORTABLE VENT, IS ON VENT NORMALLY AT HOME.
--- NOTE | 2023-02-09 19:06 | NUR ---
RT NOTIFIED TO TRANSFER PATIENT FROM PORTABLE VENT TO STANDARD VENT
--- NOTE | 2023-02-09 19:26 | NUR ---
RT AT PT'S BEDSIDE FOR VENT SETTINGS: FIO2% 50 VT 600 RR 18 PEEP 5 PMAX 60 TOLERATING VENT SETTINGS WELL AT 100%
--- NOTE | 2023-02-09 19:37 | NUR ---
[employer] AT PT'S BEDSIDE
[2023-02-09 19:48] LABS: BASOPHILS % (AUTO) 0.4 % (0.0-2.0); EOSINOPHILS % (AUTO) 0.7 % (0.0-6.0); HEMATOCRIT 25 % (39-51); LYMPHOCYTES # (AUTO) 0.3 K/uL (0.8-4.8); LYMPHOCYTES % (AUTO) 3.3 % (20.0-44.0); MEAN CORPUSCULAR HGB CONC 32 g/dl (31.0-36.0); MEAN CORPUSCULAR VOLUME 83 fL (80-96); MONOCYTES # (AUTO) 0.3 K/uL (0.1-1.30); MONOCYTES % (AUTO) 3.2 % (2.0-12.0); NEUTROPHILS # (AUTO) 7.3 K/uL (1.8-8.9); NEUTROPHILS % (AUTO) 92.4 % (43.0-81.0); PLATELET COUNT (AUTO) 247 K/uL (150-450); WHITE BLOOD COUNT (AUTO) 7.9 K/uL (4.3-11.0)
--- NOTE | 2023-02-09 22:02 | NUR ---
UPDATED VERNA HOLLY (BROTHER) [phone] REGARDING D/C. BROTHER REFUSED PT TO BE D/C HOME BECAUSE PT IS "UNSTABLE", THOUGH [facility]. INFORMED DR TRISTON PÉREZ.
--- NOTE | 2023-02-09 23:40 | NUR ---
RT AT PT'S BEDSIDE FOR SUCTION SATTING 98% ON VENT SETTINGS
--- NOTE | 2023-02-10 04:31 | NUR ---
PT SLEEPING WELL WITH NO RESP DISTRESS. PT TOLERATING VENT SETTINGS WELL.
--- NOTE | 2023-02-10 09:25 | NUR ---
Flaquita mancera in [facility] - 02/10/23 at 0933 by PARTH RAFFAELEID swab sent to lab
--- NOTE | 2023-02-10 09:27 | NUR ---
Flaquita mancera in [facility] - 02/10/23 at 0933 by PARTH MRSA swab sent to lab
--- NOTE | 2023-02-10 09:42 | NUR ---
director of public safety at bedside
--- NOTE | 2023-02-10 09:51 | NUR ---
covid swab collected and sent to lab.
[2023-02-10 11:00] LABS: CALCIUM, SERUM 9.4 mg/dL (8.5-10.1); CREATININE 1.2 mg/dL (0.6-1.3); POTASSIUM 3.7 mmol/L (3.5-5.1)
[2023-02-10 11:02] LABS: BASOPHILS % (AUTO) 0.1 % (0.0-2.0); EOSINOPHILS % (AUTO) 0.6 % (0.0-6.0); HEMATOCRIT 27 % (39-51); HEMOGLOBIN 8.9 g/dL (13.5-17.5); LYMPHOCYTES # (AUTO) 0.4 K/uL (0.8-4.8); LYMPHOCYTES % (AUTO) 5.7 % (20.0-44.0); MEAN CORPUSCULAR HGB CONC 33 g/dl (31.0-36.0); MEAN CORPUSCULAR VOLUME 83 fL (80-96); MONOCYTES # (AUTO) 0.3 K/uL (0.1-1.30); MONOCYTES % (AUTO) 4.4 % (2.0-12.0); NEUTROPHILS # (AUTO) 6.9 K/uL (1.8-8.9); NEUTROPHILS % (AUTO) 89.2 % (43.0-81.0); PLATELET COUNT (AUTO) 233 K/uL (150-450); RED BLOOD CELL COUNT(AUTO) 3.31 MIL/uL (4.5-6.0); WHITE BLOOD COUNT (AUTO) 7.8 K/uL (4.3-11.0)
--- NOTE | 2023-02-10 12:00 | NUR ---
CALLED [facility] FOR TRANSPORT ETA [phone] FOR RT.
--- NOTE | 2023-02-10 12:35 | NUR ---
[facility] [phone]
--- NOTE | 2023-02-10 13:02 | NUR ---
ARVIND IS THE RT AT HOME [phone] [facility] AWARE.
--- NOTE | 2023-02-10 14:35 | NUR ---
GOT BED 111-1 ADMITTING INFORMED.
--- NOTE | 2023-02-10 14:43 | NUR ---
report given to Patricia perez to continue care.
--- NOTE | 2023-02-10 14:55 | NUR ---
iv established. 20g R Hand
--- NOTE | 2023-02-10 15:21 | NUR ---
patient transferred to room via acls protocol
--- NOTE | 2023-02-10 15:25 | NUR ---
RN NOTE PT ARRIVED TO THE UNIT, WAS TRANSPORTED BY MARITA HOFF RN AND AMOS OLSEN. A&O X 4, NON VERBAL. BP 125/67, HR 82,O2 SAT 100%, TEMP 97.4 DEG F. PT ON VENT, TRACH SIZE 8, TV 600, FIO2 50%, PEEP 5. PICTURES TAKEN. PT WAS GIVEN THE WRITING BOARD. BELONGINS ACCOUNTED FOR. CONTINUE TO MONITOR
[2023-02-10 16:00] VITALS: BP 125/82
[2023-02-10] MEDS ORDERED: ONDANSETRON HCL/PF 4 MG/2 ML VIAL IVP PRN (16:00)
[2023-02-10] MEDS ORDERED: ALBUTEROL FS 2.5 MG/0.5 ML VIAL.NEB NEB PRN (16:00)
[2023-02-10] MEDS ORDERED: MORPHINE SULFATE INJ 2 MG/ML DISP.SYRIN IV PRN (16:00)
[2023-02-10] MEDS ORDERED: ACETAMINOPHEN 650 MG/20.3 ML UDC GT PRN (16:30)
[2023-02-10] MEDS ORDERED: RILUZOLE 50 MG GT SCH (17:00)
[2023-02-10] MEDS ORDERED: Medication Not On Formulary EA (Glycopyrrolate 1 MG) GT SCH (17:00)
[2023-02-10] MEDS ORDERED: TUDCA GT SCH (17:00)
[2023-02-10] MEDS ORDERED: SILODOSIN 4 MG GT SCH (18:00)
[2023-02-10] MEDS: POLYETHYLENE GLYCOL 3350 17 GM POWD.PACK GT SCH (19:14)
[2023-02-10] MEDS: BACLOFEN (10 MG) 10 MG TABLET GT SCH (19:14)
[2023-02-10] MEDS: DOCUSATE SODIUM LIQ 100 MG/10 ML UDC GT SCH (19:15)
[2023-02-10] MEDS: buPROPion 75 MG TABLET GT SCH (19:15)
[2023-02-10] MEDS: PANTOPRAZOLE 40 MG/PACK PACK NG SCH (19:15)
[2023-02-10] MEDS: FINASTERIDE (5 MG) 5 MG TABLET GT SCH (19:16)
[2023-02-10] MEDS: TAMSULOSIN 0.4 MG CAP.SR.24H GT SCH (19:16)
[2023-02-10] MEDS: TIZANIDINE HCL 4 MG TABLET GT SCH (19:16)
[2023-02-10] MEDS: GLYCOPYRROLATE 1 MG TABLET GT SCH (19:16)
[2023-02-10] MEDS ORDERED: ALBUTEROL SULFATE IH SCH (19:30)
[2023-02-10] MEDS ORDERED: IPRATROPIUM IH SCH (19:30)
--- NOTE | 2023-02-10 19:40 | NUR ---
RN OPENING NOTES: RECEIVED PT IN BED, AWAKE, ALERT/ORIENTED X4 AND RESPONSIVE TO PAINFUL STIMULI. NON-VERBAL, ABLE TO MAKE HIS NEEDS BY WRITING. ON TRACH TO VENT SETTINGS: AC-18, TV-600, FIO2-50, PEEP-5. PT TOLERATED WELL. IV ACCESS ON RT HAND #20G INTACT AND PATENT. NO S/S OF INFILTRATIONS. NO C/O PAIN OR DISCOMFORT. NO ACUTE DISTRESS. ALL SAFETY MEASURES IN PLACE. BED IN LOWEST POSTITION AND LOCKED. SIDE RAILS UP X3, PLACE CALL LIGHT WITH IN REACH. WILL CONTINUE TO MONITOR
[2023-02-10 20:00] VITALS: BP 97/56
[2023-02-10] MEDS: ALBUTEROL FS 2.5 MG/3 ML VIAL.NEB NEB SCH (20:22)
[2023-02-10] MEDS: IPRATROPIUM NEB FS 0.5 MG/2.5 ML AMPUL.NEB NEB SCH (20:22)
[2023-02-10] MEDS: MIRTAZAPINE 15 MG TABLET GT SCH (21:52)
[2023-02-10] MEDS: TRAZODONE 50 MG TABLET GT SCH (21:52)
[2023-02-10] MEDS ORDERED: clonazePAM 1 MG TABLET GT SCH ×2 (22:00)
[2023-02-10] MEDS ORDERED: Medication Not On Formulary EA (Melatonin 3 MG) GT SCH (22:00)
[2023-02-11] VITALS: BP 110/47
[2023-02-11] MEDS: ALBUTEROL FS 2.5 MG/3 ML VIAL.NEB NEB SCH ×4 (01:28→19:39)
[2023-02-11] MEDS: IPRATROPIUM NEB FS 0.5 MG/2.5 ML AMPUL.NEB NEB SCH ×4 (01:28→19:39)
[2023-02-11 04:00] VITALS: BP 120/49
--- NOTE | 2023-02-11 06:41 | NUR ---
RN CLOSING NOTES: PT IN BED, AWAKE, ALERT/ORIENTED X4 AND RESPONSIVE TO PAINFUL STIMULI. NON-VERBAL, ABLE TO MAKE HIS NEEDS BY WRITING. ON TRACH TO VENT SETTINGS: AC-18, TV-600, FIO2-50, PEEP-5. O2 SAT 100%. PT TOLERATED WELL. IV ACCESS ON RT HAND #20G INTACT AND PATENT. NO S/S OF INFILTRATIONS. NO C/O PAIN OR DISCOMFORT. NO ACUTE DISTRESS. ALL DUE MEDS GIVEN ORDERED. ALL SAFETY MEASURES IN PLACE. BED IN LOWEST POSTITION AND LOCKED. SIDE RAILS UP X3, PLACE CALL LIGHT WITH IN REACH. WILL ENDORSE TO MORNING SHIFT NURSE.
[2023-02-11 07:06] LABS: BASOPHILS % (AUTO) 0.1 % (0.0-2.0); EOSINOPHILS % (AUTO) 2.4 % (0.0-6.0); HEMATOCRIT 25 % (39-51); HEMOGLOBIN 8.3 g/dL (13.5-17.5); LYMPHOCYTES # (AUTO) 0.4 K/uL (0.8-4.8); LYMPHOCYTES % (AUTO) 7.4 % (20.0-44.0); MEAN CORPUSCULAR HGB CONC 33 g/dl (31.0-36.0); MEAN CORPUSCULAR VOLUME 82 fL (80-96); MONOCYTES # (AUTO) 0.4 K/uL (0.1-1.30); MONOCYTES % (AUTO) 6.6 % (2.0-12.0); NEUTROPHILS # (AUTO) 4.6 K/uL (1.8-8.9); NEUTROPHILS % (AUTO) 83.5 % (43.0-81.0); PLATELET COUNT (AUTO) 262 K/uL (150-450); WHITE BLOOD COUNT (AUTO) 5.5 K/uL (4.3-11.0)
[2023-02-11] MEDS: LEVOTHYROXINE SODIUM 112 MCG TABLET GT SCH (07:25)
[2023-02-11 07:40] LABS: ALBUMIN 3.6 g/dL (3.4-5.0); BILIRUBIN,TOTAL 0.5 mg/dL (0.2-1.0); CALCIUM, SERUM 9.5 mg/dL (8.5-10.1); CREATININE 1.2 mg/dL (0.6-1.3); POTASSIUM 3.8 mmol/L (3.5-5.1); TOTAL PROTEIN, SERUM 6.8 g/dL (6.4-8.2)
[2023-02-11 08:00] VITALS: BP 95/58
[2023-02-11] MEDS: GLYCOPYRROLATE 1 MG TABLET GT SCH ×3 (08:37→16:13)
[2023-02-11] MEDS: ALLOPURINOL 100 MG TABLET GT SCH (08:37)
[2023-02-11] MEDS: ASPIRIN 81 MG TAB.CHEW GT SCH (08:37)
[2023-02-11] MEDS: CHOLECALCIFEROL 1,000 UNIT TABLET (VIT D3) GT SCH (08:38)
[2023-02-11] MEDS: SERTRALINE HCL 50 MG TABLET GT SCH (08:38)
[2023-02-11] MEDS: PANTOPRAZOLE 40 MG/PACK PACK NG SCH ×2 (08:38→16:13)
[2023-02-11] MEDS: ATORVASTATIN 10 MG TABLET GT SCH (08:38)
[2023-02-11] MEDS: BACLOFEN (10 MG) 10 MG TABLET GT SCH ×2 (08:38→16:14)
[2023-02-11] MEDS: POLYETHYLENE GLYCOL 3350 17 GM POWD.PACK GT SCH ×2 (08:38→16:14)
[2023-02-11] MEDS: LOSARTAN POTASSIUM 50 MG TABLET GT SCH (08:40)
[2023-02-11] MEDS: AMLODIPINE BESYLATE 2.5 MG TABLET GT SCH (08:41)
[2023-02-11] MEDS: buPROPion 75 MG TABLET GT SCH ×2 (08:42→16:13)
[2023-02-11] MEDS: FENOFIBRATE NANOCRYS (145 MG) 145 MG TABLET GT SCH (08:45)
[2023-02-11] MEDS: CLOPIDOGREL BISULFATE 75 MG TABLET GT SCH (08:45)
[2023-02-11] MEDS ORDERED: SILODOSIN 4 MG GT SCH (09:00)
[2023-02-11 12:06] VITALS: BP 99/58
[2023-02-11] MEDS ORDERED: clonazePAM 0.5 MG TABLET PO SCH (13:30)
[2023-02-11 16:35] VITALS: BP 103/61
[2023-02-11] MEDS: TIZANIDINE HCL 4 MG TABLET GT SCH (17:08)
[2023-02-11] MEDS: TAMSULOSIN 0.4 MG CAP.SR.24H GT SCH (17:08)
[2023-02-11] MEDS: DOCUSATE SODIUM LIQ 100 MG/10 ML UDC GT SCH (17:08)
[2023-02-11] MEDS: FINASTERIDE (5 MG) 5 MG TABLET GT SCH (17:08)
--- NOTE | 2023-02-11 17:09 | NUR ---
RN NOTE COLACE WAS H9LD DUE TO PATIENT HAD LOOSE STOOL
[2023-02-11] MEDS ORDERED: clonazePAM 1 MG TABLET PO SCH (18:00)
--- NOTE | 2023-02-11 18:31 | NUR ---
RN CLOSING NOTES: PT IN BED, AWAKE, ALERT/ORIENTED X4 AND RESPONSIVE TO PAINFUL STIMULI. NON-VERBAL, ABLE TO MAKE HIS NEEDS BY WRITING. ON TRACH TO VENT SETTINGS: AC-18, TV-600, FIO2-50, PEEP-5. O2 SAT 100%. PT TOLERATED WELL. IV ACCESS ON RT HAND #20G INTACT AND PATENT. NO S/S OF INFILTRATIONS. NO C/O PAIN OR DISCOMFORT. NO ACUTE DISTRESS. ALL DUE MEDS GIVEN ORDERED. ALL SAFETY MEASURES IN PLACE. BED IN LOWEST POSITION AND LOCKED. SIDE RAILS UP X3, PLACE CALL LIGHT WITH IN REACH. WILL ENDORSE TO night time nanny NURSE.
--- NOTE | 2023-02-11 19:32 | NUR ---
RN OPENING NOTE; RECEIVED PT IN BED AT BED SIDE,AOX4 ABLE TO MAKE NEEDS KNOWN COMMUNICATE WITH WRITING,ON VENT ASSEST KALIN WELL SATING 98%,NO SOB/DISTRESS NOTED,NO COMPLAINE OF PAIN/DISCOMFORT AT THIS TIME.IV ACCESS ON R HAND 20G.INTACT AND PATENT,SAFETY MEASURE IN PLACE,CALL LIGHT WITHIN REACH,WILL CONTINUE TO MONITOR.
[2023-02-11 20:00] VITALS: BP 103/58
[2023-02-11] MEDS: TRAZODONE 50 MG TABLET GT SCH (21:20)
[2023-02-11] MEDS: MIRTAZAPINE 15 MG TABLET GT SCH (21:20)
--- NOTE | 2023-02-11 23:05 | NUR ---
RN NOTES; PT WAS INSISTING THAT HE WAS TAKING GLYCOPYRROLATE 2MG TID AT HOME,I TOLD HIM KIKO HANNAH B.CHANGE TO IMG TID.HE TOLD ME TO CALL TECHNOLOGY AND ENGINEERING TEACHER,I TOLD HIM NO TECHNOLOGY AND ENGINEERING TEACHER ANKITA,TOMORROW WILL ENDORSED IT,TELLER MANAGER WAS ALSO EXPLAINED TO HIM BUT HE DIDN'T LISTEN,I SPOKE TO LAI HANNAH K.REGARDING THE MEDS,SAID WAIT TOMORROW,KIKO HANNAH WILL BE HERE TOMORROW.PT STARTED TAKING OFF THE TUBE,I TOLD HIM DON'T TAKE IT OFF,I STARTED TO PUT IT BACK BUT HE STOP MY HAND,I CALLED THE TELLER MANAGER,SHE SAID TO PT,WE NEEDS TO PUT THE TUBE BACK,R.T.AT BED SIDE ALSO. TRYING TO PUT THE TUBE BACK,TELLER MANAGER SAID IF YOU DON'T WANT IT BACK THE TUBE,WE WILL RESTRAINT YOU.
[2023-02-12] VITALS: BP 126/60
--- NOTE | 2023-02-12 00:38 | NUR ---
RN NOTES; PATIENT PUT THE CALL LIGHT ALL THE TIME INSISTING TO CHANGE GLYCOPYRROLATE 1MG TO 2MG.I TOLD HIM,I TALKED TO ELEMENTARY SCHOOL TEACHER'S AIDE LAI HANNAH K,SAID WAIT TOMORROW MORNING,FANNY PEREZ,WILL BE HERE AND TALK TO HIM TO CHANGE THE DOSE MEDS.NURSING RURAL CARRIER,CHARGE NURSE,AWARE.
[2023-02-12] MEDS: IPRATROPIUM NEB FS 0.5 MG/2.5 ML AMPUL.NEB NEB SCH ×2 (01:04→08:26)
[2023-02-12] MEDS: ALBUTEROL FS 2.5 MG/3 ML VIAL.NEB NEB SCH ×2 (01:04→08:26)
[2023-02-12] MEDS ORDERED: LORAZEPAM INJ 2 MG/ML VIAL IV ONE (02:00)
--- NOTE | 2023-02-12 02:08 | NUR ---
RN NOTE; EB [NS],TALKED TO THE PT REGARDING THE MEDS THAT HE WANT,SHE EXPLAINED TO THE PT.AFTER EXPLAINED PT SAID ITS OK TO WAIT UNTIL TOMORROW MORNING,PT OK TO TAKE ATIVAN 1MG IV ONCE.
--- NOTE | 2023-02-12 02:26 | NUR ---
RN NOTE; TEXTED DOC,Conor HOYTPT WAS ANXIOUS,AND THROWING URINAL,PITCHER,WITH A NEW ORDER ATIVAN 1MG IV ONCE.CARRIED OUT.
--- NOTE | 2023-02-12 04:00 | NUR ---
RN NOTES; PT REFUSED V/S.
--- NOTE | 2023-02-12 04:07 | NUR ---
RN NOTES; PT TRYING TO PULL OUT THE TRACH,TRYING TO GET OUT FROM BED,
--- NOTE | 2023-02-12 06:28 | NUR ---
RN CLOSING NOTE; PT IN BED AAOX43 ABLE TO MAKE NEEDS KNOWN COMMUNICATE WITH WRITING,ON VENT ASSEST KALIN WELL SATING 99%,NO SOB/DISTRESS NOTED,NO COMPLAINE OF PAIN/DISCOMFORT DUING SHIFT,DUE MEDS GIVEN ORDER,ALL NEEDS ATTENDED.IV ACCESS ON R HAND 20G.INTACT AND PATENT,PT ON RESTRAINED NO REDNESS,SWOLLEN,FOLLOW PROTOCOL, SAFETY MEASURE IN PLACE,CALL LIGHT WITHIN REACH,WILL ENDORSE TO NEXT SHIFT.
--- NOTE | 2023-02-12 07:15 | NUR ---
RN OPENING NOTE; RECEIVED PT IN BED ,AOX4 ABLE TO MAKE NEEDS KNOWN COMMUNICATE WITH WRITING,ON VENT SUPPORT TOLERATING WELL SATING 98%,NO SOB/DISTRESS NOTED,NO COMPLAINS OF PAIN/DISCOMFORT AT THIS TIME.IV ACCESS ON R HAND 20G.INTACT AND PATENT,SAFETY MEASURE IN PLACE,CALL LIGHT WITHIN REACH,WILL CONTINUE TO MONITOR.
[2023-02-12 08:00] VITALS: BP 126/60
[2023-02-12] MEDS: SERTRALINE HCL 50 MG TABLET GT SCH (08:32)
[2023-02-12] MEDS: LEVOTHYROXINE SODIUM 112 MCG TABLET GT SCH (08:32)
[2023-02-12] MEDS: ASPIRIN 81 MG TAB.CHEW GT SCH (08:32)
[2023-02-12] MEDS: FENOFIBRATE NANOCRYS (145 MG) 145 MG TABLET GT SCH (08:32)
[2023-02-12] MEDS: PANTOPRAZOLE 40 MG/PACK PACK NG SCH (08:33)
[2023-02-12] MEDS: buPROPion 75 MG TABLET GT SCH (08:33)
[2023-02-12] MEDS: CHOLECALCIFEROL 1,000 UNIT TABLET (VIT D3) GT SCH (08:33)
[2023-02-12] MEDS: ATORVASTATIN 10 MG TABLET GT SCH (08:33)
[2023-02-12] MEDS: POLYETHYLENE GLYCOL 3350 17 GM POWD.PACK GT SCH (08:33)
[2023-02-12] MEDS: ALLOPURINOL 100 MG TABLET GT SCH (08:33)
[2023-02-12] MEDS: GLYCOPYRROLATE 1 MG TABLET GT SCH (08:33)
[2023-02-12] MEDS: BACLOFEN (10 MG) 10 MG TABLET GT SCH (08:33)
[2023-02-12] MEDS: CLOPIDOGREL BISULFATE 75 MG TABLET GT SCH (08:33)
[2023-02-12 08:34] VITALS: BP 97/67
[2023-02-12] MEDS: LOSARTAN POTASSIUM 50 MG TABLET GT SCH (08:34)
[2023-02-12] MEDS: AMLODIPINE BESYLATE 2.5 MG TABLET GT SCH (08:34)
[2023-02-12] MEDS ORDERED: clonazePAM 0.5 MG TABLET PO SCH (09:00)
--- NOTE | 2023-02-12 11:40 | NUR ---
RN NOTE PATIENT IS AT STABLE CONDITION , ORDER TO DISCHARGE PATIENT RECEIVED . DISCHARGE INSTRUCTIONS WERE PROVIDED TO THE EMT TEAM IN VERBAL AND IN PRINTING .PATIENT IS ACCOMPANY WITH THE RESPIRATORY THERAPIST .DISCHARGED FROM [facility]
== END 2023-02-12 11:30 | disposition home health service (06) | DRG 208 ==
LOC: ER 18:53 → TELE1 02-10 15:04
PROVIDERS: ADMIT Internal Medicine; ATTEND Internal Medicine
PROC: 5A1945Z Respiratory Ventilation, 24-96 Consecutive Hours (ICD-10-PCS; principal; 2023-02-10)
DX: J95.01 Hemorrhage from tracheostomy stoma (principal); Z99.11 Dependence on respirator [ventilator] status; G12.21 Amyotrophic lateral sclerosis; J96.10 Chronic respiratory failure, unspecified whether with hypoxia or hypercapnia; R04.2 Hemoptysis; Y84.8 Other medical procedures as the cause of abnormal reaction of the patient, or of later complication, without mention of misadventure at the time of the procedure; D64.9 Anemia, unspecified; I10 Essential (primary) hypertension; D63.8 Anemia in other chronic diseases classified elsewhere; Y92.009 Unspecified place in unspecified non-institutional (private) residence as the place of occurrence of the external cause; Z20.822 Contact with and (suspected) exposure to COVID-19; E03.9 Hypothyroidism, unspecified; E78.5 Hyperlipidemia, unspecified; F41.9 Anxiety disorder, unspecified; Z79.02 Long term (current) use of antithrombotics/antiplatelets; Z79.82 Long term (current) use of aspirin; Z79.899 Other long term (current) drug therapy; Z93.1 Gastrostomy status; R13.10 Dysphagia, unspecified
CPT/HCPCS: 31720; 36415; 71045-TC; 80048-TC; 80053-TC; 83735-TC; 84100-TC; 85025-TC; 85730-TC; 87081-TC; 94002-TC; 94003-TC; 94760-TC; 94799-TC; 99082-TC; C9803; G0378; J2060

== ENCOUNTER 2023-06-03 00:30 | Inpatient (IN) | payer MEDICARE, OTHER ==
[~2023-06-03] VITALS: Ht 165.1 cm; Wt 75.7 kg
[2023-06-03 01:16] LABS: CALCIUM, SERUM 10.2 mg/dL (8.5-10.1); CARBON DIOXIDE 25 mmol/L (21-32); CHLORIDE 103 mmol/L (98-107); CREATININE 1.4 mg/dL (0.6-1.3); GLUCOSE 137 mg/dL (74-106); POTASSIUM 4.3 mmol/L (3.5-5.1); SODIUM SERUM 139 mmol/L (136-145); UREA NITROGEN, BLOOD 31 mg/dL (7-18)
[2023-06-03 01:25] LABS: BASOPHILS % (AUTO) 0.1 % (0.0-2.0); EOSINOPHILS # (AUTO) 0.1 K/uL (0.0-0.7); EOSINOPHILS % (AUTO) 0.5 % (0.0-6.0); HEMATOCRIT 29 % (39-51); HEMOGLOBIN 9.3 g/dL (13.5-17.5); LYMPHOCYTES % (AUTO) 8.2 % (20.0-44.0); MEAN CORPUSCULAR HEMOGLOBIN 25 PG (26.0-33.0); MEAN CORPUSCULAR HGB CONC 32 g/dl (31.0-36.0); MEAN CORPUSCULAR VOLUME 79 fL (80-96); MONOCYTES # (AUTO) 0.3 K/uL (0.1-1.30); MONOCYTES % (AUTO) 2.4 % (2.0-12.0); NEUTROPHILS # (AUTO) 10.6 K/uL (1.8-8.9); NEUTROPHILS % (AUTO) 88.8 % (43.0-81.0); PLATELET COUNT (AUTO) 429 K/uL (150-450); RED BLOOD CELL COUNT(AUTO) 3.69 MIL/uL (4.5-6.0); RED CELL DISTRIBUTION WIDTH 15.9 % (11.5-15.0); WHITE BLOOD COUNT (AUTO) 11.9 K/uL (4.3-11.0)
[2023-06-03 01:29] LABS: ALANINE AMINOTRANSFERASE 41 U/L (12-78); ALBUMIN 4.1 g/dL (3.4-5.0); ALKALINE PHOSPHATASE 90 U/L (46-116); ASPARTATE AMINOTRANSFERASE 40 U/L (15-37); BILIRUBIN,DIRECT 0.2 mg/dL (0.0-0.2); BILIRUBIN,TOTAL 0.4 mg/dL (0.2-1.0); NT-PRO BNP 121 pg/mL (0-125); TOTAL PROTEIN, SERUM 8.5 g/dL (6.4-8.2)
[2023-06-03 01:33] LABS: INR 1.32 (0.91-1.10); PARTIAL THROMBOPLASTIN TIME 28.2 SEC (24.3-34.3); PROTHROMBIN TIME 13.6 SECS (9.2-11.1)
[2023-06-03] MEDS ORDERED: ASPIRIN 325 MG TABLET ONE (03:23)
[2023-06-03] MEDS ORDERED: ASPIRIN 325 MG TABLET GT ONE (03:30)
[2023-06-03 04:16] VITALS: O2SAT 99
[2023-06-03] MEDS ORDERED: ONDANSETRON HCL/PF 4 MG/2 ML VIAL IVP PRN (06:00)
[2023-06-03] MEDS ORDERED: ACETAMINOPHEN 325 MG TABLET PO PRN (06:00)
[2023-06-03] MEDS ORDERED: IV NS 0.9% 1,000 ML IV PRN (06:00)
[2023-06-03] MEDS: LEVOTHYROXINE SODIUM 112 MCG TABLET GT SCH (09:10)
[2023-06-03] MEDS: CLOPIDOGREL BISULFATE 75 MG TABLET GT SCH (09:12)
[2023-06-03] MEDS: CHOLECALCIFEROL 1,000 UNIT TABLET (VIT D3) GT SCH (09:12)
[2023-06-03] MEDS: PANTOPRAZOLE 40 MG/PACK PACK GT SCH ×2 (09:12→17:21)
[2023-06-03] MEDS: ATORVASTATIN 10 MG TABLET GT SCH (09:12)
[2023-06-03] MEDS: SERTRALINE HCL 50 MG TABLET GT SCH (09:12)
[2023-06-03] MEDS: FENOFIBRATE NANOCRYS (145 MG) 145 MG TABLET GT SCH (09:13)
[2023-06-03] MEDS: GLYCOPYRROLATE 1 MG TABLET GT SCH ×3 (09:13→17:21)
[2023-06-03] MEDS: ALLOPURINOL 100 MG TABLET GT SCH (09:13)
[2023-06-03] MEDS: BACLOFEN (10 MG) 10 MG TABLET GT SCH ×2 (09:14→17:20)
[2023-06-03] MEDS: ASPIRIN 81 MG TAB.CHEW GT SCH (09:14)
[2023-06-03] MEDS: ENOXAPARIN SODIUM 40 MG/0.4 ML DISP.SYRIN SQ SCH (09:21)
[2023-06-03 09:30] VITALS: BP 153/86; TEMP 98; O2SAT 98
[2023-06-03] MEDS: LOSARTAN POTASSIUM 50 MG TABLET GT SCH (09:32)
[2023-06-03] MEDS: AMLODIPINE BESYLATE 2.5 MG TABLET GT SCH (09:33)
[2023-06-03] MEDS: buPROPion 75 MG TABLET GT SCH ×2 (09:35→17:22)
[2023-06-03 12:00] VITALS: BP 109/71; TEMP 97.8; O2SAT 98
[2023-06-03 16:00] VITALS: BP 141/85; TEMP 98; O2SAT 100
[2023-06-03] MEDS: FINASTERIDE (5 MG) 5 MG TABLET GT SCH (17:21)
[2023-06-03] MEDS: TAMSULOSIN 0.4 MG CAP.SR.24H GT SCH (17:21)
[2023-06-03 21:21] VITALS: BP 131/74; TEMP 97.5; O2SAT 95
[2023-06-03] MEDS: MIRTAZAPINE 15 MG TABLET GT SCH (21:24)
[2023-06-03] MEDS: DOCUSATE SODIUM LIQ 100 MG/10 ML UDC GT SCH (21:24)
[2023-06-03] MEDS: clonazePAM 1 MG TABLET GT SCH (21:24)
[2023-06-04] VITALS: BP 104/60; TEMP 97.8; O2SAT 97
[2023-06-04 04:15] VITALS: BP 97/60; TEMP 97.9; O2SAT 98
[2023-06-04 07:00] VITALS: BP 121/72; TEMP 98.2; O2SAT 97
[2023-06-04 07:12] LABS: BASOPHILS % (AUTO) 0.1 % (0.0-2.0); EOSINOPHILS % (AUTO) 0.5 % (0.0-6.0); HEMATOCRIT 27 % (39-51); HEMOGLOBIN 8.7 g/dL (13.5-17.5); LYMPHOCYTES # (AUTO) 0.3 K/uL (0.8-4.8); LYMPHOCYTES % (AUTO) 2.8 % (20.0-44.0); MEAN CORPUSCULAR HEMOGLOBIN 25 PG (26.0-33.0); MEAN CORPUSCULAR HGB CONC 32 g/dl (31.0-36.0); MEAN CORPUSCULAR VOLUME 79 fL (80-96); MONOCYTES # (AUTO) 0.4 K/uL (0.1-1.30); MONOCYTES % (AUTO) 3.7 % (2.0-12.0); NEUTROPHILS # (AUTO) 9.3 K/uL (1.8-8.9); NEUTROPHILS % (AUTO) 92.9 % (43.0-81.0); PLATELET COUNT (AUTO) 371 K/uL (150-450); RED BLOOD CELL COUNT(AUTO) 3.43 MIL/uL (4.5-6.0); RED CELL DISTRIBUTION WIDTH 15.3 % (11.5-15.0)
[2023-06-04 07:42] LABS: ALBUMIN 3.7 g/dL (3.4-5.0); BILIRUBIN,TOTAL 0.8 mg/dL (0.2-1.0); CALCIUM, SERUM 10.2 mg/dL (8.5-10.1); CREATININE 0.9 mg/dL (0.6-1.3); MAGNESIUM 1.8 mg/dL (1.8-2.4); POTASSIUM 4.3 mmol/L (3.5-5.1); TOTAL PROTEIN, SERUM 7.8 g/dL (6.4-8.2)
[2023-06-04] MEDS ORDERED: FUROSEMIDE 40 MG/4 ML VIAL IV ONE (08:00)
[2023-06-04] MEDS: FENOFIBRATE NANOCRYS (145 MG) 145 MG TABLET GT SCH (09:58)
[2023-06-04] MEDS: ATORVASTATIN 10 MG TABLET GT SCH (09:58)
[2023-06-04] MEDS: CHOLECALCIFEROL 1,000 UNIT TABLET (VIT D3) GT SCH (09:58)
[2023-06-04] MEDS: SERTRALINE HCL 50 MG TABLET GT SCH (09:58)
[2023-06-04] MEDS: AMLODIPINE BESYLATE 2.5 MG TABLET GT SCH (09:59)
[2023-06-04] MEDS: GLYCOPYRROLATE 1 MG TABLET GT SCH ×3 (09:59→17:38)
[2023-06-04] MEDS: PANTOPRAZOLE 40 MG/PACK PACK GT SCH ×2 (09:59→17:38)
[2023-06-04] MEDS: ALLOPURINOL 100 MG TABLET GT SCH (09:59)
[2023-06-04] MEDS: CLOPIDOGREL BISULFATE 75 MG TABLET GT SCH (09:59)
[2023-06-04] MEDS: BACLOFEN (10 MG) 10 MG TABLET GT SCH ×2 (09:59→17:38)
[2023-06-04] MEDS: ASPIRIN 81 MG TAB.CHEW GT SCH (09:59)
[2023-06-04] MEDS: LOSARTAN POTASSIUM 50 MG TABLET GT SCH ×2 (10:00→20:30)
[2023-06-04] MEDS: ENOXAPARIN SODIUM 40 MG/0.4 ML DISP.SYRIN SQ SCH (10:01)
[2023-06-04] MEDS: LEVOTHYROXINE SODIUM 112 MCG TABLET GT SCH (10:07)
[2023-06-04] MEDS: buPROPion 75 MG TABLET GT SCH ×2 (10:08→17:38)
[2023-06-04 12:00] VITALS: BP 135/86; TEMP 98; O2SAT 98
[2023-06-04] MEDS ORDERED: JEVITY 1.2 CAL 1,000 ML BOTTLE GT PRN (14:00)
[2023-06-04] MEDS ORDERED: ACETAMINOPHEN 650 MG/20.3 ML UDC GT PRN (14:00)
[2023-06-04] MEDS: FUROSEMIDE 40 MG/4 ML VIAL IV SCH ×2 (14:25→20:55)
[2023-06-04 16:00] VITALS: BP 168/93; TEMP 98.2; O2SAT 94
[2023-06-04] MEDS: FINASTERIDE (5 MG) 5 MG TABLET GT SCH (17:38)
[2023-06-04] MEDS: clonazePAM 1 MG TABLET GT SCH (17:38)
[2023-06-04] MEDS: TAMSULOSIN 0.4 MG CAP.SR.24H GT SCH (17:39)
[2023-06-04 20:52] VITALS: BP 133/83; TEMP 97; O2SAT 96
[2023-06-04] MEDS: MIRTAZAPINE 15 MG TABLET GT SCH (21:04)
[2023-06-04] MEDS: DOCUSATE SODIUM LIQ 100 MG/10 ML UDC GT SCH (21:04)
[2023-06-05 00:43] VITALS: BP 132/77; TEMP 98.1; O2SAT 99
[2023-06-05 00:45] VITALS: BP 139/81; TEMP 98.1; O2SAT 96
[2023-06-05 07:26] LABS: CALCIUM, SERUM 10.7 mg/dL (8.5-10.1); CREATININE 1.2 mg/dL (0.6-1.3); POTASSIUM 3.6 mmol/L (3.5-5.1)
[2023-06-05 08:00] VITALS: BP 111/67; TEMP 99; O2SAT 98
[2023-06-05] MEDS: ALLOPURINOL 100 MG TABLET GT SCH (08:32)
[2023-06-05] MEDS: CHOLECALCIFEROL 1,000 UNIT TABLET (VIT D3) GT SCH (08:32)
[2023-06-05] MEDS: buPROPion 75 MG TABLET GT SCH ×2 (08:32→16:33)
[2023-06-05] MEDS: PANTOPRAZOLE 40 MG/PACK PACK GT SCH ×2 (08:33→16:33)
[2023-06-05] MEDS: SERTRALINE HCL 50 MG TABLET GT SCH (08:33)
[2023-06-05] MEDS: GLYCOPYRROLATE 1 MG TABLET GT SCH ×3 (08:34→16:33)
[2023-06-05] MEDS: ATORVASTATIN 10 MG TABLET GT SCH (08:34)
[2023-06-05] MEDS: ASPIRIN 81 MG TAB.CHEW GT SCH (08:34)
[2023-06-05] MEDS: BACLOFEN (10 MG) 10 MG TABLET GT SCH ×2 (08:34→16:33)
[2023-06-05] MEDS: LEVOTHYROXINE SODIUM 112 MCG TABLET GT SCH (08:35)
[2023-06-05] MEDS: FENOFIBRATE NANOCRYS (145 MG) 145 MG TABLET GT SCH (08:35)
[2023-06-05] MEDS: CLOPIDOGREL BISULFATE 75 MG TABLET GT SCH (08:35)
[2023-06-05] MEDS: LOSARTAN POTASSIUM 50 MG TABLET GT SCH ×2 (08:36→16:38)
[2023-06-05] MEDS: AMLODIPINE BESYLATE 2.5 MG TABLET GT SCH (08:36)
[2023-06-05] MEDS: ENOXAPARIN SODIUM 40 MG/0.4 ML DISP.SYRIN SQ SCH (08:38)
[2023-06-05] MEDS ORDERED: clonazePAM 0.5 MG TABLET PO STA (10:07)
[2023-06-05 12:00] VITALS: BP 98/58; TEMP 98.2; O2SAT 97
[2023-06-05 16:00] VITALS: BP 120/70; O2SAT 96
[2023-06-05 16:38] VITALS: BP 120/70
[2023-06-06 08:06] LABS: PTH, INTACT 14 pg/mL (15-65)
[2023-06-08 06:06] LABS: *SPE A/G RATIO 0.9 (0.7-1.7); *SPE ALBUMIN 3.4 g/dL (2.9-4.4); *SPE ALPHA-1-GLOBULIN 0.4 g/dL (0.0-0.4); *SPE ALPHA-2-GLOBULIN 1.3 g/dL (0.4-1.0); *SPE BETA GLOBULIN 1.2 g/dL (0.7-1.3); *SPE GLOBULIN, TOTAL 3.7 g/dL (2.2-3.9); *SPE M-SPIKE Not Observed g/dL (Not Observed); *SPE PROTEIN TOTAL 7.1 g/dL (6.0-8.5); *SPEGAMMA GLOBULIN 0.7 g/dL (0.4-1.8)
== END 2023-06-05 18:00 | disposition home or self-care (01) | DRG 208 ==
LOC: ER 00:34 → TRANSITION 04:20 → TELE 07:12
PROVIDERS: ADMIT Internal Medicine; ATTEND Internal Medicine
PROC: 5A1945Z Respiratory Ventilation, 24-96 Consecutive Hours (ICD-10-PCS; principal; 2023-06-03)
DX: J96.21 Acute and chronic respiratory failure with hypoxia (principal); I21.A1 Myocardial infarction type 2; J95.09 Other tracheostomy complication; G12.21 Amyotrophic lateral sclerosis; N17.9 Acute kidney failure, unspecified; Z99.11 Dependence on respirator [ventilator] status; J96.10 Chronic respiratory failure, unspecified whether with hypoxia or hypercapnia; D63.8 Anemia in other chronic diseases classified elsewhere; E03.9 Hypothyroidism, unspecified; E78.5 Hyperlipidemia, unspecified; E87.70 Fluid overload, unspecified; F41.9 Anxiety disorder, unspecified; E83.52 Hypercalcemia; E86.1 Hypovolemia; I10 Essential (primary) hypertension; N40.0 Benign prostatic hyperplasia without lower urinary tract symptoms; N13.9 Obstructive and reflux uropathy, unspecified; Z79.02 Long term (current) use of antithrombotics/antiplatelets; Z79.82 Long term (current) use of aspirin; Z79.899 Other long term (current) drug therapy; Z85.89 Personal history of malignant neoplasm of other organs and systems
CPT/HCPCS: 31720; 36415; 71045-TC; 80048-TC; 80053-TC; 80076-TC; 82550-TC; 82553; 83735-TC; 83880; 83970; 84100-TC; 84155; 84165; 84484-TC; 85025-TC; 85730-TC; 92526; 92611-TC; 94003-TC; 94760-TC; 94762-TC; 94799-TC; A4217; A4223; A7526; G0378; J1650; J1940; J2405; J7030

== ENCOUNTER 2023-06-09 21:54 | Inpatient (IN) | payer MEDICARE, OTHER ==
[~2023-06-09] VITALS: Ht 167.6 cm; Wt 74.8 kg
[~2023-06-09 21:54] MED LIST changes: -TUDCA GT
[2023-06-09 22:23] LABS: BASOPHILS % (AUTO) 0.1 % (0.0-2.0); EOSINOPHILS # (AUTO) 0.1 K/uL (0.0-0.7); EOSINOPHILS % (AUTO) 0.9 % (0.0-6.0); HEMATOCRIT 28 % (39-51); HEMOGLOBIN 8.9 g/dL (13.5-17.5); LYMPHOCYTES # (AUTO) 1.1 K/uL (0.8-4.8); LYMPHOCYTES % (AUTO) 11.5 % (20.0-44.0); MEAN CORPUSCULAR HEMOGLOBIN 25 PG (26.0-33.0); MEAN CORPUSCULAR HGB CONC 32 g/dl (31.0-36.0); MEAN CORPUSCULAR VOLUME 76 fL (80-96); MONOCYTES # (AUTO) 0.6 K/uL (0.1-1.30); MONOCYTES % (AUTO) 6.5 % (2.0-12.0); NEUTROPHILS # (AUTO) 7.8 K/uL (1.8-8.9); PLATELET COUNT (AUTO) 484 K/uL (150-450); RED BLOOD CELL COUNT(AUTO) 3.62 MIL/uL (4.5-6.0); WHITE BLOOD COUNT (AUTO) 9.6 K/uL (4.3-11.0)
[2023-06-09 22:44] LABS: CALCIUM, SERUM 11.4 mg/dL (8.5-10.1); CARBON DIOXIDE 30 mmol/L (21-32); CHLORIDE 97 mmol/L (98-107); CREATININE 2.9 mg/dL (0.6-1.3); GLUCOSE 119 mg/dL (74-106); SODIUM SERUM 137 mmol/L (136-145)
[2023-06-09 22:47] LABS: UREA NITROGEN, BLOOD 108 mg/dL (7-18)
[2023-06-09 22:49] LABS: INR 1.31 (0.91-1.10); PARTIAL THROMBOPLASTIN TIME 27.3 SEC (24.3-34.3); PROTHROMBIN TIME 13.5 SECS (9.2-11.1)
[2023-06-09 22:57] LABS: ALANINE AMINOTRANSFERASE 47 U/L (12-78); ALBUMIN 3.8 g/dL (3.4-5.0); ALKALINE PHOSPHATASE 93 U/L (46-116); ASPARTATE AMINOTRANSFERASE 33 U/L (15-37); BILIRUBIN,DIRECT 0.3 mg/dL (0.0-0.2); BILIRUBIN,TOTAL 0.5 mg/dL (0.2-1.0); NT-PRO BNP 309 pg/mL (0-125); TOTAL PROTEIN, SERUM 8.4 g/dL (6.4-8.2)
[2023-06-09] MEDS ORDERED: HYDROCODONE/APAP 5/325MG TABLET PO PRN (23:30)
[2023-06-09] MEDS ORDERED: ACETAMINOPHEN 325 MG TABLET PO PRN (23:30)
[2023-06-09] MEDS ORDERED: MAG HYDROX/AL HYDROX/SIMETH 30 ML UDC PO PRN (23:30)
[2023-06-09] MEDS ORDERED: ZOLPIDEM TARTRATE 5 MG TABLET PO PRN (23:30)
[2023-06-09] MEDS ORDERED: MAGNESIUM HYDROXIDE 30 ML UDC PO PRN (23:30)
[2023-06-09] MEDS ORDERED: Z GUARD REMEDY 4 OZ OINT TP PRN (23:30)
[2023-06-09] MEDS ORDERED: ONDANSETRON HCL/PF 4 MG/2 ML VIAL IVP PRN (23:30)
[2023-06-10] MEDS: IV 1/2NS 1000 ML 1,000 ML IV PRN ×2 (00:30→13:09)
[2023-06-10 05:54] LABS: BASOPHILS % (AUTO) 0.1 % (0.0-2.0); EOSINOPHILS % (AUTO) 0.2 % (0.0-6.0); HEMATOCRIT 26 % (39-51); HEMOGLOBIN 8.2 g/dL (13.5-17.5); LYMPHOCYTES # (AUTO) 0.2 K/uL (0.8-4.8); MEAN CORPUSCULAR HEMOGLOBIN 24 PG (26.0-33.0); MEAN CORPUSCULAR HGB CONC 32 g/dl (31.0-36.0); MEAN CORPUSCULAR VOLUME 76 fL (80-96); MONOCYTES # (AUTO) 0.5 K/uL (0.1-1.30); MONOCYTES % (AUTO) 4.5 % (2.0-12.0); NEUTROPHILS # (AUTO) 11.3 K/uL (1.8-8.9); NEUTROPHILS % (AUTO) 93.2 % (43.0-81.0); PLATELET COUNT (AUTO) 412 K/uL (150-450); RED BLOOD CELL COUNT(AUTO) 3.38 MIL/uL (4.5-6.0); RED CELL DISTRIBUTION WIDTH 15.8 % (11.5-15.0); WHITE BLOOD COUNT (AUTO) 12.1 K/uL (4.3-11.0)
[2023-06-10 06:15] LABS: CALCIUM, SERUM 10.8 mg/dL (8.5-10.1); CREATININE 2.2 mg/dL (0.6-1.3); MAGNESIUM 2.3 mg/dL (1.8-2.4); PHOSPHORUS 4.3 mg/dL (2.5-4.9)
[2023-06-10] MEDS ORDERED: ALBUTEROL FS 2.5 MG/0.5 ML VIAL.NEB NEB PRN (06:30)
[2023-06-10] MEDS ORDERED: IPRATROPIUM IH SCH (07:35)
[2023-06-10] MEDS ORDERED: ALBUTEROL SULFATE IH SCH (07:35)
[2023-06-10] MEDS ORDERED: GLYCOPYRROLATE 1 MG GT SCH (09:00)
[2023-06-10] MEDS ORDERED: LORAZEPAM 0.5 MG TABLET GT ONE (09:00)
[2023-06-10] MEDS ORDERED: SERTRALINE HCL 50 MG TABLET GT SCH (09:00)
[2023-06-10 09:20] VITALS: BP 166/79; TEMP 98.5; O2SAT 98
[2023-06-10 10:00] VITALS: BP 144/72; TEMP 98.4; O2SAT 97
[2023-06-10] MEDS: ASPIRIN 81 MG TAB.CHEW GT SCH (10:57)
[2023-06-10] MEDS: AMLODIPINE BESYLATE 2.5 MG TABLET GT SCH (10:58)
[2023-06-10] MEDS: ATORVASTATIN 10 MG TABLET GT SCH (10:58)
[2023-06-10] MEDS: BACLOFEN (10 MG) 10 MG TABLET GT SCH ×2 (10:59→17:20)
[2023-06-10] MEDS: ALLOPURINOL 100 MG TABLET GT SCH (10:59)
[2023-06-10] MEDS: CHOLECALCIFEROL 1,000 UNIT TABLET (VIT D3) GT SCH (11:00)
[2023-06-10] MEDS: CLOPIDOGREL BISULFATE 75 MG TABLET GT SCH (11:01)
[2023-06-10] MEDS: LEVOTHYROXINE SODIUM 112 MCG TABLET GT SCH (11:01)
[2023-06-10] MEDS: PANTOPRAZOLE 40 MG TABLET.DR PO SCH (11:01)
[2023-06-10] MEDS: buPROPion 75 MG TABLET GT SCH ×2 (11:02→17:21)
[2023-06-10 12:00] VITALS: BP 82/53; TEMP 97.7; O2SAT 100
[2023-06-10] MEDS: GLYCOPYRROLATE 1 MG TABLET GT SCH ×2 (12:56→17:21)
[2023-06-10] MEDS: IPRATROPIUM NEB FS 0.5 MG/2.5 ML AMPUL.NEB NEB SCH ×2 (14:07→20:18)
[2023-06-10] MEDS: ALBUTEROL FS 2.5 MG/3 ML VIAL.NEB NEB SCH ×2 (14:07→20:18)
[2023-06-10 15:11] LABS: CREATININE, URINE 52.4 MG/DL (30.0-125.0); URINE TOTAL PROTEIN 37.6 mg/dL (0-11.9)
[2023-06-10 15:37] LABS: APPEARANCE,URINE CLEAR (CLEAR); BILIRUBIN,URINE NEGATIVE (NEGATIVE); BLOOD, URINE NEGATIVE Ery/uL (NEGATIVE); COLOR,URINE YELLOW (YELLOW); KETONES,URINE NEGATIVE (NEGATIVE); LEUKOCYTE ESTERASE ,URINE NEGATIVE (NEGATIVE); NITRITE, URINE NEGATIVE (NEGATIVE); PH,URINE 7.5 (5.0-8.0); PROTEIN,URINE TRACE mg/dl (NEGATIVE); UGLUCOSE NEGATIVE (NEGATIVE); UROBILINOGEN,URINE 0.2 EU/dL (0.2)
[2023-06-10 15:48] LABS: ADD URINE CULTURE NO; BACTERIA,URINE 1+ /HPF (None Seen); MUCUS,URINE Many /LPF (None Seen); RBC,URINE 0-2 /HPF (0-2); URINE AMORPHOUS PHOSPHATES Few /HPF (None Seen); WBC,URINE 0-2 /HPF (0-3)
[2023-06-10] MEDS ORDERED: ZINC50TA69 PO (15:53)
[2023-06-10] MEDS ORDERED: NITR0.4T48 SL (15:53)
[2023-06-10] MEDS ORDERED: Serrapeptase GT (15:53)
[2023-06-10] MEDS ORDERED: MAGN400T26 GT (15:53)
[2023-06-10] MEDS ORDERED: GUAI400T90 PO (15:53)
[2023-06-10] MEDS ORDERED: OMEG1CAP40 PO (15:53)
[2023-06-10] MEDS ORDERED: [UNRECOGNIZED DRUG - CODE] PO (15:53)
[2023-06-10] MEDS ORDERED: GLYC2TAB21 GT (15:53)
[2023-06-10] MEDS ORDERED: CLON0.5T4 PO (15:53)
[2023-06-10] MEDS ORDERED: MULT-1168 GT (15:53)
[2023-06-10] MEDS ORDERED: [UNRECOGNIZED DRUG - CODE] PO (15:53)
[2023-06-10 16:00] VITALS: BP 104/57; TEMP 97.8; O2SAT 100
[2023-06-10] MEDS ORDERED: NIFE20CA PO (16:06)
[2023-06-10] MEDS ORDERED: ACETYLCYSTEINE 600 MG PO SCH (17:00)
[2023-06-10] MEDS ORDERED: GLYCOPYRROLATE 1 MG TABLET GT SCH (17:00)
[2023-06-10] MEDS ORDERED: NIFEdipine (10MG) 10 MG CAPSULE PO PRN (17:00)
[2023-06-10 17:13] LABS: EOSINOPHIL,URINE None Seen
[2023-06-10] MEDS: DOCUSATE SODIUM LIQ 100 MG/10 ML UDC GT SCH (17:20)
[2023-06-10] MEDS: TAMSULOSIN 0.4 MG CAP.SR.24H GT SCH (17:20)
[2023-06-10] MEDS: clonazePAM 0.5 MG TABLET PO SCH (17:21)
[2023-06-10] MEDS: RILUZOLE 50 MG GT SCH (17:21)
[2023-06-10] MEDS: FINASTERIDE (5 MG) 5 MG TABLET GT SCH (17:21)
[2023-06-10] MEDS: TIZANIDINE HCL 4 MG TABLET GT SCH (17:21)
[2023-06-10] MEDS: NEPRO 1,000 ML BOTTLE GT PRN (19:15)
[2023-06-10 20:00] VITALS: BP 91/58; TEMP 97.8; O2SAT 99
[2023-06-10] MEDS: TRAZODONE 50 MG TABLET GT SCH (21:17)
[2023-06-10] MEDS: MIRTAZAPINE 15 MG TABLET GT SCH (21:17)
[2023-06-10] MEDS: clonazePAM 1 MG TABLET GT SCH (21:17)
[2023-06-11] VITALS: BP 96/53; TEMP 97.5; O2SAT 99
[2023-06-11] MEDS: IPRATROPIUM NEB FS 0.5 MG/2.5 ML AMPUL.NEB NEB SCH ×4 (00:51→19:34)
[2023-06-11] MEDS: ALBUTEROL FS 2.5 MG/3 ML VIAL.NEB NEB SCH ×4 (00:51→19:35)
[2023-06-11] MEDS: IV 1/2NS 1000 ML 1,000 ML IV PRN ×2 (01:52→14:35)
[2023-06-11 04:00] VITALS: BP 106/41; TEMP 98.3; O2SAT 99
[2023-06-11 06:54] LABS: BASOPHILS % (AUTO) 0.1 % (0.0-2.0); EOSINOPHILS % (AUTO) 0.3 % (0.0-6.0); HEMATOCRIT 23 % (39-51); HEMOGLOBIN 7.2 g/dL (13.5-17.5); LYMPHOCYTES # (AUTO) 0.4 K/uL (0.8-4.8); LYMPHOCYTES % (AUTO) 2.7 % (20.0-44.0); MEAN CORPUSCULAR HEMOGLOBIN 25 PG (26.0-33.0); MEAN CORPUSCULAR HGB CONC 31 g/dl (31.0-36.0); MEAN CORPUSCULAR VOLUME 79 fL (80-96); MONOCYTES # (AUTO) 0.5 K/uL (0.1-1.30); MONOCYTES % (AUTO) 3.6 % (2.0-12.0); NEUTROPHILS # (AUTO) 14.1 K/uL (1.8-8.9); NEUTROPHILS % (AUTO) 93.3 % (43.0-81.0); PLATELET COUNT (AUTO) 301 K/uL (150-450); RED BLOOD CELL COUNT(AUTO) 2.91 MIL/uL (4.5-6.0); RED CELL DISTRIBUTION WIDTH 16.1 % (11.5-15.0); WHITE BLOOD COUNT (AUTO) 15.2 K/uL (4.3-11.0)
[2023-06-11 07:32] LABS: ALBUMIN 2.9 g/dL (3.4-5.0); BILIRUBIN,TOTAL 0.4 mg/dL (0.2-1.0); CREATININE 1.5 mg/dL (0.6-1.3); MAGNESIUM 2.5 mg/dL (1.8-2.4); PHOSPHORUS 3.4 mg/dL (2.5-4.9); TOTAL PROTEIN, SERUM 6.7 g/dL (6.4-8.2)
[2023-06-11 08:00] VITALS: BP 90/55; TEMP 97.7; O2SAT 99
[2023-06-11] MEDS: LEVOTHYROXINE SODIUM 112 MCG TABLET GT SCH (08:15)
[2023-06-11] MEDS: GLYCOPYRROLATE 1 MG TABLET GT SCH ×3 (08:15→17:26)
[2023-06-11] MEDS: MULTIPLE VIT (LYCOPENE/FA/MV,CA,IRON,MIN/LUT)1 TAB GT SCH (08:15)
[2023-06-11] MEDS: CLOPIDOGREL BISULFATE 75 MG TABLET GT SCH (08:15)
[2023-06-11] MEDS: SERTRALINE HCL 50 MG TABLET GT SCH (08:15)
[2023-06-11] MEDS: ASPIRIN 81 MG TAB.CHEW GT SCH (08:16)
[2023-06-11] MEDS: ALLOPURINOL 100 MG TABLET GT SCH (08:16)
[2023-06-11] MEDS: PANTOPRAZOLE 40 MG TABLET.DR PO SCH (08:17)
[2023-06-11] MEDS: ATORVASTATIN 10 MG TABLET GT SCH (08:17)
[2023-06-11] MEDS: CHOLECALCIFEROL 1,000 UNIT TABLET (VIT D3) GT SCH (08:17)
[2023-06-11] MEDS: BACLOFEN (10 MG) 10 MG TABLET GT SCH ×2 (08:18→17:27)
[2023-06-11] MEDS: clonazePAM 0.5 MG TABLET PO SCH ×2 (08:18→17:27)
[2023-06-11] MEDS: SILODOSIN 4 MG GT SCH (08:19)
[2023-06-11] MEDS: FENOFIBRATE NANOCRYS (145 MG) 145 MG TABLET GT SCH (08:19)
[2023-06-11] MEDS: RILUZOLE 50 MG GT SCH ×2 (08:20→17:28)
[2023-06-11] MEDS: buPROPion 75 MG TABLET GT SCH ×2 (08:21→17:27)
[2023-06-11] MEDS: GUAIFENESIN 300 MG/15 ML UDC GT SCH ×4 (08:21→21:41)
[2023-06-11] MEDS: AMLODIPINE BESYLATE 2.5 MG TABLET GT SCH (08:21)
[2023-06-11] MEDS: ZINC SULFATE 220 MG CAPSULE GT SCH (08:22)
[2023-06-11] MEDS ORDERED: Medication Not On Formulary EA (Omega-3 Fatty Acids/Fish Oil (Omega 3 1,000 Mg Softgel) PO SCH (09:00)
[2023-06-11] MEDS ORDERED: MAGNESIUM OXIDE 400 MG TABLET GT SCH (09:00)
[2023-06-11 12:00] VITALS: BP 91/50; TEMP 97.6; O2SAT 99
[2023-06-11 16:00] VITALS: BP 98/55; TEMP 97.8; O2SAT 99
[2023-06-11] MEDS: TAMSULOSIN 0.4 MG CAP.SR.24H GT SCH (17:26)
[2023-06-11] MEDS: DOCUSATE SODIUM LIQ 100 MG/10 ML UDC GT SCH (17:26)
[2023-06-11] MEDS: TIZANIDINE HCL 4 MG TABLET GT SCH (17:27)
[2023-06-11] MEDS: FINASTERIDE (5 MG) 5 MG TABLET GT SCH (17:28)
[2023-06-11 20:00] VITALS: BP 108/68; TEMP 97.9; O2SAT 100
[2023-06-11] MEDS: CEFEPIME 1 GM in IV D5W 50 ML IV SCH (20:36)
[2023-06-11] MEDS: MIRTAZAPINE 15 MG TABLET GT SCH (21:41)
[2023-06-11] MEDS: clonazePAM 1 MG TABLET GT SCH (21:41)
[2023-06-11] MEDS: VANCOMYCIN 0.75 GM in IV D5W 250 ML IV SCH (21:41)
[2023-06-11] MEDS: TRAZODONE 50 MG TABLET GT SCH (21:41)
[2023-06-12] VITALS (39 sets, daily range): BP systolic 71–162; BP diastolic 6–88; TEMP 97.5–98.4; O2SAT 98–100
[2023-06-12] MEDS: ALBUTEROL FS 2.5 MG/3 ML VIAL.NEB NEB SCH ×4 (01:14→19:42)
[2023-06-12] MEDS: IPRATROPIUM NEB FS 0.5 MG/2.5 ML AMPUL.NEB NEB SCH ×4 (01:14→19:42)
[2023-06-12] MEDS: GUAIFENESIN 300 MG/15 ML UDC GT SCH ×6 (02:32→20:42)
[2023-06-12] MEDS: NEPRO 1,000 ML BOTTLE GT PRN ×2 (03:05→20:54)
[2023-06-12] MEDS: CEFEPIME 1 GM in IV D5W 50 ML IV SCH ×2 (04:56→12:08)
[2023-06-12] MEDS: IV 1/2NS 1000 ML 1,000 ML IV PRN (05:54)
[2023-06-12 06:06] LABS: PTH, INTACT 10 pg/mL (15-65)
[2023-06-12 07:24] LABS: BASOPHILS % (AUTO) 0.1 % (0.0-2.0); EOSINOPHILS # (AUTO) 0.1 K/uL (0.0-0.7); EOSINOPHILS % (AUTO) 0.7 % (0.0-6.0); HEMATOCRIT 23 % (39-51); HEMOGLOBIN 7.2 g/dL (13.5-17.5); LYMPHOCYTES # (AUTO) 0.4 K/uL (0.8-4.8); LYMPHOCYTES % (AUTO) 3.1 % (20.0-44.0); MEAN CORPUSCULAR HEMOGLOBIN 24 PG (26.0-33.0); MEAN CORPUSCULAR HGB CONC 31 g/dl (31.0-36.0); MEAN CORPUSCULAR VOLUME 77 fL (80-96); MONOCYTES # (AUTO) 0.4 K/uL (0.1-1.30); MONOCYTES % (AUTO) 3.3 % (2.0-12.0); NEUTROPHILS # (AUTO) 10.9 K/uL (1.8-8.9); NEUTROPHILS % (AUTO) 92.8 % (43.0-81.0); PLATELET COUNT (AUTO) 340 K/uL (150-450); RED BLOOD CELL COUNT(AUTO) 2.99 MIL/uL (4.5-6.0); WHITE BLOOD COUNT (AUTO) 11.7 K/uL (4.3-11.0)
[2023-06-12 07:43] LABS: BILIRUBIN,TOTAL 0.4 mg/dL (0.2-1.0); CREATININE 1.4 mg/dL (0.6-1.3); MAGNESIUM 1.9 mg/dL (1.8-2.4); PHOSPHORUS 2.7 mg/dL (2.5-4.9); POTASSIUM 3.7 mmol/L (3.5-5.1)
[2023-06-12] MEDS: VANCOMYCIN 0.75 GM in IV D5W 250 ML IV SCH ×2 (08:51→20:42)
[2023-06-12] MEDS: ALLOPURINOL 100 MG TABLET GT SCH (09:21)
[2023-06-12] MEDS: SERTRALINE HCL 50 MG TABLET GT SCH (09:21)
[2023-06-12] MEDS: ZINC SULFATE 220 MG CAPSULE GT SCH (09:21)
[2023-06-12] MEDS: MULTIPLE VIT (LYCOPENE/FA/MV,CA,IRON,MIN/LUT)1 TAB GT SCH (09:22)
[2023-06-12] MEDS: FENOFIBRATE NANOCRYS (145 MG) 145 MG TABLET GT SCH (09:22)
[2023-06-12] MEDS: BACLOFEN (10 MG) 10 MG TABLET GT SCH ×2 (09:22→16:19)
[2023-06-12] MEDS: CHOLECALCIFEROL 1,000 UNIT TABLET (VIT D3) GT SCH (09:22)
[2023-06-12] MEDS: buPROPion 75 MG TABLET GT SCH ×2 (09:22→16:19)
[2023-06-12] MEDS: ATORVASTATIN 10 MG TABLET GT SCH (09:23)
[2023-06-12] MEDS: clonazePAM 0.5 MG TABLET PO SCH ×2 (09:23→16:15)
[2023-06-12] MEDS: SILODOSIN 4 MG GT SCH (09:24)
[2023-06-12] MEDS: AMLODIPINE BESYLATE 2.5 MG TABLET GT SCH (09:24)
[2023-06-12] MEDS: ASPIRIN 81 MG TAB.CHEW GT SCH (09:24)
[2023-06-12] MEDS: CLOPIDOGREL BISULFATE 75 MG TABLET GT SCH (09:24)
[2023-06-12] MEDS: RILUZOLE 50 MG GT SCH ×2 (09:24→16:23)
[2023-06-12] MEDS: GLYCOPYRROLATE 1 MG TABLET GT SCH ×3 (09:25→16:19)
[2023-06-12] MEDS: LEVOTHYROXINE SODIUM 112 MCG TABLET GT SCH (09:27)
[2023-06-12] MEDS: PANTOPRAZOLE 40 MG TABLET.DR PO SCH (09:27)
[2023-06-12] MEDS: PROPOFOL 100 ML IV PRN ×3 (10:35→23:52)
[2023-06-12] MEDS: IV NS 0.9% 1,000 ML IV PRN ×2 (11:09→19:32)
[2023-06-12 12:25] LABS: BASOPHILS % (AUTO) 0.2 % (0.0-2.0); EOSINOPHILS % (AUTO) 0.1 % (0.0-6.0); HEMATOCRIT 22 % (39-51); LYMPHOCYTES # (AUTO) 0.1 K/uL (0.8-4.8); LYMPHOCYTES % (AUTO) 0.7 % (20.0-44.0); MEAN CORPUSCULAR HEMOGLOBIN 24 PG (26.0-33.0); MEAN CORPUSCULAR HGB CONC 31 g/dl (31.0-36.0); MEAN CORPUSCULAR VOLUME 76 fL (80-96); MONOCYTES # (AUTO) 0.4 K/uL (0.1-1.30); MONOCYTES % (AUTO) 2.4 % (2.0-12.0); NEUTROPHILS # (AUTO) 14.2 K/uL (1.8-8.9); NEUTROPHILS % (AUTO) 96.6 % (43.0-81.0); PLATELET COUNT (AUTO) 369 K/uL (150-450); RED BLOOD CELL COUNT(AUTO) 2.91 MIL/uL (4.5-6.0); RED CELL DISTRIBUTION WIDTH 15.9 % (11.5-15.0); WHITE BLOOD COUNT (AUTO) 14.7 K/uL (4.3-11.0)
[2023-06-12 12:44] LABS: HEMOGLOBIN 6.9 g/dL (13.5-17.5)
[2023-06-12] MEDS ORDERED: IV NS 0.9% 500 ML IV ONE (13:00)
[2023-06-12] MEDS: NOREPINEPHRINE 8 MG in IV NS 0.9% 242 ML IV PRN (13:15)
[2023-06-12 15:14] LABS: ABG BASE EXCESS -2.5 mmol/L; ABG OXYGEN SATURATION 97.4 % (92.0-98.5); ABG PCO2 37.3 mmHg (35.0-45.0); ABG PH 7.391 (7.350-7.450); ABG PO2 101.9 mmHg (75.0-100.0); ABG TOTAL HEMOGLOBIN 7.6 G/dL (13.5-18.0); AaDO2 212.6 mmHg; COHb 1.5 % (0.5-1.5); MetHb 0.3 % (0.0-1.5); O2Hb 95.6 % (94.0-97.0); PEEP,BG 5 cm H2O; SITE, ABG Right Radial; VT, ABG 500 mL
[2023-06-12 16:00] LABS: LYMPHOCYTES % (MANUAL) 2 % (16-48); MONOCYTES % (MANUAL) 4 % (0-11.0); NEUTROPHILS % (MANUAL) 94 (42-76); PLATELET ESTIMATE ADEQUATE
[2023-06-12 16:01] LABS: ANISOCYTOSIS 1+; HYPOCHROMASIA 1+
[2023-06-12] MEDS: TAMSULOSIN 0.4 MG CAP.SR.24H GT SCH (17:16)
[2023-06-12] MEDS: TIZANIDINE HCL 4 MG TABLET GT SCH (17:16)
[2023-06-12] MEDS: FINASTERIDE (5 MG) 5 MG TABLET GT SCH (17:17)
[2023-06-12] MEDS: DOCUSATE SODIUM LIQ 100 MG/10 ML UDC GT SCH (17:17)
[2023-06-12] MEDS: MIRTAZAPINE 15 MG TABLET GT SCH (21:00)
[2023-06-12] MEDS: TRAZODONE 50 MG TABLET GT SCH (21:00)
[2023-06-12] MEDS: clonazePAM 1 MG TABLET GT SCH (21:00)
[2023-06-12] MEDS: CEFEPIME 2 GM in IV D5W 100 ML IV SCH (23:52)
[2023-06-13] VITALS (39 sets, daily range): BP systolic 86–147; BP diastolic 56–80; TEMP 97.6–98.1; O2SAT 93–100
[2023-06-13] MEDS: ALBUTEROL FS 2.5 MG/3 ML VIAL.NEB NEB SCH ×4 (01:08→19:44)
[2023-06-13] MEDS: IPRATROPIUM NEB FS 0.5 MG/2.5 ML AMPUL.NEB NEB SCH ×4 (01:08→19:44)
[2023-06-13] MEDS: GUAIFENESIN 300 MG/15 ML UDC GT SCH ×6 (01:11→21:58)
[2023-06-13] MEDS: NOREPINEPHRINE 8 MG in IV NS 0.9% 242 ML IV PRN (01:17)
[2023-06-13 05:00] LABS: BASOPHILS % (AUTO) 0.2 % (0.0-2.0); EOSINOPHILS # (AUTO) 0.1 K/uL (0.0-0.7); EOSINOPHILS % (AUTO) 0.8 % (0.0-6.0); HEMATOCRIT 24 % (39-51); HEMOGLOBIN 7.7 g/dL (13.5-17.5); LYMPHOCYTES # (AUTO) 0.4 K/uL (0.8-4.8); LYMPHOCYTES % (AUTO) 3.7 % (20.0-44.0); MEAN CORPUSCULAR HEMOGLOBIN 25 PG (26.0-33.0); MEAN CORPUSCULAR HGB CONC 32 g/dl (31.0-36.0); MEAN CORPUSCULAR VOLUME 78 fL (80-96); MONOCYTES # (AUTO) 0.5 K/uL (0.1-1.30); MONOCYTES % (AUTO) 4.1 % (2.0-12.0); NEUTROPHILS # (AUTO) 10.1 K/uL (1.8-8.9); NEUTROPHILS % (AUTO) 91.2 % (43.0-81.0); PLATELET COUNT (AUTO) 398 K/uL (150-450); RED BLOOD CELL COUNT(AUTO) 3.05 MIL/uL (4.5-6.0); RED CELL DISTRIBUTION WIDTH 16.1 % (11.5-15.0); WHITE BLOOD COUNT (AUTO) 11.1 K/uL (4.3-11.0)
[2023-06-13 05:09] LABS: POTASSIUM 3.6 mmol/L (3.5-5.1)
[2023-06-13] MEDS: PROPOFOL 100 ML IV PRN ×3 (06:02→21:56)
[2023-06-13] MEDS: IV NS 0.9% 1,000 ML IV PRN ×2 (06:02→20:29)
[2023-06-13] MEDS: AMLODIPINE BESYLATE 5 MG TABLET GT SCH (09:00)
[2023-06-13] MEDS: SERTRALINE HCL 50 MG TABLET GT SCH (09:34)
[2023-06-13] MEDS: SILODOSIN 4 MG GT SCH (09:34)
[2023-06-13] MEDS: MULTIPLE VIT (LYCOPENE/FA/MV,CA,IRON,MIN/LUT)1 TAB GT SCH (09:34)
[2023-06-13] MEDS: RILUZOLE 50 MG GT SCH ×2 (09:34→17:19)
[2023-06-13] MEDS: clonazePAM 0.5 MG TABLET PO SCH ×2 (09:35→17:17)
[2023-06-13] MEDS: ATORVASTATIN 10 MG TABLET GT SCH (09:35)
[2023-06-13] MEDS: buPROPion 75 MG TABLET GT SCH ×2 (09:35→17:17)
[2023-06-13] MEDS: ASPIRIN 81 MG TAB.CHEW GT SCH (09:36)
[2023-06-13] MEDS: PANTOPRAZOLE 40 MG TABLET.DR PO SCH (09:36)
[2023-06-13] MEDS: ZINC SULFATE 220 MG CAPSULE GT SCH (09:36)
[2023-06-13] MEDS: ALLOPURINOL 100 MG TABLET GT SCH (09:36)
[2023-06-13] MEDS: GLYCOPYRROLATE 1 MG TABLET GT SCH ×3 (09:36→17:17)
[2023-06-13] MEDS: BACLOFEN (10 MG) 10 MG TABLET GT SCH ×2 (09:36→17:17)
[2023-06-13] MEDS: LEVOTHYROXINE SODIUM 112 MCG TABLET GT SCH (09:36)
[2023-06-13] MEDS: CHOLECALCIFEROL 1,000 UNIT TABLET (VIT D3) GT SCH (09:36)
[2023-06-13] MEDS: FENOFIBRATE NANOCRYS (145 MG) 145 MG TABLET GT SCH (09:39)
[2023-06-13] MEDS: VANCOMYCIN 0.75 GM in IV D5W 250 ML IV SCH ×2 (09:44→21:39)
[2023-06-13] MEDS: CEFEPIME 2 GM in IV D5W 100 ML IV SCH (12:25)
[2023-06-13] MEDS: DOCUSATE SODIUM LIQ 100 MG/10 ML UDC GT SCH (17:16)
[2023-06-13] MEDS: TAMSULOSIN 0.4 MG CAP.SR.24H GT SCH (17:17)
[2023-06-13] MEDS: TIZANIDINE HCL 4 MG TABLET GT SCH (17:17)
[2023-06-13] MEDS: FINASTERIDE (5 MG) 5 MG TABLET GT SCH (17:17)
[2023-06-13] MEDS: TRAZODONE 50 MG TABLET GT SCH (21:39)
[2023-06-13] MEDS: clonazePAM 1 MG TABLET GT SCH (21:40)
[2023-06-13] MEDS: MIRTAZAPINE 15 MG TABLET GT SCH (21:59)
[2023-06-14] VITALS (40 sets, daily range): BP systolic 68–156; BP diastolic 46–124; TEMP 97.9–98.4; O2SAT 91–100
[2023-06-14] MEDS: GUAIFENESIN 300 MG/15 ML UDC GT SCH ×6 (00:23→21:41)
[2023-06-14] MEDS: CEFEPIME 2 GM in IV D5W 100 ML IV SCH ×2 (00:23→14:22)
[2023-06-14] MEDS: ALBUTEROL FS 2.5 MG/3 ML VIAL.NEB NEB SCH ×4 (01:21→19:54)
[2023-06-14] MEDS: IPRATROPIUM NEB FS 0.5 MG/2.5 ML AMPUL.NEB NEB SCH ×4 (01:21→19:53)
[2023-06-14 05:16] LABS: BASOPHILS % (AUTO) 0.2 % (0.0-2.0); EOSINOPHILS # (AUTO) 0.1 K/uL (0.0-0.7); EOSINOPHILS % (AUTO) 1.4 % (0.0-6.0); HEMATOCRIT 23 % (39-51); HEMOGLOBIN 7.5 g/dL (13.5-17.5); LYMPHOCYTES # (AUTO) 0.4 K/uL (0.8-4.8); MEAN CORPUSCULAR HEMOGLOBIN 25 PG (26.0-33.0); MEAN CORPUSCULAR HGB CONC 32 g/dl (31.0-36.0); MEAN CORPUSCULAR VOLUME 78 fL (80-96); MONOCYTES # (AUTO) 0.5 K/uL (0.1-1.30); MONOCYTES % (AUTO) 4.6 % (2.0-12.0); NEUTROPHILS # (AUTO) 8.9 K/uL (1.8-8.9); NEUTROPHILS % (AUTO) 89.8 % (43.0-81.0); PLATELET COUNT (AUTO) 430 K/uL (150-450); WHITE BLOOD COUNT (AUTO) 9.9 K/uL (4.3-11.0)
[2023-06-14 05:26] LABS: CALCIUM, SERUM 9.9 mg/dL (8.5-10.1); CREATININE 0.8 mg/dL (0.6-1.3); POTASSIUM 3.5 mmol/L (3.5-5.1)
[2023-06-14] MEDS: PROPOFOL 100 ML IV PRN ×4 (06:33→22:01)
[2023-06-14 08:06] LABS: *SPE A/G RATIO 0.8 (0.7-1.7); *SPE ALBUMIN 2.8 g/dL (2.9-4.4); *SPE ALPHA-1-GLOBULIN 0.4 g/dL (0.0-0.4); *SPE ALPHA-2-GLOBULIN 1.2 g/dL (0.4-1.0); *SPE BETA GLOBULIN 1.1 g/dL (0.7-1.3); *SPE GLOBULIN, TOTAL 3.4 g/dL (2.2-3.9); *SPE M-SPIKE Not Observed g/dL (Not Observed); *SPE PROTEIN TOTAL 6.2 g/dL (6.0-8.5); *SPEGAMMA GLOBULIN 0.7 g/dL (0.4-1.8)
[2023-06-14] MEDS: NOREPINEPHRINE 8 MG in IV NS 0.9% 242 ML IV PRN (08:28)
[2023-06-14] MEDS: buPROPion 75 MG TABLET GT SCH ×2 (08:38→17:25)
[2023-06-14] MEDS: SERTRALINE HCL 50 MG TABLET GT SCH (08:39)
[2023-06-14] MEDS: SILODOSIN 4 MG GT SCH (08:39)
[2023-06-14] MEDS: ASPIRIN 81 MG TAB.CHEW GT SCH (08:39)
[2023-06-14] MEDS: ATORVASTATIN 10 MG TABLET GT SCH (08:39)
[2023-06-14] MEDS: FENOFIBRATE NANOCRYS (145 MG) 145 MG TABLET GT SCH (08:39)
[2023-06-14] MEDS: RILUZOLE 50 MG GT SCH ×2 (08:39→17:26)
[2023-06-14] MEDS: MULTIPLE VIT (LYCOPENE/FA/MV,CA,IRON,MIN/LUT)1 TAB GT SCH (08:39)
[2023-06-14] MEDS: ALLOPURINOL 100 MG TABLET GT SCH (08:40)
[2023-06-14] MEDS: CHOLECALCIFEROL 1,000 UNIT TABLET (VIT D3) GT SCH (08:41)
[2023-06-14] MEDS: GLYCOPYRROLATE 1 MG TABLET GT SCH ×3 (08:41→17:25)
[2023-06-14] MEDS: clonazePAM 0.5 MG TABLET PO SCH ×2 (08:42→17:24)
[2023-06-14] MEDS: BACLOFEN (10 MG) 10 MG TABLET GT SCH ×2 (08:42→17:24)
[2023-06-14] MEDS: ZINC SULFATE 220 MG CAPSULE GT SCH (08:42)
[2023-06-14] MEDS: AMLODIPINE BESYLATE 5 MG TABLET GT SCH (08:43)
[2023-06-14] MEDS: LEVOTHYROXINE SODIUM 112 MCG TABLET GT SCH (08:51)
[2023-06-14] MEDS: PANTOPRAZOLE 40 MG TABLET.DR PO SCH (08:51)
[2023-06-14] MEDS: VANCOMYCIN 0.75 GM in IV D5W 250 ML IV SCH (08:53)
[2023-06-14] MEDS: IV NS 0.9% 1,000 ML IV PRN (09:00)
[2023-06-14] MEDS ORDERED: IV NS 0.9% 250 ML IV ONE (11:54)
[2023-06-14] MEDS ORDERED: IOHEXOL-300 100 ML VIAL IV ONE (11:54)
[2023-06-14 12:47] LABS: BASOPHILS % (AUTO) 0.2 % (0.0-2.0); EOSINOPHILS # (AUTO) 0.1 K/uL (0.0-0.7); EOSINOPHILS % (AUTO) 1.3 % (0.0-6.0); HEMATOCRIT 26 % (39-51); HEMOGLOBIN 8.1 g/dL (13.5-17.5); LYMPHOCYTES # (AUTO) 0.4 K/uL (0.8-4.8); LYMPHOCYTES % (AUTO) 4.3 % (20.0-44.0); MEAN CORPUSCULAR HEMOGLOBIN 25 PG (26.0-33.0); MEAN CORPUSCULAR HGB CONC 32 g/dl (31.0-36.0); MEAN CORPUSCULAR VOLUME 78 fL (80-96); MONOCYTES # (AUTO) 0.3 K/uL (0.1-1.30); NEUTROPHILS # (AUTO) 8.1 K/uL (1.8-8.9); NEUTROPHILS % (AUTO) 91.2 % (43.0-81.0); PLATELET COUNT (AUTO) 475 K/uL (150-450); RED BLOOD CELL COUNT(AUTO) 3.29 MIL/uL (4.5-6.0); RED CELL DISTRIBUTION WIDTH 16.2 % (11.5-15.0); WHITE BLOOD COUNT (AUTO) 8.9 K/uL (4.3-11.0)
[2023-06-14] MEDS: NEPRO 1,000 ML BOTTLE GT PRN (13:10)
[2023-06-14] MEDS ORDERED: NEPRO 1,000 ML BOTTLE GT PRN (13:30)
[2023-06-14 13:48] LABS: ANISOCYTOSIS 1+; BAND % (MANUAL) 3 % (0.0-5.0); EOSINOPHILS % (MANUAL) 2 % (0-4); LYMPHOCYTES % (MANUAL) 6 % (16-48); MONOCYTES % (MANUAL) 4 % (0-11.0); MYELOCYTES % 3 % (0-0); NEUTROPHILS % (MANUAL) 82 (42-76); PLATELET ESTIMATE INCREASED; STOMATOCYTES 1+
[2023-06-14] MEDS: TAMSULOSIN 0.4 MG CAP.SR.24H GT SCH (17:24)
[2023-06-14] MEDS: DOCUSATE SODIUM LIQ 100 MG/10 ML UDC GT SCH (17:24)
[2023-06-14] MEDS: TIZANIDINE HCL 4 MG TABLET GT SCH (17:25)
[2023-06-14] MEDS: FINASTERIDE (5 MG) 5 MG TABLET GT SCH (17:25)
[2023-06-14] MEDS: VANCOMYCIN 1 GM in IV D5W 250ml IV SCH (20:46)
[2023-06-14] MEDS ORDERED: MIRTAZAPINE 15 MG TABLET ONE (21:37)
[2023-06-14] MEDS: MIRTAZAPINE 15 MG TABLET GT SCH (21:41)
[2023-06-14] MEDS: clonazePAM 1 MG TABLET GT SCH (21:41)
[2023-06-14] MEDS: TRAZODONE 50 MG TABLET GT SCH (21:41)
[2023-06-14] MEDS: MUPIROCIN OINT 2% 22 GM TUBE NS SCH (21:42)
[2023-06-15] VITALS (46 sets, daily range): BP systolic 76–173; BP diastolic 49–97; TEMP 98.6–98.9; O2SAT 88–99
[2023-06-15] MEDS: CEFEPIME 2 GM in IV D5W 100 ML IV SCH ×3 (00:18→23:43)
[2023-06-15] MEDS: IV NS 0.9% 1,000 ML IV PRN ×2 (01:21→14:39)
[2023-06-15] MEDS: GUAIFENESIN 300 MG/15 ML UDC GT SCH ×6 (01:23→21:38)
[2023-06-15] MEDS: IPRATROPIUM NEB FS 0.5 MG/2.5 ML AMPUL.NEB NEB SCH ×4 (02:11→19:53)
[2023-06-15] MEDS: ALBUTEROL FS 2.5 MG/3 ML VIAL.NEB NEB SCH ×4 (02:11→19:53)
[2023-06-15 03:53] LABS: CALCIUM, SERUM 10.1 mg/dL (8.5-10.1); CREATININE 0.9 mg/dL (0.6-1.3); POTASSIUM 3.3 mmol/L (3.5-5.1)
[2023-06-15] MEDS: PROPOFOL 100 ML IV PRN ×3 (04:47→17:27)
[2023-06-15 06:26] LABS: ABG BASE EXCESS 1.9 mmol/L; ABG OXYGEN SATURATION 96.4 % (92.0-98.5); ABG PCO2 38.3 mmHg (35.0-45.0); ABG PH 7.449 (7.350-7.450); ABG PO2 82.8 mmHg (75.0-100.0); ABG TOTAL HEMOGLOBIN 7.8 G/dL (13.5-18.0); AaDO2 86.1 mmHg; COHb 1.3 % (0.5-1.5); MetHb 0.3 % (0.0-1.5); O2Hb 94.9 % (94.0-97.0); PEEP,BG 5 cm H2O; SITE, ABG Left Radial; VT, ABG 500 mL
[2023-06-15] MEDS: ZINC SULFATE 220 MG CAPSULE GT SCH (08:23)
[2023-06-15] MEDS: ASPIRIN 81 MG TAB.CHEW GT SCH (08:23)
[2023-06-15] MEDS: FENOFIBRATE NANOCRYS (145 MG) 145 MG TABLET GT SCH (08:23)
[2023-06-15] MEDS: CHOLECALCIFEROL 1,000 UNIT TABLET (VIT D3) GT SCH (08:24)
[2023-06-15] MEDS: PANTOPRAZOLE 40 MG TABLET.DR PO SCH (08:24)
[2023-06-15] MEDS: GLYCOPYRROLATE 1 MG TABLET GT SCH ×3 (08:24→17:39)
[2023-06-15] MEDS: AMLODIPINE BESYLATE 5 MG TABLET GT SCH (08:24)
[2023-06-15] MEDS: SERTRALINE HCL 50 MG TABLET GT SCH (08:24)
[2023-06-15] MEDS: ATORVASTATIN 10 MG TABLET GT SCH (08:25)
[2023-06-15] MEDS: buPROPion 75 MG TABLET GT SCH ×2 (08:25→17:38)
[2023-06-15] MEDS: BACLOFEN (10 MG) 10 MG TABLET GT SCH ×2 (08:25→17:39)
[2023-06-15] MEDS: ALLOPURINOL 100 MG TABLET GT SCH (08:25)
[2023-06-15] MEDS: clonazePAM 0.5 MG TABLET PO SCH (08:25)
[2023-06-15] MEDS: LEVOTHYROXINE SODIUM 112 MCG TABLET GT SCH (08:25)
[2023-06-15] MEDS: RILUZOLE 50 MG GT SCH ×2 (08:27→17:38)
[2023-06-15] MEDS: MULTIPLE VIT (LYCOPENE/FA/MV,CA,IRON,MIN/LUT)1 TAB GT SCH (08:27)
[2023-06-15] MEDS: SILODOSIN 4 MG GT SCH (08:27)
[2023-06-15] MEDS: VANCOMYCIN 1 GM in IV D5W 250ml IV SCH ×2 (08:30→20:00)
[2023-06-15] MEDS ORDERED: POTASSIUM CHLORIDE 20 MEQ POWDER PACKET NG SCH (10:00)
[2023-06-15] MEDS: MUPIROCIN OINT 2% 22 GM TUBE NS SCH ×2 (10:45→21:33)
[2023-06-15] MEDS: LORAZEPAM INJ 2 MG/ML VIAL IV PRN ×2 (11:06→15:47)
[2023-06-15 12:40] LABS: BASOPHILS % (AUTO) 0.1 % (0.0-2.0); EOSINOPHILS # (AUTO) 0.1 K/uL (0.0-0.7); EOSINOPHILS % (AUTO) 1.1 % (0.0-6.0); HEMATOCRIT 23 % (39-51); HEMOGLOBIN 7.3 g/dL (13.5-17.5); LYMPHOCYTES # (AUTO) 0.3 K/uL (0.8-4.8); LYMPHOCYTES % (AUTO) 3.4 % (20.0-44.0); MEAN CORPUSCULAR HEMOGLOBIN 25 PG (26.0-33.0); MEAN CORPUSCULAR HGB CONC 32 g/dl (31.0-36.0); MEAN CORPUSCULAR VOLUME 78 fL (80-96); MONOCYTES # (AUTO) 0.3 K/uL (0.1-1.30); MONOCYTES % (AUTO) 2.8 % (2.0-12.0); NEUTROPHILS % (AUTO) 92.6 % (43.0-81.0); PLATELET COUNT (AUTO) 446 K/uL (150-450); RED BLOOD CELL COUNT(AUTO) 2.92 MIL/uL (4.5-6.0); RED CELL DISTRIBUTION WIDTH 16.4 % (11.5-15.0); WHITE BLOOD COUNT (AUTO) 9.7 K/uL (4.3-11.0)
[2023-06-15 13:27] LABS: BAND % (MANUAL) 2 % (0.0-5.0); EOSINOPHILS % (MANUAL) 1 % (0-4); LYMPHOCYTES % (MANUAL) 3 % (16-48); MONOCYTES % (MANUAL) 6 % (0-11.0); NEUTROPHILS % (MANUAL) 88 (42-76); PLATELET ESTIMATE ADEQUATE
[2023-06-15] MEDS: clonazePAM 0.5 MG TABLET GT SCH (17:39)
[2023-06-15] MEDS: TIZANIDINE HCL 4 MG TABLET GT SCH (17:39)
[2023-06-15] MEDS: TAMSULOSIN 0.4 MG CAP.SR.24H GT SCH (17:39)
[2023-06-15] MEDS: FINASTERIDE (5 MG) 5 MG TABLET GT SCH (17:39)
[2023-06-15] MEDS: DOCUSATE SODIUM LIQ 100 MG/10 ML UDC GT SCH (17:39)
[2023-06-15] MEDS: clonazePAM 1 MG TABLET GT SCH (21:33)
[2023-06-15] MEDS: MIRTAZAPINE 15 MG TABLET GT SCH (21:33)
[2023-06-15] MEDS: TRAZODONE 50 MG TABLET GT SCH (21:33)
[2023-06-16] VITALS (44 sets, daily range): BP systolic 90–156; BP diastolic 55–96; TEMP 97.7–98; O2SAT 90–100
[2023-06-16] MEDS: GUAIFENESIN 300 MG/15 ML UDC GT SCH ×4 (01:27→12:32)
[2023-06-16] MEDS: IV NS 0.9% 1,000 ML IV PRN (01:44)
[2023-06-16] MEDS: IPRATROPIUM NEB FS 0.5 MG/2.5 ML AMPUL.NEB NEB SCH ×3 (01:51→13:18)
[2023-06-16] MEDS: ALBUTEROL FS 2.5 MG/3 ML VIAL.NEB NEB SCH ×3 (01:51→13:18)
[2023-06-16 04:29] LABS: BASOPHILS % (AUTO) 0.2 % (0.0-2.0); EOSINOPHILS # (AUTO) 0.1 K/uL (0.0-0.7); EOSINOPHILS % (AUTO) 0.9 % (0.0-6.0); HEMATOCRIT 22 % (39-51); LYMPHOCYTES # (AUTO) 0.6 K/uL (0.8-4.8); LYMPHOCYTES % (AUTO) 5.1 % (20.0-44.0); MEAN CORPUSCULAR HEMOGLOBIN 25 PG (26.0-33.0); MEAN CORPUSCULAR HGB CONC 32 g/dl (31.0-36.0); MEAN CORPUSCULAR VOLUME 78 fL (80-96); MONOCYTES # (AUTO) 0.4 K/uL (0.1-1.30); MONOCYTES % (AUTO) 3.5 % (2.0-12.0); NEUTROPHILS % (AUTO) 90.3 % (43.0-81.0); PLATELET COUNT (AUTO) 471 K/uL (150-450); RED BLOOD CELL COUNT(AUTO) 2.82 MIL/uL (4.5-6.0); RED CELL DISTRIBUTION WIDTH 16.2 % (11.5-15.0); WHITE BLOOD COUNT (AUTO) 11.1 K/uL (4.3-11.0)
[2023-06-16 04:45] LABS: CALCIUM, SERUM 9.6 mg/dL (8.5-10.1); CREATININE 0.8 mg/dL (0.6-1.3); POTASSIUM 3.7 mmol/L (3.5-5.1)
[2023-06-16] MEDS: PROPOFOL 100 ML IV PRN (05:29)
[2023-06-16] MEDS: PANTOPRAZOLE 40 MG TABLET.DR PO SCH (07:30)
[2023-06-16] MEDS: buPROPion 75 MG TABLET GT SCH (08:24)
[2023-06-16] MEDS: ATORVASTATIN 10 MG TABLET GT SCH (08:24)
[2023-06-16] MEDS: AMLODIPINE BESYLATE 5 MG TABLET GT SCH (08:25)
[2023-06-16] MEDS: SERTRALINE HCL 50 MG TABLET GT SCH (08:25)
[2023-06-16] MEDS: RILUZOLE 50 MG GT SCH (08:26)
[2023-06-16] MEDS: ALLOPURINOL 100 MG TABLET GT SCH (08:26)
[2023-06-16] MEDS: LEVOTHYROXINE SODIUM 112 MCG TABLET GT SCH (08:26)
[2023-06-16] MEDS: MULTIPLE VIT (LYCOPENE/FA/MV,CA,IRON,MIN/LUT)1 TAB GT SCH (08:26)
[2023-06-16] MEDS: SILODOSIN 4 MG GT SCH (08:26)
[2023-06-16] MEDS: BACLOFEN (10 MG) 10 MG TABLET GT SCH (08:28)
[2023-06-16] MEDS: GLYCOPYRROLATE 1 MG TABLET GT SCH ×2 (08:28→12:32)
[2023-06-16] MEDS: CHOLECALCIFEROL 1,000 UNIT TABLET (VIT D3) GT SCH (08:47)
[2023-06-16] MEDS: clonazePAM 0.5 MG TABLET GT SCH (08:47)
[2023-06-16] MEDS: ASPIRIN 81 MG TAB.CHEW GT SCH (08:47)
[2023-06-16] MEDS: FENOFIBRATE NANOCRYS (145 MG) 145 MG TABLET GT SCH (08:47)
[2023-06-16] MEDS: ZINC SULFATE 220 MG CAPSULE GT SCH (08:48)
[2023-06-16] MEDS: MUPIROCIN OINT 2% 22 GM TUBE NS SCH (08:48)
[2023-06-16] MEDS: VANCOMYCIN 1 GM in IV D5W 250ml IV SCH (08:50)
[2023-06-16] MEDS: CEFEPIME 2 GM in IV D5W 100 ML IV SCH (12:32)
[2023-06-16] MEDS ORDERED: VANCOMYCIN 500 MG in IV D5W 100ml IV SCH (20:00)
== END 2023-06-16 14:57 | disposition short-term general hospital (02) | DRG 207 ==
LOC: ER 22:02 → TRANSITION 06-10 00:14 → TELE-TD 06-10 06:59 → ICU 06-12 10:31
PROVIDERS: ADMIT Student in an Organized Health Care Education/Training Program; ATTEND Nurse Practitioner Acute Care
PROC: 5A1955Z Respiratory Ventilation, Greater than 96 Consecutive Hours (ICD-10-PCS; principal; 2023-06-10)
PROC: 30233N1 Transfusion of Nonautologous Red Blood Cells into Peripheral Vein, Percutaneous Approach (ICD-10-PCS; 2023-06-12)
PROC: 05HB33Z Insertion of Infusion Device into Right Basilic Vein, Percutaneous Approach (ICD-10-PCS; 2023-06-12)
PROC: 02HV33Z Insertion of Infusion Device into Superior Vena Cava, Percutaneous Approach (ICD-10-PCS; 2023-06-13)
PROC: B548ZZA Ultrasonography of Superior Vena Cava, Guidance (ICD-10-PCS; 2023-06-13)
DX: J95.01 Hemorrhage from tracheostomy stoma (principal); N17.0 Acute kidney failure with tubular necrosis; J96.20 Acute and chronic respiratory failure, unspecified whether with hypoxia or hypercapnia; Z99.11 Dependence on respirator [ventilator] status; G12.21 Amyotrophic lateral sclerosis; E87.20 Acidosis, unspecified; J98.11 Atelectasis; R78.81 Bacteremia; Y84.8 Other medical procedures as the cause of abnormal reaction of the patient, or of later complication, without mention of misadventure at the time of the procedure; Y92.009 Unspecified place in unspecified non-institutional (private) residence as the place of occurrence of the external cause; E83.52 Hypercalcemia; Z66 Do not resuscitate; R13.10 Dysphagia, unspecified; I10 Essential (primary) hypertension; Z85.21 Personal history of malignant neoplasm of larynx; E03.9 Hypothyroidism, unspecified; Z79.02 Long term (current) use of antithrombotics/antiplatelets; Z79.82 Long term (current) use of aspirin; Z79.890 Hormone replacement therapy; D75.839 Thrombocytosis, unspecified; D63.8 Anemia in other chronic diseases classified elsewhere; E83.42 Hypomagnesemia; E78.5 Hyperlipidemia, unspecified; R45.1 Restlessness and agitation; E86.1 Hypovolemia; F39 Unspecified mood [affective] disorder; J95.03 Malfunction of tracheostomy stoma; Z90.02 Acquired absence of larynx; N40.1 Benign prostatic hyperplasia with lower urinary tract symptoms; N32.81 Overactive bladder; Z78.1 Physical restraint status; Z79.899 Other long term (current) drug therapy; R91.8 Other nonspecific abnormal finding of lung field
CPT/HCPCS: 31720; 36410; 36415; 36569; 36600; 70491-TC; 71045-TC; 71260-TC; 76770-TC; 80048-TC; 80053-TC; 80076-TC; 80202-TC; 81001; 82550-TC; 82570-TC; 83735-TC; 83880; 83970; 84100-TC; 84155; 84165; 84300-TC; 84484-TC; 85025-TC; 85730-TC; 86850-TC; 87040-TC; 92526; 92611-TC; 94002-TC; 94003-TC; 94760-TC; 94799-TC; A4223; A4349; A4623; A7526; G0378; J0692; J2060; J2405; J3370; J3490; J7030; J7050; J7060; P9016; Q9967